=== PATIENT | male | born 1940 | race Caucasian/White ===

== ENCOUNTER 2023-06-08 18:24 | Emergency (ER) | payer OTHER, SELFPAY ==
[2023-06-08 18:35] VITALS: BP 134/74; PULSE 65; RESP 16; TEMP 36.6; O2SAT 95; BMI 26.6
--- NOTE | 2023-06-08 18:39 | ED.EAR ---
HPI - Ear Problem General Time Seen by Provider: 18:39 Date Seen: 06/08/23 Chief complaint: Ear/Nose/Throat Problem Stated complaint: Hearing aids stuck in ear Time Seen by Provider: 06/08/23 18:34 Source: patient and RN notes reviewed Mode of arrival: ambulatory Limitations: no limitations History of Present Illness HPI Narrative: Patient is an 83-year-old male coming in with retained hearing aid tips in his ear canals. He states he keeps losing them, they keep coming off the end of the hearing aid, believes they are retained in his ear canals. He is leaving for a trip to the [facility] tomorrow. [facility] when he gets [facility]. MD Complaint: foreign body Related Data Home Medications Medication Instructions Recorded Confirmed No Known Home Medications 06/08/23 06/08/23 Allergies Allergy/AdvReac Type Severity Reaction Status Date / Time No Known Drug Allergies Allergy Verified 06/08/23 18:38 Review of Systems Narrative: As per HPI. PFSH PFSH Social History Smoking Status: Never smoker Non-prescribed substance use: denies use Exam Const: Vital Signs, click to edit/add: Vital Signs - 24 hr 06/08/23 18:35 Temperature 97.9 F Pulse Rate [Pulse Oximeter] 65 Respiratory Rate 16 Blood Pressure [Ri ght Upper Arm] 134/74 Pulse Oximetry 95 Oxygen Delivery Me thod Room Air 83-year-old male is alert, interactive, no apparent stress. His external ears are normal. Can see visible black foreign bodies in both ear canals. The left ear canal had 1 retained rubber black and of his hearing aid, simply removed with an alligator. The right ear canal ended up having 3 retained rubber ends of his hearing aids, all removed with an alligator, ED residential real estate assistant did help with visualization and holding the light. Patient tolerated this well, no traumatic changes to either side from retrieval. Documenting provider has reviewed patient's vital signs: yes Course Vital Signs Vital signs: Initial Vital Signs Temperature 97.9 F 06/08/23 18:35 Temperature Source Temporal Artery Scan 06/08/23 18:35 Pulse Rate 65 06/08/23 18:35 Pulse Rhythm Regular 06/08/23 18:35 Respiratory Rate 16 06/08/23 18:35 Blood Pressure 134/74 06/08/23 18:35 Blood Pressure Mean 94 06/08/23 18:35 Blood Pressure Position Sitting 06/08/23 18:35 Pulse Oximetry 95 06/08/23 18:35 Oxygen Delivery Method Room Air 06/08/23 18:35 Vital Signs Temperature 97.9 F 06/08/23 18:35 Pulse Rate 65 06/08/23 18:35 Respiratory Rate 16 06/08/23 18:35 Blood Pressure 134/74 06/08/23 18:35 Pulse Oximetry 95 06/08/23 18:35 Oxygen Delivery Method Room Air 06/08/23 18:35 Temperature 97.9 F 06/08/23 18:35 Pulse Rate 65 06/08/23 18:35 Respiratory Rate 16 06/08/23 18:35 Blood Pressure 134/74 06/08/23 18:35 Pulse Oximetry 95 06/08/23 18:35 Oxygen Delivery Method Room Air 06/08/23 18:35 Discharge Plan Discharge Clinical Impression: Acute foreign body of right ear canal Qualifiers: Encounter type: initial encounter Qualified Code(s): T16.1XXA - Foreign body in right ear, initial encounter Acute foreign body of left ear canal Qualifiers: Encounter type: initial encounter Qualified Code(s): T16.2XXA - Foreign body in left ear, initial encounter Patient Disposition: Home, Self-Care Condition: Stable Instructions: Ear Foreign Body (ED) Additional Instructions: [facility]. If the ends do come off in your ear canals again, can seek medical evaluation to have these retrieved. Activity Level: Activity as Tolerated Prescriptions: No Action No Known Home Medications Stand Alone Forms: [facility] Info Instructions
== END 2023-06-08 18:58 | disposition home or self-care (01) ==
LOC: ED 18:57
PROVIDERS: Emergency Provider Family Medicine
DX: T16.2XXA Foreign body in left ear, initial encounter (principal); T16.1XXA Foreign body in right ear, initial encounter; W44.G1XA Audio device entering into or through a natural orifice, initial encounter
CPT/HCPCS: 99282; 99283

== ENCOUNTER 2024-02-28 12:24 | Emergency (ER) | payer OTHER, SELFPAY ==
[2024-02-28 12:31] VITALS: BP 152/84; PULSE 84; RESP 16; TEMP 36.5; O2SAT 97; BMI 24.3
--- OUTSIDE RECORDS SUMMARY | 2024-02-28 12:37 | XMS_ITS | Encounter Summary ---
Author Name [facility] [facility] [place] Address [address] [place] [address] Care Team Providers Care Shipwright Apprentice Name Role Phone MEHREEN ARCHIBALD Primary Care Provider Unavailabl e JUAN MIGUEL MONTERO Primary Care Provider Unavailabl e Insurance Providers: All historical and current Section Date Range: From patient's date of to the date document was created. This section includes the names of all active insurance providers for the patient. Insurance Provider Type of Coverage Plan Name Start of Policy Coverage End of Policy Coverage Group Number Member ID Insurance Provider's Telephone Number Policy Jaeger's Name Patient's Relationship to Policy Jaeger [employer] [facility] (WNR) MEDICARE ADVANTAGE [facility] ([facility]) Oct 31, 2019 [id number] [phone] Nelida DIAZ PATIENT [employer] [facility] (WNR) MEDICARE ADVANTAGE [facility] (WNR) Oct 31, 2019 [id number] Nelida DIAZ PATIENT [employer] (WNR) MEDICARE ADVANTAGE [facility] (WNR) Oct 31, 2019 [id number] [phone] Nelida DIAZ PATIENT [employer] (WNR) MEDICARE ADVANTAGE [facility] (R) Oct 31, 2019 [id number] [phone] Nelida DIAZ PATIENT [employer] (WNR) MEDICARE ADVANTAGE [facility] (WNR) Jun 01, 2017 [id number] Nelida DIAZ PATIENT [employer] (WNR) MEDICARE ADVANTAGE [facility] (WNR) Jun 01, 2017 [id number] Nelida DIAZ PATIENT [employer] M[employer] (WNR) MEDICARE ADVANTAGE MCR (WNR) Jun 01, 2015 [id number] Nelida DIAZ PATIENT [employer] [facility] (WNR) MEDICARE ADVANTAGE [facility] (WNR) Jun 01, 2015 [id number] Nelida DIAZ PATIENT Selected Encounter This section includes the [place] on [place] at [place] for [place]. Date/Time Encounter Type Encounter Description Reason Pro vider Source Dec 21, 2023 03:20 PM Outpatient Encounter TELEPHONE TRIAGE IHE Encounter Template Text not used by [place] Plan of Treatment: Future Appointments (+ 6 months) and Future Tests (+/- 45 days) The Plan of Treatment section includes future care activities for the patient from all [place] treatmentfacilities. This section includes future appointments and future orders which are active, pending or scheduled. Future Appointments This section includes appointments that were scheduled to occur 6 months from the date of the Encounter, up to a maximum of 20 appointments. The data comes from all [place] treatment facilities. Appointment Date/Time Appointment Type Appointme nt Facility Name Dec 30, 2023 02:30 PM AMBULATORY - NONE [facility] Social History: Smoking Status (Most current) and Tobacco Use (All prior to encounter date) This section includes the most current, and the historical, smoking and tobacco- related health factors from the [facility] facility where the Encounter took place. Current Smoking Status This section includes the most current smoking, or tobacco-related health factor, from the [facility] facility where the Encounter took place. Date/Time Current Smoking Status Comment Sondra ity Feb 05, 2023 11:00 AM VA-TOBACCO FORMER USER [facility] Tobacco Use History This section includes a history of the smoking, or tobacco-related health factors, that were collected on or before the date of the Encounter. The data comes from the [place] facility where the Encounter took place. Date/Time Smoking Status/Tobacco Use Comment F nika Feb 05, 2023 11:00 AM VA-TOBACCO QUIT 15 YRS OR MORE [facility] Jan 02, 2022 11:00 AM VA-TOBACCO FORMER USER [facility] Jan 02, 2022 11:00 AM VA-TOBACCO QUIT 15 YRS OR MORE [facility] Nov 08, 2020 02:00 PM VA-TOBACCO FORMER USER [facility] Nov 08, 2020 02:00 PM VA-TOBACCO QUIT 15 YRS OR MORE [facility] Sep 02, 2016 10:29 AM FORMER TOBACCO USER 7Y OR GREATE R [facility] Aug 06, 2015 10:33 AM FORMER TOBACCO USER 7Y OR GREATE R [facility] Jul 07, 2014 08:27 AM LIFETIME NON-TOBACCO USER [facility] Encounter Notes: All associated encounter notes This section contains the clinical notes associated to the Encounter. Date/Time Encounter Note(s) Provider Source Dec 21, 2023 03:46 PM ADDENDUM: LOCAL TITLE: Addendum STANDARD TITLE: ADDENDUM DATE OF NOTE: DEC 21, 2023@15:46:55 ENTRY DATE: DEC 21, 2023@15:46:56 AUTHOR: DEE DEE TALBERT EXP COSIGNER: URGENCY: STATUS: COMPLETED Forwarded for Audiology attention. /mariano/ DEE DEE TALBERT RN RN Pact Superintendent Nonselling Signed: 12/21/2023 15:47 Receipt Acknowledged By: 12/28/2023 15:41 /mariano/ HALINA LIN STAFF FUR TINTER --- Original Document --- 12/21/23 CCC: SCHEDULING ADMINISTRATION: Primary Care Call Center Primary Care Provider Call. Please contact at the following number: [phone] Other: needs audiology records from prior appointments, Please assist/advise. This note was created by a V23 [facility] Call Center BRENDA/JEAN. Please do not alert this health technical writer by adding as a signer for future communications. Alerts are not monitored by this user, please reach out to [facility] instead if indicated. /hans GHOSH [facility] Signed: 12/21/2023 15:22 Receipt Acknowledged By: 12/21/2023 15:46 /mariano/ DEE DEE TALBERT RN RN Pact Superintendent Nonselling DEE DEE TALBERT [facility] Dec 21, 2023 03:20 PM ADMINISTRATIVE NOT E: LOCAL TITLE: CCC: SCHEDULING ADMINISTRATION STANDARD TITLE: ADMINISTRATIVE NOTE DATE OF NOTE: DEC 21, 2023@15:20 ENTRY DATE: DEC 21, 2023@15:20:55 AUTHOR: BHAVANA GHOSH COSIGNER: URGENCY: STATUS: COMPLETED CCC: SCHEDULING ADMINISTRATION Has ADDENDA Primary Care Call Center Primary Care Provider Call. Please contact at the following number: [phone] Other: needs audiology records from prior appointments, Please assist/advise. This note was created by a 3 [facility] AMSA/JEAN. Please do not alert this health technical writer by adding as a signer for future communications. Alerts are not monitored by this user, please reach out to [facility] instead if indicated. /hans GHOSH [facility] Signed: 12/21/2023 15:22 Receipt Acknowledged By: 12/21/2023 15:46 /mariano/ DEE DEE TALBERT RN RN Pact Superintendent Nonselling 12/21/2023 ADDENDUM STATUS: COMPLETED Forwarded for Audiology attention. /hans TALBERT RN RN Pact Superintendent Nonselling Signed: 12/21/2023 15:47 Receipt Acknowledged By: 12/28/2023 15:41 /mariano/ HALINA LIN STAFF FUR TINTER 12/28/2023 ADDENDUM STATUS: COMPLETED Records were sent to outside provider via community care on 12/24/23. /HALINA Borjas STAFF FUR TINTER Signed: 12/28/2023 15:42 BHAVANA GHOSH [facility]
--- OUTSIDE RECORDS SUMMARY | 2024-02-28 12:37 | XMS_ITS | Continuity of Care Document ---
Author Name [facility] Organization [facility] Care Team Providers Care Gravity Prospecting Operator Name Role Phone [facility] Unavailable Unavailable Problems Combined list of problems from Department of Defense and Veterans Affairs facilities. It does not include entries that were removed or entered in error. 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 13 Condition Jul 07, 2014 Entered By: BEN VIVEROS Comment: s/p dualchamber pacer [facility] Chronic peptic ulcer without hemorrhage, without perforation AND without obstruction Active 06/01/18 86 Condition Jul 07, 2014 Entered By: BEN VIVEROS Comment: s/p partial gastrectomy, has dumping syndrome [facility] Atrial Flutter (SCT [id number]) Active Condition [facility] Cardiac pacemaker in situ Active Condition [facility] Cardiomyopathy Active Condition [facility] Elevated PSA Active Condition [facility] Gilbert's syndrome Active Condition [facility] Hearing Loss (SCT [id number]) Active Condition [facility] History of peptic ulcer Active Condition Dec 04, 2017 Entered By: MEHREEN ARCHIBALD Comment: partial gastectomy and dumping syndrome [facility] Syncope and Collapse (SCT [id number]) Active Condition Dec 04, 2017 Entered By: MEHREEN ARCHIBALD Comment: due to complete heart block [facility] Typical atrial flutter Active Condition [facility] Diagnosis: ICD-10-CM H90.A21 Snsrnrl hear loss, uni, r ear, with rstrcd hear cntra side Active Diagnosis [facility] Diagnosis: ICD-10-CM J32.8 Other chronic sinusitis Active Diagnosis [facility] Diagnosis: ICD-10-CM I45.5 Other specified heart block Active Diagnosis [facility] Diagnosis: ICD-10-CM Z13.6 Encounter for screening for cardiovascular disorders Active Diagnosis [facility] Diagnosis: ICD-10-CM Z95.0 Presence of cardiac pacemaker Active Diagnosis [facility] Diagnosis: ICD-10-CM 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 [facility] Diagnosis: ICD-10-CM H90.3 Sensorineural hearing loss, bilateral Active Diagnosis [facility] Diagnosis: ICD-10-CM I48.3 Typical atrial flutter Active Diagnosis [facility] Diagnosis: ICD-10-CM Z00.00 Encntr for general adult medical exam w/o abnormal findings Active Diagnosis [facility] Medications Combined list of outpatient medications from Department of Defense and Veterans Affairs facilities.Medications provided include 1) outpatient medications from the last 15 months, and 2) patient-reported medications. Medication Details Route Status Patient Instructions Prescription Expires Prescription Number Last Dispense Date Ordering Provider Order Date Order Qty Source ASPIRIN 81MG TAB,CHEWABL E ASPIRIN 81MG TAB,CHEW ABLE Active: On Hold CHEW ONE TABLET BY MOUTH EVERY DAY TO PREVENT BLOOD CLOTS TO PREVENT BLOOD CLOTS Jul 24, 2023 30 Jul 24, 2024 [id number] YASIR RECINOS [facility] ORAL HOLD 07/24/2024 [id number] Angeli RECINOS 2023 30 [facility] GINKGO BILOBA CAP/TAB GINKGO BILOBA CAP/TAB Non-VA TAKE ONE TABLET BY MOUTH EVERY DAY Sep 23, 2023 Non-VA Document ed by: MAIA BLANDON Document ed at: [facility] ORAL ACTIVE Angeli BLANDON 2023 [facility] NON VA MED NOT LISTED NON VA MED NOT LISTED Non-VA USE HYDRO-ZY ME MOUTH Nov 21, 2020 Non-VA Document ed by: AMARILYS PALAFOX Document ed at: [facility] ACT[facility] AMARILYS PALAFOX 2020 [facility] SAW PALMETTO CAP/TAB SAW PALMETTO CAP/TAB Non-VA TAKE Jan 02, 2022 Non-VA Document ed by: MAGGIE BUCIO Document ed at: [facility] ACTIVE TRENTON BUCIO 2021 [facility] SODIUM CHLORIDE 0.65% SOLN,NASAL SPRAY SODIUM CHLORIDE 0.65% SOLN,GIGI AL SPRAY SPRAY 2 SPRAYS IN EACH NOSTRIL TWICE A DAY FOR NASAL DRYNESS FOR NASAL DRYNESS October 17, 2023 45 Nov 16, 2023 [id number] October 17, 2023 Trent PONCE [facility] NASAL 11/16/2023 [id number] MONICA PONCE 2023 45 [facility] Immunizations Combined list of available immunizations from the Department of Defense and Veterans Affairs facilities. Immunization Series Date Given Administered By Site Reaction Lot Number CVX Code Drug Digital Strategist Status Comments Source TD (ADULT), 2 LF TETANUS TOXOID, PRESERVATIVE FREE, ADSORBED 1996 09 complet ed [facility] Results Combined list of recent chemistry, hematology and other laboratory results from Department of Defense and Veterans Affairs, ranging from 15 months to all on record, depending upon the facility. Order Name Results Value Reference Range Date Interpretation Specimen Comments Source LIPID PANEL,NO N-FASTIN G CHOLESTERO L [MASS/VOLU ME] IN SERUM OR PLASMA 166 mg/dL <199 - 199 08/06 Specimen Type: PLASMA No comment entered. Ordering Provider: YOAV VILLEDA Report Released Date/Time: Aug 07, 2023 09:32 AM Reporting Lab: [facility] [address] Performing Lab: [facility] [address] [place] [facility] LIPID PANEL,NO N-FASTIN G CHOLESTERO L IN HDL [MASS/VOLU ME] IN SERUM OR PLASMA 66 mg/dL 40 08/06 Specimen Type: PLASMA No comment entered. Ordering Provider: YOAV VILLEDA ERT E Report Released Date/Time: Aug 07, 2023 09:32 AM Reporting Lab: [facility] [address] Performing Lab: [facility] [address] [facility] LIPID PANEL,NO N-FASTIN G CHOLESTERO L IN LDL [MASS/VOLU ME] IN SERUM OR PLASMA BY CALCULANEHEMIAHO N 75 mg/dL <99 - 99 08/06 Specimen Type: PLASMA No comment entered. Ordering Provider: YOAV VILLEDA ERT Rachael Report Released Date/Time: Aug 07, 2023 09:32 AM Reporting Lab: [facility] [address] Performing Lab: [facility] [address] [place] [facility] LIPID PANEL,NO N-FASTIN G CHOLESTERO L IN VLDL [MASS/VOLU ME] IN SERUM OR PLASMA BY CALCULATIO N 25 mg/dL <29 - 29 08/06 Specimen Type: PLASMA No comment entered. Ordering Provider: YOAV VILLEDA Report Released Date/Time: Aug 07, 2023 09:32 AM Reporting Lab: [facility] [address] Performing Lab: [facility] [address] [place] [facility] LIPID PANEL,NO N-FASTIN G CHOLESTERO L NON HDL [MASS/VOLU ME] IN SERUM OR PLASMA 100 mg/dL <129 - 129 08/06 Specimen Type: PLASMA No comment entered. Ordering Provider: YOAV VILLEDA ERT Rachael Report Released Date/Time: Aug 07, 2023 09:32 AM Reporting Lab: [facility] [address] Performing Lab: [facility] [address] [place] [facility] LIPID PANEL,NO N-FASTIN G TRIGLYCERI DE [MASS/VOLU ME] IN SERUM OR PLASMA 124 mg/dL <149 - 149 08/06 Specimen Type: PLASMA No comment entered. Ordering Provider: YOAV VILLEDA Report Released Date/Time: Aug 07, 2023 09:32 AM Reporting Lab: [facility] [address] Performing Lab: [facility] [address] [place] [facility] EXTRA GOLD GEL TUBE EXTRA GOLD GEL TUBE RECEIVED 07/24 Specimen Type: SERUM No comment entered. Ordering Provider: MARGARET RECINOS Report Released Date/Time: Jul 24, 2023 11:22 AM Reporting Lab: [facility] [address] Performing Lab: [facility] [address] [facility] [facility] POC CREATINI NE CREATININE [MASS/VOLU ME] IN BLOOD 1.1 mg/dL 0.6 - 1.3 07/24 Specimen Type: BLOOD No comment entered. Ordering Provider: MARGARET RECINOS Report Released Date/Time: Jul 24, 2023 11:28 AM Reporting Lab: [facility] [address] Performing Lab: [facility] [address] [place] [facility] PROTHROM BIN TIME/INR INR IN PLATELET POOR PLASMA BY COAGULATIO N ASSAY 1.0 0.8 - 1.1 07/24 Specimen Type: PLASMA No comment entered. Ordering Provider: MARGARET RECINOS Report Released Date/Time: Jul 24, 2023 10:52 AM Reporting Lab: [facility] [address] Performing Lab: [facility] [address] [place] [facility] PROTHROM BIN TIME/INR PROTHROMBI N TIME (PT) 12.2 s 9.4 - 12.5 07/24 Specimen Type: PLASMA No comment entered. Ordering Provider: MARGARET RECINOS Report Released Date/Time: Jul 24, 2023 10:52 AM Reporting Lab: [facility] [address] Performing Lab: [facility] [address] [place] [facility] ACT PART THROMBO TIME APTT IN PLATELET POOR PLASMA BY COAGULATIO N ASSAY 34.3 s 25.1 - 36.5 07/24 Specimen Type: PLASMA No comment entered. Ordering Provider: MARGARET RECINOS Report Released Date/Time: Jul 24, 2023 10:52 AM Reporting Lab: [facility] [address] Performing Lab: [facility] [address] [place] [facility] CBC & DIFF LEUKOCYTES [#/VOLUME] IN BLOOD BY AUTOMATED COUNT 8.70 10*3/uL 4.0 - 11.0 07/24 Specimen Type: BLOOD Comment: Automated Differentia l Performed Ordering Provider: MARGARET RECINOS Report Released Date/Time: Jul 24, 2023 10:52 AM Reporting Lab: [facility] [address] Performing Lab: [facility] [address] [place] [facility] CBC & DIFF ERYTHROCYT ES [#/VOLUME] IN BLOOD BY AUTOMATED COUNT 4.85 10*6/uL 4.6 - 6.2 07/24 Specimen Type: BLOOD Comment: Automated Differentia l Performed Ordering Provider: MARGARET RECINOS Report Released Date/Time: Jul 24, 2023 10:52 AM Reporting Lab: [facility] [address] Performing Lab: [facility] [address] [place] [facility] CBC & DIFF HEMOGLOBIN [MASS/VOLU ME] IN BLOOD 15.1 g/dL 13.5 - 17.9 07/24 Specimen Type: BLOOD Comment: Automated Differentia l Performed Ordering Provider: MARGARET RECINOS Report Released Date/Time: Jul 24, 2023 10:52 AM Reporting Lab: [facility] [address] Performing Lab: [facility] [address] [place] [facility] CBC & DIFF HEMATOCRIT [VOLUME FRACTION] OF BLOOD BY AUTOMATED COUNT 45.7 41 - 54 07/24 Specimen Type: BLOOD Comment: Automated Differentia l Performed Ordering Provider: MARGARET RECINOS Report Released Date/Time: Jul 24, 2023 10:52 AM Reporting Lab: [facility] [address] Performing Lab: [facility] [address] [place] [facility] CBC & DIFF MCV [ENTITIC VOLUME] BY AUTOMATED COUNT 94.2 fL 80 - 100 07/24 Specimen Type: BLOOD Comment: Automated Differentia l Performed Ordering Provider: MARGARET RECINOS Report Released Date/Time: Jul 24, 2023 10:52 AM Reporting Lab: [facility] [address] Performing Lab: [facility] [address] [place] [facility] CBC & DIFF MCH [ENTITIC MASS] BY AUTOMATED COUNT 31.1 pg 27 - 33 07/24 Specimen Type: BLOOD Comment: Automated Differentia l Performed Ordering Provider: MARGARET RECINOS Report Released Date/Time: Jul 24, 2023 10:52 AM Reporting Lab: [facility] [address] Performing Lab: [facility] [address] [place] [facility] CBC & DIFF MCHC [MASS/VOLU ME] BY AUTOMATED COUNT 33.0 g/dL 32.0 - 37.5 07/24 Specimen Type: BLOOD Comment: Automated Differentia l Performed Ordering Provider: MARGARET RECINOS Report Released Date/Time: Jul 24, 2023 10:52 AM Reporting Lab: [facility] [address] Performing Lab: [facility] [address] [place] [facility] CBC & DIFF PLATELETS [#/VOLUME] IN BLOOD BY AUTOMATED COUNT 288 10*3/uL 150 - 400 07/24 Specimen Type: BLOOD Comment: Automated Differentia l Performed Ordering Provider: MARGARET RECINOS Report Released Date/Time: Jul 24, 2023 10:52 AM Reporting Lab: [facility] [address] Performing Lab: [facility] [address] [place] [facility] CBC & DIFF PLATELET MEAN VOLUME [ENTITIC VOLUME] IN BLOOD BY AUTOMATED COUNT 9.8 fL 7.4 - 10.4 07/24 Specimen Type: BLOOD Comment: Automated Differentia l Performed Ordering Provider: MARGARET RECINOS Report Released Date/Time: Jul 24, 2023 10:52 AM Reporting Lab: [facility] [address] Performing Lab: [facility] [address] [place] [facility] CBC & DIFF NEUTROPHIL S/100 LEUKOCYTES IN BLOOD BY MANUAL COUNT 66.1 40.0 - 80.0 07/24 Specimen Type: BLOOD Comment: Automated Differentia l Performed Ordering Provider: MARGARET RECINOS Report Released Date/Time: Jul 24, 2023 10:52 AM Reporting Lab: [facility] [address] Performing Lab: [facility] [address] [place] [facility] CBC & DIFF LYMPHOCYTE S/100 LEUKOCYTES IN BLOOD BY MANUAL COUNT 17.5 15.0 - 45.0 07/24 Specimen Type: BLOOD Comment: Automated Differentia l Performed Ordering Provider: MARGARET RECINOS Report Released Date/Time: Jul 24, 2023 10:52 AM Reporting Lab: [facility] [address] Performing Lab: [facility] [address] [place] [facility] CBC & DIFF MONOCYTES/ 100 LEUKOCYTES IN BLOOD BY AUTOMATED COUNT 12.3 2.0 - 12.0 07/24 H Specimen Type: BLOOD Comment: Automated Differentia l Performed Ordering Provider: MARGARET RECINOS Report Released Date/Time: Jul 24, 2023 10:52 AM Reporting Lab: [facility] [address] Performing Lab: [facility] [address] [place] [facility] CBC & DIFF EOSINOPHIL S/100 LEUKOCYTES IN BLOOD BY AUTOMATED COUNT 2.8 0.0 - 6.0 07/24 Specimen Type: BLOOD Comment: Automated Differentia l Performed Ordering Provider: MARGARET RECINOS Report Released Date/Time: Jul 24, 2023 10:52 AM Reporting Lab: [facility] [address] Performing Lab: [facility] [address] [place] [facility] CBC & DIFF BASOPHILS/ 100 LEUKOCYTES IN BLOOD BY MANUAL COUNT 0.8 0.0 - 2.0 07/24 Specimen Type: BLOOD Comment: Automated Differentia l Performed Ordering Provider: MARGARET RECINOS Report Released Date/Time: Jul 24, 2023 10:52 AM Reporting Lab: [facility] [address] Performing Lab: [facility] [address] [place] [facility] CBC & DIFF ERYTHROCYT E DISTRIBUTI ON WIDTH [RATIO] BY AUTOMATED COUNT 13.8 11.5 - 14.5 07/24 Specimen Type: BLOOD Comment: Automated Differentia l Performed Ordering Provider: MARGARET RECINOS Report Released Date/Time: Jul 24, 2023 10:52 AM Reporting Lab: [facility] [address] Performing Lab: [facility] [address] [place] [facility] CBC & DIFF LYMPHOCYTE S [#/VOLUME] IN BLOOD BY AUTOMATED COUNT 1.52 10*3/uL 1.0 - 4.0 07/24 Specimen Type: BLOOD Comment: Automated Differentia l Performed Ordering Provider: MARGARET RECINOS Report Released Date/Time: Jul 24, 2023 10:52 AM Reporting Lab: [facility] [address] Performing Lab: [facility] [address] [place] [facility] CBC & DIFF MONOCYTES [#/VOLUME] IN BLOOD BY AUTOMATED COUNT 1.07 10*3/uL 0.1 - 1.0 07/24 H Specimen Type: BLOOD Comment: Automated Differentia l Performed Ordering Provider: MARGARET RECINOS Report Released Date/Time: Jul 24, 2023 10:52 AM Reporting Lab: [facility] [address] Performing Lab: [facility] [address] [place] [facility] CBC & DIFF NEUTROPHIL S [#/VOLUME] IN BLOOD BY AUTOMATED COUNT 5.76 10*3/uL 2.0 - 7.7 07/24 Specimen Type: BLOOD Comment: Automated Differentia l Performed Ordering Provider: MARGARET RECINOS Report Released Date/Time: Jul 24, 2023 10:52 AM Reporting Lab: [facility] [address] Performing Lab: [facility] [address] [place] [facility] CBC & DIFF EOSINOPHIL S [#/VOLUME] IN BLOOD BY AUTOMATED COUNT 0.24 10*3/uL 0 - 0.5 07/24 Specimen Type: BLOOD Comment: Automated Differentia l Performed Ordering Provider: MARGARET RECINOS Report Released Date/Time: Jul 24, 2023 10:52 AM Reporting Lab: [facility] [address] Performing Lab: [facility] [address] [place] [facility] CBC & DIFF BASOPHILS [#/VOLUME] IN BLOOD BY AUTOMATED COUNT 0.07 10*3/uL 0 - 0.2 07/24 Specimen Type: BLOOD Comment: Automated Differentia l Performed Ordering Provider: MARGARET RECINOS Report Released Date/Time: Jul 24, 2023 10:52 AM Reporting Lab: [facility] [address] Performing Lab: [facility] [address] [place] [facility] CBC & DIFF IG(META,MY TAMIKA,PRO) 0.5 07/24 Specimen Type: BLOOD Comment: Automated Differentia l Performed Ordering Provider: MARGARET RECINOS Report Released Date/Time: Jul 24, 2023 10:52 AM Reporting Lab: [facility] [address] Performing Lab: [facility] [address] [place] [facility] CBC & DIFF IMMATURE GRANULOCYT ES [PRESENCE] IN BLOOD BY AUTOMATED COUNT 0.04 10*3/uL 0 - 0.1 07/24 Specimen Type: BLOOD Comment: Automated Differentia l Performed Ordering Provider: MARGARET RECINOS Report Released Date/Time: Jul 24, 2023 10:52 AM Reporting Lab: [facility] [address] Performing Lab: [facility] [address] [place] [facility] COMPREHE NSIVE METABOLI C PANEL+MG CREATININE [MASS/VOLU ME] IN SERUM OR PLASMA 1.1 mg/dL 0.7 - 1.2 07/24 Specimen Type: PLASMA No comment entered. Ordering Provider: MARGARET RECINOS Report Released Date/Time: Jul 24, 2023 10:52 AM Reporting Lab: [facility] [address] Performing Lab: [facility] [address] [place] [facility] COMPREHE NSIVE METABOLI C PANEL+MG UREA NITROGEN [MASS/VOLU ME] IN SERUM OR PLASMA 14 mg/dL 8 - 26 07/24 Specimen Type: PLASMA No comment entered. Ordering Provider: MARGARET RECINOS Report Released Date/Time: Jul 24, 2023 10:52 AM Reporting Lab: [facility] [address] Performing Lab: [facility] [address] [place] [facility] COMPREHE NSIVE METABOLI C PANEL+MG GLUCOSE [MASS/VOLU ME] IN SERUM OR PLASMA 94 mg/dL 70 - 100 07/24 Specimen Type: PLASMA No comment entered. Ordering Provider: MARGARET RECINOS Report Released Date/Time: Jul 24, 2023 10:52 AM Reporting Lab: [facility] [address] Performing Lab: [facility] [address] [place] [facility] COMPREHE NSIVE METABOLI C PANEL+MG SODIUM [MOLES/VOL UME] IN SERUM OR PLASMA 139 mmol/L 136 - 145 07/24 Specimen Type: PLASMA No comment entered. Ordering Provider: MARGARET RECINOS Report Released Date/Time: Jul 24, 2023 10:52 AM Reporting Lab: [facility] [address] Performing Lab: [facility] [address] [place] [facility] COMPREHE NSIVE METABOLI C PANEL+MG POTASSIUM [MOLES/VOL UME] IN SERUM OR PLASMA 4.5 mmol/L 3.5 - 5.1 07/24 Specimen Type: PLASMA No comment entered. Ordering Provider: MARGARET RECINOS Report Released Date/Time: Jul 24, 2023 10:52 AM Reporting Lab: [facility] [address] Performing Lab: [facility] [address] [place] [facility] COMPREHE NSIVE METABOLI C PANEL+MG CHLORIDE [MOLES/VOL UME] IN SERUM OR PLASMA 106 mmol/L 98 - 107 07/24 Specimen Type: PLASMA No comment entered. Ordering Provider: MARGARET RECINOS Report Released Date/Time: Jul 24, 2023 10:52 AM Reporting Lab: [facility] [address] Performing Lab: [facility] [address] [place] [facility] COMPREHE NSIVE METABOLI C PANEL+MG CARBON DIOXIDE, TOTAL [MOLES/VOL UME] IN SERUM OR PLASMA 27 mmol/L 22 - 29 07/24 Specimen Type: PLASMA No comment entered. Ordering Provider: MARGARET RECINOS Report Released Date/Time: Jul 24, 2023 10:52 AM Reporting Lab: [facility] [address] Performing Lab: [facility] [address] [place] [facility] COMPREHE NSIVE METABOLI C PANEL+MG CALCIUM [MASS/VOLU ME] IN SERUM OR PLASMA 9.5 mg/dL 8.4 - 10.2 07/24 Specimen Type: PLASMA No comment entered. Ordering Provider: MARGARET RECINOS Report Released Date/Time: Jul 24, 2023 10:52 AM Reporting Lab: [facility] [address] Performing Lab: [facility] [address] [place] [facility] COMPREHE NSIVE METABOLI C PANEL+MG PROTEIN [MASS/VOLU ME] IN SERUM OR PLASMA 7.3 g/dL 6.0 - 8.3 07/24 Specimen Type: PLASMA No comment entered. Ordering Provider: MARGARET RECINOS Report Released Date/Time: Jul 24, 2023 10:52 AM Reporting Lab: [facility] [address] Performing Lab: [facility] [address] [place] [facility] COMPREHE NSIVE METABOLI C PANEL+MG ALBUMIN [MASS/VOLU ME] IN SERUM OR PLASMA 3.9 g/dL 3.5 - 5.2 07/24 Specimen Type: PLASMA No comment entered. Ordering Provider: MARGARET RECINOS Report Released Date/Time: Jul 24, 2023 10:52 AM Reporting Lab: [facility] [address] Performing Lab: [facility] [address] [place] [facility] COMPREHE NSIVE METABOLI C PANEL+MG BILIRUBIN. TOTAL [MASS/VOLU ME] IN SERUM OR PLASMA 1.7 mg/dL 0.2 - 1.2 07/24 H Specimen Type: PLASMA No comment entered. Ordering Provider: MARGARET RECINOS Report Released Date/Time: Jul 24, 2023 10:52 AM Reporting Lab: [facility] [address] Performing Lab: [facility] [address] [place] [facility] COMPREHE NSIVE METABOLI C PANEL+MG MAGNESIUM [MASS/VOLU ME] IN SERUM OR PLASMA 2.1 mg/dL 1.6 - 2.6 07/24 Specimen Type: PLASMA No comment entered. Ordering Provider: MARGARET RECINOS Report Released Date/Time: Jul 24, 2023 10:52 AM Reporting Lab: [facility] [address] Performing Lab: [facility] [address] [place] [facility] COMPREHE NSIVE METABOLI C PANEL+MG ANION GAP IN SERUM OR PLASMA 6 mmol/L 5 - 15 07/24 Specimen Type: PLASMA No comment entered. Ordering Provider: MARGARET RECINOS Report Released Date/Time: Jul 24, 2023 10:52 AM Reporting Lab: [facility] [address] Performing Lab: [facility] [address] [place] [facility] COMPREHE NSIVE METABOLI C PANEL+MG ALKALINE PHOSPHATAS E [ENZYMATIC ACTIVITY/V OLUME] IN SERUM OR PLASMA 118 U/L 40 - 150 07/24 Specimen Type: PLASMA No comment entered. Ordering Provider: MARGARET RECINOS Report Released Date/Time: Jul 24, 2023 10:52 AM Reporting Lab: [facility] [address] Performing Lab: [facility] [address] [place] [facility] COMPREHE NSIVE METABOLI C PANEL+MG ALANINE AMINOTRANS FERASE [ENZYMATIC ACTIVITY/V OLUME] IN SERUM OR PLASMA 19 U/L <55 - 55 07/24 Specimen Type: PLASMA No comment entered. Ordering Provider: MARGARET RECINOS Report Released Date/Time: Jul 24, 2023 10:52 AM Reporting Lab: [facility] [id number] Performing Lab: [facility] [id number] [place] [facility] COMPREHE NSIVE METABOLI C PANEL+MG ASPARTATE AMINOTRANS FERASE [ENZYMATIC ACTIVITY/V OLUME] IN SERUM OR PLASMA 23 U/L <34 - 34 07/24 Specimen Type: PLASMA No comment entered. Ordering Provider: MARGARET RECINOS Report Released Date/Time: Jul 24, 2023 10:52 AM Reporting Lab: [facility] [address] Performing Lab: [facility] [address] [place] [facility] COMPREHE NSIVE METABOLI C PANEL+MG GLOMERULAR FILTRATION RATE/1.73 SQ M.PREDICTE D [VOLUME RATE/AREA] IN SERUM, PLASMA OR BLOOD BY CREATININE -BASED FORMULA (CKD-EPI 2020) 67 60 07/24 Specimen Type: PLASMA No comment entered. Ordering Provider: MARGARET RECINOS Report Released Date/Time: Jul 24, 2023 10:52 AM Reporting Lab: [facility] [address] Performing Lab: [facility] [address] [place] [facility] COMPREHE NSIVE METABOLI C PANEL+MG BILIRUBIN. DIRECT [MASS/VOLU ME] IN SERUM OR PLASMA 0.5 mg/dL <0.5 - 0.5 07/24 Specimen Type: PLASMA No comment entered. Ordering Provider: MARGARET RECINOS Report Released Date/Time: Jul 24, 2023 10:52 AM Reporting Lab: [facility] [address] Performing Lab: [facility] [address] [place] [facility] CBC LEUKOCYTES [#/VOLUME] IN BLOOD BY AUTOMATED COUNT 8.96 10*3/uL 4.0 - 11.0 02/05 Specimen Type: BLOOD No comment entered. Ordering Provider: MAGALYS BUCIO Report Released Date/Time: Jan 02, 2022 11:30 AM Reporting Lab: [facility] [address] Performing Lab: [facility] [address] [place] [facility] CBC ERYTHROCYT ES [#/VOLUME] IN BLOOD BY AUTOMATED COUNT 4.71 10*6/uL 4.6 - 6.2 02/05 Specimen Type: BLOOD No comment entered. Ordering Provider: MAGALYS BUCIO Report Released Date/Time: Jan 02, 2022 11:30 AM Reporting Lab: [facility] [address] Performing Lab: [facility] [address] [place] [facility] CBC HEMOGLOBIN [MASS/VOLU ME] IN BLOOD 15.0 g/dL 13.5 - 17.9 02/05 Specimen Type: BLOOD No comment entered. Ordering Provider: MAGALYS BUCIO Report Released Date/Time: Jan 02, 2022 11:30 AM Reporting Lab: [facility] [address] Performing Lab: [facility] [address] [place] [facility] CBC HEMATOCRIT [VOLUME FRACTION] OF BLOOD BY AUTOMATED COUNT 45.0 41 - 54 02/05 Specimen Type: BLOOD No comment entered. Ordering Provider: MAGALYS BUCIO Report Released Date/Time: Jan 02, 2022 11:30 AM Reporting Lab: [facility] [address] Performing Lab: [facility] [address] [place] [facility] CBC MCV [ENTITIC VOLUME] BY AUTOMATED COUNT 95.5 fL 80 - 100 02/05 Specimen Type: BLOOD No comment entered. Ordering Provider: MAGALYS BUCIO Report Released Date/Time: Jan 02, 2022 11:30 AM Reporting Lab: [facility] [address] Performing Lab: [facility] [address] [place] [facility] CBC MCH [ENTITIC MASS] BY AUTOMATED COUNT 31.8 pg 27 - 33 02/05 Specimen Type: BLOOD No comment entered. Ordering Provider: MAGALYS BUCIO Report Released Date/Time: Jan 02, 2022 11:30 AM Reporting Lab: [facility] [address] Performing Lab: [facility] [address] [place] [facility] CBC MCHC [MASS/VOLU ME] BY AUTOMATED COUNT 33.3 g/dL 32.0 - 37.5 02/05 Specimen Type: BLOOD No comment entered. Ordering Provider: MAGALYS BUCIO Report Released Date/Time: Jan 02, 2022 11:30 AM Reporting Lab: [facility] [address] Performing Lab: [facility] [address] [place] [facility] CBC PLATELETS [#/VOLUME] IN BLOOD BY AUTOMATED COUNT 271 10*3/uL 150 - 400 02/05 Specimen Type: BLOOD No comment entered. Ordering Provider: MAGALYS BUCIO Report Released Date/Time: Jan 02, 2022 11:30 AM Reporting Lab: [facility] [address] Performing Lab: [facility] [address] [place] [facility] CBC PLATELET MEAN VOLUME [ENTITIC VOLUME] IN BLOOD BY AUTOMATED COUNT 9.6 fL 7.4 - 10.4 02/05 Specimen Type: BLOOD No comment entered. Ordering Provider: MAGALYS BUCIO Report Released Date/Time: Jan 02, 2022 11:30 AM Reporting Lab: [facility] [address] Performing Lab: [facility] [address] [place] [facility] CBC ERYTHROCYT E DISTRIBUTI ON WIDTH [RATIO] BY AUTOMATED COUNT 13.5 11.5 - 14.5 02/05 Specimen Type: BLOOD No comment entered. Ordering Provider: MAGALYS BUCIO Report Released Date/Time: Jan 02, 2022 11:30 AM Reporting Lab: [facility] [address] Performing Lab: [facility] [address] [place] [facility] BASIC METABOLI C PANEL+MG CREATININE [MASS/VOLU ME] IN SERUM OR PLASMA 1.0 mg/dL 0.7 - 1.2 02/05 Specimen Type: PLASMA No comment entered. Ordering Provider: MAGALYS BUCIO Report Released Date/Time: Jan 02, 2022 11:30 AM Reporting Lab: [facility] [address] Performing Lab: [facility] [address] [place] [facility] BASIC METABOLI C PANEL+MG UREA NITROGEN [MASS/VOLU ME] IN SERUM OR PLASMA 16 mg/dL 8 - 26 02/05 Specimen Type: PLASMA No comment entered. Ordering Provider: MAGALYS BUCIO Report Released Date/Time: Jan 02, 2022 11:30 AM Reporting Lab: [facility] [address] Performing Lab: [facility] [address] [place] [facility] BASIC METABOLI C PANEL+MG GLUCOSE [MASS/VOLU ME] IN SERUM OR PLASMA 78 mg/dL 70 - 100 02/05 Specimen Type: PLASMA No comment entered. Ordering Provider: MAGALYS BUCIO Report Released Date/Time: Jan 02, 2022 11:30 AM Reporting Lab: [facility] [address] Performing Lab: [facility] [address] [place] [facility] BASIC METABOLI C PANEL+MG SODIUM [MOLES/VOL UME] IN SERUM OR PLASMA 140 mmol/L 136 - 145 02/05 Specimen Type: PLASMA No comment entered. Ordering Provider: MAGALYS BUCIO Report Released Date/Time: Jan 02, 2022 11:30 AM Reporting Lab: [facility] [address] Performing Lab: [facility] [address] [place] [facility] BASIC METABOLI C PANEL+MG POTASSIUM [MOLES/VOL UME] IN SERUM OR PLASMA 4.4 mmol/L 3.5 - 5.1 02/05 Specimen Type: PLASMA No comment entered. Ordering Provider: MAGALYS BUCIO Report Released Date/Time: Jan 02, 2022 11:30 AM Reporting Lab: [facility] [address] Performing Lab: [facility] [address] [place] [facility] BASIC METABOLI C PANEL+MG CHLORIDE [MOLES/VOL UME] IN SERUM OR PLASMA 105 mmol/L 98 - 107 02/05 Specimen Type: PLASMA No comment entered. Ordering Provider: MAGALYS BUCIO Report Released Date/Time: Jan 02, 2022 11:30 AM Reporting Lab: [facility] [address] Performing Lab: [facility] [address] [place] [facility] BASIC METABOLI C PANEL+MG CARBON DIOXIDE, TOTAL [MOLES/VOL UME] IN SERUM OR PLASMA 26 mmol/L 22 - 29 02/05 Specimen Type: PLASMA No comment entered. Ordering Provider: MAGALYS BUCIO Report Released Date/Time: Jan 02, 2022 11:30 AM Reporting Lab: [facility] [address] Performing Lab: [facility] [address] [place] [facility] BASIC METABOLI C PANEL+MG CALCIUM [MASS/VOLU ME] IN SERUM OR PLASMA 9.4 mg/dL 8.4 - 10.2 02/05 Specimen Type: PLASMA No comment entered. Ordering Provider: MAGALYS BUCIO Report Released Date/Time: Jan 02, 2022 11:30 AM Reporting Lab: [facility] [address] Performing Lab: [facility] [address] [place] [facility] BASIC METABOLI C PANEL+MG MAGNESIUM [MASS/VOLU ME] IN SERUM OR PLASMA 2.0 mg/dL 1.6 - 2.6 02/05 Specimen Type: PLASMA No comment entered. Ordering Provider: MAGALYS BUCIO Report Released Date/Time: Jan 02, 2022 11:30 AM Reporting Lab: [facility] [address] Performing Lab: [facility] [address] [place] [facility] BASIC METABOLI C PANEL+MG ANION GAP IN SERUM OR PLASMA 9 mmol/L 5 - 15 02/05 Specimen Type: PLASMA No comment entered. Ordering Provider: MAGALYS BUCIO Report Released Date/Time: Jan 02, 2022 11:30 AM Reporting Lab: [facility] [address] Performing Lab: [facility] [address] [place] [facility] BASIC METABOLI C PANEL+MG GLOMERULAR FILTRATION RATE/1.73 SQ M.PREDICTE D [VOLUME RATE/AREA] IN SERUM, PLASMA OR BLOOD BY CREATININE -BASED FORMULA (CKD-EPI 2020) 75 60 02/05 Specimen Type: PLASMA No comment entered. Ordering Provider: MAGALYS BUCIO Report Released Date/Time: Jan 02, 2022 11:30 AM Reporting Lab: [facility] [address] Performing Lab: [facility] [address] [facility] Vital Signs Combined list of inpatient and outpatient Vital Signs from Department of Defense and Veterans Affairs, ranging from 12 months to all on record, depending upon the facility. Vital Sign Value Date Comments Source SYSTOLIC BLOOD PRESSURE 118 10/17/2023 13:01:15 [facility] DIASTOLIC BLOOD PRESSURE 55 10/17/2023 13:01:15 [facility] PULSE OXIMETRY 95 10/17/2023 13:01:15 [place] [facility] TEMPERATURE 98.5 10/17/2023 13:01:15 [place] [facility] PULSE 66 10/17/2023 13:01:15 [facility] [place] [facility] RESPIRATION 16 10/17/2023 13:01:15 [place] [facility] SYSTOLIC BLOOD PRESSURE 160 09/23/2023 09:17:00 [facility] DIASTOLIC BLOOD PRESSURE 89 09/23/2023 09:17:00 [facility] PULSE OXIMETRY 69 09/23/2023 09:17:00 [facility] WEIGHT 183 09/23/2023 09:17:00 [facility] [place] [facility] BMI 29kg/m2 09/23/2023 09:17:00 [facility] [place] [facility] PAIN 0 09/23/2023 09:17:00 [facility] [place] [facility] HEIGHT 67.25 09/23/2023 09:17:00 [facility] [place] [facility] TEMPERATURE 97.5 09/23/2023 09:17:00 [place] [facility] PULSE 71 09/23/2023 09:17:00 [facility] [place] [facility] SYSTOLIC BLOOD PRESSURE 160 08/07/2023 08:58:05 [facility] DIASTOLIC BLOOD PRESSURE 89 08/07/2023 08:58:05 [facility] PULSE OXIMETRY 96 08/07/2023 08:58:05 [facility] PAIN 0 08/07/2023 08:58:05 [facility] [place] [facility] TEMPERATURE 97.8 08/07/2023 08:58:05 [place] [facility] PULSE 62 08/07/2023 08:58:05 [facility] [place] [facility] RESPIRATION 16 08/07/2023 08:58:05 [place] [facility] SYSTOLIC BLOOD PRESSURE 127 07/24/2023 10:32:00 [facility] DIASTOLIC BLOOD PRESSURE 76 07/24/2023 10:32:00 [facility] PULSE OXIMETRY 96 07/24/2023 10:32:00 [place] [facility] PAIN 0 07/24/2023 10:32:00 [facility] TEMPER[facility] 98.1 07/24/2023 10:32:00 [facility] PUL[facility] 63 07/24/2023 10:32:00 [facility] RES[facility]ATION 16 07/24/2023 10:32:00 [facility] Encounters Combined list of: 1) Encounters from Department of [facility] Affairs facilities going back up to thelast 18 months. 2) Encounters from the Department of [facility] facilities going back up to 280 months. Location Location Details Encounter Type Encounter Number Reason For Visit Attending Provider ADM Date DC Date Status Disposition Source [facility] Outpatient Encounter [id number] 09/10 [facility] Outpatient Encounter [id number] 09/10 [facility] REM INTERROG EVL PM/LDLS PM [id number] Diagnos is: ICD-10- CM Z95.0 Presenc e of cardiac pacemak er
SA KRISTIN NDRA L 09/11 [facility] PM DEVICE PROGR EVAL DUAL [id number] Diagnos is: ICD-10- CM Z95.0 Presenc e of cardiac pacemak er
DORENE UNGER A 11/27 [facility] Outpatient Encounter [id number] 12/12 [facility] OFFICE O/P EST LOW 20-29 MIN [id number] Diagnos is: ICD-10- CM Z00.00 Encntr for general adult medical exam w/o abnorma l finding s
KEVYN WETZEL A 02/05 [facility] Outpatient Encounter [id number] 03/13 [facility] [place] [facility] Outpatient Encounter [id number] 06/19 [place] [facility] Outpatient Encounter [id number] 06/22 [facility] [place] [facility] REM INTERROG EVL PM/LDLS PM [id number] Diagnos is: ICD-10- CM I48.3 Typical atrial flutter
AIME RAZA T 06/22 [facility] [place] [facility] HEARING AID REPAIR/MOD IFYING [id number] Diagnos is: ICD-10- CM H90.3 Sensori neural hearing loss, bilater al
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<b r/> ALESSANDRA RECINOS T 07/24 [facility] Outpatient Encounter [id number] 07/29 [facility] OFF/OP CNSLTJ NEW/EST MOD 40 [id number] Diagnos is: ICD-10- CM 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
DANNY SMART NZI 09/22 [facility] ELECTROCAR DIOGRAM REPORT [id number] Diagnos is: ICD-10- CM Z13.6 Encount er for screeni ng for cardiov ascular disorde rs
Karin ZABALA O 09/22 [facility] INTERROG EVL PM/[place] [id number] Diagnos is: ICD-10- CM I45.5 Other specifi ed heart block<b r/> AB BARBER BIE L 09/22 [facility] OFF/OP CONSLTJ NEW/EST HI 55 [id number] Diagnos is: ICD-10- CM I45.5 Other specifi ed heart block<b r/> BARBERAB BIE L 09/22 [facility] Outpatient Encounter [id number] 10/01 [facility] IS [facility] EMR DPT VST MAYX REQ PHY/QHP [id number] Diagnos is: ICD-10- CM J32.8 Other chronic sinusit is
LELAND PONCE IN J 10/16 [facility] Outpatient Encounter [id number] CYNTHIA MAGANA 10/16 [facility] Outpatient Encounter [id number] 10/16 [facility] HEARING AID REPAIR/MOD IFYING [id number] Diagnos is: ICD-10- CM H90.A21 Snsrnrl hear loss, uni, r ear, with rstrcd hear cntra side
Angeli KENDALL 11/01 [place] [facility] [place] [facility] Outpatient Encounter [id number] SHAN ORDONEZ 11/16 [place] [facility] [place] [facility] Outpatient Encounter [id number] 12/01 [place] [facility] [place] [facility] SELF-MGMT EDUC & TRAIN 1 [place] [id number] Diagnos is: ICD-10- CM H90.A21 Snsrnrl hear loss, uni, r ear, with rstrcd hear cntra side
SAMY CARSON 12/06 [facility] [place] [facility] Outpatient Encounter [id number] 12/14 [place] [facility] [place] [facility] Outpatient Encounter [id number] 12/20 [place] [facility] [place] [facility] Outpatient Encounter [id number] 01/11 [place] [facility] [place] [facility] Outpatient Encounter [id number] 01/19 [place] [facility] Outpatient Encounter [id number] 01/19 [facility] Social History Combined list of available smoking, tobacco, and other social history from Department of Defense and Veterans Affairs facilities. Social History Type Response Date Comment Sour e Tobacco smoking status NHIS VA-TOBACCO FORMER USER 02/05/2023 [facility] History of tobacco use HI-TOBACCO QUIT 15 YRS OR MORE 02/05/2023 [facility] History of tobacco use HI-TOBACCO QUIT 15 YRS OR MORE 01/02/2022 [facility] History of tobacco use VA-TOBACCO FORMER USER 11/08/2020 [facility] History of tobacco use VA-TOBACCO QUIT 15 YRS OR MORE 11/18/2018 [facility] History of tobacco use QUIT TOBACCO >7 YEARS AGO 10/27/2017 [facility] History of tobacco use NON-TOBACCO USER 07/21/2017 [facility] History of tobacco use FORMER TOBACCO USER 7Y OR GREATER 09/02/2016 [facility] History of tobacco use FORMER TOBACCO USER 7Y OR GREATER 08/06/2015 [facility] History of tobacco use LIFETIME NON-TOBACCO USER 07/07/2014 [facility]
--- OUTSIDE RECORDS SUMMARY | 2024-02-28 12:37 | XMS_ITS | Encounter Summary ---
Author Name [facility] [place] [facility] [place] Organization [facility] [place] [place] Address [address] [place] [address] Care Team Providers Care Silk Hanger Name Role Phone MEHREEN ARCHBIALD Primary Care Provider Unavailabl e JUAN MIGUEL [...] Name Patient's Relationship to Policy Jaeger HUMANA [facility] ([facility]) MEDICARE ADVANTAGE [facility] ([facility]) Oct 31, 2019 [id number] [phone] Nelida DIAZ PATIENT HUMANA MCR (WNR) MEDICARE ADVANTAGE [facility] ([facility]) Oct 31, 2019 [id number] Nelida DIAZ PATIENT HUMANA MCR (WNR) MEDICARE ADVANTAGE [facility] ([facility]) Oct 31, 2019 [id number] Nelida DIAZ PATIENT HUMANA MCR (WNR) MEDICARE ADVANTAGE [facility] ([facility]) Oct 31, 2019 [id number] Nelida DIAZ PATIENT HUMANA MCR (WNR) MEDICARE ADVANTAGE MCR (WNR) Jun 01, 2017 [id number] Nelida DIAZ HUMANA [facility] (WNR) MEDICARE ADVANTAGE MCR (WNR) Jun 01, 2017 [id number] [phone] Nelida DIAZ PATIENT HUMANA MCR (WNR) MEDICARE ADVANTAGE MCR (WNR) Jun 01, 2015 [id number] Nelida DIAZ PATIENT HUMANA MCR (WNR) MEDICARE ADVANTAGE MCR (WNR) Jun 01, 2015 [id number] Nelida DIAZ PATIENT Selected Encounter This section includes the information on record at [place] for the Encounter. Date/Time Encounter Type Encounter Description Reason Provider Source Dec 07, 2023 02:30 PM SELF-MGMT EDUC & TRAIN 1 PT AUDIOLOGY ICD-10-CM H90.A21 Snsrnrl hear loss, uni, r ear, with rstrcd hear cntra side SAMY CARSON [facility] Encounter Template Text not used by [place] Assessments - Encounter Diagnoses This section includes the primary and secondary diagnoses documented for the Encounter. Date/Time Primary/Secondary Diagnosis Diagnosis Name Provider Source Dec 07, 2023 03:42 PM PRIMARY Snsrnrl hear loss, uni, r ear, with rstrcd hear cntra side SAMY CARSON [facility] Dec 07, 2023 03:42 PM SECONDARY Encounter for fitting and adjustment of hearing aid SAMY CARSON [facility] Dec 07, 2023 03:42 PM SECONDARY Mix cndct/snrl hear loss,uni,l ear w rstrcd hear cntra side SAMY CARSON [facility] Dec 07, 2023 03:42 PM SECONDARY Tinnitus, bilateral [facility] Plan of Treatment: Future Appointments (+ 6 months) and Future Tests (+/- 45 days) The Plan of Treatment section includes future care activities for the patient from all [place] treatmentfacilities. This section includes future appointments and future orders which are active, pending or scheduled. Future Appointments This section includes appointments that were scheduled to occur 6 months from the date of the Encounter, up to a maximum of 20 appointments. The data comes from all [place] treatment facilities. Appointment Date/Time Appointment Type Appointme nt Facility Name Dec 30, 2023 02:30 PM AMBULATORY - NONE [facility] Social History: Smoking Status (Most current) and Tobacco Use (All prior to encounter date) This section includes the most current, and the historical, smoking and tobacco- related health factors from the [facility] where the Encounter took place. Current Smoking Status This section includes the most current smoking, or tobacco-related health factor, from the [facility] where the Encounter took place. Date/Time Current Smoking Status Comment Facil ity Feb 05, 2023 11:00 AM VA-TOBACCO FORMER USER [facility] Tobacco Use History This section includes a history of the smoking, or tobacco-related health factors, that were collected on or before the date of the Encounter. The data comes from the [facility] where the Encounter took place. Date/Time Smoking Status/Tobacco Use Comment F acility Feb 05, 2023 11:00 AM VA-TOBACCO QUIT 15 YRS OR MORE [facility] Jan 02, 2022 11:00 AM VA-TOBACCO FORMER USER [facility] Jan 02, 2022 11:00 AM VA-TOBACCO QUIT 15 YRS OR MORE [facility] Nov 08, 2020 02:00 PM VA-TOBACCO FORMER USER [facility] Nov 08, 2020 02:00 PM [place]-TOBACCO QUIT 15 YRS OR MORE [facility] Sep 02, 2016 10:29 AM FORMER TOBACCO USER 7Y OR GREATE R [facility] Aug 06, 2015 10:33 AM FORMER TOBACCO USER 7Y OR GREATE R [facility] Jul 07, 2014 08:27 AM LIFETIME NON-TOBACCO USER [facility] Encounter Notes: All associated encounter notes This section contains the clinical notes associated to the Encounter. 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 OTOSCOPY: Both Ears: Free of excessive cerumen. Normal anatomy bilaterally HISTORY: Sean is an experienced hearing aid wearer. Recommended keep his old hearing aids as a backup/spare as needed. HEARING AIDS (Right/Left) fitting date: December 07, 2023 Right aid: GN RESOUND NEXIA 60 MICRO PRIYA-R R [id number] Left aid: GN RESOUND NEXIA 60 MICRO PRIYA-R L [id number] Dome: Small Open (RIGHT), Small Closed (LEFT) Wax Filters: GN Wax filter *Connected to iPhone and Smart 3D cesar ACTION: Domes are a good physical fit. He did not like medium. He feels small (5mm) is more comfortable. Feedback test was completed bilaterally. Hearing aids were programmed to prescriptive targets, which were derived from the Doniphan's hearing loss. CONFORMITY EVAUATION (VERIFICATION OF HEARING AID FUNCTION): Real Ear Aided Response (REAR) was NOT measured using the Audioscan system. The clinic is currently out of red probe tubes. 's subjective impressions were considered while adjusting the hearing aids. Doniphan reported good sound quality and equal balance between ears after adjustments were made. Doniphan reported a comfortable fit. demonstrated understanding of the new aids and was able to insert the hearing aids appropriately, as well as manipulate the volume control and senior software qa analyst. Indicator tones were demonstrated for . Volume toggle enabled- Synchronized; Right = Louder Left = Softer PROGRAMS (available via cesar) All-Around Hear in Noise Outdoors All-Around + TS[employer] 's iphone was paired to the hearing aids. A practice phone call was completed to verify functionality. Education and counseling was completed regarding streaming capabilities. The SixthEye 3D application was reviewed in detail (volume control, program changes, settings, etc.) and demonstrated in the office. was counseled using a standard curriculum regarding: -Full-time hearing aid use and acclimating to amplification -Realistic expectations for hearing aid use -Appropriate communication strategies -Proper use of the senior software qa analyst -Location and operation of all controls -Proper care and maintenance -Protecting hearing in high noise levels -KELY and Call Center contact information and services, including the trial period. Prognosis for success is good, given the 's response to the hearing aids. Hearing aids were issued and supplies were mailed. was provided with a copy of [place] issuance form [id number]. PLAN: will contact the call center as needed for follow up. He is an experienced hearing aid user. He said he might want a TV device. I encouraged him to first try the new aids and if he needs a TV device he can contact the call center later and they will alert me. /mariano/ Bobby Lynch Clinical Fashion Adviser Signed: 12/07/2023 15:43 SAMY CARSON [facility]
--- OUTSIDE RECORDS SUMMARY | 2024-02-28 12:37 | XMS_ITS | Clinical Summary ---
Author Organization [facility] Address [place], [place] [address] Care Team Providers Care Neck Band Maker Name Role Phone Chandana Fleming MD Primary Care Provider Allergies No known active allergies Medications Medication Sig Dispensed Refills Start Date End Date Status Hydrocortisone Simon, Rectal, (PROCTOCORT) 30 mg SuppIndications:Ex ternal hemorrhoids with other complication Insert 1 Suppository rectally 2 times daily. 20 Suppository 3 07/01/2010 Active Active Problems Problem Noted Date Diagnosed Date Elevated prostate specific antigen (PSA) 06/11 6. 2 07/18/2010 Unspecified vitamin D deficiency 07/18/2010 Routine health maintenance 07/01/2010 PUD , surgery to remove 1/2 of stomach 1 External hemorrhoids with other complication Encounters Date Type Department Care Team Description 12/30/2023 2:30 PM CDT Office Visit [address] [address] Alison Munoz PA Consult (Mixed conductive and sensorineural hearing loss, bilateral ) 12/30/2023 Travel 12/21/2023 [address]phone [facility] [address] [place] [address] Alison Munoz PA Questions (Call back about audiology report. ) 12/18/2023 Transcribe Orders [facility] [address] [place] [address] Shankar Zaragoza MD from Last 3 Months Immunizations Name Administration Dates Next Due Td (Age >=7 Years) 06/14/1996 Family History Medical History Relation Name Comments Heart Disease Father CHF Other Father alcohoic Diabetes Mother Heart Disease Mother CHF Hypertension Mother Relation Name Status Comments Father Mother Social History Tobacco Use Types Packs/Day Years Used Date Smoking Tobacco: Never Smokeless Tobacco: Never Alcohol Use Standard Drinks/Week Comments Not Asked 0 (1 standard drink = 0.6 oz pur e alcohol) Social Connections Answer Date Recorded Frequency of Communication with Friends and Fami ly Not on file 12/30/2023 Sex and Gender Information Value Date Recorded Sex Assigned at Not on file Gender Identity Not on file Sexual Orientation Not on file Obstetrics History Last Filed Vital Signs Vital Sign Reading Time Taken Comments Blood Pressure 106/64 07/18/2010 9:30 AM HEEL FORMER Pulse - - Temperature 36.8 ??C (98.2 ??F) 07/18/2010 9:30 AM CS T Respiratory Rate - - Oxygen Saturation - - Inhaled Oxygen Concentration - - Weight 82.6 kg (182 lb) 07/18/2010 9:30 AM HEEL FORMER Height 172.7 cm (5' 8) 07/01/2010 9:18 AM HEEL FORMER Body Mass Index 27.67 07/01/2010 9:18 AM HEEL FORMER Plan of Treatment Health Maintenance Due Date Last Done Comments Tdap 01/31/1951 Depression screening for age 12+ 1952 BMI (ht and wt on same day) for age 18+ 01/31/1958 Zoster (shingles) series for age 50+ (1 of 2) 01/31/19 90 Pneumococcal series for age 65+ (1 of 1 - PCV) 005 Tetanus booster 06/14/2006 06/14/1996 RSV vaccine for adults or pr egnancy (1 - 1-dose 75+ series) 01/31/2015 COVID-19 vaccine series (2023- season) Influenza for age 65+ 01/31/2024 Care Teams Neck Band Maker Relationship Specialty [place] [address] [place] [address] PCP - General Family Practice 07/01/10
--- OUTSIDE RECORDS SUMMARY | 2024-02-28 12:37 | XMS_ITS | Encounter Summary ---
Author Name [facility] [place] Organization [place] Address [address] [place] [address] Care Team Providers Care Harness Racing Handicapper Name Role Phone MEHREEN ARCHIBALD Primary Care [...] Name Patient's Relationship to Policy Jaeger HUMANA [facility] (R) MEDICARE ADVANTAGE [facility] ([facility]) Oct 31, 2019 [id number] Nelida DIAZ PATIENT HUMANA MCR (WNR) MEDICARE ADVANTAGE [facility] (WNR) Oct 31, 2019 [id number] [phone] Nelida DIAZ PATIENT HUMANA MCR (WNR) MEDICARE ADVANTAGE [facility] (R) Oct 31, 2019 [id number] Nelida DIAZ PATIENT HUMANA MCR (WNR) MEDICARE ADVANTAGE [facility] (R) Oct 31, 2019 [id number] [phone] Nelida DIAZ PATIENT HUMANA MCR (WNR) MEDICARE ADVANTAGE [facility] (WNR) Jun 01, 2017 [id number] Nelida DIAZ PATIENT HUMANA MCR (WNR) MEDICARE ADVANTAGE [facility] (WNR) Jun 01, 2017 [id number] Nelida DIAZ PATIENT HUMANA MCR (WNR) MEDICARE ADVANTAGE [facility] (WNR) Jun 01, 2015 [id number] Nelida DIAZ PATIENT HUMANA MCR (WNR) MEDICARE ADVANTAGE [facility] (WNR) Jun 01, 2015 [id number] 64 Nelida DIAZ PATIENT Selected Encounter This section includes the information on record at [place] for the Encounter. Date/Time Encounter Type Encounter Description Reason Pro vider Source Dec 15, 2023 02:34 PM Outpatient Encounter COMMUNITY CARE CONSULT IHE Encounter Template Text not used by [place] Plan of Treatment: Future Appointments (+ 6 months) and Future Tests (+/- 45 days) The Plan of Treatment section includes future care activities for the patient from all [place] treatmentfacilities. This section includes future appointments and future orders which are active, pending or scheduled. Future Appointments This section includes appointments that were scheduled to occur 6 months from the date of the Encounter, up to a maximum of 20 appointments. The data comes from all [place] treatment facilities. Appointment Date/Time Appointment Type Appointme nt Facility Name Dec 30, 2023 02:30 PM AMBULATORY - NONE [facility] Social History: Smoking Status (Most current) and Tobacco Use (All prior to encounter date) This section includes the most current, and the historical, smoking and tobacco- related health factors from the [place] facility where the Encounter took place. Current Smoking Status This section includes the most current smoking, or tobacco-related health factor, from the [place] facility where the Encounter took place. Date/Time Current Smoking Status Comment Facil ity Feb 05, 2023 11:00 AM [place]-TOBACCO QUIT [address] [facility] Tobacco Use History This section includes a history of the smoking, or tobacco-related health factors, that were collected on or before the date of the Encounter. The data comes from the [place] facility where the Encounter took place. Date/Time Smoking Status/Tobacco Use Comment F acility Feb 05, 2023 11:00 AM VA-TOBACCO QUIT [address] [facility] Jan 02, 2022 11:00 AM VA-TOBACCO FORMER USER [facility] Jan 02, 2022 11:00 AM VA-TOBACCO QUIT [address] [facility] Nov 08, 2020 02:00 PM VA-TOBACCO FORMER USER [facility] Nov 08, 2020 02:00 PM VA-TOBACCO QUIT [address] [facility] Sep 02, 2016 10:29 AM FORMER TOBACCO USER 7Y OR GREATE R [facility] Aug 06, 2015 10:33 AM FORMER TOBACCO USER 7Y OR GREATE R [facility] Jul 07, 2014 08:27 AM LIFETIME NON-TOBACCO USER [facility] Encounter Notes: All associated encounter notes This section contains the clinical notes associated to the Encounter. Date/Time Encounter Note(s) Provider Source Dec 15, 2023 02:34 PM NONVA NOTE: LOCAL TITLE: COMMUNITY CARE PRE-AUTH LETTER (AUTOPRINT) STANDARD TITLE: NONVA NOTE DATE OF NOTE: DEC 15, 2023@14:34 ENTRY DATE: DEC 15, 2023@14:34:42 AUTHOR: PAULY YAÑEZ EXP COSIGNER: URGENCY: STATUS: COMPLETED Nov DIANDRA DIAZ [address] [place], [place] [address] Dear DIANDRA DIAZ, Your VA provider has referred you to a provider within the community for care. Your medical care for ENT has been authorized with the community care provider listed below. DO NOT REPORT TO THE [facility] Provider info: Care has been approved for the following vendor: Office name, address, and phone number: [facility] [address] [place], [place], [address] [phone] Please contact the identified provider to schedule your community appointment. If you need assistance with this appointment, please call your facility community care office [facility] Office of Community Care at [phone] during the hours of 8:30AM - 3:00PM. Please follow up with your local [facility] community care office once this is scheduled. This step is needed to ensure your referral duration is maximized and the [place] has accurate referral information for billing purposes. Authorization Number: [id number] Referral Issue Date: Jose Manuel 18,2024 Expiration Date: May (subject to change based on first appointment) If you are unable to schedule this appointment or the appointment is no longer needed, please contact the community provider above for notification/rescheduling and then call the [facility] Office of Community Care at [phone] during the hours of 8:30AM - 3:00PM. If you need additional care/services not mentioned above or your authorization has and additional care is needed, please contact your primary care provider for a new referral. To review all care/service(s) approved under your referral, please go to the following link: [email or web address]) Co-Payments: If you are required to pay a VA co-payment, you will be billed by the VA for each authorized visit that you attend. However, you are NOT REQUIRED to make co-payments to a community provider. Thank you for the opportunity to serve you. Sincerely, [place] Community [facility] ([facility]) /mariano/ PAULY YAÑEZ ADVANCED PHOTO JOURNALIST Signed: 12/15/2023 14:[address] [facility]
--- OUTSIDE RECORDS SUMMARY | 2024-02-28 12:37 | XMS_ITS | Encounter Summary ---
Author Name [facility] [place] Organization [place] Address [address] [place] [address] Care Team Providers Care Cutter Gas Name Role Phone MEHREEN ARCHIBLAD Primary Care Provider Unavailabl e JUAN MIGUEL [...] Name Patient's Relationship to Policy Jaeger HUMANA [facility] (WNR) MEDICARE ADVANTAGE [facility] ([facility]) Oct 31, 2019 [id number] [phone] Nelida DIAZ PATIENT HUMANA MCR (WNR) MEDICARE ADVANTAGE [facility] (WNR) Oct 31, 2019 [id number] [phone] Nelida DIAZ PATIENT HUMANA MCR (WNR) MEDICARE ADVANTAGE [facility] (R) Oct 31, 2019 [id number] Nelida DIAZ PATIENT HUMANA MCR (WNR) MEDICARE ADVANTAGE [facility] ([facility]) Oct 31, 2019 [id number] Nelida DIAZ PATIENT HUMANA MCR (WNR) MEDICARE ADVANTAGE MCR (WNR) Jun 01, 2017 [id number] [phone] Nelida DIAZ PATIENT HUMANA [facility] (WNR) MEDICARE ADVANTAGE MCR (WNR) Jun 01, 2017 [id number] Nelida DIAZ PATIENT HUMANA [facility] (WNR) MEDICARE ADVANTAGE M[facility] (WNR) Jun 01, 2015 [id number] Nelida DIAZ PATIENT HUMANA [facility] (WNR) MEDICARE ADVANTAGE [facility] (WNR) Jun 01, 2015 [id number] Nelida DIAZ PATIENT Selected Encounter This section includes the information on record at [place] for the Encounter. Date/Time Encounter Type Encounter Description Reason Pro vider Source October 17, 2023 01:32 PM Outpatient Encounter CLINICAL PHARMACY IHE Encounter Template Text not used by [place] Plan of Treatment: Future Appointments (+ 6 months) and Future Tests (+/- 45 days) The Plan of Treatment section includes future care activities for the [facility] [place] [facility] This section includes future appointments and future orders which are active, pending or scheduled. Future Appointments This section includes appointments that were scheduled to occur 6 months from the date of the Encounter, up to a maximum of 20 appointments. The data comes from all [place] treatment facilities. Appointment Date/Time Appointment Type Appointme nt Facility Name Nov 02, 2023 10:45 AM AMBULATORY - SURGERY [facility] Dec 07, 2023 02:30 PM AMBULATORY - SURGERY [facility] Dec 30, 2023 02:30 PM AMBULATORY - NONE [facility] Vital Signs: All taken on the encounter date This section contains inpatient and outpatient Vital Signs collected on the date of the Encounter. Date/Time Temperature Pulse Blood Pressure Respiratory Rate SP02 Pain Height Weight Body Mass Index Source October 17, 2023 01:02 PM 0 [facility] October 17, 2023 01:01 PM 98.5 66 118/55 16 95 [facility] Social History: Smoking Status (Most current) and Tobacco Use (All prior to encounter date) This section includes the most current, and the historical, smoking and tobacco- related health factors from the [place] facility where the Encounter took place. Current Smoking Status This section includes the most current smoking, or tobacco-related health factor, from the [facility] where the Encounter took place. Date/Time Current Smoking Status Comment Facil ity Feb 05, 2023 11:00 AM [place]-TOBACCO QUIT 15 YRS OR MORE [facility] Tobacco Use History This section includes a history of the smoking, or tobacco-related health factors, that were collected on or before the date of the Encounter. The data comes from the [facility] where the Encounter took place. Date/Time Smoking Status/Tobacco Use Comment F acility Feb 05, 2023 11:00 AM VA-TOBACCO QUIT 15 YRS OR MORE [facility] Jan 02, 2022 11:00 AM VA-TOBACCO FORMER USER [facility] Jan 02, 2022 11:00 AM VA-TOBACCO QUIT 15 YRS OR MORE [facility] Nov 08, 2020 02:00 PM VA-TOBACCO FORMER USER [facility] Nov 08, 2020 02:00 PM VA-TOBACCO QUIT 15 YRS OR MORE [facility] Sep 02, 2016 10:29 AM FORMER TOBACCO USER 7Y OR GREATE R [facility] Aug 06, 2015 10:33 AM FORMER TOBACCO USER 7Y OR GREATE R [facility] Jul 07, 2014 08:27 AM LIFETIME NON-TOBACCO USER [facility] Encounter Notes: All associated encounter notes This section contains the clinical notes associated to the Encounter. Date/Time Encounter Note(s) Provider Source October 17, 2023 01:32 PM EDUCATION NOTE: LOCAL TITLE: EDUCATION MEDICATION INSTRUCTION STANDARD TITLE: EDUCATION NOTE DATE OF NOTE: OCTOBER 17, 2023@13:32 ENTRY DATE: OCTOBER 17, 2023@13:33 AUTHOR: CELSO LANTIGUA EXP COSIGNER: URGENCY: STATUS: COMPLETED MEDICATION EDUCATION PARTICIPANTS: Patient TEACHING STRATEGY: Face to Face READINESS TO LEARN: No barriers identified LEARNING NEEDS/OBJECTIVES Participant(s) indicates readiness to learn and has been instructed on indications, side effects, and directions for use. Participant(s) will receive medication information sheets for medications filled. Education included discussion of the following new medication(s): SODIUM CHLORIDE NASAL SPRAY PATIENT/FAMILY RESPONSE (OUTCOME): Verbalizes critical information about the topic FOLLOW-UP RECOMMENDED: None needed /mariano/ CELSO LANTIGUA PharmD, BCPS PHARMACIST Signed: 10/17/2023 13:33 CELSO LANTIGUA [facility]
--- OUTSIDE RECORDS SUMMARY | 2024-02-28 12:37 | XMS_ITS | Encounter Summary ---
Author Organization [facility] [place] [address] [place] [address] Care Team Providers Care Paper Slitter Name Role Phone Unavailable Primary Care Provider Unavailabl e Prior Encounters Date Type Department Care Team Description 06/20/2019 Converted CPS Chart Documents [facility] [address] [place] [address] <No scans attached> 06/20/2019 Converted 13x Documents [facility] [address] [place] [address] <No scans attached> Plan of Treatment Not on file Procedures Procedure Name Priority Date/Time Associated Diagnosis Comments Max ADJUST MAXILLOFACIAL PROSTHETIC APPLIANCE, BY REPORT Routine 09/13/2019 12:00 AM MST INTERIM PARTIAL DENTURE (MAXILLARY) Routine 08/25/2019 12:00 AM MST TREATMENT OF COMPLICATIONS (POST-SURGICAL) - UNUSUAL CIRCUMSTANCES, BY REPORT Routine 08/25/2019 12:00 AM MST LIMITED ORAL EVALUATION - PROBLEM FOCUSED Routine 08/11/2019 12:00 AM MST 5 EXTRACTION, ERUPTED TOOTH REQUIRING REMOVAL OF BONE AND/OR SECTIONING OF TOOTH Routine 08/11/2019 12:00 AM MST 5 LIMITED ORAL EVALUATION - PROBLEM FOCUSED Routine 07/26/2019 1:00 AM MST ADDITIONAL X-RAY Routine 07/26/2019 1:00 AM MST SINGLE X-RAY Routine 07/26/2019 1:00 AM MST 5 TREATMENT OF ROOT CANAL OBSTRUCTION; NON-SURGICAL ACCESS Routine 07/14/2019 1:00 AM MST LIMITED ORAL EVALUATION - PROBLEM FOCUSED Routine 07/14/2019 1:00 AM MST 5 ENDODONTIC THERAPY, PREMOLAR TOOTH (EXCLUDING FINAL ANGLICAN) Routine 07/14/2019 1:00 AM MST 5 PULP VITALITY TESTS Routine 07/14/2019 1:00 AM MST 5 O COMPOSITE FILLING Routine 07/14/2019 1:00 AM MST 5 LIMITED ORAL EVALUATION - PROBLEM FOCUSED Routine 06/30/2019 1:00 AM MST CANCELLED APPOINTMENT Routine 06/29/2019 1:00 AM MST 5 INTRA-ORAL INCISION Routine 06/28/2019 1:00 AM MST 5 PALLIATIVE TREATMENT OF DENTAL PAIN Routine 06/28/2019 1:00 AM MST 5 LIMITED ORAL EVALUATION - PROBLEM FOCUSED Routine 06/28/2019 1:00 AM MST ADDITIONAL X-RAY Routine 06/28/2019 1:00 AM MST ADDITIONAL X-RAY Routine 06/28/2019 1:00 AM MST SINGLE X-RAY Routine 06/28/2019 1:00 AM MST SINGLE X-RAY Routine 05/31/2019 1:00 AM MST OFFICE VISIT FOR OBSERVATION (DURING REGULARLY SCHEDULED HOURS) - NO OTHER SERVICES PERFORMED Routine 05/23/2019 1:00 AM MST 14 CORE BUILDUP, INCLUDING ANY PINS WHEN REQUIRED Routine 05/10/2019 1:00 AM MST 14 RETAINER CROWN - ZIRCONIA IN OFFICE - POST Routine 05/10/2019 1:00 AM MST 12 RETAINER CROWN - ZIRCONIA IN OFFICE - POST Routine 05/10/2019 1:00 AM MST 13 PONTIC - ZIRCONIA IN OFFICE - POST Routine 05/10/2019 1:00 AM MST 23 F COMPOSITE FILLING Routine 9 1:00 AM MST 10 F COMPOSITE FILLING Routine 9 1:00 AM MST 7 F COMPOSITE FILLING Routine 05/09/2019 1:00 AM MST 6 F COMPOSITE FILLING Routine 05/09/2019 1:00 AM MST ORAL HYGIENE INSTRUCTIONS Routine 2018 1:00 AM MST PROPHYLAXIS - ADULT Routine 05/05/2019 1 :00 AM MST 14 PONTIC - PFG - POST Routine 9 1:00 AM MST 13 PONTIC - PFG - POST Routine 9 1:00 AM MST 7 PONTIC - PFG - POST Routine 04/26/2019 1:00 AM MST 6 PONTIC - PFG - POST Routine 04/26/2019 1:00 AM MST 4 PONTIC - PFG - POST Routine 04/26/2019 1:00 AM MST 3 PONTIC - PFG - POST Routine 04/26/2019 1:00 AM MST 13 PONTIC - PFG - POST Routine 9 1:00 AM MST 8 PONTIC - PFG - POST Routine 04/26/2019 1:00 AM MST 9 RETAINER CROWN - PFG - POST Routine 04/26/2019 1:00 AM MST 7 RETAINER CROWN - PFG - POST Routine 04/26/2019 1:00 AM MST 6 RETAINER CROWN - PFG - POST Routine 04/26/2019 1:00 AM MST 14 RETAINER CROWN - PFG - POST Routine 04/26/2019 1:00 AM MST 12 RETAINER CROWN - PFG - POST Routine 04/26/2019 1:00 AM MST 15 RETAINER CROWN - PFG - POST Routine 04/26/2019 1:00 AM MST 5 RETAINER CROWN - PFG - POST Routine 04/26/2019 1:00 AM MST 2 CROWN - FULL CAST HIGH SHULTZ METAL Routine 04/26/2019 1:00 AM MST COMPREHENSIVE ORAL EVALUATION - NEW OR ESTABLISHED PATIENT Routine 04/26/2019 1:00 AM MST INTRAORAL - COMPREHENSIVE SERIES OF RADIOGRAPHIC IMAGES Routine 04/26/2019 1:00 AM MST INTRAORAL PHOTO Routine 04/26/2019 1:00 AM MST INTRAORAL PHOTO Routine 04/26/2019 1:00 AM MST INTRAORAL PHOTO Routine 04/26/2019 1:00 AM MST INTRAORAL PHOTO Routine 04/26/2019 1:00 AM MST 10 MIFL COMPOSITE FILLING Routine 2018 1:00 AM MST 20 DO COMPOSITE FILLING Routine 04/26/20 19 1:00 AM MST 30 O COMPOSITE FILLING Routine 9 1:00 AM MST 19 O COMPOSITE FILLING Routine 9 1:00 AM MST 22 F COMPOSITE FILLING Routine 9 1:00 AM MST 6 RECEMENT CROWN Routine 08/31/2018 12:0 0 AM MST 6 LIMITED ORAL EVALUATION - PROBLEM FOCUSED Routine 08/31/2018 12:00 AM MST PANORAMIC RADIOGRAPHIC IMAGE Routine 08/31/2018 12:00 AM MST ADDITIONAL X-RAY Routine 08/31/2018 12:0 0 AM MST SINGLE X-RAY Routine 08/31/2018 12:00 AM MST DENTAL PLAN ENROLL 1 Routine 08/31/2018 12:00 AM MST INTRAORAL PHOTO Routine 08/31/2018 12:00 AM MST Visit Diagnoses Not on file
--- OUTSIDE RECORDS SUMMARY | 2024-02-28 12:37 | XMS_ITS ---
Author Organization [facility] Address [address] [place] [address] Care Team Providers Care Non Destructive Testing Engineer Name Role Phone Unavailable Unavailable Unavailable Surgery Details Not on file Complications Check Surgery Details section. Procedure Estimated Blood Loss Check Surgery Details section. Procedure Findings Check Surgery Details section. Procedure Specimens Taken Check Surgery Details section.
--- OUTSIDE RECORDS SUMMARY | 2024-02-28 12:37 | XMS_ITS | Encounter Summary ---
Author Name [facility] [place] [facility] [place] [facility] [place] Address [address] [place] [address] Care Team Providers Care Greens Laborer Name Role Phone MEHREEN ARCHIBALD Primary Care [...] Name Patient's Relationship to Policy Jaeger HUMANA [facility] (R) MEDICARE ADVANTAGE [facility] ([facility]) Oct 31, 2019 [id number] [phone] Nelida DIAZ PATIENT HUMANA MCR (WNR) MEDICARE ADVANTAGE MCR ([facility]) Oct 31, 2019 [id number] Nelida DIAZ PATIENT HUMANA MCR (WNR) MEDICARE ADVANTAGE MCR ([facility]) Oct 31, 2019 [id number] Nelida DIAZ PATIENT HUMANA [facility] (WNR) MEDICARE ADVANTAGE [facility] ([facility]) Oct 31, 2019 [id number] Nelida DIAZ PATIENT HUMANA MCR (WNR) MEDICARE ADVANTAGE [facility] (WNR) Jun 01, 2017 [id number] Nelida DIAZ PATIENT HUMANA [facility] (WNR) MEDICARE ADVANTAGE [facility] (WNR) Jun 01, 2017 [id number] Nelida DIAZ PATIENT HUMANA [facility] (WNR) MEDICARE ADVANTAGE [facility] (WNR) Jun 01, 2015 [id number] [phone] Nelida DIAZ PATIENT HUMANA MCR (WNR) MEDICARE ADVANTAGE [facility] (WNR) Jun 01, 2015 [id number] Nelida DIAZ PATIENT Selected Encounter This section includes the information on record at [place] for the Encounter. Date/Time Encounter Type Encounter Description Reason Pro vider Source Jan 20, 2024 08:18 AM Outpatient Encounter EVENT (HISTORICAL) IHE Encounter Template Text not used by [place]
--- OUTSIDE RECORDS SUMMARY | 2024-02-28 12:37 | XMS_ITS | Encounter Summary ---
Author Name [facility] [place] [facility] [place] Address [address] [place] [address] Care Team Providers Care Esol Teacher Assistant Name Role Phone MEHREEN ARCHIBALD Primary Care [...] Name Patient's Relationship to Policy Jaeger HUMANA [facility] (WNR) MEDICARE ADVANTAGE [facility] ([facility]) Oct 31, 2019 [id number] [phone] Nelida DIAZ PATIENT HUMANA MCR (WNR) MEDICARE ADVANTAGE MCR (WNR) Oct 31, 2019 [id number] Nelida DIAZ PATIENT HUMANA MCR (WNR) MEDICARE ADVANTAGE MCR (WNR) Oct 31, 2019 [id number] Nelida DIAZ PATIENT HUMANA M[facility] (WNR) MEDICARE ADVANTAGE [facility] (WNR) Oct 31, 2019 [id number] [phone] Nelida DIAZ PATIENT HUMANA MCR (WNR) MEDICARE ADVANTAGE [facility] (WNR) Jun 01, 2017 [id number] [phone] Nelida DIAZ PATIENT HUMANA MCR (WNR) MEDICARE ADVANTAGE [facility] (WNR) Jun 01, 2017 [id number] Nelida DIAZ PATIENT HUMANA MCR (WNR) MEDICARE ADVANTAGE MCR (WNR) Jun 01, 2015 [id number] Nelida DIAZ PATIENT HUMANA MCR (WNR) MEDICARE ADVANTAGE [facility] (WNR) Jun 01, 2015 [id number] Nelida DIAZ PATIENT Selected Encounter This section includes the information on record at [place] for the Encounter. Date/Time Encounter Type Encounter Description Reason Pro vider Source Dec 02, 2023 09:46 AM Outpatient Encounter COMMUNITY CARE CONSULT IHE Encounter Template Text not used by [place] Plan of Treatment: Future Appointments (+ 6 months) and Future Tests (+/- 45 days) The Plan of Treatment section includes future care activities for the patient from all [place] treatmentfacilities. This section includes future appointments and future orders which are active, pending or scheduled. Future Appointments This section includes appointments that were scheduled to occur 6 months from the date of the Encounter, up to a maximum of 20 appointments. The data comes from all [place] treatment facilities. Appointment Date/Time Appointment Type Appointme nt Facility Name Dec 07, 2023 02:30 PM AMBULATORY - SURGERY [facility] Dec 30, 2023 02:30 PM AMBULATORY - NONE [facility] Social History: Smoking Status (Most current) and Tobacco Use (All prior to encounter date) This section includes the most current, and the historical, smoking and tobacco- related health factors from the [place] facility where the Encounter took place. Current Smoking Status This section includes the most current smoking, or tobacco-related health factor, from the [place] facility where the Encounter took place. Date/Time Current Smoking Status Comment Sondra roman Feb 05, 2023 11:00 AM VA-TOBACCO FORMER USER [facility] Tobacco Use History This section includes a history of the smoking, or tobacco-related health factors, that were collected on or before the date of the Encounter. The data comes from the [place] facility where the Encounter took place. Date/Time Smoking Status/Tobacco Use Comment F acility Feb 05, 2023 11:00 AM VA-TOBACCO QUIT 15 YRS OR MORE [facility] Jan 02, 2022 11:00 AM VA-TOBACCO FORMER USER [facility] Jan 02, 2022 11:00 AM VA-TOBACCO QUIT 15 YRS OR MORE [facility] Nov 08, 2020 02:00 PM VA-TOBACCO FORMER USER [facility] Nov 08, 2020 02:00 PM VA-TOBACCO QUIT 15 YRS OR MORE [facility] Sep 02, 2016 10:29 AM FORMER TOBACCO USER 7Y OR GREATE R [facility] Aug 06, 2015 10:33 AM FORMER TOBACCO USER 7Y OR GREATE R [facility] Jul 07, 2014 08:27 AM LIFETIME NON-TOBACCO USER [facility] Encounter Notes: All associated encounter notes This section contains the clinical notes associated to the Encounter. Date/Time Encounter Note(s) Provider Source Dec 02, 2023 09:46 AM NONVA NOTE: LOCAL TITLE: COMMUNITY CARE PRE-AUTH LETTER (AUTOPRINT) STANDARD TITLE: NONVA NOTE DATE OF NOTE: DEC 02, 2023@09:46 ENTRY DATE: DEC 02, 2023@09:46:25 AUTHOR: ERIKA MONTANA EXP COSIGNER: URGENCY: STATUS: COMPLETED Nov DIANDRA DIAZ [address] [place] [address] DR RAMIREZ [address] [place] [id number] Dear DIANDRA DIAZ, Your [place] provider has referred you to a provider within the community for care. Your medical care for Otolaryngology or ENT has been authorized with the community care provider listed below. DO NOT REPORT TO THE [facility] Provider info: Care has been approved for the following vendor: Office name, address, and phone number: [facility] [address] [place] [address] Please contact the identified provider to schedule your community appointment. If you need assistance with this appointment, please call your facility community care office [facility] Office of Community Care at [phone] during the hours of 8:30AM - 3:00PM. Please follow up with your local [facility] community care office once this is scheduled. This step is needed to ensure your referral duration is maximized and the [place] has accurate referral information for billing purposes. Authorization Number: [id number] Referral Issue Date: Oct Expiration Date: May (subject to change based on first appointment) If you are unable to schedule this appointment or the appointment is no longer needed, please contact the community provider above for notification/rescheduling and then call the [facility] Office of Community Care at [phone] during the hours of 8:30AM - 3:00PM. If you need additional care/services not mentioned above or your authorization has and additional care is needed, please contact your primary care provider for a new referral. To review all care/service(s) approved under your referral, please go to the following link: [employer] Portal(Odeo ) Co-Payments: If you are required to pay a VA co-payment, you will be billed by the VA for each authorized visit that you attend. However, you are NOT REQUIRED to make co-payments to a community provider. Thank you for the opportunity to serve you. Sincerely, [place] Community Care (ALINE) /mariano/ ERIKA MONTANA Signed: 12/02/2023 09:47 ERIKA MONTANA [facility]
--- OUTSIDE RECORDS SUMMARY | 2024-02-28 12:37 | XMS_ITS | Referral Summary ---
Author Organization [facility] Address [address] [place] [address] Care Team Providers Care Applied Statistician Name Role Phone Unavailable Primary Care Provider Unavailabl e Social History Tobacco Use Types Packs/Day Years Used Date Smoking Tobacco: Never Assessed Sex and Gender Information Value Date Recorded Sex Assigned at Not on file Legal Sex Male 10:41 AM PST Gender Identity Not on file Sexual Orientation Not on file Plan of Treatment Not on file
--- OUTSIDE RECORDS SUMMARY | 2024-02-28 12:37 | XMS_ITS | Encounter Summary ---
Author Name [facility] [place] [place] [facility] [place] Address [address] [place] [address] Care Team Providers Care Bacteriologist Soil Name Role Phone MEHREEN ARCHIBALD Primary Care [...] Name Patient's Relationship to Policy Jaeger HUMANA [facility] (R) MEDICARE ADVANTAGE [facility] ([facility]) Oct 31, 2019 [id number] [phone] Nelida DIAZ PATIENT HUMANA MCR (WNR) MEDICARE ADVANTAGE [facility] (WNR) Oct 31, 2019 [id number] [phone] Nelida DIAZ PATIENT HUMANA [facility]CR (WNR) MEDICARE ADVANTAGE [facility] ([facility]) Oct 31, 2019 [id number] Nelida DIAZ PATIENT HUMANA [facility] (WNR) MEDICARE ADVANTAGE [facility] ([facility]) Oct 31, 2019 [id number] Nelida DIAZ PATIENT HUMANA MCR (WNR) MEDICARE ADVANTAGE [facility] (WNR) Jun 01, 2017 [id number] [phone] Nelida DIAZ PATIENT HUMANA MCR (WNR) MEDICARE ADVANTAGE [facility] (WNR) Jun 01, 2017 [id number] Nelida DIAZ PATIENT HUMANA MCR (WNR) MEDICARE ADVANTAGE MCR (WNR) Jun 01, 2015 [id number] Nelida DIAZ PATIENT HUMANA [facility] (WNR) MEDICARE ADVANTAGE [facility] (WNR) Jun 01, 2015 [id number] Nelida DIAZ PATIENT Selected Encounter This section includes the information on record at [place] for the Encounter. Date/Time Encounter Type Encounter Description Reason Pro vider Source Jan 12, 2024 08:48 AM Outpatient Encounter PRIMARY CARE/MEDICINE IHE Encounter Template Text not used by [place] Social History: Smoking Status (Most current) and Tobacco Use (All prior to encounter date) This section includes the most current, and the historical, smoking and tobacco- related health factors from the [place] facility where the Encounter took place. Current Smoking Status This section includes the most current smoking, or tobacco-related health factor, from the [place] facility where the Encounter took place. Date/Time Current Smoking Status Comment Facil ity Feb 05, 2023 11:00 AM VA-TOBACCO FORMER USER [facility] Tobacco Use History This section includes a history of the smoking, or tobacco-related health factors, that were collected on or before the date of the Encounter. The data comes from the [place] facility where the Encounter took place. Date/Time [...] the Encounter. Date/Time Encounter Note(s) Provider Source Jan 12, 2024 08:48 AM REPORT OF CONTACT: LOCAL TITLE: APPOINTMENT SCHEDULING NOTE STANDARD TITLE: REPORT OF CONTACT DATE OF NOTE: JAN 12, 2024@08:48 ENTRY DATE: JAN 12, 2024@08:48:58 AUTHOR: MICHAEL RIVERA EXP COSIGNER: URGENCY: STATUS: COMPLETED Attempted to schedule Recall/Patient Center Scheduling (PtCSch) Contact attempt made to [facility] 1st attempt Letter - Sent letter by regular [place] mail to address on file: DIANDRA DIAZ [address] [place], [place] [address] 2nd attempt Text message Disposition order request after Dec If [facility] calls back, schedule appt for: STEVEN APACT O RES 03 ANNUAL NO LABS FED:02/11/23 /mariano/ MICHAEL RIVERA MSA Signed: 01/12/2024 08:49 MICHAEL RIVERA [facility]
--- OUTSIDE RECORDS SUMMARY | 2024-02-28 12:37 | XMS_ITS | CCD ---
Author Organization [facility] Address [address] [place] [address] Care Team Providers Care Pecan Sheller Name Role Phone Unavailable Primary Care Provider [...]
--- OUTSIDE RECORDS SUMMARY | 2024-02-28 12:37 | XMS_ITS | Clinical Summary ---
Author Organization [facility] Address [address] [place] [address] Care Team Providers Care Residential Team Leader Name Role Phone Unavailable Primary Care Provider [...]
--- OUTSIDE RECORDS SUMMARY | 2024-02-28 12:38 | XMS_ITS | Clinical Summary ---
Author Organization [facility] Address [address] [place] [address]. [place] [address] Care Team Providers Care Dye House Hand Name Role Phone Chandana Fleming MD Primary Care Provider [phone] Allergies Active Allergy Reactions Criticality Noted Date Comments No Known Drug Allergy 02/21/2003 Medications Medication Sig Dispensed Refills Start Date End Date Status Saw Snowflake 80 MG CAPS A ctive GINSENG PO Take by mouth 2 times daily Active HAWTHORN PO Take by mouth 2 times daily Active Ginkgo Biloba (GINKGO PO) Take by mouth 2 times daily Active NONFORMULARY [place]-zyme Active Active Problems Problem Noted Date Diagnosed Date Atrial fibrillation, chronic 11/16/2017 Syncope Overview: 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 Father 83 yo C HF,strokes Diabetes Mother 86 yo C HF C.A.D. Sister 1 66 yo C HF Obesity Sister 2 Celiac Obesity Sister 3 Family History Negative Son 1 Family History Negative Son 2 Family History Negative Son 3 MVA Relation Status Comments Daughter Father Mother Sister 1 Sister 2 Sister 3 Son 1 Son 2 Son 3 Social History Tobacco Use Types Packs/Day Years Used Date Smoking Tobacco: Former Cigarettes Q uit: 02/21/1967 Smokeless Tobacco: Never Tobacco Cessation:Counseling Given: Yes Alcohol Use Standard Drinks/Week Comments Yes 0 (1 standard drink = 0.6 oz pur e alcohol) moderate Adolescent Education Answer Date Record ed Getting School Help Needed Not on file 03/08 Sex and Gender Information Value Date Recorded Sex Assigned at Not on file Gender Identity Not on file Sexual Orientation Not on file Last Filed Vital Signs Vital Sign Reading Time Taken Comments Blood Pressure 116/72 11/04/2018 1:12 PM CDT Pulse 70 11/04/2018 1:12 PM CDT Temperature 37.3 ??C (99.2 ??F) 06/01/2014 3:14 PM CS T Respiratory Rate 16 06/01/2014 8:01 PM TALENT DEVELOPMENT ANALYST Oxygen Saturation 95% 04/08/2017 9:05 AM TALENT DEVELOPMENT ANALYST Inhaled Oxygen Concentration - - Weight 78.9 kg (174 lb) 11/04/2018 1:12 PM CDT Height 172.7 cm (5' 8) 11/04/2018 1:12 PM CDT Body Mass Index 26.46 11/04/2018 1:12 PM CDT Plan of Treatment Not on file Medical Devices Implanted Type Area Child And Adolescent Psychiatrist Device Identifier Shelf Expiration Date Model / Serial / Lot [employer] 2087tc Tendril Sts [id number] Implanted:01/30 (Quantity not on file) Leads [employer] 2087TC TENDRIL [address]S / [id number] / [employer] 2087tc Tendril [employer]s [id number] Implanted:01/30 (Quantity not on file) Leads [employer] 2087TC [address]IL [address]S / [id number] / [employer]* [address] [id number] Implanted:01/30 (Quantity not on file) Pacemaker [employer] [address] / [id number] / Advance Directives For more information, please contact: [phone] * Full Code (Latest Code Status on File) Date Activated Date Inactivated Comments 02/16/2013 11:22 AM * Full Code Date Activated Date Inactivated Comments 02/14/2013 11:17 PM 02/16/2013 11:22 AM * Full Code Date Activated Date Inactivated Comments 07/31/2011 8:42 AM 02/14/2013 11:17 PM * Full Code Date Activated Date Inactivated Comments 07/30/2011 4:29 PM 07/31/2011 8:42 AM Care Teams Dye House Hand Relationship Specialty Start Date End Date Chandana Fleming MD REPLACED BY [facility] [id number] [place] [id number] PCP - General Family Practice 02/03/19
--- OUTSIDE RECORDS SUMMARY | 2024-02-28 12:38 | XMS_ITS | Encounter Summary ---
Author Name [facility] [place] Address [address] [place] [address] Care Team Providers Care Java [id number] Software Engineer Name Role Phone MEHREEN ARCHIBALD Primary Care [...] Name Patient's Relationship to Policy Jaeger HUMANA [facility] (R) MEDICARE ADVANTAGE [facility] ([facility]) Oct 31, 2019 [id number] Nelida DIAZ PATIENT HUMANA MCR (WNR) MEDICARE ADVANTAGE [facility] (R) Oct 31, 2019 [id number] [phone] Nelida DIAZ PATIENT HUMANA MCR (WNR) MEDICARE ADVANTAGE [facility] (R) Oct 31, 2019 [id number] Nelida DIAZ PATIENT HUMANA MCR (WNR) MEDICARE ADVANTAGE [facility] ([facility]) Oct 31, 2019 [id number] [phone] Nelida DIAZ PATIENT HUMANA MCR (WNR) MEDICARE ADVANTAGE MCR (WNR) Jun 01, 2017 [id number] Nelida DIAZ PATIENT HUMANA [facility] (WNR) MEDICARE ADVANTAGE [facility] (WNR) Jun 01, 2017 [id number] [phone] Nelida DIAZ PATIENT HUMANA MCR (WNR) MEDICARE ADVANTAGE [facility] (WNR) Jun 01, 2015 [id number] [phone] Nelida DIAZ PATIENT HUMANA MCR (WNR) MEDICARE ADVANTAGE [facility] (WNR) Jun 01, 2015 [id number] Nelida DIAZ PATIENT Selected Encounter This section includes the information on record at [place] for the Encounter. Date/Time Encounter Type Encounter Description Reason Pro vider Source Jan 20, 2024 05:50 AM Outpatient Encounter EVENT (HISTORICAL) IHE Encounter Template Text not used by [place] Social History: Smoking Status (Most current) and Tobacco Use (All prior to encounter date) This section includes the most current, and the historical, smoking and tobacco- related health factors from the [place] facility where the Encounter took place. Current Smoking Status This section includes the most current smoking, or tobacco-related health factor, from the [place] facility where the Encounter took place. Date/Time Current Smoking Status Comment Facil ity Feb 05, 2023 11:00 AM VA-TOBACCO QUIT 15 YRS OR MORE [facility] Tobacco Use History This section includes a history of the smoking, or tobacco-related health factors, that were collected on or before the date of the Encounter. The data comes from the [place] facility where the Encounter took place. Date/Time [...]
--- OUTSIDE RECORDS SUMMARY | 2024-02-28 12:38 | XMS_ITS | Encounter Summary ---
Author Organization [place] Address [address] [place] [address]. [place] [address] Care Team Providers Care Humanities Coordinator Name Role Phone [facility], [facility] Primary Care Provider + Maura Jackson MD Primary Care Provider +1 -[phone] Jorge Douglas MD Unavailable Unavailable Encounter Details Date Type Department Care Team (Late st Contact Info) Description 04/11/2013 Office Visit-[facility] [address] [place] [address] Jorge Douglas MD Social History Tobacco Use Types Packs/Day Years Used Date Smoking Tobacco: Former Cigarettes Q uit: 02/21/1967 Alcohol Use Standard Drinks/Week Comments Yes 0 (1 standard drink = 0.6 oz pur e alcohol) occ Sex and Gender Information Value Date Recorded Sex Assigned at Not on file Gender Identity Not on file Sexual Orientation Not on file documented as of this encounter Progress Notes * Jorge Douglas MD - 04/13/2013 10:22 AM CST Progress Note Created by: Jorge Douglas M.D. DATE: 04/11/2013 DIANDRA PORTILLO DATE OF : 1940 AGE: [age] years old Referring Physician: MAURA JACKSON Referring Clinic: [facility] CURRENT DIAGNOSES 1. 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 - Syncope, 780.2 ALLERGIES MEDICATIONS (prior to changes made today) \X06\\X06\\X06\ CHIEF COMPLAINTS syncope HISTORY OF PRESENT ILLNESS I had the pleasure of seeing Mr. Portillo for follow-up of A-V block status post pacemaker implantation. He received a dual chamber pacemaker implanted for syncope with complete A-V block in this year. After the pacemaker implant he has been doing very well. He has no shortness of breath, chest pain or fatigue at the present time. The patients stated that the patient used to makenoises during his sleep before the pacemaker implantation. Those noises have disappeared. Overall he is not taking any prescription medications and he is reported feeling very well. On examination, the blood pressure was 132/74, body weight 182 pounds and heart rate 66 beats per minute. The eyes and ENT were unremarkable. The lungs were clear. The cardiac rhythm was regular and the heart sounds were normal without murmur. The abdominal examination showed no hepatomegaly. Therewas no pedal edema. PAST HISTORY Past Cardiac Illnesses: AV block with syncope, sp DDD PM Cardiac and Vascular Surgeries: Pacemaker insertion Jan 2013 Cardiology Procedures-NonInvasive: stress echo Jul 2011, echocardiogram Jan 2013 LVEF not documented REVIEW OF SYSTEMS GENERAL feels well, no change in exercise tolerance. INTEGUMENTARY denies any change in hair or nails, rashes, or skin lesions. EYES wears eye glasses/contact lenses EARS, NOSE, THROAT, MOUTH denies any hearing loss, epistaxis, hoarseness or difficulty speaking. RESPIRATORY denies dyspnea, cough, wheezing or hemoptysis. CARDIOVASCULAR negative for palpitations, chest pain, orthopnea, PND, peripheral edema, syncope or claudication. ABDOMINAL denies ulcer disease, hematochezia or melena. MUSCULOSKELETAL denies any history of arthritic symptoms or back problems. NEUROLOGICAL denies any history of recurrent strokes, headaches, TIA, or seizure disorder. PSYCHIATRIC denies any history of depression, substance abuse or change in cognitive functions. ENDOCRINE denies any history of thyroid disease or diabetes mellitus. HEMATOLOGICAL/IMMUNOLOGIC denies any food allergies, seasonal allergies, bleeding disorders. PHYSICAL EXAMINATION VITAL SIGNS: Blood Pressure: 132/74Sitting, Right arm, large cuff Pulse- 66.00/min. Weight- 182.40 lbs. Height- 68 BMI Measurement: 28 CONSTITUTIONAL cooperative, alert and oriented,well developed, well nourished, in no acute distress. SKIN warm and dry to touch, no apparent skin lesions, or masses noted. HEAD normocephalic, atraumatic EYES Pupils equal and round, conjunctivae and lids unremarkable, sclera white, no xanthalasma ENT no pallor or cyanosis, dentition good NECK carotid pulses are full and equal bilaterally, JVP normal, no carotid bruit, no thyromegaly CHEST normal symmetry, no tenderness to palpation, normal respiratory excursion, no intercostal retraction, no use of accessory muscles, clear to auscultation and percussion. CARDIAC regular rhythm, S1 normal, S2 normal, No S3 or S4, Apical impulse not displaced, no murmurs, gallops or rubs detected. ABDOMEN abdomen soft, bowel sounds normoactive, no masses, no hepatosplenomegaly, non- tender, no bruits PERIPHERAL PULSES pulses full and equal in all extremities, no bruits auscultated. EXTREMITIES & BACK no deformities, clubbing, cyanosis, erythema or edema observed. There are no spinal abnormalities noted. Normal muscle strength and tone. NEUROLOGICAL no gross motor deficits noted, affect appropriate, oriented to time, person and place. MEDICATIONS UPDATED/STARTED TODAY: IMPRESSIONS/PLAN ASSESSMENT AND RECOMMENDATION: Mr. Portillo is doing well after pacemaker implant. He currently has no symptoms. He had some questions about exercise. Overall he has no restriction for his exercise except for repetition of over stretching the left arm. He is scheduled to return for cardiology follow-up in a year. It is my pleasure to participate in the care of this patient. If you have any questions, please do not hesitate to contact me. TODAYS ORDERS 1. F/U with Dorita Coello CNP 1 year 2. Return Visit 2 year Jorge Douglas M.D. documented in this encounter Plan of Treatment Not on file documented as of this encounter Visit Diagnoses Not on filedocumented in this encounter Care Teams Humanities Coordinator Relationship Specialty Start Date End Date [facility] [address] [place] [id number] PCP - General 07/30/11 02/02/19 Maura Jackson MD [facility] [id number] [place] [address] PCP - General Family Practice 02/03/19 Jorge Douglas MD Assigned Heart and Vascular Provider 03/23/20 05/25/21 documented as of this encounter
--- OUTSIDE RECORDS SUMMARY | 2024-02-28 12:38 | XMS_ITS | Referral Summary ---
Author Organization [place] Address [address] [place] [address]. [place] [address] Care Team Providers Care Freight Claim Investigator Name Role Phone Chandana Fleming MD Primary Care Provider [phone] [phone] Allergies Active Allergy Reactions Criticality Noted Date Comments No Known Drug Allergy 02/21/2003 Medications Medication Sig Dispensed Refills Start Date End Date Status Saw [place] 80 MG CAPS A ctive GINSENG PO Take by mouth 2 times daily Active HAWTHORN PO Take by mouth 2 times daily Active Ginkgo Biloba (GINKGO PO) Take by mouth 2 times daily Active NONFORMULARY [place]-zyme Active Active Problems Problem Noted Date Diagnosed Date Atrial fibrillation, chronic 11/16/2017 Syncope Overview: 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 Complete AV block Overview: S/p dual-chamber pacemaker 02/15/2013 Resolved Problems Problem Noted Date Diagnosed Date Resolved Date Syncope and collapse 02/14/2013 014 Transient complete heart block 02/14/2013 05/05/2014 Complete heart block, transient 02/14/2013 05/05/2014 Bradycardia 11/15/2019 Social History Tobacco Use Types Packs/Day Years [...] T Respiratory Rate 16 06/01/2014 8:01 PM PEER TUTOR Oxygen Saturation 95% 04/08/2017 9:05 AM PEER TUTOR Inhaled Oxygen Concentration - - Weight 78.9 kg (174 lb) 11/04/2018 1:12 PM CDT Height 172.7 cm (5' 8) 11/04/2018 1:12 PM CDT Body Mass Index 26.46 11/04/2018 1:12 PM CDT Plan of Treatment Not on file Medical Devices Implanted Type Area Furniture Removalist'S Assistant Device Identifier Shelf Expiration Date Model / Serial / Lot [employer] Med* 2087tc Tendril Sts [id number] Implanted:01/30 (Quantity not on file) Leads [employer] 2087TC TENDRIL STS / [id number] / [employer]* 2087tc Tendril Sts [id number] Implanted:01/30 (Quantity not on file) Leads [employer] 2087TC TENDRIL STS / [id number] / [employer]* [address] [id number] Implanted:01/30 (Quantity not on file) Pacemaker [employer] [address] / [id number] / Advance Directives For more information, please contact: [phone] * Full Code (Latest Code Status on File) Date Activated Date Inactivated Comments 02/16/2013 11:22 AM * Full Code Date Activated Date Inactivated Comments 02/14/2013 11:17 PM 02/16/2013 11:22 AM * Full Code Date Activated Date Inactivated Comments 07/31/2011 8:42 AM 02/14/2013 11:17 PM * Full Code Date Activated Date Inactivated Comments 07/30/2011 4:29 PM 07/31/2011 8:42 AM Care Teams Freight Claim Investigator Relationship Specialty Start Date End Date Chandana Fleming MD [facility] [id number] [place] [address] PCP - General Family Practice 02/03/19
--- OUTSIDE RECORDS SUMMARY | 2024-02-28 13:36 | XMS_ITS | CCD ---
Author Organization [facility] Address [address] [place] [address] Care Team Providers Care Roofing Machine Operator Name Role Phone Unavailable Primary Care Provider [...]
--- OUTSIDE RECORDS SUMMARY | 2024-02-28 13:36 | XMS_ITS ---
Author Organization [facility] Address [address] [place] [address] Care Team Providers Care Saloonkeeper Name Role Phone Unavailable Unavailable Unavailable Surgery Details Not on file Complications Check Surgery Details section. Procedure Estimated Blood Loss Check Surgery Details section. Procedure Findings Check Surgery Details section. Procedure Specimens Taken Check Surgery Details section.
--- OUTSIDE RECORDS SUMMARY | 2024-02-28 13:36 | XMS_ITS | Clinical Summary ---
Author Organization [facility] Address [address] [place] [address] Care Team Providers Care Waterworks Employee Name Role Phone Unavailable Primary Care Provider [...]
--- OUTSIDE RECORDS SUMMARY | 2024-02-28 13:36 | XMS_ITS | Referral Summary ---
Author Organization [facility] Address [address] [place] [address] Care Team Providers Care Leather Shaver Name Role Phone Unavailable Primary Care Provider [...]
--- OUTSIDE RECORDS SUMMARY | 2024-02-28 13:36 | XMS_ITS | Clinical Summary ---
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 ) 12/18/2023 Transcribe Orders [facility] [address] [place] [address] Shankar Zaragoza MD from Last [...] Comments Blood Pressure 106/64 07/18/2010 9:30 AM VALIDATION SCIENTIST Pulse - - Temperature 36.8 ??C (98.2 ??F) 07/18/2010 9:30 AM CS T Respiratory Rate - - Oxygen Saturation - - Inhaled Oxygen Concentration - - Weight 82.6 kg (182 lb) 07/18/2010 9:30 AM VALIDATION SCIENTIST Height 172.7 cm (5' 8) 07/01/2010 9:18 AM VALIDATION SCIENTIST Body Mass Index 27.67 07/01/2010 9:18 AM VALIDATION SCIENTIST Plan of Treatment Health Maintenance Due Date [...] Influenza for age 65+ 01/31/2024 Care Teams Automotive Professional Relationship Specialty [place] [address] [place] [address] PCP - General Family Practice 07/01/10
--- OUTSIDE RECORDS SUMMARY | 2024-02-28 13:36 | XMS_ITS | Encounter Summary ---
Author Organization [facility] Address [address] [place] [address] Care Team Providers Care Copyright Expert Name Role Phone Unavailable Primary Care Provider Unavailabl e Prior Encounters Date Type Department Care Team Description 06/20/2019 Converted CPS Chart Documents [facility] [address] [place] [address] <No scans attached> 06/20/2019 Converted 13x Documents [facility] [address] [place] [address] <No scans attached> Plan of [...] 5 ENDODONTIC THERAPY, PREMOLAR TOOTH (EXCLUDING FINAL MOSQUE) Routine 07/14/2019 1:00 AM MST 5 PULP [...]
--- OUTSIDE RECORDS SUMMARY | 2024-02-28 13:37 | XMS_ITS | Referral Summary ---
Author Organization [place] Address [address] [place] [address]. [place] [address] Care Team Providers Care Architectural Draftsperson Name Role Phone Chandana Fleming MD Primary Care Provider [phone] [phone] Allergies Active Allergy Reactions Criticality Noted Date Comments No Known Drug Allergy 02/21/2003 Medications Medication Sig Dispensed Refills Start Date End Date Status Saw [place] 80 MG CAPS A ctive GINSENG PO Take by mouth 2 times daily Active HAWTHORN PO Take by mouth 2 times daily Active Ginkgo Biloba (GINKGO PO) Take by mouth 2 times daily Active NONFORMULARY [place]-zyme Active Active Problems Problem Noted Date Diagnosed [...] T Respiratory Rate 16 06/01/2014 8:01 PM SENIOR DESIGN ENGINEERING SPECIALIST Oxygen Saturation 95% 04/08/2017 9:05 AM SENIOR DESIGN ENGINEERING SPECIALIST Inhaled Oxygen Concentration - - Weight 78.9 kg (174 lb) 11/04/2018 1:12 PM CDT Height 172.7 cm (5' 8) 11/04/2018 1:12 PM CDT Body Mass Index 26.46 11/04/2018 1:12 PM CDT Plan of Treatment Not on file Medical Devices Implanted Type Area Natural Resources Faculty Member Device Identifier Shelf Expiration Date Model / Serial / Lot [employer] Med* 2087tc Tendril Sts [id number] Implanted:01/30 (Quantity not on file) Leads [employer] 2087TC TENDRIL STS / [id number] / [employer]* 2087tc Tendril Sts [id number] Implanted:01/30 (Quantity not on file) Leads [employer] 2087TC TENDRIL STS / [id number] / [employer]* [address] [id number] Implanted:01/30 (Quantity not on file) Pacemaker [employer] [address] / [id number] / Advance Directives For more information, please contact: [phone] * Full Code (Latest Code Status on File) Date Activated Date Inactivated Comments 02/16/2013 11:22 AM * Full Code Date Activated Date Inactivated Comments 02/14/2013 11:17 PM 02/16/2013 11:22 AM * Full Code Date Activated Date Inactivated Comments 07/31/2011 8:42 AM 02/14/2013 11:17 PM * Full Code Date Activated Date Inactivated Comments 07/30/2011 4:29 PM 07/31/2011 8:42 AM Care Teams Architectural Draftsperson Relationship Specialty Start Date End Date Chandana Fleming MD [facility] [id number] [place] [address] PCP - General Family Practice 02/03/19
--- OUTSIDE RECORDS SUMMARY | 2024-02-28 13:37 | XMS_ITS | Encounter Summary ---
Author Organization [place] Address [address] [place] [address]. [place] [address] Care Team Providers Care Golf Professional Name Role Phone [facility], [facility] Primary Care Provider + Maura Jackson MD Primary Care Provider +1 -[phone] Jorge Douglas MD Unavailable Unavailable Encounter Details Date Type Department Care Team (Late st Contact Info) Description 04/11/2013 Office Visit-[facility] [address] [place] [address] Jorge Douglas MD Social History [...] old Referring Physician: MAURA JACKSON Referring Clinic: [facility] CURRENT DIAGNOSES 1. 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 [...] on filedocumented in this encounter Care Teams Golf Professional Relationship Specialty Start Date End Date [facility] [address] [place] [phone] PCP - General 07/30/11 02/02/19 Maura Jackson MD [facility] [id number] [place] [address] PCP - General Family Practice 02/03/19 Jorge Douglas MD Assigned Heart and Vascular Provider 03/23/20 05/25/21 documented as of this encounter
--- OUTSIDE RECORDS SUMMARY | 2024-02-28 13:37 | XMS_ITS | Clinical Summary ---
Author Organization [place] Address [address] [place] [address]. [place] [address] Care Team Providers Care Bi Data Architect Name Role Phone Chandana Fleming MD Primary Care Provider +1 -[phone] Allergies Active Allergy Reactions Criticality Noted Date Comments No Known Drug Allergy 02/21/2003 Medications Medication Sig Dispensed Refills Start Date End Date Status Saw [place] 80 MG CAPS A ctive GINSENG PO Take by mouth 2 times daily Active HAWTHORN PO Take by mouth 2 times daily Active Ginkgo Biloba (GINKGO PO) Take by mouth 2 times daily Active NONFORMULARY [place]-zyme Active Active Problems Problem Noted Date [...] T Respiratory Rate 16 06/01/2014 8:01 PM 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 LECTURER Oxygen Saturation 95% 04/08/2017 9:05 AM 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 LECTURER Inhaled Oxygen Concentration - - Weight 78.9 kg (174 lb) 11/04/2018 1:12 PM CDT Height 172.7 cm (5' 8) 11/04/2018 1:12 PM CDT Body Mass Index 26.46 11/04/2018 1:12 PM CDT Plan of Treatment Not on file Medical Devices Implanted Type Area Handkerchief Presser Device Identifier Shelf Expiration Date Model / Serial / Lot [employer]* 2087tc Tendril Sts [id number] Implanted:01/30 (Quantity not on file) Leads [employer] 2087TC TENDRIL STS / [id number] / [employer]* 2087tc Tendril Sts [id number] Implanted:01/30 (Quantity not on file) Leads [employer] 2087TC TENDRIL STS / [id number] / [employer]* [address] [id number] Implanted:01/30 (Quantity not on file) Pacemaker [employer] [address] / [id number] / Advance Directives For more information, please contact: [phone] * Full Code (Latest Code Status on File) Date Activated Date Inactivated Comments 02/16/2013 11:22 AM * Full Code Date Activated Date Inactivated Comments 02/14/2013 11:17 PM 02/16/2013 11:22 AM * Full Code Date Activated Date Inactivated Comments 07/31/2011 8:42 AM 02/14/2013 11:17 PM * Full Code Date Activated Date Inactivated Comments 07/30/2011 4:29 PM 07/31/2011 8:42 AM Care Teams Bi Data Architect Relationship Specialty Start Date End Date Chandana Fleming MD [facility] [id number] [place] [address] PCP - General Family Practice 02/03/19
--- OUTSIDE RECORDS SUMMARY | 2024-02-28 13:37 | XMS_ITS | Continuity of Care Document ---
Author Name [facility] Organization [facility] Care Team Providers Care Bit Welder Name Role Phone [facility] Unavailable Unavailable Problems Combined list of problems from Department of Defense and Veterans Affairs facilities. It does not include entries that were removed or entered in error. 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 13 Condition Jul 07, 2014 Entered By: BEN VIVEROS Comment: s/p dualchamber pacer [facility] Chronic peptic ulcer without hemorrhage, without perforation AND without obstruction Active 06/01/18 86 Condition Jul 07, 2014 Entered By: BEN VIVEROS Comment: s/p partial gastrectomy, has dumping syndrome [facility] Atrial Flutter (SCT [id number]) Active Condition [facility] Cardiac pacemaker in situ Active Condition [facility] Cardiomyopathy Active Condition [facility] Elevated PSA Active Condition [facility] Gilbert's syndrome Active Condition [facility] Hearing Loss (SCT [id number]) Active Condition [facility] History of peptic ulcer Active Condition Dec 04, 2017 Entered By: MEHREEN ARCHIBALD Comment: partial gastectomy and dumping syndrome [facility] Syncope and Collapse (SCT [id number]) Active Condition Dec 04, 2017 Entered By: MEHREEN ARCHIBALD Comment: due to complete heart block [facility] Typical atrial flutter Active Condition [facility] Diagnosis: ICD-10-CM H90.A21 Snsrnrl hear loss, uni, r ear, with rstrcd hear cntra side Active Diagnosis [facility] Diagnosis: ICD-10-CM J32.8 Other chronic sinusitis Active Diagnosis [facility] Diagnosis: ICD-10-CM I45.5 Other specified heart block Active Diagnosis [facility] Diagnosis: ICD-10-CM Z13.6 Encounter for screening for cardiovascular disorders Active Diagnosis [facility] Diagnosis: ICD-10-CM Z95.0 Presence of cardiac pacemaker Active Diagnosis [facility] Diagnosis: ICD-10-CM 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 [facility] Diagnosis: ICD-10-CM H90.3 Sensorineural hearing loss, bilateral Active Diagnosis [facility] Diagnosis: ICD-10-CM I48.3 Typical atrial flutter Active Diagnosis [facility] Diagnosis: ICD-10-CM Z00.00 Encntr for general adult medical exam w/o abnormal findings Active Diagnosis [facility] Medications Combined list of outpatient medications from [...] Jul 24, 2023 30 Jul 24, 2024 [id number] YASIR RECINOS [facility] OR[facility] HOLD 07/24/2024 [id number] Angeli RECINOS 2023 30 [facility] GINKGO BILOBA CAP/TAB GINKGO BILOBA CAP/TAB Non-VA TAKE ONE TABLET BY MOUTH EVERY DAY Sep 23, 2023 Non-VA Document ed by: MAIA BLANDON Document ed at: [facility] ACTIVE Angeli BLANDON 2023 [facility] NON VA MED NOT LISTED NON VA MED NOT LISTED Non-VA USE HYDRO-ZY ME MOUTH Nov 21, 2020 Non-VA Document ed by: AMARILYS PALAFOX Document ed at: [facility] ACT[facility] AMARILYS PALAFOX 2020 [facility] SAW PALMETTO CAP/TAB SAW PALMETTO CAP/TAB Non-VA TAKE Jan 02, 2022 Non-VA Document ed by: MAGGIE BUCIO Document ed at: [facility] ACTIVE [place] BUCIO 2021 [facility] SODIUM CHLORIDE 0.65% SOLN,NASAL SPRAY SODIUM CHLORIDE 0.65% SOLN,GIGI AL SPRAY SPRAY 2 SPRAYS IN EACH NOSTRIL TWICE A DAY FOR NASAL DRYNESS FOR NASAL DRYNESS October 17, 2023 45 Nov 16, 2023 [id number] October 17, 2023 Trent PONCE [facility] NASAL 11/16/2023 [id number] MONICA PONCE 2023 45 [facility] Immunizations Combined list of available immunizations from the Department of Defense and Veterans Affairs facilities. Immunization Series Date Given Administered By Site Reaction Lot Number CVX Code Drug Lockstitch Back Maker Status Comments Source TD (ADULT), 2 LF TETANUS TOXOID, PRESERVATIVE FREE, ADSORBED 1996 09 complet ed [facility] Results Combined list of recent chemistry, hematology [...] Aug 07, 2023 09:32 AM Reporting Lab: [facility] [address] Performing Lab: [facility] [address] [place] [facility] LIPID PANEL,NO N-FASTIN G CHOLESTERO L IN HDL [MASS/VOLU ME] IN SERUM OR PLASMA 66 mg/dL 40 08/06 Specimen Type: PLASMA No comment entered. Ordering Provider: YOAV VILLEDA ERT E Report Released Date/Time: Aug 07, 2023 09:32 AM Reporting Lab: [facility] [address] Performing Lab: [facility] [address] [facility] LIPID PANEL,NO N-FASTIN G CHOLESTERO L IN LDL [MASS/VOLU ME] IN SERUM OR PLASMA BY CALCULANEHEMIAHO N 75 mg/dL <99 - 99 08/06 Specimen Type: PLASMA No comment entered. Ordering Provider: YOAV VILLEDA ERT Rachael Report Released Date/Time: Aug 07, 2023 09:32 AM Reporting Lab: [facility] [address] Performing Lab: [facility] [address] [place] [facility] LIPID PANEL,NO N-FASTIN G CHOLESTERO L IN VLDL [MASS/VOLU ME] IN SERUM OR PLASMA BY CALCULATIO N 25 mg/dL <29 - 29 08/06 Specimen Type: PLASMA No comment entered. Ordering Provider: YOAV VILLEDA Report Released Date/Time: Aug 07, 2023 09:32 AM Reporting Lab: [facility] [address] Performing Lab: [facility] [address] [place] [facility] LIPID PANEL,NO N-FASTIN G CHOLESTERO L NON HDL [MASS/VOLU ME] IN SERUM OR PLASMA 100 mg/dL <129 - 129 08/06 Specimen Type: PLASMA No comment entered. Ordering Provider: YOAV VILLEDA ERT Rachael Report Released Date/Time: Aug 07, 2023 09:32 AM Reporting Lab: [facility] [address] Performing Lab: [facility] [address] [place] [facility] LIPID PANEL,NO N-FASTIN G TRIGLYCERI DE [MASS/VOLU ME] IN SERUM OR PLASMA 124 mg/dL <149 - 149 08/06 Specimen Type: PLASMA No comment entered. Ordering Provider: YOAV VILLEDA Report Released Date/Time: Aug 07, 2023 09:32 AM Reporting Lab: [facility] [address] Performing Lab: [facility] [address] [place] [facility] EXTRA GOLD GEL TUBE EXTRA GOLD GEL TUBE RECEIVED 07/24 Specimen Type: SERUM No comment entered. Ordering Provider: MARGARET RECINOS Report Released Date/Time: Jul 24, 2023 11:22 AM Reporting Lab: [facility] [address] Performing Lab: [facility] [address] [place] [facility] POC CREATINI NE CREATININE [MASS/VOLU ME] IN BLOOD 1.1 mg/dL 0.6 - 1.3 07/24 Specimen Type: BLOOD No comment entered. Ordering Provider: MARGARET RECINOS Report Released Date/Time: Jul 24, 2023 11:28 AM Reporting Lab: [facility] [address] Performing Lab: [facility] [address] [facility] ACT PART THROMBO TIME APTT IN PLATELET POOR PLASMA BY COAGULATIO N ASSAY 34.3 s 25.1 - 36.5 07/24 Specimen Type: PLASMA No comment entered. Ordering Provider: MARGARET RECINOS Report Released Date/Time: Jul 24, 2023 10:52 AM Reporting Lab: [facility] [address] Performing Lab: [facility] [address] [facility] [facility] CBC & DIFF LEUKOCYTES [#/VOLUME] IN BLOOD BY AUTOMATED COUNT 8.70 10*3/uL 4.0 - 11.0 07/24 Specimen Type: BLOOD Comment: Automated Differentia l Performed Ordering Provider: MARGARET RECINOS Report Released Date/Time: Jul 24, 2023 10:52 AM Reporting Lab: [facility] [address] Performing Lab: [facility] [address] [facility] CBC & DIFF ERYTHROCYT ES [#/VOLUME] IN BLOOD BY AUTOMATED COUNT 4.85 10*6/uL 4.6 - 6.2 07/24 Specimen Type: BLOOD Comment: Automated Differentia l Performed Ordering Provider: MARGARET RECINOS Report Released Date/Time: Jul 24, 2023 10:52 AM Reporting Lab: [facility] [address] Performing Lab: [facility] [address] [place] [facility] CBC & DIFF HEMOGLOBIN [MASS/VOLU ME] IN BLOOD 15.1 g/dL 13.5 - 17.9 07/24 Specimen Type: BLOOD Comment: Automated Differentia l Performed Ordering Provider: MARGARET RECINOS Report Released Date/Time: Jul 24, 2023 10:52 AM Reporting Lab: [facility] [address] Performing Lab: [facility] [address] [place] [facility] CBC & DIFF HEMATOCRIT [VOLUME FRACTION] OF BLOOD BY AUTOMATED COUNT 45.7 41 - 54 07/24 Specimen Type: BLOOD Comment: Automated Differentia l Performed Ordering Provider: MARGARET RECINOS Report Released Date/Time: Jul 24, 2023 10:52 AM Reporting Lab: [facility] [address] Performing Lab: [facility] [address] [place] [facility] CBC & DIFF MCV [ENTITIC VOLUME] BY AUTOMATED COUNT 94.2 fL 80 - 100 07/24 Specimen Type: BLOOD Comment: Automated Differentia l Performed Ordering Provider: MARGARET RECINOS Report Released Date/Time: Jul 24, 2023 10:52 AM Reporting Lab: [facility] [address] Performing Lab: [facility] [address] [place] [facility] CBC & DIFF MCH [ENTITIC MASS] BY AUTOMATED COUNT 31.1 pg 27 - 33 07/24 Specimen Type: BLOOD Comment: Automated Differentia l Performed Ordering Provider: MARGARET RECINOS Report Released Date/Time: Jul 24, 2023 10:52 AM Reporting Lab: [facility] [address] Performing Lab: [facility] [address] [place] [facility] CBC & DIFF MCHC [MASS/VOLU ME] BY AUTOMATED COUNT 33.0 g/dL 32.0 - 37.5 07/24 Specimen Type: BLOOD Comment: Automated Differentia l Performed Ordering Provider: MARGARET RECINOS Report Released Date/Time: Jul 24, 2023 10:52 AM Reporting Lab: [facility] [address] Performing Lab: [facility] [address] [place] [facility] CBC & DIFF PLATELETS [#/VOLUME] IN BLOOD BY AUTOMATED COUNT 288 10*3/uL 150 - 400 07/24 Specimen Type: BLOOD Comment: Automated Differentia l Performed Ordering Provider: MARGARET RECINOS Report Released Date/Time: Jul 24, 2023 10:52 AM Reporting Lab: [facility] [address] Performing Lab: [facility] [address] [place] [facility] CBC & DIFF PLATELET MEAN VOLUME [ENTITIC VOLUME] IN BLOOD BY AUTOMATED COUNT 9.8 fL 7.4 - 10.4 07/24 Specimen Type: BLOOD Comment: Automated Differentia l Performed Ordering Provider: MARGARET RECINOS Report Released Date/Time: Jul 24, 2023 10:52 AM Reporting Lab: [facility] [address] Performing Lab: [facility] [address] [place] [facility] CBC & DIFF NEUTROPHIL S/100 LEUKOCYTES IN BLOOD BY MANUAL COUNT 66.1 40.0 - 80.0 07/24 Specimen Type: BLOOD Comment: Automated Differentia l Performed Ordering Provider: MARGARET RECINOS Report Released Date/Time: Jul 24, 2023 10:52 AM Reporting Lab: [facility] [address] Performing Lab: [facility] [address] [place] [facility] CBC & DIFF LYMPHOCYTE S/100 LEUKOCYTES IN BLOOD BY MANUAL COUNT 17.5 15.0 - 45.0 07/24 Specimen Type: BLOOD Comment: Automated Differentia l Performed Ordering Provider: MARGARET RECINOS Report Released Date/Time: Jul 24, 2023 10:52 AM Reporting Lab: [facility] [address] Performing Lab: [facility] [address] [place] [facility] CBC & DIFF MONOCYTES/ 100 LEUKOCYTES IN BLOOD BY AUTOMATED COUNT 12.3 2.0 - 12.0 07/24 H Specimen Type: BLOOD Comment: Automated Differentia l Performed Ordering Provider: MARGARET RECINOS Report Released Date/Time: Jul 24, 2023 10:52 AM Reporting Lab: [facility] [address] Performing Lab: [facility] [address] [place] [facility] CBC & DIFF EOSINOPHIL S/100 LEUKOCYTES IN BLOOD BY AUTOMATED COUNT 2.8 0.0 - 6.0 07/24 Specimen Type: BLOOD Comment: Automated Differentia l Performed Ordering Provider: MARGARET RECINOS Report Released Date/Time: Jul 24, 2023 10:52 AM Reporting Lab: [facility] [address] Performing Lab: [facility] [address] [place] [facility] CBC & DIFF BASOPHILS/ 100 LEUKOCYTES IN BLOOD BY MANUAL COUNT 0.8 0.0 - 2.0 07/24 Specimen Type: BLOOD Comment: Automated Differentia l Performed Ordering Provider: MARGARET RECINOS Report Released Date/Time: Jul 24, 2023 10:52 AM Reporting Lab: [facility] [address] Performing Lab: [facility] [address] [place] [facility] CBC & DIFF ERYTHROCYT E DISTRIBUTI ON WIDTH [RATIO] BY AUTOMATED COUNT 13.8 11.5 - 14.5 07/24 Specimen Type: BLOOD Comment: Automated Differentia l Performed Ordering Provider: MARGARET RECINOS Report Released Date/Time: Jul 24, 2023 10:52 AM Reporting Lab: [facility] [address] Performing Lab: [facility] [address] [place] [facility] CBC & DIFF LYMPHOCYTE S [#/VOLUME] IN BLOOD BY AUTOMATED COUNT 1.52 10*3/uL 1.0 - 4.0 07/24 Specimen Type: BLOOD Comment: Automated Differentia l Performed Ordering Provider: MARGARET RECINOS Report Released Date/Time: Jul 24, 2023 10:52 AM Reporting Lab: [facility] [address] Performing Lab: [facility] [address] [place] [facility] CBC & DIFF MONOCYTES [#/VOLUME] IN BLOOD BY AUTOMATED COUNT 1.07 10*3/uL 0.1 - 1.0 07/24 H Specimen Type: BLOOD Comment: Automated Differentia l Performed Ordering Provider: MARGARET RECINOS Report Released Date/Time: Jul 24, 2023 10:52 AM Reporting Lab: [facility] [address] Performing Lab: [facility] [address] [place] [facility] CBC & DIFF NEUTROPHIL S [#/VOLUME] IN BLOOD BY AUTOMATED COUNT 5.76 10*3/uL 2.0 - 7.7 07/24 Specimen Type: BLOOD Comment: Automated Differentia l Performed Ordering Provider: MARGARET RECINOS Report Released Date/Time: Jul 24, 2023 10:52 AM Reporting Lab: [facility] [address] Performing Lab: [facility] [address] [place] [facility] CBC & DIFF EOSINOPHIL S [#/VOLUME] IN BLOOD BY AUTOMATED COUNT 0.24 10*3/uL 0 - 0.5 07/24 Specimen Type: BLOOD Comment: Automated Differentia l Performed Ordering Provider: MARGARET RECINOS Report Released Date/Time: Jul 24, 2023 10:52 AM Reporting Lab: [facility] [address] Performing Lab: [facility] [address] [place] [facility] CBC & DIFF BASOPHILS [#/VOLUME] IN BLOOD BY AUTOMATED COUNT 0.07 10*3/uL 0 - 0.2 07/24 Specimen Type: BLOOD Comment: Automated Differentia l Performed Ordering Provider: MARGARET RECINOS Report Released Date/Time: Jul 24, 2023 10:52 AM Reporting Lab: [facility] [address] Performing Lab: [facility] [address] [place] [facility] CBC & DIFF IG(META,MY TAMIKA,PRO) 0.5 07/24 Specimen Type: BLOOD Comment: Automated Differentia l Performed Ordering Provider: MARGARET RECINOS Report Released Date/Time: Jul 24, 2023 10:52 AM Reporting Lab: [facility] [address] Performing Lab: [facility] [address] [place] [facility] CBC & DIFF IMMATURE GRANULOCYT ES [PRESENCE] IN BLOOD BY AUTOMATED COUNT 0.04 10*3/uL 0 - 0.1 07/24 Specimen Type: BLOOD Comment: Automated Differentia l Performed Ordering Provider: MARGARET RECINOS Report Released Date/Time: Jul 24, 2023 10:52 AM Reporting Lab: [facility] [address] Performing Lab: [facility] [address] [place] [facility] COMPREHE NSIVE METABOLI C PANEL+MG CREATININE [MASS/VOLU ME] IN SERUM OR PLASMA 1.1 mg/dL 0.7 - 1.2 07/24 Specimen Type: PLASMA No comment entered. Ordering Provider: MARGARET RECINOS Report Released Date/Time: Jul 24, 2023 10:52 AM Reporting Lab: [facility] [address] Performing Lab: [facility] [address] [place] [facility] COMPREHE NSIVE METABOLI C PANEL+MG UREA NITROGEN [MASS/VOLU ME] IN SERUM OR PLASMA 14 mg/dL 8 - 26 07/24 Specimen Type: PLASMA No comment entered. Ordering Provider: MARGARET RECINOS Report Released Date/Time: Jul 24, 2023 10:52 AM Reporting Lab: [facility] [address] Performing Lab: [facility] [address] [place] [facility] COMPREHE NSIVE METABOLI C PANEL+MG GLUCOSE [MASS/VOLU ME] IN SERUM OR PLASMA 94 mg/dL 70 - 100 07/24 Specimen Type: PLASMA No comment entered. Ordering Provider: MARGARTE RECINOS Report Released Date/Time: Jul 24, 2023 10:52 AM Reporting Lab: [facility] [address] Performing Lab: [facility] [address] [place] [facility] COMPREHE NSIVE METABOLI C PANEL+MG SODIUM [MOLES/VOL UME] IN SERUM OR PLASMA 139 mmol/L 136 - 145 07/24 Specimen Type: PLASMA No comment entered. Ordering Provider: MARGARET RECINOS Report Released Date/Time: Jul 24, 2023 10:52 AM Reporting Lab: [facility] [address] Performing Lab: [facility] [address] [place] [facility] COMPREHE NSIVE METABOLI C PANEL+MG POTASSIUM [MOLES/VOL UME] IN SERUM OR PLASMA 4.5 mmol/L 3.5 - 5.1 07/24 Specimen Type: PLASMA No comment entered. Ordering Provider: MARGARET RCEINOS Report Released Date/Time: Jul 24, 2023 10:52 AM Reporting Lab: [facility] [address] Performing Lab: [facility] [address] [place] [facility] COMPREHE NSIVE METABOLI C PANEL+MG CHLORIDE [MOLES/VOL UME] IN SERUM OR PLASMA 106 mmol/L 98 - 107 07/24 Specimen Type: PLASMA No comment entered. Ordering Provider: MARGARET RECINOS Report Released Date/Time: Jul 24, 2023 10:52 AM Reporting Lab: [facility] [address] Performing Lab: [facility] [address] [place] [facility] COMPREHE NSIVE METABOLI C PANEL+MG CARBON DIOXIDE, TOTAL [MOLES/VOL UME] IN SERUM OR PLASMA 27 mmol/L 22 - 29 07/24 Specimen Type: PLASMA No comment entered. Ordering Provider: MARGARET RECINOS Report Released Date/Time: Jul 24, 2023 10:52 AM Reporting Lab: [facility] [address] Performing Lab: [facility] [address] [place] [facility] COMPREHE NSIVE METABOLI C PANEL+MG CALCIUM [MASS/VOLU ME] IN SERUM OR PLASMA 9.5 mg/dL 8.4 - 10.2 07/24 Specimen Type: PLASMA No comment entered. Ordering Provider: MARGARET RECINOS Report Released Date/Time: Jul 24, 2023 10:52 AM Reporting Lab: [facility] [address] Performing Lab: [facility] [address] [place] [facility] COMPREHE NSIVE METABOLI C PANEL+MG PROTEIN [MASS/VOLU ME] IN SERUM OR PLASMA 7.3 g/dL 6.0 - 8.3 07/24 Specimen Type: PLASMA No comment entered. Ordering Provider: MARGARET RECINOS Report Released Date/Time: Jul 24, 2023 10:52 AM Reporting Lab: [facility] [address] Performing Lab: [facility] [address] [place] [facility] COMPREHE NSIVE METABOLI C PANEL+MG ALBUMIN [MASS/VOLU ME] IN SERUM OR PLASMA 3.9 g/dL 3.5 - 5.2 07/24 Specimen Type: PLASMA No comment entered. Ordering Provider: MARGARET RECINOS Report Released Date/Time: Jul 24, 2023 10:52 AM Reporting Lab: [facility] [address] Performing Lab: [facility] [address] [place] [facility] COMPREHE NSIVE METABOLI C PANEL+MG BILIRUBIN. TOTAL [MASS/VOLU ME] IN SERUM OR PLASMA 1.7 mg/dL 0.2 - 1.2 07/24 H Specimen Type: PLASMA No comment entered. Ordering Provider: MARGARET RECINOS Report Released Date/Time: Jul 24, 2023 10:52 AM Reporting Lab: [facility] [address] Performing Lab: [facility] [address] [place] [facility] COMPREHE NSIVE METABOLI C PANEL+MG MAGNESIUM [MASS/VOLU ME] IN SERUM OR PLASMA 2.1 mg/dL 1.6 - 2.6 07/24 Specimen Type: PLASMA No comment entered. Ordering Provider: MARGARET RECINOS Report Released Date/Time: Jul 24, 2023 10:52 AM Reporting Lab: [facility] [address] Performing Lab: [facility] [address] [place] [facility] COMPREHE NSIVE METABOLI C PANEL+MG ANION GAP IN SERUM OR PLASMA 6 mmol/L 5 - 15 07/24 Specimen Type: PLASMA No comment entered. Ordering Provider: MARGARET RECINOS Report Released Date/Time: Jul 24, 2023 10:52 AM Reporting Lab: [facility] [address] Performing Lab: [facility] [address] [place] [facility] COMPREHE NSIVE METABOLI C PANEL+MG ALKALINE PHOSPHATAS E [ENZYMATIC ACTIVITY/V OLUME] IN SERUM OR PLASMA 118 U/L 40 - 150 07/24 Specimen Type: PLASMA No comment entered. Ordering Provider: MARGARET RECINOS Report Released Date/Time: Jul 24, 2023 10:52 AM Reporting Lab: [facility] [address] Performing Lab: [facility] [address] [place] [facility] COMPREHE NSIVE METABOLI C PANEL+MG ALANINE AMINOTRANS FERASE [ENZYMATIC ACTIVITY/V OLUME] IN SERUM OR PLASMA 19 U/L <55 - 55 07/24 Specimen Type: PLASMA No comment entered. Ordering Provider: MARGARET RECINOS Report Released Date/Time: Jul 24, 2023 10:52 AM Reporting Lab: [facility] [address] Performing Lab: [facility] [address] [place] [facility] COMPREHE NSIVE METABOLI C PANEL+MG ASPARTATE AMINOTRANS FERASE [ENZYMATIC ACTIVITY/V OLUME] IN SERUM OR PLASMA 23 U/L <34 - 34 07/24 Specimen Type: PLASMA No comment entered. Ordering Provider: MARGARET RECINOS Report Released Date/Time: Jul 24, 2023 10:52 AM Reporting Lab: [facility] [address] Performing Lab: [facility] [address] [facility] COMPREHE NSIVE METABOLI C PANEL+MG GLOMERULAR FILTRATION RATE/1.73 SQ M.PREDICTE D [VOLUME RATE/AREA] IN SERUM, PLASMA OR BLOOD BY CREATININE -BASED FORMULA (CKD-EPI 2020) 67 60 07/24 Specimen Type: PLASMA No comment entered. Ordering Provider: MARGARET RECINOS Report Released Date/Time: Jul 24, 2023 10:52 AM Reporting Lab: [facility] [address] Performing Lab: [facility] [address] [place] [facility] COMPREHE NSIVE METABOLI C PANEL+MG BILIRUBIN. DIRECT [MASS/VOLU ME] IN SERUM OR PLASMA 0.5 mg/dL <0.5 - 0.5 07/24 Specimen Type: PLASMA No comment entered. Ordering Provider: MARGARET RECINOS Report Released Date/Time: Jul 24, 2023 10:52 AM Reporting Lab: [facility] [address] Performing Lab: [facility] [address] [place] [facility] PROTHROM BIN TIME/INR INR IN PLATELET POOR PLASMA BY COAGULATIO N ASSAY 1.0 0.8 - 1.1 07/24 Specimen Type: PLASMA No comment entered. Ordering Provider: MARGARET RECINOS Report Released Date/Time: Jul 24, 2023 10:52 AM Reporting Lab: [facility] [address] Performing Lab: [facility] [address] [place] [facility] PROTHROM BIN TIME/INR PROTHROMBI N TIME (PT) 12.2 s 9.4 - 12.5 07/24 Specimen Type: PLASMA No comment entered. Ordering Provider: MARGARET RECINOS Report Released Date/Time: Jul 24, 2023 10:52 AM Reporting Lab: [facility] [address] Performing Lab: [facility] [address] [place] [facility] BASIC METABOLI C PANEL+MG CREATININE [MASS/VOLU ME] IN SERUM OR PLASMA 1.0 mg/dL 0.7 - 1.2 02/05 Specimen Type: PLASMA No comment entered. Ordering Provider: MAGALYS BUCIO Report Released Date/Time: Jan 02, 2022 11:30 AM Reporting Lab: [facility] [id number] Performing Lab: [facility] [address] [place] [facility] PANEL+MG UREA NITROGEN [MASS/VOLU ME] IN SERUM OR PLASMA 16 mg/dL 8 - 02/05 Specimen Type: PLASMA No comment entered. Ordering Provider: MAGALYS BUCIO Report Released Date/Time: Jan 02, 2022 11:30 AM Reporting Lab: [facility] [id number] Performing Lab: [facility] [id number] [place] [facility] PANEL+MG GLUCOSE [MASS/VOLU ME] IN SERUM OR PLASMA 78 mg/dL 70 - 100 02/05 Specimen Type: PLASMA No comment entered. Ordering Provider: MAGALYS BUCIO Report Released Date/Time: Jan 02, 2022 11:30 AM Reporting Lab: [facility] [address] Performing Lab: [facility] [address] [place] [facility] BASIC METABOLI C PANEL+MG SODIUM [MOLES/VOL UME] IN SERUM OR PLASMA 140 mmol/L 136 - 145 02/05 Specimen Type: PLASMA No comment entered. Ordering Provider: MAGALYS BUCIO Report Released Date/Time: Jan 02, 2022 11:30 AM Reporting Lab: [facility] [address] Performing Lab: [facility] [address] [place] [facility] BASIC METABOLI C PANEL+MG POTASSIUM [MOLES/VOL UME] IN SERUM OR PLASMA 4.4 mmol/L 3.5 - 5.1 02/05 Specimen Type: PLASMA No comment entered. Ordering Provider: MAGALYS BUCIO Report Released Date/Time: Jan 02, 2022 11:30 AM Reporting Lab: [facility] [address] Performing Lab: [facility] [address] [place] [facility] BASIC METABOLI C PANEL+MG CHLORIDE [MOLES/VOL UME] IN SERUM OR PLASMA 105 mmol/L 98 - 107 02/05 Specimen Type: PLASMA No comment entered. Ordering Provider: MAGALYS BUCIO Report Released Date/Time: Jan 02, 2022 11:30 AM Reporting Lab: [facility] [address] Performing Lab: [facility] [address] [place] [facility] BASIC METABOLI C PANEL+MG CARBON DIOXIDE, TOTAL [MOLES/VOL UME] IN SERUM OR PLASMA 26 mmol/L 22 - 29 02/05 Specimen Type: PLASMA No comment entered. Ordering Provider: MAGALYS BUCIO Report Released Date/Time: Jan 02, 2022 11:30 AM Reporting Lab: [facility] [address] Performing Lab: [facility] [address] [place] [facility] BASIC METABOLI C PANEL+MG CALCIUM [MASS/VOLU ME] IN SERUM OR PLASMA 9.4 mg/dL 8.4 - 10.2 02/05 Specimen Type: PLASMA No comment entered. Ordering Provider: MAGALYS BUCIO Report Released Date/Time: Jan 02, 2022 11:30 AM Reporting Lab: [facility] [address] Performing Lab: [facility] [address] [place] [facility] BASIC METABOLI C PANEL+MG MAGNESIUM [MASS/VOLU ME] IN SERUM OR PLASMA 2.0 mg/dL 1.6 - 2.6 02/05 Specimen Type: PLASMA No comment entered. Ordering Provider: MAGALYS BUCIO Report Released Date/Time: Jan 02, 2022 11:30 AM Reporting Lab: [facility] [address] Performing Lab: [facility] [address] [place] [facility] BASIC METABOLI C PANEL+MG ANION GAP IN SERUM OR PLASMA 9 mmol/L 5 - 15 02/05 Specimen Type: PLASMA No comment entered. Ordering Provider: MAGALYS BUCIO Report Released Date/Time: Jan 02, 2022 11:30 AM Reporting Lab: [facility] [address] Performing Lab: [facility] [address] [place] [facility] BAS[facility] METABOLI C PANEL+MG GLOMERULAR FILTRATION RATE/1.73 SQ M.PREDICTE D [VOLUME RATE/AREA] IN SERUM, PLASMA OR BLOOD BY CREATININE -BASED FORMULA (CKD-EPI 2020) 75 60 02/05 Specimen Type: PLASMA No comment entered. Ordering Provider: MAGALYS BUCIO Report Released Date/Time: Jan 02, 2022 11:30 AM Reporting Lab: [facility] [address] Performing Lab: [facility] [address] [place] [facility] CBC LEUKOCYTES [#/VOLUME] IN BLOOD BY AUTOMATED COUNT 8.96 10*3/uL 4.0 - 11.0 02/05 Specimen Type: BLOOD No comment entered. Ordering Provider: MAGALYS BUCIO Report Released Date/Time: Jan 02, 2022 11:30 AM Reporting Lab: [facility] [address] Performing Lab: [facility] [address] [place] [facility] CBC ERYTHROCYT ES [#/VOLUME] IN BLOOD BY AUTOMATED COUNT 4.71 10*6/uL 4.6 - 6.2 02/05 Specimen Type: BLOOD No comment entered. Ordering Provider: MAGALYS BUCIO Report Released Date/Time: Jan 02, 2022 11:30 AM Reporting Lab: [facility] [address] Performing Lab: [facility] [address] [place] [facility] CBC HEMOGLOBIN [MASS/VOLU ME] IN BLOOD 15.0 g/dL 13.5 - 17.9 02/05 Specimen Type: BLOOD No comment entered. Ordering Provider: MAGALYS BUCIO Report Released Date/Time: Jan 02, 2022 11:30 AM Reporting Lab: [facility] [address] Performing Lab: [facility] [address] [place] [facility] CBC HEMATOCRIT [VOLUME FRACTION] OF BLOOD BY AUTOMATED COUNT 45.0 41 - 54 02/05 Specimen Type: BLOOD No comment entered. Ordering Provider: MAGALYS BUCIO Report Released Date/Time: Jan 02, 2022 11:30 AM Reporting Lab: [facility] [address] Performing Lab: [facility] [address] [place] [facility] CBC MCV [ENTITIC VOLUME] BY AUTOMATED COUNT 95.5 fL 80 - 100 02/05 Specimen Type: BLOOD No comment entered. Ordering Provider: MAGALYS BUCIO Report Released Date/Time: Jan 02, 2022 11:30 AM Reporting Lab: [facility] [address] Performing Lab: [facility] [address] [place] [facility] CBC MCH [ENTITIC MASS] BY AUTOMATED COUNT 31.8 pg 27 - 33 02/05 Specimen Type: BLOOD No comment entered. Ordering Provider: MAGALYS BUCIO Report Released Date/Time: Jan 02, 2022 11:30 AM Reporting Lab: [facility] [address] Performing Lab: [facility] [address] [place] [facility] CBC MCHC [MASS/VOLU ME] BY AUTOMATED COUNT 33.3 g/dL 32.0 - 37.5 02/05 Specimen Type: BLOOD No comment entered. Ordering Provider: MAGALYS BUCIO Report Released Date/Time: Jan 02, 2022 11:30 AM Reporting Lab: [facility] [address] Performing Lab: [facility] [address] [place] [facility] CBC PLATELETS [#/VOLUME] IN BLOOD BY AUTOMATED COUNT 271 10*3/uL 150 - 400 02/05 Specimen Type: BLOOD No comment entered. Ordering Provider: MAGALSY BUCIO Report Released Date/Time: Jan 02, 2022 11:30 AM Reporting Lab: [facility] [address] Performing Lab: [facility] [address] [place] [facility] CBC PLATELET MEAN VOLUME [ENTITIC VOLUME] IN BLOOD BY AUTOMATED COUNT 9.6 fL 7.4 - 10.4 02/05 Specimen Type: BLOOD No comment entered. Ordering Provider: MAGALYS BUCIO Report Released Date/Time: Jan 02, 2022 11:30 AM Reporting Lab: [facility] [address] Performing Lab: [facility] [address] [place] [facility] CBC ERYTHROCYT E DISTRIBUTI ON WIDTH [RATIO] BY AUTOMATED COUNT 13.5 11.5 - 14.5 02/05 Specimen Type: BLOOD No comment entered. Ordering Provider: MAGALYS BUCIO Report Released Date/Time: Jan 02, 2022 11:30 AM Reporting Lab: [facility] [address] Performing Lab: [facility] [address] [employer] Vital Signs Combined list of inpatient and outpatient Vital Signs from Department of Defense and Veterans Affairs, ranging from 12 months to all on record, depending upon the facility. Vital Sign Value Date Comments Source SYSTOLIC BLOOD PRESSURE 118 10/17/2023 13:01:15 [facility] DIASTOLIC BLOOD PRESSURE 55 10/17/2023 13:01:15 [facility] PULSE OXIMETRY 95 10/17/2023 13:01:15 [place] [facility] TEMPERATURE 98.5 10/17/2023 13:01:15 [place] [facility] PULSE 66 10/17/2023 13:01:15 [facility] [place] [facility] RESPIRATION 16 10/17/2023 13:01:15 [place] [facility] SYSTOLIC BLOOD PRESSURE 160 09/23/2023 09:17:00 [facility] DIASTOLIC BLOOD PRESSURE 89 09/23/2023 09:17:00 [facility] PULSE OXIMETRY 69 09/23/2023 09:17:00 [facility] WEIGHT 183 09/23/2023 09:17:00 [facility] [place] [facility] BMI 29kg/m2 09/23/2023 09:17:00 [facility] [place] [facility] PAIN 0 09/23/2023 09:17:00 [facility] [place] [facility] HEIGHT 67.25 09/23/2023 09:17:00 [facility] [place] [facility] TEMPERATURE 97.5 09/23/2023 09:17:00 [place] [facility] PULSE 71 09/23/2023 09:17:00 [facility] [place] [facility] SYSTOLIC BLOOD PRESSURE 160 08/07/2023 08:58:05 [facility] DIASTOLIC BLOOD PRESSURE 89 08/07/2023 08:58:05 [facility] PULSE OXIMETRY 96 08/07/2023 08:58:05 [facility] PAIN 0 08/07/2023 08:58:05 [facility] [place] [facility] TEMPERATURE 97.8 08/07/2023 08:58:05 [place] [facility] PULSE 62 08/07/2023 08:58:05 [facility] [place] [facility] RESPIRATION 16 08/07/2023 08:58:05 [place] [facility] SYSTOLIC BLOOD PRESSURE 127 07/24/2023 10:32:00 [facility] DIASTOLIC BLOOD PRESSURE 76 07/24/2023 10:32:00 [facility] PULSE OXIMETRY 96 07/24/2023 10:32:00 M [facility] PAIN 0 07/24/2023 10:32:00 [facility] TEMPERATURE 98.1 07/24/2023 10:32:00 [facility] PULSE 63 07/24/2023 10:32:00 [facility] RES[facility]ATION 16 07/24/2023 10:32:00 [facility] Encounters Combined list of: 1) Encounters from [facility] facilities going back up to thelast 18 months. 2) Encounters from the Department of [facility] facilities going back up to 280 months. Location Location Details Encounter Type Encounter Number Reason For Visit Attending Provider ADM Date DC Date Status Disposition Source [facility] Outpatient Encounter [id number] 09/10 [facility] Outpatient Encounter [id number] 09/10 [facility] REM INTERROG EVL PM/LDLS PM [id number] Diagnos is: ICD-10- CM Z95.0 Presenc e of cardiac pacemak er
SA KRISTIN NDRA L 09/11 [facility] PM DEVICE PROGR EVAL DUAL [id number] Diagnos is: ICD-10- CM Z95.0 Presenc e of cardiac pacemak er
DORENE UNGER A 11/27 [facility] Outpatient Encounter [id number] 12/12 [facility] OFFICE O/P EST LOW 20-29 MIN [id number] Diagnos is: ICD-10- CM Z00.00 Encntr for general adult medical exam w/o abnorma l finding s
KEVYN WETZEL A 02/05 [facility] Outpatient Encounter [id number] 03/13 [facility] [place] [facility] Outpatient Encounter [id number] 06/19 [place] [facility] Outpatient Encounter [id number] 06/22 [facility] [place] [facility] REM INTERROG EVL PM/LDLS PM [id number] Diagnos is: ICD-10- CM I48.3 Typical atrial flutter
AIME RAZA T 06/22 [facility] [place] [facility] HEARING AID REPAIR/MOD IFYING [id number] Diagnos is: ICD-10- CM H90.3 Sensori neural hearing loss, bilater al
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<b r/> ALESSANDRA RECINOS T 07/24 [facility] Outpatient Encounter [id number] 07/29 [facility] OFF/OP CNSLTJ NEW/EST MOD 40 [id number] Diagnos is: ICD-10- CM 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 Out[facility] Encounter [id number] 09/08 [facility] INJ PERFLUTREN LIP MICROS,ML [id number] Diagnos is: ICD-10- CM Z95.0 Presenc e of cardiac pacemak er
DANNY SMART NZI 09/22 [facility] ELECTROCAR DIOGRAM REPORT [id number] Diagnos is: ICD-10- CM Z13.6 Encount er for screeni ng for cardiov ascular disorde rs
Karin ZABALA O 09/22 [facility] INTERR[place] [id number] Diagnos is: ICD-10- CM I45.5 Other specifi ed heart block<b r/> AB BARBER BIE L 09/22 [facility] OFF/OP CONSLTJ NEW/EST HI 55 [id number] Diagnos is: ICD-10- CM I45.5 Other specifi ed heart block<b r/> BARBERAB BIE L 09/22 [facility] Outpatient Encounter [id number] 10/01 [facility] EMR DPT VST MAYX REQ PHY/QHP [id number] Diagnos is: ICD-10- CM J32.8 Other chronic sinusit is
LELAND PONCE IN J 10/16 [facility] Outpatient Encounter [id number] CYNTHIA MAGANA 10/16 [facility] Outpatient Encounter [id number] 10/16 [facility] HEARING AID REPAIR/MOD IFYING [id number] Diagnos is: ICD-10- CM H90.A21 Snsrnrl hear loss, uni, r ear, with rstrcd hear cntra side
Angeli KENDALL 11/01 [place] [facility] [place] [facility] Outpatient Encounter [id number] SHAN ORDONEZ 11/16 [place] [facility] [place] [facility] Outpatient Encounter [id number] 12/01 [place] [facility] [place] [facility] SELF-MGMT EDUC & TRAIN 1 [place] [id number] Diagnos is: ICD-10- CM H90.A21 Snsrnrl hear loss, uni, r ear, with rstrcd hear cntra side
SAMY CARSON 12/06 [facility] [place] [facility] Outpatient Encounter [id number] 12/14 [place] [facility] [place] [facility] Outpatient Encounter [id number] 12/20 [place] [facility] [place] [facility] Outpatient Encounter [id number] 01/11 [place] [facility] [place] [facility] Outpatient Encounter [id number] 01/19 [place] [facility] Outpatient Encounter [id number] 01/19 [facility] Social History Combined list of available smoking, tobacco, and other social history from Department of Defense and Veterans Affairs facilities. Social History Type Response Date Comment Sour e Tobacco smoking status NHIS VA-TOBACCO FORMER USER 02/05/2023 [facility] History of tobacco use OH-TOBACCO QUIT 15 YRS OR MORE 02/05/2023 [facility] History of tobacco use OH-TOBACCO QUIT 15 YRS OR MORE 01/02/2022 [facility] History of tobacco use VA-TOBACCO FORMER USER 11/08/2020 [facility] History of tobacco use VA-TOBACCO QUIT 15 YRS OR MORE 11/18/2018 [facility] History of tobacco use QUIT TOBACCO >7 YEARS AGO 10/27/[facility] of tobacco use NON-TOBACCO USER 07/21/2017 [facility] History of tobacco use FORMER TOBACCO USER 7Y OR GREATER 09/02/2016 [facility] History of tobacco use FORMER TOBACCO USER 7Y OR GREATER 08/06/2015 [facility] History of tobacco use LIFETIME NON-TOBACCO USER 07/07/2014 [facility]
[2024-02-28 13:49] LABS: Appearance Urine Cloudy (Clear); Bilirubin Urine Negative (Negative); Blood Urine 3+ (Negative); Color Urine Orange (Yellow); Glucose Urine Negative (Negative); Ketones Urine Negative (Negative); Leukocyte Esterase Urine Negative (Negative); Nitrite Urine Negative (Negative); Protein Urine Negative (Negative); Specific Gravity Urine 1.015 (1.000-1.030); Urobilinogen Urine 0.2 (0.2-1.0); pH Urine 5.5 (5.0-8.5)
[2024-02-28 13:57] LABS: RBC Urine 50-100 (0-2); Squamous Epithelial Cell Urine Few (None-Few)
--- NOTE | 2024-02-28 14:10 | ED_ITS ---
HPI - Male Genitourinary General Chief complaint: Urogenital Problems, Male Stated complaint: Urinary Complaints Time Seen by Provider: 02/28/24 12:49 History of Present Illness HPI Narrative: This 84-year-old male comes in reporting abdominal distension and pain because of urinary retention. He states that he has not been able to void urine for about the last 9 or 10 hours. He states that he had urinary retention once in the past which was postanesthesia. At that time a straight catheter was placed and removed and he did well. He has not had urinary retention since then. Related Data Previous Rx's ?Medication ?Instructions ?Recorded cephalexin 500 mg capsule 500 mg PO TID 7 days #21 caps 02/28/24 Allergies Allergy/AdvReac Type Severity Reaction Status Date / Time No Known Drug Allergies Allergy Verified 02/28/24 12:31 Review of Systems Status of ROS: Reports: 10 or more systems reviewed and unremarkable except as noted in History and below Narrative: Constitutional: No fevers, no weight gain or loss. Eyes: No discharge. No vision changes. HENT: No congestion, no sore throat, no ear pain. Cardiovascular: No chest pain, no palpitations. Respiratory: No shortness of breath, no wheezes, no cough. Gastrointestinal: No vomiting, no diarrhea. Genitourinary: Urinary retention with abdominal distension and pain. Musculoskeletal: Normal range of motion. Skin: No rashes, no pruritis. Neurological: No dizziness, weakness, sensory change, speech change. Endo/Heme/Allergies: No bruising or bleeding. No polydipsia. Pysch: no suicidality, no anxiety, no insomnia. All other systems reviewed and are negative. [facility] Social History Smoking Status: Never smoker Non-prescribed substance use: denies use Exam Narrative: Exam Narrative: Constitutional: Well-developed, well-nourished, no acute distress. HEENT: Normocephalic, atraumatic. Neck: Normal range of motion. Nontender. Supple. Heart: Regular. No murmurs. Normal rate. Intact distal pulses. Lungs: Clear to auscultation. No chest discomfort. No wheezes, rhonchi, or rales. Abdomen: Normal bowel sounds. No rebound tenderness. Tenderness and distention in the lower abdomen from urinary retention. Genitalia: Deferred. Back: No midline tenderness. Normal range of motion. Extremities: Normal range of motion. No injury. Skin: Intact. No rash. Warm. No erythema or pallor. Neurologic: No altered sensation. No weakness. Alert and oriented. Psychiatric: No suicidality. No anxiety or depression. No insomnia. Nursing notes and vitals signs are reviewed. Const: Vital Signs, click to edit/add: Vital Signs - 24 hr 02/28/24 12:31 Temperature 97.7 F Pulse Rate [Pulse Oximeter] 84 Respiratory Rate 16 Blood Pressure [Ri ght Upper Arm] 152/84 H Pulse Oximetry 97 Oxygen Delivery Me thod Room Air Course Vital Signs Vital signs: Initial Vital Signs Temperature 97.7 F 02/28/24 12:31 Temperature Source Temporal Artery Scan 02/28/24 12:31 Pulse Rate 84 02/28/24 12:31 Respiratory Rate 16 02/28/24 12:31 Blood Pressure 152/84 H 02/28/24 12:31 Blood Pressure Mean 106 H 02/28/24 12:31 Blood Pressure Position Standing 02/28/24 12:31 Pulse Oximetry 97 02/28/24 12:31 Oxygen Delivery Method Room Air 02/28/24 12:31 Vital Signs Temperature 97.7 F 02/28/24 12:31 Pulse Rate 84 02/28/24 12:31 Respiratory Rate 16 02/28/24 12:31 Blood Pressure 152/84 H 02/28/24 12:31 Pulse Oximetry 97 02/28/24 12:31 Oxygen Delivery Method Room Air 02/28/24 12:31 Temperature 97.7 F 02/28/24 12:31 Pulse Rate 84 02/28/24 12:31 Respiratory Rate 16 02/28/24 12:31 Blood Pressure 152/84 H 02/28/24 12:31 Pulse Oximetry 97 02/28/24 12:31 Oxygen Delivery Method Room Air 02/28/24 12:31 MDM - Male Genitourinary MDM Narrative Medical decision making narrative: This patient is retaining urine. A bladder scan showed evidence of 650 mL of urine. A Ponce catheter was placed which brought great relief to his symptoms. Urinalysis shows hematuria with 5-10 white blood cells per high-powered field. The patient is sent home with a Ponce catheter in place and encouraged to return to clinic or urgent care in 2 or 3 days for its removal. I did provide a prescription Lab Data Labs: Lab Results 02/28/24 Range/Units 13:35 Urine Color [place] A (Yellow) Urine Appearance Cloudy A (Clear) Urine pH 5.5 (5.0-8.5) Ur Specific [place] 1.015 (1.000-1.030) Urine Protein Negative (Negative) Urine Glucose (UA) Negative (Negative) Urine Ketones Negative (Negative) Urine Blood 3+ A (Negative) Urine Nitrite Negative (Negative) Urine Bilirubin Negative (Negative) Urine Urobilinogen 0.2 (0.2-1.0) Ur Leukocyte Esterase Negative (Negative) Urine RBC 50-100 A (0-2) Urine WBC 5-10 A (0-5) Ur Squamous Epith Cells Few (None-Few) Urine Bacteria None (None) Discharge Plan Discharge Clinical Impression: Acute urinary retention Patient Disposition: Home, Self-Care Condition: Improved Additional Instructions: Take medication as prescribed. Follow up in clinic urgent care for removal of the catheter in 2-3 days. Return if worsening. Prescriptions: New cephalexin 500 mg capsule 500 mg PO TID 7 Days Qty: 21 0RF Follow Up/Referrals: Provider,Not a Local [Primary Care Provider] - Stand Alone Forms: [employer] Info Instructions
== END 2024-02-28 14:25 | disposition home or self-care (01) ==
PROVIDERS: Emergency Provider Emergency Medicine Emergency Medical Services
DX: R33.9 Retention of urine, unspecified (principal); R31.9 Hematuria, unspecified; T83.091A Other mechanical complication of indwelling urethral catheter, initial encounter
CPT/HCPCS: 51702; 51798; 81001; 87086; 99283; 99284

== ENCOUNTER 2024-02-28 20:41 | Emergency (ER) | payer OTHER, SELFPAY ==
--- OUTSIDE RECORDS SUMMARY | 2024-02-28 20:46 | XMS_ITS | CCD ---
Author Organization [facility] Address [address] [place] [address] Care Team Providers Care Automotive Sales Associate Name Role Phone Unavailable Primary Care Provider [...]
--- OUTSIDE RECORDS SUMMARY | 2024-02-28 20:46 | XMS_ITS | Encounter Summary ---
Author Organization [facility] Address [address] [place] [address] Care Team Providers Care Equipment Mechanic Specialist Name Role Phone Unavailable Primary Care Provider Unavailabl e Prior Encounters Date Type Department Care Team Description 06/20/2019 Converted CPS Chart Documents [facility] [address] [place] [address] <No scans attached> 06/20/2019 Converted 13x Documents [facility] [address] [place] [address] <No scans attached> Plan of [...] 5 ENDODONTIC THERAPY, PREMOLAR TOOTH (EXCLUDING FINAL CATHOLIC) Routine 07/14/2019 1:00 AM MST 5 PULP [...]
--- OUTSIDE RECORDS SUMMARY | 2024-02-28 20:46 | XMS_ITS | Clinical Summary ---
Author Organization [facility] Address [address] [place] [address] Care Team Providers Care Quality Control Systems Manager Name Role Phone Unavailable Primary Care Provider [...]
--- OUTSIDE RECORDS SUMMARY | 2024-02-28 20:46 | XMS_ITS | Referral Summary ---
Author Organization [facility] Address [address] [place] [address] Care Team Providers Care Band Maker Name Role Phone Unavailable Primary Care Provider [...]
--- OUTSIDE RECORDS SUMMARY | 2024-02-28 20:46 | XMS_ITS | Continuity of Care Document ---
Author Name [facility] Organization [facility] Care Team Providers Care Activity Coordinator Name Role Phone [facility] Unavailable Unavailable Problems Combined list of problems from Department of Defense and Veterans Affairs facilities. It does not include entries that were removed or entered in error. 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 13 Condition Jul 07, 2014 Entered By: BEN VIVEROS Comment: s/p dualchamber pacer [facility] Chronic peptic ulcer without hemorrhage, without perforation AND without obstruction Active 06/01/18 86 Condition Jul 07, 2014 Entered By: BEN VIVEORS Comment: s/p partial gastrectomy, has dumping syndrome [facility] Atrial Flutter (SCT [id number]) Active Condition [facility] Cardiac pacemaker in situ Active Condition [facility] Cardiomyopathy Active Condition [facility] Elevated PSA Active Condition [facility] Gilbert's syndrome Active Condition [facility] Hearing Loss (SCT [id number]) Active Condition [facility] History of peptic ulcer Active Condition Dec 04, 2017 Entered By: MEHREEN ARCHIBALD Comment: partial gastectomy and dumping syndrome [facility] Syncope and Collapse (SCT [id number]) Active Condition Dec 04, 2017 Entered By: MEHREEN ARCHIBALD Comment: due to complete heart block [facility] Typical atrial flutter Active Condition [facility] Diagnosis: ICD-10-CM H90.A21 Snsrnrl hear loss, uni, r ear, with rstrcd hear cntra side Active Diagnosis [facility] Diagnosis: ICD-10-CM J32.8 Other chronic sinusitis Active Diagnosis [facility] Diagnosis: ICD-10-CM I45.5 Other specified heart block Active Diagnosis [facility] Diagnosis: ICD-10-CM Z13.6 Encounter for screening for cardiovascular disorders Active Diagnosis [facility] Diagnosis: ICD-10-CM Z95.0 Presence of cardiac pacemaker Active Diagnosis [facility] Diagnosis: ICD-10-CM 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 [facility] Diagnosis: ICD-10-CM H90.3 Sensorineural hearing loss, bilateral Active Diagnosis [facility] Diagnosis: ICD-10-CM I48.3 Typical atrial flutter Active Diagnosis [facility] Diagnosis: ICD-10-CM Z00.00 Encntr for general adult medical exam w/o abnormal findings Active Diagnosis [facility] Medications Combined list of outpatient medications from [...] Jul 24, 2023 30 Jul 24, [id number] [facility] 07/24/2024 [id number] Angeli RECINOS 2023 30 [facility] GINKGO BILOBA CAP/TAB GINKGO BILOBA CAP/TAB Non-VA TAKE ONE TABLET BY MOUTH EVERY DAY Sep 23, 2023 Non-VA Document ed by: MAIA BLANDON Document ed at: [facility] Angeli BLANDON 2023 [facility] NON VA MED NOT LISTED NON VA MED NOT LISTED Non-VA USE HYDRO-ZY ME MOUTH Nov 21, 2020 Non-VA Document ed by: AMARILYS PALAFOX Document ed at: [facility] AMARILYS PALAFOX 2020 [facility] SAW PALMETTO CAP/TAB SAW PALMETTO CAP/TAB Non-VA TAKE Jan 02, 2022 Non-VA Document ed by: MAGGIE BUCIO Document ed at: [facility] ACTIVE [place]ON BUCIO 2021 [facility] SODIUM CHLORIDE 0.65% SOLN,NASAL SPRAY SODIUM CHLORIDE 0.65% SOLN,GIGI AL SPRAY SPRAY 2 SPRAYS IN EACH NOSTRIL TWICE A DAY FOR NASAL DRYNESS FOR NASAL DRYNESS October 17, 2023 45 Nov 16, 2023 [id number] October 17, [address] [facility] NASAL 11/16/2023 [id number] MONICA PONCE 2023 45 [facility] Immunizations Combined list of available immunizations from the Department of Defense and Veterans Affairs facilities. Immunization Series Date Given Administered By Site Reaction Lot Number CVX Code Drug Civil Lawyer Status Comments Source TD (ADULT), 2 LF TETANUS TOXOID, PRESERVATIVE FREE, ADSORBED 1996 09 complet ed [facility] Results Combined list of recent chemistry, [...] Aug 07, 2023 09:32 AM Reporting Lab: [facility] [address] Performing Lab: [facility] [address] [place] [facility] LIPID PANEL,NO N-FASTIN G CHOLESTERO L IN HDL [MASS/VOLU ME] IN SERUM OR PLASMA 66 mg/dL 40 08/06 Specimen Type: PLASMA No comment entered. Ordering Provider: YOAV VILLEDA ERT E Report Released Date/Time: Aug 07, 2023 09:32 AM Reporting Lab: [facility] [address] Performing Lab: [facility] [address] [facility] LIPID PANEL,NO N-FASTIN G CHOLESTERO L IN LDL [MASS/VOLU ME] IN SERUM OR PLASMA BY CALCULANEHEMIAHO N 75 mg/dL <99 - 99 08/06 Specimen Type: PLASMA No comment entered. Ordering Provider: YOAV VILLEDA ERT Rachael Report Released Date/Time: Aug 07, 2023 09:32 AM Reporting Lab: [facility] [address] Performing Lab: [facility] [address] [place] [facility] LIPID PANEL,NO N-FASTIN G CHOLESTERO L IN VLDL [MASS/VOLU ME] IN SERUM OR PLASMA BY CALCULATIO N 25 mg/dL <29 - 29 08/06 Specimen Type: PLASMA No comment entered. Ordering Provider: YOAV VILLEDA Report Released Date/Time: Aug 07, 2023 09:32 AM Reporting Lab: [facility] [address] Performing Lab: [facility] [address] [place] [facility] LIPID PANEL,NO N-FASTIN G CHOLESTERO L NON HDL [MASS/VOLU ME] IN SERUM OR PLASMA 100 mg/dL <129 - 129 08/06 Specimen Type: PLASMA No comment entered. Ordering Provider: YOAV VILLEDA ERT Rachael Report Released Date/Time: Aug 07, 2023 09:32 AM Reporting Lab: [facility] [address] Performing Lab: [facility] [address] [place] [facility] LIPID PANEL,NO N-FASTIN G TRIGLYCERI DE [MASS/VOLU ME] IN SERUM OR PLASMA 124 mg/dL <149 - 149 08/06 Specimen Type: PLASMA No comment entered. Ordering Provider: YOAV VILLEDA Report Released Date/Time: Aug 07, 2023 09:32 AM Reporting Lab: [facility] [address] Performing Lab: [facility] [address] [place] [facility] EXTRA GOLD GEL TUBE EXTRA GOLD GEL TUBE RECEIVED 07/24 Specimen Type: SERUM No comment entered. Ordering Provider: MARGARET RECINOS Report Released Date/Time: Jul 24, 2023 11:22 AM Reporting Lab: [facility] [address] Performing Lab: [facility] [address] [place] [facility] POC CREATINI NE CREATININE [MASS/VOLU ME] IN BLOOD 1.1 mg/dL 0.6 - 1.3 07/24 Specimen Type: BLOOD No comment entered. Ordering Provider: MARGARET RECINOS Report Released Date/Time: Jul 24, 2023 11:28 AM Reporting Lab: [facility] [address] Performing Lab: [facility] [address] [place] [facility] ACT PART THROMBO TIME APTT IN PLATELET POOR PLASMA BY COAGULATIO N ASSAY 34.3 s 25.1 - 36.5 07/24 Specimen Type: PLASMA No comment entered. Ordering Provider: MARGARET RECINOS Report Released Date/Time: Jul 24, 2023 10:52 AM Reporting Lab: [facility] [address] Performing Lab: [facility] [address] [place] [facility] CBC & DIFF LEUKOCYTES [#/VOLUME] IN BLOOD BY AUTOMATED COUNT 8.70 10*3/uL 4.0 - 11.0 07/24 Specimen Type: BLOOD Comment: Automated Differentia l Performed Ordering Provider: MARGARET RECINOS Report Released Date/Time: Jul 24, 2023 10:52 AM Reporting Lab: [facility] [address] Performing Lab: [facility] [address] [place] [facility] CBC & DIFF ERYTHROCYT ES [#/VOLUME] IN BLOOD BY AUTOMATED COUNT 4.85 10*6/uL 4.6 - 6.2 07/24 Specimen Type: BLOOD Comment: Automated Differentia l Performed Ordering Provider: MARGARET RECINOS Report Released Date/Time: Jul 24, 2023 10:52 AM Reporting Lab: [facility] [address] Performing Lab: [facility] [address] [place] [facility] CBC & DIFF HEMOGLOBIN [MASS/VOLU ME] IN BLOOD 15.1 g/dL 13.5 - 17.9 07/24 Specimen Type: BLOOD Comment: Automated Differentia l Performed Ordering Provider: MARGARET RECINOS Report Released Date/Time: Jul 24, 2023 10:52 AM Reporting Lab: [facility] [address] Performing Lab: [facility] [address] [place] [facility] CBC & DIFF HEMATOCRIT [VOLUME FRACTION] OF BLOOD BY AUTOMATED COUNT 45.7 41 - 54 07/24 Specimen Type: BLOOD Comment: Automated Differentia l Performed Ordering Provider: MARGARET RECINOS Report Released Date/Time: Jul 24, 2023 10:52 AM Reporting Lab: [facility] [address] Performing Lab: [facility] [address] [place] [facility] CBC & DIFF MCV [ENTITIC VOLUME] BY AUTOMATED COUNT 94.2 fL 80 - 100 07/24 Specimen Type: BLOOD Comment: Automated Differentia l Performed Ordering Provider: MARGARET RECINOS Report Released Date/Time: Jul 24, 2023 10:52 AM Reporting Lab: [facility] [address] Performing Lab: [facility] [address] [place] [facility] CBC & DIFF MCH [ENTITIC MASS] BY AUTOMATED COUNT 31.1 pg 27 - 33 07/24 Specimen Type: BLOOD Comment: Automated Differentia l Performed Ordering Provider: MARGARET RECINOS Report Released Date/Time: Jul 24, 2023 10:52 AM Reporting Lab: [facility] [address] Performing Lab: [facility] [address] [place] [facility] CBC & DIFF MCHC [MASS/VOLU ME] BY AUTOMATED COUNT 33.0 g/dL 32.0 - 37.5 07/24 Specimen Type: BLOOD Comment: Automated Differentia l Performed Ordering Provider: MARGARET RECINOS Report Released Date/Time: Jul 24, 2023 10:52 AM Reporting Lab: [facility] [address] Performing Lab: [facility] [address] [place] [facility] CBC & DIFF PLATELETS [#/VOLUME] IN BLOOD BY AUTOMATED COUNT 288 10*3/uL 150 - 400 07/24 Specimen Type: BLOOD Comment: Automated Differentia l Performed Ordering Provider: MARGARET RECINOS Report Released Date/Time: Jul 24, 2023 10:52 AM Reporting Lab: [facility] [address] Performing Lab: [facility] [address] [place] [facility] CBC & DIFF PLATELET MEAN VOLUME [ENTITIC VOLUME] IN BLOOD BY AUTOMATED COUNT 9.8 fL 7.4 - 10.4 07/24 Specimen Type: BLOOD Comment: Automated Differentia l Performed Ordering Provider: MARGARET RECINOS Report Released Date/Time: Jul 24, 2023 10:52 AM Reporting Lab: [facility] [address] Performing Lab: [facility] [address] [place] [facility] CBC & DIFF NEUTROPHIL S/100 LEUKOCYTES IN BLOOD BY MANUAL COUNT 66.1 40.0 - 80.0 07/24 Specimen Type: BLOOD Comment: Automated Differentia l Performed Ordering Provider: MARGARET RECINOS Report Released Date/Time: Jul 24, 2023 10:52 AM Reporting Lab: [facility] [address] Performing Lab: [facility] [address] [place] [facility] CBC & DIFF LYMPHOCYTE S/100 LEUKOCYTES IN BLOOD BY MANUAL COUNT 17.5 15.0 - 45.0 07/24 Specimen Type: BLOOD Comment: Automated Differentia l Performed Ordering Provider: MARGARET RECINOS Report Released Date/Time: Jul 24, 2023 10:52 AM Reporting Lab: [facility] [address] Performing Lab: [facility] [address] [place] [facility] CBC & DIFF MONOCYTES/ 100 LEUKOCYTES IN BLOOD BY AUTOMATED COUNT 12.3 2.0 - 12.0 07/24 H Specimen Type: BLOOD Comment: Automated Differentia l Performed Ordering Provider: MARGARET RECINOS Report Released Date/Time: Jul 24, 2023 10:52 AM Reporting Lab: [facility] [address] Performing Lab: [facility] [address] [place] [facility] CBC & DIFF EOSINOPHIL S/100 LEUKOCYTES IN BLOOD BY AUTOMATED COUNT 2.8 0.0 - 6.0 07/24 Specimen Type: BLOOD Comment: Automated Differentia l Performed Ordering Provider: MARGARET RECINOS Report Released Date/Time: Jul 24, 2023 10:52 AM Reporting Lab: [facility] [address] Performing Lab: [facility] [address] [place] [facility] CBC & DIFF BASOPHILS/ 100 LEUKOCYTES IN BLOOD BY MANUAL COUNT 0.8 0.0 - 2.0 07/24 Specimen Type: BLOOD Comment: Automated Differentia l Performed Ordering Provider: MARGARET RECINOS Report Released Date/Time: Jul 24, 2023 10:52 AM Reporting Lab: [facility] [address] Performing Lab: [facility] [address] [place] [facility] CBC & DIFF ERYTHROCYT E DISTRIBUTI ON WIDTH [RATIO] BY AUTOMATED COUNT 13.8 11.5 - 14.5 07/24 Specimen Type: BLOOD Comment: Automated Differentia l Performed Ordering Provider: MARGARET RECINOS Report Released Date/Time: Jul 24, 2023 10:52 AM Reporting Lab: [facility] [address] Performing Lab: [facility] [address] [place] [facility] CBC & DIFF LYMPHOCYTE S [#/VOLUME] IN BLOOD BY AUTOMATED COUNT 1.52 10*3/uL 1.0 - 4.0 07/24 Specimen Type: BLOOD Comment: Automated Differentia l Performed Ordering Provider: MARGARET RECINOS Report Released Date/Time: Jul 24, 2023 10:52 AM Reporting Lab: [facility] [address] Performing Lab: [facility] [address] [place] [facility] CBC & DIFF MONOCYTES [#/VOLUME] IN BLOOD BY AUTOMATED COUNT 1.07 10*3/uL 0.1 - 1.0 07/24 H Specimen Type: BLOOD Comment: Automated Differentia l Performed Ordering Provider: MARGARET RECINOS Report Released Date/Time: Jul 24, 2023 10:52 AM Reporting Lab: [facility] [address] Performing Lab: [facility] [address] [place] [facility] CBC & DIFF NEUTROPHIL S [#/VOLUME] IN BLOOD BY AUTOMATED COUNT 5.76 10*3/uL 2.0 - 7.7 07/24 Specimen Type: BLOOD Comment: Automated Differentia l Performed Ordering Provider: MARGARET RECINOS Report Released Date/Time: Jul 24, 2023 10:52 AM Reporting Lab: [facility] [address] Performing Lab: [facility] [address] [place] [facility] CBC & DIFF EOSINOPHIL S [#/VOLUME] IN BLOOD BY AUTOMATED COUNT 0.24 10*3/uL 0 - 0.5 07/24 Specimen Type: BLOOD Comment: Automated Differentia l Performed Ordering Provider: MARGARET RECINOS Report Released Date/Time: Jul 24, 2023 10:52 AM Reporting Lab: [facility] [address] Performing Lab: [facility] [address] [place] [facility] CBC & DIFF BASOPHILS [#/VOLUME] IN BLOOD BY AUTOMATED COUNT 0.07 10*3/uL 0 - 0.2 07/24 Specimen Type: BLOOD Comment: Automated Differentia l Performed Ordering Provider: MARGARET RECINOS Report Released Date/Time: Jul 24, 2023 10:52 AM Reporting Lab: [facility] [address] Performing Lab: [facility] [address] [place] [facility] CBC & DIFF IG(META,MY TAMIKA,PRO) 0.5 07/24 Specimen Type: BLOOD Comment: Automated Differentia l Performed Ordering Provider: MARGARET RECINOS Report Released Date/Time: Jul 24, 2023 10:52 AM Reporting Lab: [facility] [address] Performing Lab: [facility] [address] [place] [facility] CBC & DIFF IMMATURE GRANULOCYT ES [PRESENCE] IN BLOOD BY AUTOMATED COUNT 0.04 10*3/uL 0 - 0.1 07/24 Specimen Type: BLOOD Comment: Automated Differentia l Performed Ordering Provider: MARGARET RECINOS Report Released Date/Time: Jul 24, 2023 10:52 AM Reporting Lab: [facility] [address] Performing Lab: [facility] [address] [place] [facility] COMPREHE NSIVE METABOLI C PANEL+MG CREATININE [MASS/VOLU ME] IN SERUM OR PLASMA 1.1 mg/dL 0.7 - 1.2 07/24 Specimen Type: PLASMA No comment entered. Ordering Provider: MARGARET RECINOS Report Released Date/Time: Jul 24, 2023 10:52 AM Reporting Lab: [facility] [address] Performing Lab: [facility] [address] [place] [facility] COMPREHE NSIVE METABOLI C PANEL+MG UREA NITROGEN [MASS/VOLU ME] IN SERUM OR PLASMA 14 mg/dL 8 - 26 07/24 Specimen Type: PLASMA No comment entered. Ordering Provider: MARGARET RECINOS Report Released Date/Time: Jul 24, 2023 10:52 AM Reporting Lab: [facility] [address] Performing Lab: [facility] [address] [place] [facility] COMPREHE NSIVE METABOLI C PANEL+MG GLUCOSE [MASS/VOLU ME] IN SERUM OR PLASMA 94 mg/dL 70 - 100 07/24 Specimen Type: PLASMA No comment entered. Ordering Provider: MARGARET RECINOS Report Released Date/Time: Jul 24, 2023 10:52 AM Reporting Lab: [facility] [address] Performing Lab: [facility] [address] [place] [facility] COMPREHE NSIVE METABOLI C PANEL+MG SODIUM [MOLES/VOL UME] IN SERUM OR PLASMA 139 mmol/L 136 - 145 07/24 Specimen Type: PLASMA No comment entered. Ordering Provider: MARGARET RECINOS Report Released Date/Time: Jul 24, 2023 10:52 AM Reporting Lab: [facility] [address] Performing Lab: [facility] [address] [place] [facility] COMPREHE NSIVE METABOLI C PANEL+MG POTASSIUM [MOLES/VOL UME] IN SERUM OR PLASMA 4.5 mmol/L 3.5 - 5.1 07/24 Specimen Type: PLASMA No comment entered. Ordering Provider: MARGARET RECINOS Report Released Date/Time: Jul 24, 2023 10:52 AM Reporting Lab: [facility] [address] Performing Lab: [facility] [address] [place] [facility] COMPREHE NSIVE METABOLI C PANEL+MG CHLORIDE [MOLES/VOL UME] IN SERUM OR PLASMA 106 mmol/L 98 - 107 07/24 Specimen Type: PLASMA No comment entered. Ordering Provider: MARGARET RECINOS Report Released Date/Time: Jul 24, 2023 10:52 AM Reporting Lab: [facility] [phone] Performing Lab: [facility] [address] [place] [facility] COMPREHE NSIVE METABOLI C PANEL+MG CARBON DIOXIDE, TOTAL [MOLES/VOL UME] IN SERUM OR PLASMA 27 mmol/L 22 - 29 07/24 Specimen Type: PLASMA No comment entered. Ordering Provider: MARGARET RECINOS Report Released Date/Time: Jul 24, 2023 10:52 AM Reporting Lab: [facility] [address] Performing Lab: [facility] [address] [place] [facility] COMPREHE NSIVE METABOLI C PANEL+MG CALCIUM [MASS/VOLU ME] IN SERUM OR PLASMA 9.5 mg/dL 8.4 - 10.2 07/24 Specimen Type: PLASMA No comment entered. Ordering Provider: MARGARET RECINOS Report Released Date/Time: Jul 24, 2023 10:52 AM Reporting Lab: [facility] [address] Performing Lab: [facility] [address] [place] [facility] COMPREHE NSIVE METABOLI C PANEL+MG PROTEIN [MASS/VOLU ME] IN SERUM OR PLASMA 7.3 g/dL 6.0 - 8.3 07/24 Specimen Type: PLASMA No comment entered. Ordering Provider: MARGARET RECINOS Report Released Date/Time: Jul 24, 2023 10:52 AM Reporting Lab: [facility] [address] Performing Lab: [facility] [address] [place] [facility] COMPREHE NSIVE METABOLI C PANEL+MG ALBUMIN [MASS/VOLU ME] IN SERUM OR PLASMA 3.9 g/dL 3.5 - 5.2 07/24 Specimen Type: PLASMA No comment entered. Ordering Provider: MARGARET RECINOS Report Released Date/Time: Jul 24, 2023 10:52 AM Reporting Lab: [facility] [address] Performing Lab: [facility] [address] [place] [facility] COMPREHE NSIVE METABOLI C PANEL+MG BILIRUBIN. TOTAL [MASS/VOLU ME] IN SERUM OR PLASMA 1.7 mg/dL 0.2 - 1.2 07/24 H Specimen Type: PLASMA No comment entered. Ordering Provider: MARGARET RECINOS Report Released Date/Time: Jul 24, 2023 10:52 AM Reporting Lab: [facility] [address] Performing Lab: [facility] [address] [place] [facility] COMPREHE NSIVE METABOLI C PANEL+MG MAGNESIUM [MASS/VOLU ME] IN SERUM OR PLASMA 2.1 mg/dL 1.6 - 2.6 07/24 Specimen Type: PLASMA No comment entered. Ordering Provider: MARGARET RECINOS Report Released Date/Time: Jul 24, 2023 10:52 AM Reporting Lab: [facility] [address] Performing Lab: [facility] [address] [place] [facility] COMPREHE NSIVE METABOLI C PANEL+MG ANION GAP IN SERUM OR PLASMA 6 mmol/L 5 - 15 07/24 Specimen Type: PLASMA No comment entered. Ordering Provider: MARGARET RECINOS Report Released Date/Time: Jul 24, 2023 10:52 AM Reporting Lab: [facility] [address] Performing Lab: [facility] [address] [place] [facility] COMPREHE NSIVE METABOLI C PANEL+MG ALKALINE PHOSPHATAS E [ENZYMATIC ACTIVITY/V OLUME] IN SERUM OR PLASMA 118 U/L 40 - 150 07/24 Specimen Type: PLASMA No comment entered. Ordering Provider: MARGARET RECINOS Report Released Date/Time: Jul 24, 2023 10:52 AM Reporting Lab: [facility] [address] Performing Lab: [facility] [address] [place] [facility] COMPREHE NSIVE METABOLI C PANEL+MG ALANINE AMINOTRANS FERASE [ENZYMATIC ACTIVITY/V OLUME] IN SERUM OR PLASMA 19 U/L <55 - 55 07/24 Specimen Type: PLASMA No comment entered. Ordering Provider: MARGARET RECINOS Report Released Date/Time: Jul 24, 2023 10:52 AM Reporting Lab: [facility] [address] Performing Lab: [facility] [address] [place] [facility] COMPREHE NSIVE METABOLI C PANEL+MG ASPARTATE AMINOTRANS FERASE [ENZYMATIC ACTIVITY/V OLUME] IN SERUM OR PLASMA 23 U/L <34 - 34 07/24 Specimen Type: PLASMA No comment entered. Ordering Provider: MARGARET RECINOS Report Released Date/Time: Jul 24, 2023 10:52 AM Reporting Lab: [facility] [address] Performing Lab: [facility] [address] [facility] COMPREHE NSIVE METABOLI C PANEL+MG GLOMERULAR FILTRATION RATE/1.73 SQ M.PREDICTE D [VOLUME RATE/AREA] IN SERUM, PLASMA OR BLOOD BY CREATININE -BASED FORMULA (CKD-EPI 2020) 67 60 07/24 Specimen Type: PLASMA No comment entered. Ordering Provider: MARGARET RECINOS Report Released Date/Time: Jul 24, 2023 10:52 AM Reporting Lab: [facility] [address] Performing Lab: [facility] [address] [place] [facility] COMPREHE NSIVE METABOLI C PANEL+MG BILIRUBIN. DIRECT [MASS/VOLU ME] IN SERUM OR PLASMA 0.5 mg/dL <0.5 - 0.5 07/24 Specimen Type: PLASMA No comment entered. Ordering Provider: MARGARET RECINOS Report Released Date/Time: Jul 24, 2023 10:52 AM Reporting Lab: [facility] [address] Performing Lab: [facility] [address] [place] [facility] PROTHROM BIN TIME/INR INR IN PLATELET POOR PLASMA BY COAGULATIO N ASSAY 1.0 0.8 - 1.1 07/24 Specimen Type: PLASMA No comment entered. Ordering Provider: MARGARET RECINOS Report Released Date/Time: Jul 24, 2023 10:52 AM Reporting Lab: [facility] [address] Performing Lab: [facility] [address] [place] [facility] PROTHROM BIN TIME/INR PROTHROMBI N TIME (PT) 12.2 s 9.4 - 12.5 07/24 Specimen Type: PLASMA No comment entered. Ordering Provider: MARGARET RECINOS Report Released Date/Time: Jul 24, 2023 10:52 AM Reporting Lab: [facility] [id number] Performing Lab: [facility] [id number] [place] [facility] BASIC METABOLI C PANEL+MG CREATININE [MASS/VOLU ME] IN SERUM OR PLASMA 1.0 mg/dL 0.7 - 1.2 02/05 Specimen Type: PLASMA No comment entered. Ordering Provider: MAGALYS BUCIO Report Released Date/Time: Jan 02, 2022 11:30 AM Reporting Lab: [facility] [id number] Performing Lab: [facility] [id number] [place] [facility] BASIC METABOLI C PANEL+MG UREA NITROGEN [MASS/VOLU ME] IN SERUM OR PLASMA 16 mg/dL 8 - 02/05 Specimen Type: PLASMA No comment entered. Ordering Provider: MAGALYS BUCIO Report Released Date/Time: Jan 02, 2022 11:30 AM Reporting Lab: [facility] [id number] Performing Lab: [facility] [phone] [place] [facility] BASIC METABOLI C PANEL+MG GLUCOSE [MASS/VOLU ME] IN SERUM OR PLASMA 78 mg/dL 70 - 100 02/05 Specimen Type: PLASMA No comment entered. Ordering Provider: MAGALYS BUCIO Report Released Date/Time: Jan 02, 2022 11:30 AM Reporting Lab: [facility] [address] Performing Lab: [facility] [address] [place] [facility] BASIC METABOLI C PANEL+MG SODIUM [MOLES/VOL UME] IN SERUM OR PLASMA 140 mmol/L 136 - 145 02/05 Specimen Type: PLASMA No comment entered. Ordering Provider: MAGALYS BUCIO Report Released Date/Time: Jan 02, 2022 11:30 AM Reporting Lab: [facility] [address] Performing Lab: [facility] [address] [place] [facility] BASIC METABOLI C PANEL+MG POTASSIUM [MOLES/VOL UME] IN SERUM OR PLASMA 4.4 mmol/L 3.5 - 5.1 02/05 Specimen Type: PLASMA No comment entered. Ordering Provider: MAGALYS BUCIO Report Released Date/Time: Jan 02, 2022 11:30 AM Reporting Lab: [facility] [address] Performing Lab: [facility] [address] [place] [facility] BASIC METABOLI C PANEL+MG CHLORIDE [MOLES/VOL UME] IN SERUM OR PLASMA 105 mmol/L 98 - 107 02/05 Specimen Type: PLASMA No comment entered. Ordering Provider: MAGALYS BUCIO Report Released Date/Time: Jan 02, 2022 11:30 AM Reporting Lab: [facility] [address] Performing Lab: [facility] [address] [place] [facility] BASIC METABOLI C PANEL+MG CARBON DIOXIDE, TOTAL [MOLES/VOL UME] IN SERUM OR PLASMA 26 mmol/L 22 - 29 02/05 Specimen Type: PLASMA No comment entered. Ordering Provider: MAGALYS BUCIO Report Released Date/Time: Jan 02, 2022 11:30 AM Reporting Lab: [facility] [address] Performing Lab: [facility] [address] [place] [facility] BASIC METABOLI C PANEL+MG CALCIUM [MASS/VOLU ME] IN SERUM OR PLASMA 9.4 mg/dL 8.4 - 10.2 02/05 Specimen Type: PLASMA No comment entered. Ordering Provider: MAGALYS BUCIO Report Released Date/Time: Jan 02, 2022 11:30 AM Reporting Lab: [facility] [address] Performing Lab: [facility] [address] [place] [facility] BASIC METABOLI C PANEL+MG MAGNESIUM [MASS/VOLU ME] IN SERUM OR PLASMA 2.0 mg/dL 1.6 - 2.6 02/05 Specimen Type: PLASMA No comment entered. Ordering Provider: MAGALYS BUCIO Report Released Date/Time: Jan 02, 2022 11:30 AM Reporting Lab: [facility] [address] Performing Lab: [facility] [address] [place] [facility] BASIC METABOLI C PANEL+MG ANION GAP IN SERUM OR PLASMA 9 mmol/L 5 - 15 02/05 Specimen Type: PLASMA No comment entered. Ordering Provider: MAGALYS BUCIO Report Released Date/Time: Jan 02, 2022 11:30 AM Reporting Lab: [facility] [address] Performing Lab: [facility] [address] [place] [facility] BASIC METABOLI C PANEL+MG GLOMERULAR FILTRATION RATE/1.73 SQ M.PREDICTE D [VOLUME RATE/AREA] IN SERUM, PLASMA OR BLOOD BY CREATININE -BASED FORMULA (CKD-EPI 2020) 75 60 02/05 Specimen Type: PLASMA No comment entered. Ordering Provider: MAGALYS BUCIO Report Released Date/Time: Jan 02, 2022 11:30 AM Reporting Lab: [facility] [address] Performing Lab: [facility] [address] [place] [facility] CBC LEUKOCYTES [#/VOLUME] IN BLOOD BY AUTOMATED COUNT 8.96 10*3/uL 4.0 - 11.0 02/05 Specimen Type: BLOOD No comment entered. Ordering Provider: MAGALYS BUCIO Report Released Date/Time: Jan 02, 2022 11:30 AM Reporting Lab: [facility] [address] Performing Lab: [facility] [address] [place] [facility] CBC ERYTHROCYT ES [#/VOLUME] IN BLOOD BY AUTOMATED COUNT 4.71 10*6/uL 4.6 - 6.2 02/05 Specimen Type: BLOOD No comment entered. Ordering Provider: MAGALYS BUCIO Report Released Date/Time: Jan 02, 2022 11:30 AM Reporting Lab: [facility] [address] Performing Lab: [facility] [address] [place] [facility] CBC HEMOGLOBIN [MASS/VOLU ME] IN BLOOD 15.0 g/dL 13.5 - 17.9 02/05 Specimen Type: BLOOD No comment entered. Ordering Provider: MAGALYS BUCIO Report Released Date/Time: Jan 02, 2022 11:30 AM Reporting Lab: [facility] [address] Performing Lab: [facility] [address] [place] [facility] CBC HEMATOCRIT [VOLUME FRACTION] OF BLOOD BY AUTOMATED COUNT 45.0 41 - 54 02/05 Specimen Type: BLOOD No comment entered. Ordering Provider: MAGALYS BUCIO Report Released Date/Time: Jan 02, 2022 11:30 AM Reporting Lab: [facility] [address] Performing Lab: [facility] [address] [place] [facility] CBC MCV [ENTITIC VOLUME] BY AUTOMATED COUNT 95.5 fL 80 - 100 02/05 Specimen Type: BLOOD No comment entered. Ordering Provider: MAGALYS BUCIO Report Released Date/Time: Jan 02, 2022 11:30 AM Reporting Lab: [facility] [address] Performing Lab: [facility] [address] [place] [facility] CBC MCH [ENTITIC MASS] BY AUTOMATED COUNT 31.8 pg 27 - 33 02/05 Specimen Type: BLOOD No comment entered. Ordering Provider: MAGALYS BUCIO Report Released Date/Time: Jan 02, 2022 11:30 AM Reporting Lab: [facility] [address] Performing Lab: [facility] [address] [place] [facility] CBC MCHC [MASS/VOLU ME] BY AUTOMATED COUNT 33.3 g/dL 32.0 - 37.5 02/05 Specimen Type: BLOOD No comment entered. Ordering Provider: MAGALYS BUCIO Report Released Date/Time: Jan 02, 2022 11:30 AM Reporting Lab: [facility] [address] Performing Lab: [facility] [address] [place] [facility] CBC PLATELETS [#/VOLUME] IN BLOOD BY AUTOMATED COUNT 271 10*3/uL 150 - 400 02/05 Specimen Type: BLOOD No comment entered. Ordering Provider: MAGALYS BUCIO Report Released Date/Time: Jan 02, 2022 11:30 AM Reporting Lab: [facility] [address] Performing Lab: [facility] [address] [place] [facility] CBC PLATELET MEAN VOLUME [ENTITIC VOLUME] IN BLOOD BY AUTOMATED COUNT 9.6 fL 7.4 - 10.4 02/05 Specimen Type: BLOOD No comment entered. Ordering Provider: MAGALYS BUCIO Report Released Date/Time: Jan 02, 2022 11:30 AM Reporting Lab: [facility] [address] Performing Lab: [facility] [address] [place] [facility] CBC ERYTHROCYT E DISTRIBUTI ON WIDTH [RATIO] BY AUTOMATED COUNT 13.5 11.5 - 14.5 02/05 Specimen Type: BLOOD No comment entered. Ordering Provider: MAGALYS BUCIO Report Released Date/Time: Jan 02, 2022 11:30 AM Reporting Lab: [facility] [address] Performing Lab: [facility] [address] [facility] Vital Signs Combined list of inpatient and outpatient Vital Signs from Department of Defense and Veterans Affairs, ranging from 12 months to all on record, depending upon the facility. Vital Sign Value Date Comments Source SYSTOLIC BLOOD PRESSURE 118 10/17/2023 13:01:15 [facility] DIASTOLIC BLOOD PRESSURE 55 10/17/2023 13:01:15 [facility] PULSE OXIMETRY 95 10/17/2023 13:01:15 [place] [facility] TEMPERATURE 98.5 10/17/2023 13:01:15 [place] [facility] PULSE 66 10/17/2023 13:01:15 [facility] [place] [facility] RESPIRATION 16 10/17/2023 13:01:15 [place] [facility] SYSTOLIC BLOOD PRESSURE 160 09/23/2023 09:17:00 [facility] DIASTOLIC BLOOD PRESSURE 89 09/23/2023 09:17:00 [facility] PULSE OXIMETRY 69 09/23/2023 09:17:00 [facility] WEIGHT 183 09/23/2023 09:17:00 [facility] [place] [facility] BMI 29kg/m2 09/23/2023 09:17:00 [facility] [place] [facility] PAIN 0 09/23/2023 09:17:00 [facility] [place] [facility] HEIGHT 67.25 09/23/2023 09:17:00 [facility] [place] [facility] TEMPERATURE 97.5 09/23/2023 09:17:00 [place] [facility] PULSE 71 09/23/2023 09:17:00 [facility] [place] [facility] SYSTOLIC BLOOD PRESSURE 160 08/07/2023 08:58:05 [facility] DIASTOLIC BLOOD PRESSURE 89 08/07/2023 08:58:05 [facility] PULSE OXIMETRY 96 08/07/2023 08:58:05 [place] [facility] PAIN 0 08/07/2023 08:58:05 [facility] [place] [facility] TEMPERATURE 97.8 08/07/2023 08:58:05 [place] [facility] PULSE 62 08/07/2023 08:58:05 [facility] [place] [facility] RESPIRATION 16 08/07/2023 08:58:05 [place] [facility] SYSTOLIC BLOOD PRESSURE 127 07/24/2023 10:32:00 [facility] DIASTOLIC BLOOD PRESSURE 76 07/24/2023 10:32:00 [facility] PULSE OXIMETRY 96 07/24/2023 10:32:00 [place] [facility] [facility] PAIN 0 07/24/2023 10:32:00 [facility] TEMPER[facility] 98.1 07/24/2023 10:32:00 [facility] P[facility]SE 63 07/24/2023 10:32:00 [facility] 16 07/24/2023 10:32:00 [facility] Encounters Combined list of: 1) Encounters from Department of [facility] Affairs facilities going back up to thelast 18 months. 2) Encounters from the Department of [facility] facilities going back up to 280 months. Location Location Details Encounter Type Encounter Number Reason For Visit Attending Provider ADM Date DC Date Status Disposition Source [facility] Outpatient Encounter [id number] 09/10 [facility] Outpatient Encounter [id number] 09/10 [facility] REM INTERROG EVL PM/LDLS PM [id number] Diagnos is: ICD-10- CM Z95.0 Presenc e of cardiac pacemak er
SA KRISTIN NDRA L 09/11 [facility] PM DEVICE PROGR EVAL DUAL [id number] Diagnos is: ICD-10- CM Z95.0 Presenc e of cardiac pacemak er
DORENE UNGER A 11/27 [facility] Outpatient Encounter [id number] 12/12 [facility] OFFICE O/P EST LOW 20-29 MIN [id number] Diagnos is: ICD-10- CM Z00.00 Encntr for general adult medical exam w/o abnorma l finding s
KEVYN WETZEL A 02/05 [facility] Outpatient Encounter [id number] 03/13 [facility] [place] [facility] Outpatient Encounter [id number] 06/19 [place] [facility] Outpatient Encounter [id number] 06/22 [facility] [place] [facility] REM INTERROG EVL PM/LDLS PM [id number] Diagnos is: ICD-10- CM I48.3 Typical atrial flutter
AIME RAZA T 06/22 [facility] [place] [facility] HEARING AID REPAIR/MOD IFYING [id number] Diagnos is: ICD-10- CM H90.3 Sensori neural hearing loss, bilater al
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<b r/> ALESSANDRA RECINOS T 07/24 [facility] Outpatient Encounter [id number] 07/29 [facility] OFF/OP CNSLTJ NEW/EST MOD 40 [id number] Diagnos is: ICD-10- CM 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
DANNY SMART NZI 09/22 [facility] ELECTROCAR DIOGRAM REPORT [id number] Diagnos is: ICD-10- CM Z13.6 Encount er for screeni ng for cardiov ascular disorde rs
Karin ZABALA O 09/22 [facility] INTERROG EVL PM/[place] [id number] Diagnos is: ICD-10- CM I45.5 Other specifi ed heart block<b r/> AB BARBER BIE L 09/22 [facility] OFF/OP CONSLTJ NEW/[place] HI 55 [id number] Diagnos is: ICD-10- CM I45.5 Other specifi ed heart block<b r/> BARBERAB BIE L 09/22 [facility] Outpatient Encounter [id number] 10/01 [facility] EMR DPT VST MAYX REQ PHY/QHP [id number] Diagnos is: ICD-10- CM J32.8 Other chronic sinusit is
LELAND PONCE IN J 10/16 [facility] Outpatient Encounter [id number] CYNTHIA MAGANA 10/16 [facility] Outpatient Encounter [id number] 10/16 [facility] HEARING AID REPAIR/MOD IFYING [id number] Diagnos is: ICD-10- CM H90.A21 Snsrnrl hear loss, uni, r ear, with rstrcd hear cntra side
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
SAMY CARSON 12/06 [facility] [place] [facility] Outpatient Encounter [id number] 12/14 [place] [facility] [place] [facility] Outpatient Encounter [id number] 12/20 [place] [facility] [place] [facility] Outpatient Encounter [id number] 01/11 [place] [facility] [place] [facility] Outpatient Encounter [id number] 01/19 [place] [facility] Outpatient Encounter [id number] 01/19 [facility] Social History Combined list of available smoking, tobacco, and other social history from Department of Defense and Veterans Affairs facilities. Social History Type Response Date Comment Sour e Tobacco smoking status NHIS VA-TOBACCO FORMER USER 02/05/2023 [facility] History of tobacco use [place]-TOBACCO QUIT 15 YRS OR MORE 02/05/2023 [facility] History of tobacco use [place]-TO[place]AC[place] QUIT 15 YRS OR MORE 01/02/2022 [facility] History of tobacco use VA-TOBACCO FORMER USER 11/08/2020 [facility] History of tobacco use VA-TOBACCO QUIT 15 YRS OR MORE 11/18/2018 [facility] History of tobacco use QUIT TOBACCO >7 YEARS AGO 10/27/2017 [facility] History of tobacco use NON-TOBACCO USER 07/21/2017 [facility] History of tobacco use FORMER TOBACCO USER 7Y OR GREATER 09/02/2016 [facility] History of tobacco use FORMER TOBACCO USER 7Y OR GREATER 08/06/2015 [facility] History of tobacco use LIFETIME NON-TOBACCO USER 07/07/2014 [facility]
--- OUTSIDE RECORDS SUMMARY | 2024-02-28 20:46 | XMS_ITS ---
Author Organization [facility] Address [address] [place] [address] Care Team Providers Care Crepe Sole Wire Brusher Name Role Phone Unavailable Unavailable Unavailable Surgery Details Not on file Complications Check Surgery Details section. Procedure Estimated Blood Loss Check Surgery Details section. Procedure Findings Check Surgery Details section. Procedure Specimens Taken Check Surgery Details section.
--- OUTSIDE RECORDS SUMMARY | 2024-02-28 20:46 | XMS_ITS | Clinical Summary ---
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 ) 12/18/2023 Transcribe Orders [facility] [address] [place] [address] Shankar Zaragoza MD from Last [...] Comments Blood Pressure 106/64 07/18/2010 9:30 AM REGISTERED VETERINARY TECHNICIAN Pulse - - Temperature 36.8 ??C (98.2 ??F) 07/18/2010 9:30 AM CS T Respiratory Rate - - Oxygen Saturation - - Inhaled Oxygen Concentration - - Weight 82.6 kg (182 lb) 07/18/2010 9:30 AM REGISTERED VETERINARY TECHNICIAN Height 172.7 cm (5' 8) 07/01/2010 9:18 AM REGISTERED VETERINARY TECHNICIAN Body Mass Index 27.67 07/01/2010 9:18 AM REGISTERED VETERINARY TECHNICIAN Plan of Treatment Health Maintenance Due Date [...] Influenza for age 65+ 01/31/2024 Care Teams Manager Financial Planning Relationship Specialty [place] [address] [place] [address] PCP - General Family Practice 07/01/10
--- OUTSIDE RECORDS SUMMARY | 2024-02-28 20:47 | XMS_ITS | Encounter Summary ---
Author Organization [facility] Address [address] [place] [address]. [place] [address] Care Team Providers Care Stationary Engineer Supervisor Name Role Phone [facility], [facility] Primary Care Provider + Maura Jackson MD Primary Care Provider [phone] Jorge Douglas MD Unavailable Unavailable Encounter Details Date Type Department Care Team (Late st Contact Info) Description 04/11/2013 Office Visit-[facility] [address] [place] [address] Jorge Douglas MD Social History [...] old Referring Physician: MAURA JACKSON Referring Clinic: [facility] CURRENT DIAGNOSES 1. 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 [...] on filedocumented in this encounter Care Teams Stationary Engineer Supervisor Relationship Specialty Start Date End Date [facility] [address] [place] [phone] PCP - General 07/30/11 02/02/19 Maura Jackson MD [facility] [id number] [place] [address] PCP - General Family Practice 02/03/19 Jorge Douglas MD Assigned Heart and Vascular Provider 03/23/20 05/25/21 documented as of this encounter
--- OUTSIDE RECORDS SUMMARY | 2024-02-28 20:47 | XMS_ITS | Referral Summary ---
Author Organization [facility] Address [address] [place] [address]. [place] [address] Care Team Providers Care Pond Scaler Name Role Phone Chandana Fleming MD Primary Care Provider [phone] Allergies Active Allergy Reactions Criticality Noted Date Comments No Known Drug Allergy 02/21/2003 Medications Medication Sig Dispensed Refills Start Date End Date Status Saw [place] 80 MG CAPS A ctive GINSENG PO Take by mouth 2 times daily Active HAW[place]ORN PO Take by mouth 2 times daily Active Ginkgo Biloba (GINKGO PO) Take by mouth 2 times daily Active NONFORMULARY [place]-zyme Active Active Problems Problem Noted Date Diagnosed [...] T Respiratory Rate 16 06/01/2014 8:01 PM EMERGENCY ROOM CLERK Oxygen Saturation 95% 04/08/2017 9:05 AM EMERGENCY ROOM CLERK Inhaled Oxygen Concentration - - Weight 78.9 kg (174 lb) 11/04/2018 1:12 PM CDT Height 172.7 cm (5' 8) 11/04/2018 1:12 PM CDT Body Mass Index 26.46 11/04/2018 1:12 PM CDT Plan of Treatment Not on file Medical Devices Implanted Type Area Traveling Plant Operator Device Identifier Shelf Expiration Date Model / Serial / Lot [employer]* 2087tc Tendril Sts [id number] Implanted:01/30 (Quantity not on file) Leads [employer] 2087TC TENDRIL STS / [id number] / [employer]* 2087tc Tendril Sts [id number] Implanted:01/30 (Quantity not on file) Leads [employer] 2087TC TENDRIL STS / [id number] / [employer]* [address] [id number] Implanted:01/30 (Quantity not on file) Pacemaker [employer] [address] / [id number] / Advance Directives For more information, please contact: [phone] * Full Code (Latest Code Status on File) Date Activated Date Inactivated Comments 02/16/2013 11:22 AM * Full Code Date Activated Date Inactivated Comments 02/14/2013 11:17 PM 02/16/2013 11:22 AM * Full Code Date Activated Date Inactivated Comments 07/31/2011 8:42 AM 02/14/2013 11:17 PM * Full Code Date Activated Date Inactivated Comments 07/30/2011 4:29 PM 07/31/2011 8:42 AM Care Teams Pond Scaler Relationship Specialty Start Date End Date Chandana Fleming MD [facility] [id number] [place] [address] PCP - General Family Practice 02/03/19
--- OUTSIDE RECORDS SUMMARY | 2024-02-28 20:47 | XMS_ITS | Clinical Summary ---
Author Organization [facility] Address [address] [place] [address]. [place] [address] Care Team Providers Care Lawyers Name Role Phone Chandana Fleming MD Primary Care Provider [phone] [phone] Allergies Active Allergy Reactions Criticality Noted Date Comments No Known Drug Allergy 02/21/2003 Medications Medication Sig Dispensed Refills Start Date End Date Status Saw [place] 80 MG CAPS A ctive GINSENG PO Take by mouth 2 times daily Active HAWTHORN PO Take by mouth 2 times daily Active Ginkgo Biloba (GINKGO PO) Take by mouth 2 times daily Active NONFORMULARY [place]-zyme Active Active Problems Problem Noted Date Diagnosed [...] T Respiratory Rate 16 06/01/2014 8:01 PM NUTRITIONISTS Oxygen Saturation 95% 04/08/2017 9:05 AM NUTRITIONISTS Inhaled Oxygen Concentration - - Weight 78.9 kg (174 lb) 11/04/2018 1:12 PM CDT Height 172.7 cm (5' 8) 11/04/2018 1:12 PM CDT Body Mass Index 26.46 11/04/2018 1:12 PM CDT Plan of Treatment Not on file Medical Devices Implanted Type Area Windows Server Specialist Device Identifier Shelf Expiration Date Model / Serial / Lot [employer]* 2087tc Tendril Sts [id number] Implanted:01/30 (Quantity not on file) Leads [employer] 2087TC TENDRIL STS / [id number] / [employer]* 2087tc Tendril Sts [id number] Implanted:01/30 (Quantity not on file) Leads [employer] 2087TC TENDRIL STS / [id number] / [employer]* [address] [id number] Implanted:01/30 (Quantity not on file) Pacemaker [employer] [address] / [id number] / Advance Directives For more information, please contact: [phone] * Full Code (Latest Code Status on File) Date Activated Date Inactivated Comments 02/16/2013 11:22 AM * Full Code Date Activated Date Inactivated Comments 02/14/2013 11:17 PM 02/16/2013 11:22 AM * Full Code Date Activated Date Inactivated Comments 07/31/2011 8:42 AM 02/14/2013 11:17 PM * Full Code Date Activated Date Inactivated Comments 07/30/2011 4:29 PM 07/31/2011 8:42 AM Care Teams Lawyers Relationship Specialty Start Date End Date Chandana Fleming MD [facility] [id number] [place] [address] PCP - General Family Practice 02/03/19
[2024-02-28 20:51] VITALS: BP 100/61; PULSE 62; RESP 16; TEMP 36.6; O2SAT 96; BMI 24.3
--- NOTE | 2024-02-28 21:02 | ED.MALEGU ---
HPI - Male Genitourinary General Time Seen by Provider: 21:02 Date Seen: 02/28/24 Chief complaint: Urogenital Problems, Male Stated complaint: new urine bag, believe not working Time Seen by Provider: 02/28/24 21:01 Source: patient Mode of arrival: ambulatory Limitations: no limitations History of Present Illness HPI Narrative: 84-year-old male who comes in today with concern for urinary retention. Patient was seen earlier today, had a Ponce catheter placed. Says it was not draining, but now between leaving his house uncommon in the department, is draining. Has no abdominal pain. Also requests that the tube cross be switched to the other leg Related Data Previous Rx's ?Medication ?Instructions ?Recorded cephalexin 500 mg capsule 500 mg PO TID 7 days #21 caps 02/28/24 Allergies Allergy/AdvReac Type Severity Reaction Status Date / Time No Known Drug Allergies Allergy Verified 02/28/24 12:31 PFSH PFS Social History Smoking Status: Never smoker Non-prescribed substance use: denies use Exam Narrative: Exam Narrative: General: well nourished , NAD Head: Atraumatic and normocephalic ENT: External ears and external nose are normal Eyes: Conjunctiva clear, pupils are equal reactive, external ocular motions are intact Neck: Full spontaneous range of motion of the neck Lungs: No respiratory distress Musculoskeletal: No tenderness or deformity Neurologic: No gross focal neurologic deficits Skin: No rashes Psych: Mood and affect are appropriate ; catheter in place with dark blood in the tubing and leg bag, small clots present. No abdominal pain and no tenderness, no distended bladder on exam. Const: Vital Signs, click to edit/add: Vital Signs - 24 hr 02/28/24 20:51 Temperature 97.8 F Pulse Rate [Left P ulse Oximeter] 62 Respiratory Rate 16 Blood Pressure [Ri ght Upper Arm] 100/61 Pulse Oximetry 96 Oxygen Delivery Me thod Room Air Course Course ED Course: Patient seen examined, reviewed chart from earlier today when patient is seen and urinary retention, catheter was placed. Patient presented today because the catheter was not draining well at home, however it is draining now. There are some clots in the bag and we discussed that there may have been a clot that was obstructing in the bladder. Will irrigate, also patient was having difficulty switching from the leg bag to an overnight bag and so nursing will go over this with him. Reevaluation(s) Time of Reevaluation #1: 21:44 Reevaluation #1: Catheter irrigated, draining well. Stable for discharge Vital Signs Vital signs: Initial Vital Signs Temperature 97.8 F 02/28/24 20:51 Temperature Source Temporal Artery Scan 02/28/24 20:51 Pulse Rate 62 02/28/24 20:51 Pulse Rhythm Regular 02/28/24 20:51 Respiratory Rate 16 02/28/24 20:51 Blood Pressure 100/61 02/28/24 20:51 Blood Pressure Mean 74 02/28/24 20:51 Blood Pressure Position Sitting 02/28/24 20:51 Pulse Oximetry 96 02/28/24 20:51 Oxygen Delivery Method Room Air 02/28/24 20:51 Vital Signs Temperature 97.8 F 02/28/24 20:51 Pulse Rate 62 02/28/24 20:51 Respiratory Rate 16 02/28/24 20:51 Blood Pressure 100/61 02/28/24 20:51 Pulse Oximetry 96 02/28/24 20:51 Oxygen Delivery Method Room Air 02/28/24 20:51 Temperature 97.8 F 02/28/24 20:51 Pulse Rate 62 02/28/24 20:51 Respiratory Rate 16 02/28/24 20:51 Blood Pressure 100/61 02/28/24 20:51 Pulse Oximetry 96 02/28/24 20:51 Oxygen Delivery Method Room Air 02/28/24 20:51 Discharge Plan Discharge Clinical Impression: Acute urinary retention, Hematuria, Complication, blocked Ponce catheter Patient Disposition: Home, Self-Care Condition: Stable Instructions: Ponce Catheter Placement and Care (ED), How to Change a Catheter Drainage Bag (DC) Additional Instructions: Follow-up with urology this week Activity Level: Activity as Tolerated Discharge Diet: Regular Prescriptions: No Action cephalexin 500 mg capsule 500 mg PO TID 7 Days Qty: 21 0RF Follow Up/Referrals: Provider,Not a Local [Primary Care Provider] - Stand Alone Forms: MyHealth Info Instructions
--- OUTSIDE RECORDS SUMMARY | 2024-02-28 21:21 | XMS_ITS | Clinical Summary ---
Author Organization [facility] Address [address] [place] [address] Care Team Providers Care Robotics Engineer Name Role Phone Unavailable Primary Care Provider [...]
--- OUTSIDE RECORDS SUMMARY | 2024-02-28 21:21 | XMS_ITS | Clinical Summary ---
Author Organization [facility] Address [address] [place] [address]. [place] [address] Care Team Providers Care Solar Project Engineer Name Role Phone Chandana Fleming MD Primary Care Provider [phone] Allergies Active Allergy Reactions Criticality Noted Date Comments No Known Drug Allergy 02/21/2003 Medications Medication Sig Dispensed Refills Start Date End Date Status Saw [place] 80 MG CAPS A ctive GINSENG PO Take by mouth 2 times daily Active [place] PO Take by mouth 2 times daily Active Ginkgo Biloba (GINKGO PO) Take by mouth 2 times daily Active NONFORMULARY [place]-zyme Active Active Problems Problem Noted Date Diagnosed [...] T Respiratory Rate 16 06/01/2014 8:01 PM DOCUMENTATION IMPROVEMENT SPECIALIST Oxygen Saturation 95% 04/08/2017 9:05 AM DOCUMENTATION IMPROVEMENT SPECIALIST Inhaled Oxygen Concentration - - Weight 78.9 kg (174 lb) 11/04/2018 1:12 PM CDT Height 172.7 cm (5' 8) 11/04/2018 1:12 PM CDT Body Mass Index 26.46 11/04/2018 1:12 PM CDT Plan of Treatment Not on file Medical Devices Implanted Type Area Library Clerical Assistant Device Identifier Shelf Expiration Date Model / Serial / Lot [employer] 2087tc Tendril Sts [id number] Implanted:01/30 (Quantity not on file) Leads [employer] 2087TC TENDRIL STS / [id number] / [employer] 2087tc Tendril Sts [id number] Implanted:01/30 (Quantity not on file) [employer]s [employer] 2087TC TENDRIL STS / [id number] / [employer]* [address] [id number] Implanted:01/30 (Quantity not on file) Pacemaker [employer] [address] / [id number] / Advance Directives For more information, please contact: [phone] * Full Code (Latest Code Status on File) Date Activated Date Inactivated Comments 02/16/2013 11:22 AM * Full Code Date Activated Date Inactivated Comments 02/14/2013 11:17 PM 02/16/2013 11:22 AM * Full Code Date Activated Date Inactivated Comments 07/31/2011 8:42 AM 02/14/2013 11:17 PM * Full Code Date Activated Date Inactivated Comments 07/30/2011 4:29 PM 07/31/2011 8:42 AM Care Teams Solar Project Engineer Relationship Specialty Start Date End Date Chandana Fleming MD [facility] [id number] [place] [id number] PCP - General Family Practice 02/03/19
--- OUTSIDE RECORDS SUMMARY | 2024-02-28 21:21 | XMS_ITS | Continuity of Care Document ---
Author Name [facility] Organization [facility] Care Team Providers Care Vocational Nurse Lvn Name Role Phone [facility] Unavailable Unavailable Problems Combined list of problems from Department of Defense and Veterans Affairs facilities. It does not include entries that were removed or entered in error. Problem Status Onset Date Problem Type Date of Resolution Comments Source Bilateral hearing loss Active 06/01/19 15 Condition Jul 07, 2014 Entered By: BEN VIVEROS Comment: has hearing aids from [facility] History of appendectomy Active 06/01/[address] [facility] s/p choley Active 06/01/[address] 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 Chronic peptic ulcer without hemorrhage, without perforation AND without obstruction Active 06/01/18 86 Condition Jul 07, 2014 Entered By: BEN VIVEROS Comment: s/p partial gastrectomy, has dumping syndrome [facility] Atrial Flutter (SCT [id number]) Active Condition [facility] Cardiac pacemaker in situ Active Condition [facility] Cardiomyopathy Active Condition [facility] Elevated PSA Active Condition [facility] Gilbert's syndrome Active Condition [facility] Hearing Loss (SCT [id number]) Active Condition [facility] History of peptic ulcer Active Condition Dec 04, 2017 Entered By: MEHREEN ARCHIBALD Comment: partial gastectomy and dumping syndrome [facility] Syncope and Collapse (SCT [id number]) Active Condition Dec 04, 2017 Entered By: MEHREEN ARCHIBALD Comment: due to complete heart block [facility] Typical atrial flutter Active Condition [facility] Diagnosis: ICD-10-CM H90.A21 Snsrnrl hear loss, uni, r ear, with rstrcd hear cntra side Active Diagnosis [facility] Diagnosis: ICD-10-CM J32.8 Other chronic sinusitis Active Diagnosis [facility] Diagnosis: ICD-10-CM I45.5 Other specified heart block Active Diagnosis [facility] Diagnosis: ICD-10-CM Z13.6 Encounter for screening for cardiovascular disorders Active Diagnosis [facility] Diagnosis: ICD-10-CM Z95.0 Presence of cardiac pacemaker Active Diagnosis [facility] Diagnosis: ICD-10-CM 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 [facility] Diagnosis: ICD-10-CM H90.3 Sensorineural hearing loss, bilateral Active Diagnosis [facility] Diagnosis: ICD-10-CM I48.3 Typical atrial flutter Active Diagnosis [facility] Diagnosis: ICD-10-CM Z00.00 Encntr for general adult medical exam w/o abnormal findings Active Diagnosis [facility] Medications Combined list of outpatient medications from [...] Jul 24, 2023 30 Jul 24, 2024 [id number] YASIR RECINOS [facility] HOLD 07/24/2024 [id number] Angeli RECINOS 2023 30 [facility] GINKGO BILOBA CAP/TAB GINKGO BILOBA CAP/TAB Non-VA TAKE ONE TABLET BY MOUTH EVERY DAY Sep 23, 2023 Non-VA Document ed by: MAIA BLANDON Document ed at: [facility] ACT[facility] Angeli BLANDON 2023 [facility] NON VA MED NOT LISTED NON VA MED NOT LISTED Non-VA USE HYDRO-ZY ME MOUTH Nov 21, 2020 Non-VA Document ed by: AMARILYS PALAFOX Document ed at: [facility] AMARILYS PALAFOX 2020 [facility] SAW PALMETTO CAP/TAB SAW PALMETTO CAP/TAB Non-VA TAKE Jan 02, 2022 Non-VA Document ed by: MAGGIE BUCIO Document ed at: [facility] ACTIVE TRENTON BUCIO 2021 [facility] SODIUM CHLORIDE 0.65% SOLN,NASAL SPRAY SODIUM CHLORIDE 0.65% SOLN,GIGI AL SPRAY SPRAY 2 SPRAYS IN EACH NOSTRIL TWICE A DAY FOR NASAL DRYNESS FOR NASAL DRYNESS October 17, 2023 45 Nov 16, 2023 [id number] October 17, 2023 Trent PONCE [facility] NASAL 11/16/2023 [id number] MONICA PONCE 2023 45 [facility] Immunizations Combined list of available immunizations from the Department of Defense and Veterans Affairs facilities. Immunization Series Date Given Administered By Site Reaction Lot Number CVX Code Drug Rn Research Status Comments Source TD (ADULT), 2 LF TETANUS TOXOID, PRESERVATIVE FREE, ADSORBED 1996 09 complet ed [facility] Results Combined list of recent chemistry, [...] Aug 07, 2023 09:32 AM Reporting Lab: [facility] [address] Performing Lab: [facility] [address] [place] [facility] LIPID PANEL,NO N-FASTIN G CHOLESTERO L IN HDL [MASS/VOLU ME] IN SERUM OR PLASMA 66 mg/dL 40 08/06 Specimen Type: PLASMA No comment entered. Ordering Provider: YOAV VILLEDA ERT E Report Released Date/Time: Aug 07, 2023 09:32 AM Reporting Lab: [facility] [address] Performing Lab: [facility] [address] [facility] LIPID PANEL,NO N-FASTIN G CHOLESTERO L IN LDL [MASS/VOLU ME] IN SERUM OR PLASMA BY CALCULANEHEMIAHO N 75 mg/dL <99 - 99 08/06 Specimen Type: PLASMA No comment entered. Ordering Provider: YOAV VILLEDA ERT Rachael Report Released Date/Time: Aug 07, 2023 09:32 AM Reporting Lab: [facility] [address] Performing Lab: [facility] [address] [place] [facility] LIPID PANEL,NO N-FASTIN G CHOLESTERO L IN VLDL [MASS/VOLU ME] IN SERUM OR PLASMA BY CALCULATIO N 25 mg/dL <29 - 29 08/06 Specimen Type: PLASMA No comment entered. Ordering Provider: YOAV VILLEDA Report Released Date/Time: Aug 07, 2023 09:32 AM Reporting Lab: [facility] [address] Performing Lab: [facility] [address] [place] [facility] LIPID PANEL,NO N-FASTIN G CHOLESTERO L NON HDL [MASS/VOLU ME] IN SERUM OR PLASMA 100 mg/dL <129 - 129 08/06 Specimen Type: PLASMA No comment entered. Ordering Provider: YOAV VILLEDA ERT Rachael Report Released Date/Time: Aug 07, 2023 09:32 AM Reporting Lab: [facility] [address] Performing Lab: [facility] [address] [place] [facility] LIPID PANEL,NO N-FASTIN G TRIGLYCERI DE [MASS/VOLU ME] IN SERUM OR PLASMA 124 mg/dL <149 - 149 08/06 Specimen Type: PLASMA No comment entered. Ordering Provider: YOAV VILLEDA Report Released Date/Time: Aug 07, 2023 09:32 AM Reporting Lab: [facility] [address] Performing Lab: [facility] [address] [place] [facility] EXTRA GOLD GEL TUBE EXTRA GOLD GEL TUBE RECEIVED 07/24 Specimen Type: SERUM No comment entered. Ordering Provider: MARGARET RECINOS Report Released Date/Time: Jul 24, 2023 11:22 AM Reporting Lab: [facility] [address] Performing Lab: [facility] [address] [place] [facility] POC CREATINI NE CREATININE [MASS/VOLU ME] IN BLOOD 1.1 mg/dL 0.6 - 1.3 07/24 Specimen Type: BLOOD No comment entered. Ordering Provider: MARGARET RECINOS Report Released Date/Time: Jul 24, 2023 11:28 AM Reporting Lab: [facility] [address] Performing Lab: [facility] [address] [place] [facility] ACT PART THROMBO TIME APTT IN PLATELET POOR PLASMA BY COAGULATIO N ASSAY 34.3 s 25.1 - 36.5 07/24 Specimen Type: PLASMA No comment entered. Ordering Provider: MARGARET RECINOS Report Released Date/Time: Jul 24, 2023 10:52 AM Reporting Lab: [facility] [address] Performing Lab: [facility] [address] [place] [facility] CBC & DIFF LEUKOCYTES [#/VOLUME] IN BLOOD BY AUTOMATED COUNT 8.70 10*3/uL 4.0 - 11.0 07/24 Specimen Type: BLOOD Comment: Automated Differentia l Performed Ordering Provider: MARGARET RECINOS Report Released Date/Time: Jul 24, 2023 10:52 AM Reporting Lab: [facility] [address] Performing Lab: [facility] [address] [place] [facility] CBC & DIFF ERYTHROCYT ES [#/VOLUME] IN BLOOD BY AUTOMATED COUNT 4.85 10*6/uL 4.6 - 6.2 07/24 Specimen Type: BLOOD Comment: Automated Differentia l Performed Ordering Provider: MARGARET RECINOS Report Released Date/Time: Jul 24, 2023 10:52 AM Reporting Lab: [facility] [address] Performing Lab: [facility] [address] [place] [facility] CBC & DIFF HEMOGLOBIN [MASS/VOLU ME] IN BLOOD 15.1 g/dL 13.5 - 17.9 07/24 Specimen Type: BLOOD Comment: Automated Differentia l Performed Ordering Provider: MARGARET RECINOS Report Released Date/Time: Jul 24, 2023 10:52 AM Reporting Lab: [facility] [address] Performing Lab: [facility] [address] [place] [facility] CBC & DIFF HEMATOCRIT [VOLUME FRACTION] OF BLOOD BY AUTOMATED COUNT 45.7 41 - 54 07/24 Specimen Type: BLOOD Comment: Automated Differentia l Performed Ordering Provider: MARGARET RECINOS Report Released Date/Time: Jul 24, 2023 10:52 AM Reporting Lab: [facility] [address] Performing Lab: [facility] [address] [place] [facility] CBC & DIFF MCV [ENTITIC VOLUME] BY AUTOMATED COUNT 94.2 fL 80 - 100 07/24 Specimen Type: BLOOD Comment: Automated Differentia l Performed Ordering Provider: MARGARET RECINOS Report Released Date/Time: Jul 24, 2023 10:52 AM Reporting Lab: [facility] [address] Performing Lab: [facility] [address] [place] [facility] CBC & DIFF MCH [ENTITIC MASS] BY AUTOMATED COUNT 31.1 pg 27 - 33 07/24 Specimen Type: BLOOD Comment: Automated Differentia l Performed Ordering Provider: MARGARET RECINOS Report Released Date/Time: Jul 24, 2023 10:52 AM Reporting Lab: [facility] [address] Performing Lab: [facility] [address] [place] [facility] CBC & DIFF MCHC [MASS/VOLU ME] BY AUTOMATED COUNT 33.0 g/dL 32.0 - 37.5 07/24 Specimen Type: BLOOD Comment: Automated Differentia l Performed Ordering Provider: MARGARET RECINOS Report Released Date/Time: Jul 24, 2023 10:52 AM Reporting Lab: [facility] [address] Performing Lab: [facility] [address] [place] [facility] CBC & DIFF PLATELETS [#/VOLUME] IN BLOOD BY AUTOMATED COUNT 288 10*3/uL 150 - 400 07/24 Specimen Type: BLOOD Comment: Automated Differentia l Performed Ordering Provider: MARGARET RECINOS Report Released Date/Time: Jul 24, 2023 10:52 AM Reporting Lab: [facility] [address] Performing Lab: [facility] [address] [place] [facility] CBC & DIFF PLATELET MEAN VOLUME [ENTITIC VOLUME] IN BLOOD BY AUTOMATED COUNT 9.8 fL 7.4 - 10.4 07/24 Specimen Type: BLOOD Comment: Automated Differentia l Performed Ordering Provider: MARGARET RECINOS Report Released Date/Time: Jul 24, 2023 10:52 AM Reporting Lab: [facility] [address] Performing Lab: [facility] [address] [place] [facility] CBC & DIFF NEUTROPHIL S/100 LEUKOCYTES IN BLOOD BY MANUAL COUNT 66.1 40.0 - 80.0 07/24 Specimen Type: BLOOD Comment: Automated Differentia l Performed Ordering Provider: MARGARET RECINOS Report Released Date/Time: Jul 24, 2023 10:52 AM Reporting Lab: [facility] [address] Performing Lab: [facility] [address] [place] [facility] CBC & DIFF LYMPHOCYTE S/100 LEUKOCYTES IN BLOOD BY MANUAL COUNT 17.5 15.0 - 45.0 07/24 Specimen Type: BLOOD Comment: Automated Differentia l Performed Ordering Provider: MARGARET RECINOS Report Released Date/Time: Jul 24, 2023 10:52 AM Reporting Lab: [facility] [address] Performing Lab: [facility] [address] [place] [facility] CBC & DIFF MONOCYTES/ 100 LEUKOCYTES IN BLOOD BY AUTOMATED COUNT 12.3 2.0 - 12.0 07/24 H Specimen Type: BLOOD Comment: Automated Differentia l Performed Ordering Provider: MARGARET RECINOS Report Released Date/Time: Jul 24, 2023 10:52 AM Reporting Lab: [facility] [address] Performing Lab: [facility] [address] [place] [facility] CBC & DIFF EOSINOPHIL S/100 LEUKOCYTES IN BLOOD BY AUTOMATED COUNT 2.8 0.0 - 6.0 07/24 Specimen Type: BLOOD Comment: Automated Differentia l Performed Ordering Provider: MARGARET RECINOS Report Released Date/Time: Jul 24, 2023 10:52 AM Reporting Lab: [facility] [address] Performing Lab: [facility] [address] [place] [facility] CBC & DIFF BASOPHILS/ 100 LEUKOCYTES IN BLOOD BY MANUAL COUNT 0.8 0.0 - 2.0 07/24 Specimen Type: BLOOD Comment: Automated Differentia l Performed Ordering Provider: MARGARET RECINOS Report Released Date/Time: Jul 24, 2023 10:52 AM Reporting Lab: [facility] [address] Performing Lab: [facility] [address] [place] [facility] CBC & DIFF ERYTHROCYT E DISTRIBUTI ON WIDTH [RATIO] BY AUTOMATED COUNT 13.8 11.5 - 14.5 07/24 Specimen Type: BLOOD Comment: Automated Differentia l Performed Ordering Provider: MARGARET RECINOS Report Released Date/Time: Jul 24, 2023 10:52 AM Reporting Lab: [facility] [address] Performing Lab: [facility] [address] [place] [facility] CBC & DIFF LYMPHOCYTE S [#/VOLUME] IN BLOOD BY AUTOMATED COUNT 1.52 10*3/uL 1.0 - 4.0 07/24 Specimen Type: BLOOD Comment: Automated Differentia l Performed Ordering Provider: MARGARET RECINOS Report Released Date/Time: Jul 24, 2023 10:52 AM Reporting Lab: [facility] [address] Performing Lab: [facility] [address] [place] [facility] CBC & DIFF MONOCYTES [#/VOLUME] IN BLOOD BY AUTOMATED COUNT 1.07 10*3/uL 0.1 - 1.0 07/24 H Specimen Type: BLOOD Comment: Automated Differentia l Performed Ordering Provider: MARGARET RECINOS Report Released Date/Time: Jul 24, 2023 10:52 AM Reporting Lab: [facility] [address] Performing Lab: [facility] [address] [place] [facility] CBC & DIFF NEUTROPHIL S [#/VOLUME] IN BLOOD BY AUTOMATED COUNT 5.76 10*3/uL 2.0 - 7.7 07/24 Specimen Type: BLOOD Comment: Automated Differentia l Performed Ordering Provider: MARGARET RECINOS Report Released Date/Time: Jul 24, 2023 10:52 AM Reporting Lab: [facility] [address] Performing Lab: [facility] [address] [place] [facility] CBC & DIFF EOSINOPHIL S [#/VOLUME] IN BLOOD BY AUTOMATED COUNT 0.24 10*3/uL 0 - 0.5 07/24 Specimen Type: BLOOD Comment: Automated Differentia l Performed Ordering Provider: MARGARET RECINOS Report Released Date/Time: Jul 24, 2023 10:52 AM Reporting Lab: [facility] [address] Performing Lab: [facility] [address] [place] [facility] CBC & DIFF BASOPHILS [#/VOLUME] IN BLOOD BY AUTOMATED COUNT 0.07 10*3/uL 0 - 0.2 07/24 Specimen Type: BLOOD Comment: Automated Differentia l Performed Ordering Provider: MARGARET RECINOS Report Released Date/Time: Jul 24, 2023 10:52 AM Reporting Lab: [facility] [address] Performing Lab: [facility] [address] [place] [facility] CBC & DIFF IG(META,MY TAMIKA,PRO) 0.5 07/24 Specimen Type: BLOOD Comment: Automated Differentia l Performed Ordering Provider: MARGARET RECINOS Report Released Date/Time: Jul 24, 2023 10:52 AM Reporting Lab: [facility] [address] Performing Lab: [facility] [address] [place] [facility] CBC & DIFF IMMATURE GRANULOCYT ES [PRESENCE] IN BLOOD BY AUTOMATED COUNT 0.04 10*3/uL 0 - 0.1 07/24 Specimen Type: BLOOD Comment: Automated Differentia l Performed Ordering Provider: MARGARET RECINOS Report Released Date/Time: Jul 24, 2023 10:52 AM Reporting Lab: [facility] [address] Performing Lab: [facility] [address] [place] [facility] COMPREHE NSIVE METABOLI C PANEL+MG CREATININE [MASS/VOLU ME] IN SERUM OR PLASMA 1.1 mg/dL 0.7 - 1.2 07/24 Specimen Type: PLASMA No comment entered. Ordering Provider: MARGARET RECINOS Report Released Date/Time: Jul 24, 2023 10:52 AM Reporting Lab: [facility] [address] Performing Lab: [facility] [address] [place] [facility] COMPREHE NSIVE METABOLI C PANEL+MG UREA NITROGEN [MASS/VOLU ME] IN SERUM OR PLASMA 14 mg/dL 8 - 26 07/24 Specimen Type: PLASMA No comment entered. Ordering Provider: MARGARET RECINOS Report Released Date/Time: Jul 24, 2023 10:52 AM Reporting Lab: [facility] [address] Performing Lab: [facility] [address] [place] [facility] COMPREHE NSIVE METABOLI C PANEL+MG GLUCOSE [MASS/VOLU ME] IN SERUM OR PLASMA 94 mg/dL 70 - 100 07/24 Specimen Type: PLASMA No comment entered. Ordering Provider: MARGARET RECINOS Report Released Date/Time: Jul 24, 2023 10:52 AM Reporting Lab: [facility] [address] Performing Lab: [facility] [address] [place] [facility] COMPREHE NSIVE METABOLI C PANEL+MG SODIUM [MOLES/VOL UME] IN SERUM OR PLASMA 139 mmol/L 136 - 145 07/24 Specimen Type: PLASMA No comment entered. Ordering Provider: MARGARET RECINOS Report Released Date/Time: Jul 24, 2023 10:52 AM Reporting Lab: [facility] [address] Performing Lab: [facility] [address] [place] [facility] COMPREHE NSIVE METABOLI C PANEL+MG POTASSIUM [MOLES/VOL UME] IN SERUM OR PLASMA 4.5 mmol/L 3.5 - 5.1 07/24 Specimen Type: PLASMA No comment entered. Ordering Provider: MARGARET RECINOS Report Released Date/Time: Jul 24, 2023 10:52 AM Reporting Lab: [facility] [address] Performing Lab: [facility] [address] [place] [facility] COMPREHE NSIVE METABOLI C PANEL+MG CHLORIDE [MOLES/VOL UME] IN SERUM OR PLASMA 106 mmol/L 98 - 107 07/24 Specimen Type: PLASMA No comment entered. Ordering Provider: MARGARET RECINOS Report Released Date/Time: Jul 24, 2023 10:52 AM Reporting Lab: [facility] [address] Performing Lab: [facility] [address] [place] [facility] COMPREHE NSIVE METABOLI C PANEL+MG CARBON DIOXIDE, TOTAL [MOLES/VOL UME] IN SERUM OR PLASMA 27 mmol/L 22 - 29 07/24 Specimen Type: PLASMA No comment entered. Ordering Provider: MARGARET RECINOS Report Released Date/Time: Jul 24, 2023 10:52 AM Reporting Lab: [facility] [address] Performing Lab: [facility] [address] [place] [facility] COMPREHE NSIVE METABOLI C PANEL+MG CALCIUM [MASS/VOLU ME] IN SERUM OR PLASMA 9.5 mg/dL 8.4 - 10.2 07/24 Specimen Type: PLASMA No comment entered. Ordering Provider: MARGARET RECINOS Report Released Date/Time: Jul 24, 2023 10:52 AM Reporting Lab: [facility] [address] Performing Lab: [facility] [address] [place] [facility] COMPREHE NSIVE METABOLI C PANEL+MG PROTEIN [MASS/VOLU ME] IN SERUM OR PLASMA 7.3 g/dL 6.0 - 8.3 07/24 Specimen Type: PLASMA No comment entered. Ordering Provider: MARGARET RECINOS Report Released Date/Time: Jul 24, 2023 10:52 AM Reporting Lab: [facility] [address] Performing Lab: [facility] [address] [place] [facility] COMPREHE NSIVE METABOLI C PANEL+MG ALBUMIN [MASS/VOLU ME] IN SERUM OR PLASMA 3.9 g/dL 3.5 - 5.2 07/24 Specimen Type: PLASMA No comment entered. Ordering Provider: MARGARET RECINOS Report Released Date/Time: Jul 24, 2023 10:52 AM Reporting Lab: [facility] [address] Performing Lab: [facility] [address] [place] [facility] COMPREHE NSIVE METABOLI C PANEL+MG BILIRUBIN. TOTAL [MASS/VOLU ME] IN SERUM OR PLASMA 1.7 mg/dL 0.2 - 1.2 07/24 H Specimen Type: PLASMA No comment entered. Ordering Provider: MARGARET RECINOS Report Released Date/Time: Jul 24, 2023 10:52 AM Reporting Lab: [facility] [address] Performing Lab: [facility] [address] [place] [facility] COMPREHE NSIVE METABOLI C PANEL+MG MAGNESIUM [MASS/VOLU ME] IN SERUM OR PLASMA 2.1 mg/dL 1.6 - 2.6 07/24 Specimen Type: PLASMA No comment entered. Ordering Provider: MARGARET RECINOS Report Released Date/Time: Jul 24, 2023 10:52 AM Reporting Lab: [facility] [address] Performing Lab: [facility] [address] [place] [facility] COMPREHE NSIVE METABOLI C PANEL+MG ANION GAP IN SERUM OR PLASMA 6 mmol/L 5 - 15 07/24 Specimen Type: PLASMA No comment entered. Ordering Provider: MARGARET RECINOS Report Released Date/Time: Jul 24, 2023 10:52 AM Reporting Lab: [facility] [address] Performing Lab: [facility] [address] [place] [facility] COMPREHE NSIVE METABOLI C PANEL+MG ALKALINE PHOSPHATAS E [ENZYMATIC ACTIVITY/V OLUME] IN SERUM OR PLASMA 118 U/L 40 - 150 07/24 Specimen Type: PLASMA No comment entered. Ordering Provider: MARGARET RECINOS Report Released Date/Time: Jul 24, 2023 10:52 AM Reporting Lab: [facility] [address] Performing Lab: [facility] [address] [place] [facility] COMPREHE NSIVE METABOLI C PANEL+MG ALANINE AMINOTRANS FERASE [ENZYMATIC ACTIVITY/V OLUME] IN SERUM OR PLASMA 19 U/L <55 - 55 07/24 Specimen Type: PLASMA No comment entered. Ordering Provider: MARGARET RECINOS Report Released Date/Time: Jul 24, 2023 10:52 AM Reporting Lab: [facility] [address] Performing Lab: [facility] [address] [place] [facility] COMPREHE NSIVE METABOLI C PANEL+MG ASPARTATE AMINOTRANS FERASE [ENZYMATIC ACTIVITY/V OLUME] IN SERUM OR PLASMA 23 U/L <34 - 34 07/24 Specimen Type: PLASMA No comment entered. Ordering Provider: MARGARET RECINOS Report Released Date/Time: Jul 24, 2023 10:52 AM Reporting Lab: [facility] [address] Performing Lab: [facility] [address] [facility] COMPREHE NSIVE METABOLI C PANEL+MG GLOMERULAR FILTRATION RATE/1.73 SQ M.PREDICTE D [VOLUME RATE/AREA] IN SERUM, PLASMA OR BLOOD BY CREATININE -BASED FORMULA (CKD-EPI 2020) 67 60 07/24 Specimen Type: PLASMA No comment entered. Ordering Provider: MARGARET RECINOS Report Released Date/Time: Jul 24, 2023 10:52 AM Reporting Lab: [facility] [address] Performing Lab: [facility] [address] [place] [facility] COMPREHE NSIVE METABOLI C PANEL+MG BILIRUBIN. DIRECT [MASS/VOLU ME] IN SERUM OR PLASMA 0.5 mg/dL <0.5 - 0.5 07/24 Specimen Type: PLASMA No comment entered. Ordering Provider: MARGARET RECINOS Report Released Date/Time: Jul 24, 2023 10:52 AM Reporting Lab: [facility] [address] Performing Lab: [facility] [address] [place] [facility] PROTHROM BIN TIME/INR INR IN PLATELET POOR PLASMA BY COAGULATIO N ASSAY 1.0 0.8 - 1.1 07/24 Specimen Type: PLASMA No comment entered. Ordering Provider: MARGARET RECINOS Report Released Date/Time: Jul 24, 2023 10:52 AM Reporting Lab: [facility] [address] Performing Lab: [facility] [address] [place] [facility] PROTHROM BIN TIME/INR PROTHROMBI N TIME (PT) 12.2 s 9.4 - 12.5 07/24 Specimen Type: PLASMA No comment entered. Ordering Provider: MARGARET RECINOS Report Released Date/Time: Jul 24, 2023 10:52 AM Reporting Lab: [facility] [address] Performing Lab: [facility] [address] [place] [facility] BASIC METABOLI C PANEL+MG CREATININE [MASS/VOLU ME] IN SERUM OR PLASMA 1.0 mg/dL 0.7 - 1.2 02/05 Specimen Type: PLASMA No comment entered. Ordering Provider: MAGALYS BUCIO Report Released Date/Time: Jan 02, 2022 11:30 AM Reporting Lab: [facility] [address] Performing Lab: [facility] [address] [place] [facility] BASIC METABOLI C PANEL+MG UREA NITROGEN [MASS/VOLU ME] IN SERUM OR PLASMA 16 mg/dL 8 - 02/05 Specimen Type: PLASMA No comment entered. Ordering Provider: MAGALYS BUCIO Report Released Date/Time: Jan 02, 2022 11:30 AM Reporting Lab: [facility] [address] Performing Lab: [facility] [address] [place] [facility] BASIC METABOLI C PANEL+MG GLUCOSE [MASS/VOLU ME] IN SERUM OR PLASMA 78 mg/dL 70 - 100 02/05 Specimen Type: PLASMA No comment entered. Ordering Provider: MAGALYS BUCIO Report Released Date/Time: Jan 02, 2022 11:30 AM Reporting Lab: [facility] [address] Performing Lab: [facility] [address] [place] [facility] BASIC METABOLI C PANEL+MG SODIUM [MOLES/VOL UME] IN SERUM OR PLASMA 140 mmol/L 136 - 145 02/05 Specimen Type: PLASMA No comment entered. Ordering Provider: MAGALYS BUCIO Report Released Date/Time: Jan 02, 2022 11:30 AM Reporting Lab: [facility] [address] Performing Lab: [facility] [address] [place] [facility] BASIC METABOLI C PANEL+MG POTASSIUM [MOLES/VOL UME] IN SERUM OR PLASMA 4.4 mmol/L 3.5 - 5.1 02/05 Specimen Type: PLASMA No comment entered. Ordering Provider: MAGALYS BUCIO Report Released Date/Time: Jan 02, 2022 11:30 AM Reporting Lab: [facility] [address] Performing Lab: [facility] [address] [place] [facility] BASIC METABOLI C PANEL+MG CHLORIDE [MOLES/VOL UME] IN SERUM OR PLASMA 105 mmol/L 98 - 107 02/05 Specimen Type: PLASMA No comment entered. Ordering Provider: MAGALYS BUCIO Report Released Date/Time: Jan 02, 2022 11:30 AM Reporting Lab: [facility] [address] Performing Lab: [facility] [address] [place] [facility] BASIC METABOLI C PANEL+MG CARBON DIOXIDE, TOTAL [MOLES/VOL UME] IN SERUM OR PLASMA 26 mmol/L 22 - 29 02/05 Specimen Type: PLASMA No comment entered. Ordering Provider: MAGALYS BUCIO Report Released Date/Time: Jan 02, 2022 11:30 AM Reporting Lab: [facility] [address] Performing Lab: [facility] [address] [place] [facility] BASIC METABOLI C PANEL+MG CALCIUM [MASS/VOLU ME] IN SERUM OR PLASMA 9.4 mg/dL 8.4 - 10.2 02/05 Specimen Type: PLASMA No comment entered. Ordering Provider: MAGALYS BUCIO Report Released Date/Time: Jan 02, 2022 11:30 AM Reporting Lab: [facility] [address] Performing Lab: [facility] [address] [place] [facility] BASIC METABOLI C PANEL+MG MAGNESIUM [MASS/VOLU ME] IN SERUM OR PLASMA 2.0 mg/dL 1.6 - 2.6 02/05 Specimen Type: PLASMA No comment entered. Ordering Provider: MAGALYS BUCIO Report Released Date/Time: Jan 02, 2022 11:30 AM Reporting Lab: [facility] [address] Performing Lab: [facility] [address] [place] [facility] BASIC METABOLI C PANEL+MG ANION GAP IN SERUM OR PLASMA 9 mmol/L 5 - 15 02/05 Specimen Type: PLASMA No comment entered. Ordering Provider: MAGALYS BUCIO Report Released Date/Time: Jan 02, 2022 11:30 AM Reporting Lab: [facility] [address] Performing Lab: [facility] [address] [place] [facility] BASIC METABOLI C PANEL+MG GLOMERULAR FILTRATION RATE/1.73 SQ M.PREDICTE D [VOLUME RATE/AREA] IN SERUM, PLASMA OR BLOOD BY CREATININE -BASED FORMULA (CKD-EPI 2020) 75 60 02/05 Specimen Type: PLASMA No comment entered. Ordering Provider: MAGALYS BUCIO Report Released Date/Time: Jan 02, 2022 11:30 AM Reporting Lab: [facility] [address] Performing Lab: [facility] [address] [place] [facility] CBC LEUKOCYTES [#/VOLUME] IN BLOOD BY AUTOMATED COUNT 8.96 10*3/uL 4.0 - 11.0 02/05 Specimen Type: BLOOD No comment entered. Ordering Provider: MAGALYS BUCIO Report Released Date/Time: Jan 02, 2022 11:30 AM Reporting Lab: [facility] [address] Performing Lab: [facility] [address] [place] [facility] CBC ERYTHROCYT ES [#/VOLUME] IN BLOOD BY AUTOMATED COUNT 4.71 10*6/uL 4.6 - 6.2 02/05 Specimen Type: BLOOD No comment entered. Ordering Provider: MAGALYS BUCIO Report Released Date/Time: Jan 02, 2022 11:30 AM Reporting Lab: [facility] [address] Performing Lab: [facility] [address] [place] [facility] CBC HEMOGLOBIN [MASS/VOLU ME] IN BLOOD 15.0 g/dL 13.5 - 17.9 02/05 Specimen Type: BLOOD No comment entered. Ordering Provider: MAGALYS BUCIO Report Released Date/Time: Jan 02, 2022 11:30 AM Reporting Lab: [facility] [address] Performing Lab: [facility] [address] [place] [facility] CBC HEMATOCRIT [VOLUME FRACTION] OF BLOOD BY AUTOMATED COUNT 45.0 41 - 54 02/05 Specimen Type: BLOOD No comment entered. Ordering Provider: MAGALYS BUCIO Report Released Date/Time: Jan 02, 2022 11:30 AM Reporting Lab: [facility] [address] Performing Lab: [facility] [address] [place] [facility] CBC MCV [ENTITIC VOLUME] BY AUTOMATED COUNT 95.5 fL 80 - 100 02/05 Specimen Type: BLOOD No comment entered. Ordering Provider: MAGALYS BUCIO Report Released Date/Time: Jan 02, 2022 11:30 AM Reporting Lab: [facility] [address] Performing Lab: [facility] [address] [place] [facility] CBC MCH [ENTITIC MASS] BY AUTOMATED COUNT 31.8 pg 27 - 33 02/05 Specimen Type: BLOOD No comment entered. Ordering Provider: MAGALYS BUCIO Report Released Date/Time: Jan 02, 2022 11:30 AM Reporting Lab: [facility] [address] Performing Lab: [facility] [address] [place] [facility] CBC MCHC [MASS/VOLU ME] BY AUTOMATED COUNT 33.3 g/dL 32.0 - 37.5 02/05 Specimen Type: BLOOD No comment entered. Ordering Provider: MAGALYS BUCIO Report Released Date/Time: Jan 02, 2022 11:30 AM Reporting Lab: [facility] [address] Performing Lab: [facility] [address] [place] [facility] CBC PLATELETS [#/VOLUME] IN BLOOD BY AUTOMATED COUNT 271 10*3/uL 150 - 400 02/05 Specimen Type: BLOOD No comment entered. Ordering Provider: MAGALYS BUCIO Report Released Date/Time: Jan 02, 2022 11:30 AM Reporting Lab: [facility] [address] Performing Lab: [facility] [address] [place] [facility] CBC PLATELET MEAN VOLUME [ENTITIC VOLUME] IN BLOOD BY AUTOMATED COUNT 9.6 fL 7.4 - 10.4 02/05 Specimen Type: BLOOD No comment entered. Ordering Provider: MAGALYS BUCIO Report Released Date/Time: Jan 02, 2022 11:30 AM Reporting Lab: [facility] [address] Performing Lab: [facility] [address] [place] [facility] CBC ERYTHROCYT E DISTRIBUTI ON WIDTH [RATIO] BY AUTOMATED COUNT 13.5 11.5 - 14.5 02/05 Specimen Type: BLOOD No comment entered. Ordering Provider: MAGALYS BUCIO Report Released Date/Time: Jan 02, 2022 11:30 AM Reporting Lab: [facility] [address] Performing Lab: [facility] [address] [employer] Vital Signs Combined list of inpatient and outpatient Vital Signs from Department of Defense and Veterans Affairs, ranging from 12 months to all on record, depending upon the facility. Vital Sign Value Date Comments Source SYSTOLIC BLOOD PRESSURE 118 10/17/2023 13:01:15 [facility] DIASTOLIC BLOOD PRESSURE 55 10/17/2023 13:01:15 [facility] PULSE OXIMETRY 95 10/17/2023 13:01:15 [place] [facility] TEMPERATURE 98.5 10/17/2023 13:01:15 [place] [facility] PULSE 66 10/17/2023 13:01:15 [facility] [place] [facility] RESPIRATION 16 10/17/2023 13:01:15 [place] [facility] SYSTOLIC BLOOD PRESSURE 160 09/23/2023 09:17:00 [facility] DIASTOLIC BLOOD PRESSURE 89 09/23/2023 09:17:00 [facility] PULSE OXIMETRY 69 09/23/2023 09:17:00 [facility] 183 09/23/2023 09:17:00 [facility] [place] [facility] BMI 29kg/m2 09/23/2023 09:17:00 [facility] [place] [facility] PAIN 0 09/23/2023 09:17:00 [facility] [place] [facility] HEIGHT 67.25 09/23/2023 09:17:00 [facility] [place] [facility] TEMPERATURE 97.5 09/23/2023 09:17:00 [place] [facility] PULSE 71 09/23/2023 09:17:00 [facility] [place] [facility] SYSTOLIC BLOOD PRESSURE 160 08/07/2023 08:58:05 [facility] DIASTOLIC BLOOD PRESSURE 89 08/07/2023 08:58:05 [facility] PULSE OXIMETRY 96 08/07/2023 08:58:05 [facility] PAIN 0 08/07/2023 08:58:05 [facility] [place] [facility] TEMPERATURE 97.8 08/07/2023 08:58:05 [place] [facility] PULSE 62 08/07/2023 08:58:05 [facility] [place] [facility] RESPIRATION 16 08/07/2023 08:58:05 [place] [facility] SYSTOLIC BLOOD PRESSURE 127 07/24/2023 10:32:00 [facility] DIASTOLIC BLOOD PRESSURE 76 07/24/2023 10:32:00 [facility] PULSE OXIMETRY 96 07/24/2023 10:32:00 [place] [facility] [facility] PAIN 0 07/24/2023 10:32:00 [facility] TEMPERATURE 98.1 07/24/2023 10:32:00 [facility] P[facility] 63 07/24/2023 10:32:00 [facility] RESPIRATION 16 07/24/2023 10:32:00 [facility] Encounters Combined list of: 1) Encounters from Department of [facility] Affairs facilities going back up to thelast 18 months. 2) Encounters from the Department of [facility] ([place], [place]) facilities going back up to 280 months. Location Location Details Encounter Type Encounter Number Reason For Visit Attending Provider ADM Date DC Date Status Disposition Source [facility] Outpatient Encounter [id number] 09/10 [facility] Outpatient Encounter [id number] 09/10 [facility] REM INTERROG EVL PM/LDLS [place] [id number] Diagnos is: ICD-10- CM Z95.0 Presenc e of cardiac pacemak er
SA KRISTIN NDRA L 09/11 [facility] PM DEVICE PROGR EVAL DUAL [id number] Diagnos is: ICD-10- CM Z95.0 Presenc e of cardiac pacemak er
DORENE UNGER A 11/27 [facility] Outpatient Encounter [id number] 12/12 [facility] OFFICE O/P EST LOW 20-29 MIN [id number] Diagnos is: ICD-10- CM Z00.00 Encntr for general adult medical exam w/o abnorma l finding s
KEVYN WETZEL A 02/05 [facility] Outpatient Encounter [id number] 03/13 [facility] [facility] Outpatient Encounter [id number] 06/19 [place] [facility] Outpatient Encounter [id number] 06/22 [facility] [facility] REM INTERROG EVL PM/LDLS PM [id number] Diagnos is: ICD-10- CM I48.3 Typical atrial flutter
AIME RAZA T 06/22 [facility] [place] [facility] HEARING AID REPAIR/MOD IFYING [id number] Diagnos is: ICD-10- CM H90.3 Sensori neural hearing loss, bilater al
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<b r/> ALESSANDRA RECINOS T 07/24 [facility] Outpatient Encounter [id number] 07/29 [facility] OFF/OP CNSLTJ NEW/EST MOD 40 [id number] Diagnos is: ICD-10- CM G45.3 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
DANNY SMART NZI 09/22 [facility] ELECTROCAR DIOGRAM REPORT [id number] Diagnos is: ICD-10- CM Z13.6 Encount er for screeni ng for cardiov ascular disorde rs
Karin ZABALA O 09/22 [facility] INTERR[place] PM/[place] [id number] Diagnos is: ICD-10- CM I45.5 Other specifi ed heart block<b r/> AB BARBER BIE L 09/22 [facility] OFF/OP CONSLTJ NEW/EST HI 55 [id number] Diagnos is: ICD-10- CM I45.5 Other specifi ed heart block<b r/> BARBERAB BIE L 09/22 [facility] Outpatient Encounter [id number] 10/01 [facility] EMR DPT VST MAYX REQ PHY/QHP [id number] Diagnos is: ICD-10- CM J32.8 Other chronic sinusit is
LELAND PONCE IN J 10/16 [facility] Outpatient Encounter [id number] CYNTHIA MAGANA 10/16 [facility] Outpatient Encounter [id number] 10/16 [facility] HEARING AID REPAIR/MOD IFYING [id number] Diagnos is: ICD-10- CM H90.A21 Snsrnrl hear loss, uni, r ear, with rstrcd hear cntra side
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
SAMY CARSON 12/06 [facility] [place] [facility] Outpatient Encounter [id number] 12/14 [place] [facility] [place] [facility] Outpatient Encounter [id number] 12/20 [place] [facility] [place] [facility] Outpatient Encounter [id number] 01/11 [place] [facility] [place] [facility] Outpatient Encounter [id number] 01/19 [place] [facility] Outpatient Encounter [id number] 01/19 [facility] Social History Combined list of available smoking, tobacco, and other social history from Department of Defense and Veterans Affairs facilities. Social History Type Response Date Comment Sour e Tobacco smoking status NHIS VA-TOBACCO FORMER USER 02/05/2023 [facility] History of tobacco use LA-TOBACCO QUIT 15 YRS OR MORE 02/05/2023 [facility] History of tobacco use LA-TOBACCO QUIT 15 YRS OR MORE 01/02/2022 [facility] History of tobacco use VA-TOBACCO FORMER USER 11/08/2020 [facility] History of tobacco use VA-TOBACCO QUIT 15 YRS OR MORE 11/18/2018 [facility] History of tobacco use QUIT TOBACCO >7 YEARS AGO 10/27/[facility] History of tobacco use NON-TOBACCO USER 07/21/2017 [facility] History of tobacco use FORMER TOBACCO USER 7Y OR GREATER 09/02/2016 [facility] History of tobacco use FORMER TOBACCO USER 7Y OR GREATER 08/06/2015 [facility] History of tobacco use LIFETIME NON-TOBACCO USER 07/07/2014 [facility]
--- OUTSIDE RECORDS SUMMARY | 2024-02-28 21:21 | XMS_ITS | Encounter Summary ---
Author Organization [facility] Address [address] [place] [address] Care Team Providers Care Security Systems Sales Representative Name Role Phone Unavailable Primary Care Provider Unavailabl e Prior Encounters Date Type Department Care Team Description 06/20/2019 Converted CPS Chart Documents [facility] [address] [place] [address] <No scans attached> 06/20/2019 Converted 13x Documents [facility] [address] [place] [address] <No scans attached> Plan of [...] 5 ENDODONTIC THERAPY, PREMOLAR TOOTH (EXCLUDING FINAL ZOROASTRIAN) Routine 07/14/2019 1:00 AM MST 5 PULP [...]
--- OUTSIDE RECORDS SUMMARY | 2024-02-28 21:21 | XMS_ITS | Clinical Summary ---
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 [employer] Pulse - - Temperature 36.8 ??C (98.2 ??F) 07/18/2010 9:30 AM CS T Respiratory Rate - - Oxygen Saturation - - Inhaled Oxygen Concentration - - Weight 82.6 kg (182 lb) 07/18/2010 9:30 AM [employer] Height 172.7 cm (5' 8) 07/01/2010 9:18 AM [employer] Body Mass Index 27.67 07/01/2010 9:18 AM [employer] Plan of Treatment Health Maintenance Due Date [...] Influenza for age 65+ 01/31/2024 Care Teams Operations Supervisor Relationship Specialty [place] [address] [place] [address] PCP - General Family Practice 07/01/10
--- OUTSIDE RECORDS SUMMARY | 2024-02-28 21:21 | XMS_ITS | Referral Summary ---
Author Organization [facility] [place] [address] [place] [address] Care Team Providers Care Main Entree Cook And Cashier Name Role Phone Unavailable Primary Care Provider [...]
--- OUTSIDE RECORDS SUMMARY | 2024-02-28 21:21 | XMS_ITS | CCD ---
Author Organization [facility] Address [address] [place] [address] Care Team Providers Care Tent Worker Name Role Phone Unavailable Primary Care Provider [...]
--- OUTSIDE RECORDS SUMMARY | 2024-02-28 21:21 | XMS_ITS ---
Author Organization [facility] Address [address] [place] [address] Care Team Providers Care Manager Of Construction Name Role Phone Unavailable Unavailable Unavailable Surgery Details Not on file Complications Check Surgery Details section. Procedure Estimated Blood Loss Check Surgery Details section. Procedure Findings Check Surgery Details section. Procedure Specimens Taken Check Surgery Details section.
--- OUTSIDE RECORDS SUMMARY | 2024-02-28 21:22 | XMS_ITS | Referral Summary ---
Author Organization [facility] Address [address] [place] [address]. [place] [address] Care Team Providers Care Rivet Heater Name Role Phone Chandana Fleming MD Primary Care Provider [phone] Allergies Active Allergy Reactions Criticality Noted Date Comments No Known Drug Allergy 02/21/2003 Medications Medication Sig Dispensed Refills Start Date End Date Status Saw [place] 80 MG CAPS A ctive GINSENG PO Take by mouth 2 times daily Active HAWTHORN PO Take by mouth 2 times daily Active Ginkgo Biloba (GINKGO PO) Take by mouth 2 times daily Active NONFORMULARY Melvern-zyme Active Active Problems Problem Noted Date Diagnosed [...] T Respiratory Rate 16 06/01/2014 8:01 PM GAS WELDER APPRENTICE Oxygen Saturation 95% 04/08/2017 9:05 AM GAS WELDER APPRENTICE Inhaled Oxygen Concentration - - Weight 78.9 kg (174 lb) 11/04/2018 1:12 PM CDT Height 172.7 cm (5' 8) 11/04/2018 1:12 PM CDT Body Mass Index 26.46 11/04/2018 1:12 PM CDT Plan of Treatment Not on file Medical Devices Implanted Type Area Suction Worker Device Identifier Shelf Expiration Date Model / Serial / Lot [employer]* 2087tc Tendril Sts [id number] Implanted:01/30 (Quantity not on file) Leads [employer] 2087TC TENDRIL STS / [id number] / [employer] 2087tc Tendril Sts [id number] Implanted:01/30 (Quantity not on file) Leads [employer] 2087TC TENDRIL STS / [id number] / [employer]* [address] [id number] Implanted:01/30 (Quantity not on file) Pacemaker [employer] [address] / [id number] / Advance Directives For more information, please contact: [phone] * Full Code (Latest Code Status on File) Date Activated Date Inactivated Comments 02/16/2013 11:22 AM * Full Code Date Activated Date Inactivated Comments 02/14/2013 11:17 PM 02/16/2013 11:22 AM * Full Code Date Activated Date Inactivated Comments 07/31/2011 8:42 AM 02/14/2013 11:17 PM * Full Code Date Activated Date Inactivated Comments 07/30/2011 4:29 PM 07/31/2011 8:42 AM Care Teams Rivet Heater Relationship Specialty Start Date End Date Chandana Fleming MD [facility] [id number] [place] [id number] PCP - General Family Practice 02/03/19
--- OUTSIDE RECORDS SUMMARY | 2024-02-28 21:22 | XMS_ITS | Encounter Summary ---
Author Organization [facility] Address [address] [place] [address]. [place] [address] Care Team Providers Care [employer] Crew Boss Name Role Phone [facility], [facility] Primary Care Provider + Maura Jackson MD Primary Care Provider [phone] Jorge Douglas MD Unavailable Unavailable Encounter Details Date Type Department Care Team (Late st Contact Info) Description 04/11/2013 Office Visit-[facility] [address] [place] [address] Jorge Douglas MD Social History [...] old Referring Physician: MAURA JACKSON Referring Clinic: [facility], [facility]–1983 CURRENT DIAGNOSES 1. 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 [...] on filedocumented in this encounter Care Teams [employer] Crew Boss Relationship Specialty Start Date End Date [facility] [address] [place] [id number] PCP - General 07/30/11 02/02/19 Maura Jackson MD [facility] [id number] [place] [id number] PCP - General Family Practice 02/03/19 Jorge Douglas MD Assigned Heart and Vascular Provider 03/23/20 05/25/21 documented as of this encounter
--- OUTSIDE RECORDS SUMMARY | 2024-02-28 21:22 | XMS_ITS | Continuity of Care Document ---
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 It does not include entries that were removed or entered in error. 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 13 Condition Jul 07, 2014 Entered By: BEN VIVEROS Comment: s/p dualchamber pacer [facility] Chronic peptic ulcer without hemorrhage, without perforation AND without obstruction Active 06/01/18 86 Condition Jul 07, 2014 Entered By: BEN VIVEROS Comment: s/p partial gastrectomy, has dumping syndrome [facility] Atrial Flutter (SCT [id number]) Active Condition [facility] Cardiac pacemaker in situ Active Condition [facility] Cardiomyopathy Active Condition [facility] Elevated PSA Active Condition [facility] Gilbert's syndrome Active Condition [facility] Hearing Loss (SCT [id number]) Active Condition [facility] History of peptic ulcer Active Condition Dec 04, 2017 Entered By: MEHREEN ARCHIBALD Comment: partial gastectomy and dumping syndrome [facility] Syncope and Collapse (SCT [id number]) Active Condition Dec 04, 2017 Entered By: MEHREEN ARCHIBALD Comment: due to complete heart block [facility] Typical atrial flutter Active Condition [facility] Diagnosis: ICD-10-CM H90.A21 Snsrnrl hear loss, uni, r ear, with rstrcd hear cntra side Active Diagnosis [facility] Diagnosis: ICD-10-CM J32.8 Other chronic sinusitis Active Diagnosis [facility] Diagnosis: ICD-10-CM I45.5 Other specified heart block Active Diagnosis [facility] Diagnosis: ICD-10-CM Z13.6 Encounter for screening for cardiovascular disorders Active Diagnosis [facility] Diagnosis: ICD-10-CM Z95.0 Presence of cardiac pacemaker Active Diagnosis [facility] Diagnosis: ICD-10-CM 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 [facility] Diagnosis: ICD-10-CM H90.3 Sensorineural hearing loss, bilateral Active Diagnosis [facility] Diagnosis: ICD-10-CM I48.3 Typical atrial flutter Active Diagnosis [facility] Diagnosis: ICD-10-CM Z00.00 Encntr for general adult medical exam w/o abnormal findings Active Diagnosis [facility] Medications Combined list of outpatient medications from [...] Jul 24, 2023 30 Jul 24, 2024 [id number] YASIR RECINOS [facility] 07/24/2024 [id number] Angeli RECINOS 2023 30 [facility] GINKGO BILOBA CAP/TAB GINKGO BILOBA CAP/TAB Non-VA TAKE ONE TABLET BY MOUTH EVERY DAY Sep 23, 2023 Non-VA Document ed by: MAIA BLANDON Document ed at: [facility] Angeli BLANDON 2023 [facility] NON VA MED NOT LISTED NON VA MED NOT LISTED Non-VA USE HYDRO-ZY ME MOUTH Nov 21, 2020 Non-VA Document ed by: AMARILYS PALAFOX Document ed at: [facility] AMARILYS PALAFOX 2020 [facility] SAW PALMETTO CAP/TAB SAW [place]MET[place] CAP/TAB Non-VA TAKE Jan 02, 2022 Non-VA Document ed by: MAGGIE BUCIO Document ed at: [facility] [place] BUCIO 2021 [facility] SODIUM CHLORIDE 0.65% SOLN,NASAL SPRAY SODIUM CHLORIDE 0.65% SOLN,GIGI AL SPRAY SPRAY 2 SPRAYS IN EACH NOSTRIL TWICE A DAY FOR NASAL DRYNESS FOR NASAL DRYNESS October 17, 2023 45 Nov 16, 2023 [id number] October 17, 2023 Trent PONCE [facility] NASAL 11/16/2023 [id number] MONICA PONCE 2023 45 [facility] Immunizations Combined list of available immunizations from the Department of Defense and Veterans Affairs facilities. Immunization Series Date Given Administered By Site Reaction Lot Number CVX Code Drug Shoe Worker Status Comments Source TD (ADULT), 2 LF TETANUS TOXOID, PRESERVATIVE FREE, ADSORBED 1996 09 complet ed [facility] Results Combined list of recent chemistry, [...] Aug 07, 2023 09:32 AM Reporting Lab: [facility] [address] Performing Lab: [facility] [address] [place] [facility] LIPID PANEL,NO N-FASTIN G CHOLESTERO L IN HDL [MASS/VOLU ME] IN SERUM OR PLASMA 66 mg/dL 40 08/06 Specimen Type: PLASMA No comment entered. Ordering Provider: YOAV VILLEDA ERT E Report Released Date/Time: Aug 07, 2023 09:32 AM Reporting Lab: [facility] [address] Performing Lab: [facility] [address] [facility] [place] [facility] LIPID PANEL,NO N-FASTIN G CHOLESTERO L IN LDL [MASS/VOLU ME] IN SERUM OR PLASMA BY CALCULANEHEMIAHO N 75 mg/dL <99 - 99 08/06 Specimen Type: PLASMA No comment entered. Ordering Provider: YOAV VILLEDA ERT Rachael Report Released Date/Time: Aug 07, 2023 09:32 AM Reporting Lab: [facility] [address] Performing Lab: [facility] [address] [place] [facility] LIPID PANEL,NO N-FASTIN G CHOLESTERO L IN VLDL [MASS/VOLU ME] IN SERUM OR PLASMA BY CALCULATIO N 25 mg/dL <29 - 29 08/06 Specimen Type: PLASMA No comment entered. Ordering Provider: YOAV VILLEDA Report Released Date/Time: Aug 07, 2023 09:32 AM Reporting Lab: [facility] [address] Performing Lab: [facility] [address] [place] [facility] LIPID PANEL,NO N-FASTIN G CHOLESTERO L NON HDL [MASS/VOLU ME] IN SERUM OR PLASMA 100 mg/dL <129 - 129 08/06 Specimen Type: PLASMA No comment entered. Ordering Provider: YOAV VILLEDA ERT Rachael Report Released Date/Time: Aug 07, 2023 09:32 AM Reporting Lab: [facility] [address] Performing Lab: [facility] [address] [place] [facility] LIPID PANEL,NO N-FASTIN G TRIGLYCERI DE [MASS/VOLU ME] IN SERUM OR PLASMA 124 mg/dL <149 - 149 08/06 Specimen Type: PLASMA No comment entered. Ordering Provider: YOAV VILLEDA Report Released Date/Time: Aug 07, 2023 09:32 AM Reporting Lab: [facility] [address] Performing Lab: [facility] [address] [place] [facility] EXTRA GOLD GEL TUBE EXTRA GOLD GEL TUBE RECEIVED 07/24 Specimen Type: SERUM No comment entered. Ordering Provider: MARGARET RECINOS Report Released Date/Time: Jul 24, 2023 11:22 AM Reporting Lab: [facility] [address] Performing Lab: [facility] [address] [facility] POC CREATINI NE CREATININE [MASS/VOLU ME] IN BLOOD 1.1 mg/dL 0.6 - 1.3 07/24 Specimen Type: BLOOD No comment entered. Ordering Provider: MARGARET RECINOS Report Released Date/Time: Jul 24, 2023 11:28 AM Reporting Lab: [facility] [address] Performing Lab: [facility] [address] [facility] ACT PART THROMBO TIME APTT IN PLATELET POOR PLASMA BY COAGULATIO N ASSAY 34.3 s 25.1 - 36.5 07/24 Specimen Type: PLASMA No comment entered. Ordering Provider: MARGARET RECINOS Report Released Date/Time: Jul 24, 2023 10:52 AM Reporting Lab: [facility] [address] Performing Lab: [facility] [address] [facility] CBC & DIFF LEUKOCYTES [#/VOLUME] IN BLOOD BY AUTOMATED COUNT 8.70 10*3/uL 4.0 - 11.0 07/24 Specimen Type: BLOOD Comment: Automated Differentia l Performed Ordering Provider: MARGARET RECINOS Report Released Date/Time: Jul 24, 2023 10:52 AM Reporting Lab: [facility] [address] Performing Lab: [facility] [address] [facility] CBC & DIFF ERYTHROCYT ES [#/VOLUME] IN BLOOD BY AUTOMATED COUNT 4.85 10*6/uL 4.6 - 6.2 07/24 Specimen Type: BLOOD Comment: Automated Differentia l Performed Ordering Provider: MARGARET RECINOS Report Released Date/Time: Jul 24, 2023 10:52 AM Reporting Lab: [facility] [address] Performing Lab: [facility] [address] [facility] CBC & DIFF HEMOGLOBIN [MASS/VOLU ME] IN BLOOD 15.1 g/dL 13.5 - 17.9 07/24 Specimen Type: BLOOD Comment: Automated Differentia l Performed Ordering Provider: MARGARET RECINOS Report Released Date/Time: Jul 24, 2023 10:52 AM Reporting Lab: [facility] [address] Performing Lab: [facility] [address] [place] [facility] CBC & DIFF HEMATOCRIT [VOLUME FRACTION] OF BLOOD BY AUTOMATED COUNT 45.7 41 - 54 07/24 Specimen Type: BLOOD Comment: Automated Differentia l Performed Ordering Provider: MARGARET RECINOS Report Released Date/Time: Jul 24, 2023 10:52 AM Reporting Lab: [facility] [address] Performing Lab: [facility] [address] [place] [facility] CBC & DIFF MCV [ENTITIC VOLUME] BY AUTOMATED COUNT 94.2 fL 80 - 100 07/24 Specimen Type: BLOOD Comment: Automated Differentia l Performed Ordering Provider: MARGARET RECINOS Report Released Date/Time: Jul 24, 2023 10:52 AM Reporting Lab: [facility] [address] Performing Lab: [facility] [address] [place] [facility] CBC & DIFF MCH [ENTITIC MASS] BY AUTOMATED COUNT 31.1 pg 27 - 33 07/24 Specimen Type: BLOOD Comment: Automated Differentia l Performed Ordering Provider: MARGARET RECINOS Report Released Date/Time: Jul 24, 2023 10:52 AM Reporting Lab: [facility] [address] Performing Lab: [facility] [address] [place] [facility] CBC & DIFF MCHC [MASS/VOLU ME] BY AUTOMATED COUNT 33.0 g/dL 32.0 - 37.5 07/24 Specimen Type: BLOOD Comment: Automated Differentia l Performed Ordering Provider: MARGARET RECINOS Report Released Date/Time: Jul 24, 2023 10:52 AM Reporting Lab: [facility] [address] Performing Lab: [facility] [address] [place] [facility] CBC & DIFF PLATELETS [#/VOLUME] IN BLOOD BY AUTOMATED COUNT 288 10*3/uL 150 - 400 07/24 Specimen Type: BLOOD Comment: Automated Differentia l Performed Ordering Provider: MARGARET RECINOS Report Released Date/Time: Jul 24, 2023 10:52 AM Reporting Lab: [facility] [address] Performing Lab: [facility] [address] [place] [facility] CBC & DIFF PLATELET MEAN VOLUME [ENTITIC VOLUME] IN BLOOD BY AUTOMATED COUNT 9.8 fL 7.4 - 10.4 07/24 Specimen Type: BLOOD Comment: Automated Differentia l Performed Ordering Provider: MARGARET RECINOS Report Released Date/Time: Jul 24, 2023 10:52 AM Reporting Lab: [facility] [address] Performing Lab: [facility] [address] [place] [facility] CBC & DIFF NEUTROPHIL S/100 LEUKOCYTES IN BLOOD BY MANUAL COUNT 66.1 40.0 - 80.0 07/24 Specimen Type: BLOOD Comment: Automated Differentia l Performed Ordering Provider: MARGARET RECINOS Report Released Date/Time: Jul 24, 2023 10:52 AM Reporting Lab: [facility] [address] Performing Lab: [facility] [address] [place] [facility] CBC & DIFF LYMPHOCYTE S/100 LEUKOCYTES IN BLOOD BY MANUAL COUNT 17.5 15.0 - 45.0 07/24 Specimen Type: BLOOD Comment: Automated Differentia l Performed Ordering Provider: MARGARET RECINOS Report Released Date/Time: Jul 24, 2023 10:52 AM Reporting Lab: [facility] [address] Performing Lab: [facility] [address] [place] [facility] CBC & DIFF MONOCYTES/ 100 LEUKOCYTES IN BLOOD BY AUTOMATED COUNT 12.3 2.0 - 12.0 07/24 H Specimen Type: BLOOD Comment: Automated Differentia l Performed Ordering Provider: MARGARET RECINOS Report Released Date/Time: Jul 24, 2023 10:52 AM Reporting Lab: [facility] [address] Performing Lab: [facility] [address] [place] [facility] CBC & DIFF EOSINOPHIL S/100 LEUKOCYTES IN BLOOD BY AUTOMATED COUNT 2.8 0.0 - 6.0 07/24 Specimen Type: BLOOD Comment: Automated Differentia l Performed Ordering Provider: MARGARET RECINOS Report Released Date/Time: Jul 24, 2023 10:52 AM Reporting Lab: [facility] [address] Performing Lab: [facility] [address] [place] [facility] CBC & DIFF BASOPHILS/ 100 LEUKOCYTES IN BLOOD BY MANUAL COUNT 0.8 0.0 - 2.0 07/24 Specimen Type: BLOOD Comment: Automated Differentia l Performed Ordering Provider: MARGARET RECINOS Report Released Date/Time: Jul 24, 2023 10:52 AM Reporting Lab: [facility] [address] Performing Lab: [facility] [address] [place] [facility] CBC & DIFF ERYTHROCYT E DISTRIBUTI ON WIDTH [RATIO] BY AUTOMATED COUNT 13.8 11.5 - 14.5 07/24 Specimen Type: BLOOD Comment: Automated Differentia l Performed Ordering Provider: MARGARET RECINOS Report Released Date/Time: Jul 24, 2023 10:52 AM Reporting Lab: [facility] [address] Performing Lab: [facility] [address] [place] [facility] CBC & DIFF LYMPHOCYTE S [#/VOLUME] IN BLOOD BY AUTOMATED COUNT 1.52 10*3/uL 1.0 - 4.0 07/24 Specimen Type: BLOOD Comment: Automated Differentia l Performed Ordering Provider: MARGARET RECINOS Report Released Date/Time: Jul 24, 2023 10:52 AM Reporting Lab: [facility] [address] Performing Lab: [facility] [address] [place] [facility] CBC & DIFF MONOCYTES [#/VOLUME] IN BLOOD BY AUTOMATED COUNT 1.07 10*3/uL 0.1 - 1.0 07/24 H Specimen Type: BLOOD Comment: Automated Differentia l Performed Ordering Provider: MARGARET RECINOS Report Released Date/Time: Jul 24, 2023 10:52 AM Reporting Lab: [facility] [address] Performing Lab: [facility] [address] [place] [facility] CBC & DIFF NEUTROPHIL S [#/VOLUME] IN BLOOD BY AUTOMATED COUNT 5.76 10*3/uL 2.0 - 7.7 07/24 Specimen Type: BLOOD Comment: Automated Differentia l Performed Ordering Provider: MARGARET RECINOS Report Released Date/Time: Jul 24, 2023 10:52 AM Reporting Lab: [facility] [address] Performing Lab: [facility] [address] [place] [facility] CBC & DIFF EOSINOPHIL S [#/VOLUME] IN BLOOD BY AUTOMATED COUNT 0.24 10*3/uL 0 - 0.5 07/24 Specimen Type: BLOOD Comment: Automated Differentia l Performed Ordering Provider: MARGARET RECINOS Report Released Date/Time: Jul 24, 2023 10:52 AM Reporting Lab: [facility] [address] Performing Lab: [facility] [address] [facility] CBC & DIFF BASOPHILS [#/VOLUME] IN BLOOD BY AUTOMATED COUNT 0.07 10*3/uL 0 - 0.2 07/24 Specimen Type: BLOOD Comment: Automated Differentia l Performed Ordering Provider: MARGARET RECINOS Report Released Date/Time: Jul 24, 2023 10:52 AM Reporting Lab: [facility] [address] Performing Lab: [facility] [address] [facility] CBC & DIFF IG(META,MY TAMIKA,PRO) 0.5 07/24 Specimen Type: BLOOD Comment: Automated Differentia l Performed Ordering Provider: MARGARTE RECINOS Report Released Date/Time: Jul 24, 2023 10:52 AM Reporting Lab: [facility] [address] Performing Lab: [facility] [address] [place] [facility] CBC & DIFF IMMATURE GRANULOCYT ES [PRESENCE] IN BLOOD BY AUTOMATED COUNT 0.04 10*3/uL 0 - 0.1 07/24 Specimen Type: BLOOD Comment: Automated Differentia l Performed Ordering Provider: MARGARET RECINOS Report Released Date/Time: Jul 24, 2023 10:52 AM Reporting Lab: [facility] [address] Performing Lab: [facility] [address] [place] [facility] COMPREHE NSIVE METABOLI C PANEL+MG CREATININE [MASS/VOLU ME] IN SERUM OR PLASMA 1.1 mg/dL 0.7 - 1.2 07/24 Specimen Type: PLASMA No comment entered. Ordering Provider: MARGARET RECINOS Report Released Date/Time: Jul 24, 2023 10:52 AM Reporting Lab: [facility] [address] Performing Lab: [facility] [address] [place] [facility] COMPREHE NSIVE METABOLI C PANEL+MG UREA NITROGEN [MASS/VOLU ME] IN SERUM OR PLASMA 14 mg/dL 8 - 26 07/24 Specimen Type: PLASMA No comment entered. Ordering Provider: MARGARET RECINOS Report Released Date/Time: Jul 24, 2023 10:52 AM Reporting Lab: [facility] [address] Performing Lab: [facility] [address] [place] [facility] COMPREHE NSIVE METABOLI C PANEL+MG GLUCOSE [MASS/VOLU ME] IN SERUM OR PLASMA 94 mg/dL 70 - 100 07/24 Specimen Type: PLASMA No comment entered. Ordering Provider: MARGARET RECINOS Report Released Date/Time: Jul 24, 2023 10:52 AM Reporting Lab: [facility] [address] Performing Lab: [facility] [address] [place] [facility] COMPREHE NSIVE METABOLI C PANEL+MG SODIUM [MOLES/VOL UME] IN SERUM OR PLASMA 139 mmol/L 136 - 145 07/24 Specimen Type: PLASMA No comment entered. Ordering Provider: MARGARET RECINOS Report Released Date/Time: Jul 24, 2023 10:52 AM Reporting Lab: [facility] [address] Performing Lab: [facility] [address] [place] [facility] COMPREHE NSIVE METABOLI C PANEL+MG POTASSIUM [MOLES/VOL UME] IN SERUM OR PLASMA 4.5 mmol/L 3.5 - 5.1 07/24 Specimen Type: PLASMA No comment entered. Ordering Provider: MARGARET RECINOS Report Released Date/Time: Jul 24, 2023 10:52 AM Reporting Lab: [facility] [address] Performing Lab: [facility] [address] [place] [facility] COMPREHE NSIVE METABOLI C PANEL+MG CHLORIDE [MOLES/VOL UME] IN SERUM OR PLASMA 106 mmol/L 98 - 107 07/24 Specimen Type: PLASMA No comment entered. Ordering Provider: MARGARET RECINOS Report Released Date/Time: Jul 24, 2023 10:52 AM Reporting Lab: [facility] [address] Performing Lab: [facility] [address] [place] [facility] COMPREHE NSIVE METABOLI C PANEL+MG CARBON DIOXIDE, TOTAL [MOLES/VOL UME] IN SERUM OR PLASMA 27 mmol/L 22 - 29 07/24 Specimen Type: PLASMA No comment entered. Ordering Provider: MARGARET RECINOS Report Released Date/Time: Jul 24, 2023 10:52 AM Reporting Lab: [facility] [address] Performing Lab: [facility] [address] [place] [facility] COMPREHE NSIVE METABOLI C PANEL+MG CALCIUM [MASS/VOLU ME] IN SERUM OR PLASMA 9.5 mg/dL 8.4 - 10.2 07/24 Specimen Type: PLASMA No comment entered. Ordering Provider: MARGARET RECINOS Report Released Date/Time: Jul 24, 2023 10:52 AM Reporting Lab: [facility] [address] Performing Lab: [facility] [address] [place] [facility] COMPREHE NSIVE METABOLI C PANEL+MG PROTEIN [MASS/VOLU ME] IN SERUM OR PLASMA 7.3 g/dL 6.0 - 8.3 07/24 Specimen Type: PLASMA No comment entered. Ordering Provider: MARGARET RECINOS Report Released Date/Time: Jul 24, 2023 10:52 AM Reporting Lab: [facility] [address] Performing Lab: [facility] [address] [place] [facility] COMPREHE NSIVE METABOLI C PANEL+MG ALBUMIN [MASS/VOLU ME] IN SERUM OR PLASMA 3.9 g/dL 3.5 - 5.2 07/24 Specimen Type: PLASMA No comment entered. Ordering Provider: MARGARET RECINOS Report Released Date/Time: Jul 24, 2023 10:52 AM Reporting Lab: [facility] [address] Performing Lab: [facility] [address] [place] [facility] COMPREHE NSIVE METABOLI C PANEL+MG BILIRUBIN. TOTAL [MASS/VOLU ME] IN SERUM OR PLASMA 1.7 mg/dL 0.2 - 1.2 07/24 H Specimen Type: PLASMA No comment entered. Ordering Provider: MARGARET RECINOS Report Released Date/Time: Jul 24, 2023 10:52 AM Reporting Lab: [facility] [address] Performing Lab: [facility] [address] [place] [facility] COMPREHE NSIVE METABOLI C PANEL+MG MAGNESIUM [MASS/VOLU ME] IN SERUM OR PLASMA 2.1 mg/dL 1.6 - 2.6 07/24 Specimen Type: PLASMA No comment entered. Ordering Provider: MARGARET RECINOS Report Released Date/Time: Jul 24, 2023 10:52 AM Reporting Lab: [facility] [address] Performing Lab: [facility] [address] [place] [facility] COMPREHE NSIVE METABOLI C PANEL+MG ANION GAP IN SERUM OR PLASMA 6 mmol/L 5 - 15 07/24 Specimen Type: PLASMA No comment entered. Ordering Provider: MARGARET RECINOS Report Released Date/Time: Jul 24, 2023 10:52 AM Reporting Lab: [facility] [address] Performing Lab: [facility] [address] [place] [facility] COMPREHE NSIVE METABOLI C PANEL+MG ALKALINE PHOSPHATAS E [ENZYMATIC ACTIVITY/V OLUME] IN SERUM OR PLASMA 118 U/L 40 - 150 07/24 Specimen Type: PLASMA No comment entered. Ordering Provider: MARGARET RECINOS Report Released Date/Time: Jul 24, 2023 10:52 AM Reporting Lab: [facility] [address] Performing Lab: [facility] [address] [place] [facility] COMPREHE NSIVE METABOLI C PANEL+MG ALANINE AMINOTRANS FERASE [ENZYMATIC ACTIVITY/V OLUME] IN SERUM OR PLASMA 19 U/L <55 - 55 07/24 Specimen Type: PLASMA No comment entered. Ordering Provider: MARGARET RECINOS Report Released Date/Time: Jul 24, 2023 10:52 AM Reporting Lab: [facility] [address] Performing Lab: [facility] [address] [place] [facility] COMPREHE NSIVE METABOLI C PANEL+MG ASPARTATE AMINOTRANS FERASE [ENZYMATIC ACTIVITY/V OLUME] IN SERUM OR PLASMA 23 U/L <34 - 34 07/24 Specimen Type: PLASMA No comment entered. Ordering Provider: MARGARET RECINOS Report Released Date/Time: Jul 24, 2023 10:52 AM Reporting Lab: [facility] [address] Performing Lab: [facility] [address] [facility] COMPREHE NSIVE METABOLI C PANEL+MG GLOMERULAR FILTRATION RATE/1.73 SQ M.PREDICTE D [VOLUME RATE/AREA] IN SERUM, PLASMA OR BLOOD BY CREATININE -BASED FORMULA (CKD-EPI 2020) 67 60 07/24 Specimen Type: PLASMA No comment entered. Ordering Provider: MARGARET RECINOS Report Released Date/Time: Jul 24, 2023 10:52 AM Reporting Lab: [facility] [address] Performing Lab: [facility] [address] [place] [facility] COMPREHE NSIVE METABOLI C PANEL+MG BILIRUBIN. DIRECT [MASS/VOLU ME] IN SERUM OR PLASMA 0.5 mg/dL <0.5 - 0.5 07/24 Specimen Type: PLASMA No comment entered. Ordering Provider: MARGARET RECINOS Report Released Date/Time: Jul 24, 2023 10:52 AM Reporting Lab: [facility] [address] Performing Lab: [facility] [address] [place] [facility] PROTHROM BIN TIME/INR INR IN PLATELET POOR PLASMA BY COAGULATIO N ASSAY 1.0 0.8 - 1.1 07/24 Specimen Type: PLASMA No comment entered. Ordering Provider: MARGARET RECINOS Report Released Date/Time: Jul 24, 2023 10:52 AM Reporting Lab: [facility] [address] Performing Lab: [facility] [address] [place] [facility] PROTHROM BIN TIME/INR PROTHROMBI N TIME (PT) 12.2 s 9.4 - 12.5 07/24 Specimen Type: PLASMA No comment entered. Ordering Provider: MARGARET RECINOS Report Released Date/Time: Jul 24, 2023 10:52 AM Reporting Lab: [facility] [id number] Performing Lab: [facility] [id number] [place] [facility] BASIC METABOLI C PANEL+MG CREATININE [MASS/VOLU ME] IN SERUM OR PLASMA 1.0 mg/dL 0.7 - 1.2 02/05 Specimen Type: PLASMA No comment entered. Ordering Provider: MAGALYS BUCIO Report Released Date/Time: Jan 02, 2022 11:30 AM Reporting Lab: [facility] [id number] Performing Lab: [facility] [address] [place] [facility] BASIC METABOLI C PANEL+MG UREA NITROGEN [MASS/VOLU ME] IN SERUM OR PLASMA 16 mg/dL 8 - 02/05 Specimen Type: PLASMA No comment entered. Ordering Provider: MAGALYS BUCIO Report Released Date/Time: Jan 02, 2022 11:30 AM Reporting Lab: [facility] [id number] Performing Lab: [facility] [phone] [place] [facility] BASIC METABOLI C PANEL+MG GLUCOSE [MASS/VOLU ME] IN SERUM OR PLASMA 78 mg/dL 70 - 100 02/05 Specimen Type: PLASMA No comment entered. Ordering Provider: MAGALYS BUCIO Report Released Date/Time: Jan 02, 2022 11:30 AM Reporting Lab: [facility] [address] Performing Lab: [facility] [address] [place] [facility] BASIC METABOLI C PANEL+MG SODIUM [MOLES/VOL UME] IN SERUM OR PLASMA 140 mmol/L 136 - 145 02/05 Specimen Type: PLASMA No comment entered. Ordering Provider: MAGALYS BUCIO Report Released Date/Time: Jan 02, 2022 11:30 AM Reporting Lab: [facility] [address] Performing Lab: [facility] [address] [place] [facility] BASIC METABOLI C PANEL+MG POTASSIUM [MOLES/VOL UME] IN SERUM OR PLASMA 4.4 mmol/L 3.5 - 5.1 02/05 Specimen Type: PLASMA No comment entered. Ordering Provider: MAGALYS BUCIO Report Released Date/Time: Jan 02, 2022 11:30 AM Reporting Lab: [facility] [address] Performing Lab: [facility] [address] [place] [facility] BASIC METABOLI C PANEL+MG CHLORIDE [MOLES/VOL UME] IN SERUM OR PLASMA 105 mmol/L 98 - 107 02/05 Specimen Type: PLASMA No comment entered. Ordering Provider: MAGALYS BUCIO Report Released Date/Time: Jan 02, 2022 11:30 AM Reporting Lab: [facility] [address] Performing Lab: [facility] [address] [place] [facility] BASIC METABOLI C PANEL+MG CARBON DIOXIDE, TOTAL [MOLES/VOL UME] IN SERUM OR PLASMA 26 mmol/L 22 - 29 02/05 Specimen Type: PLASMA No comment entered. Ordering Provider: MAGALYS BUCIO Report Released Date/Time: Jan 02, 2022 11:30 AM Reporting Lab: [facility] [address] Performing Lab: [facility] [address] [place] [facility] BASIC METABOLI C PANEL+MG CALCIUM [MASS/VOLU ME] IN SERUM OR PLASMA 9.4 mg/dL 8.4 - 10.2 02/05 Specimen Type: PLASMA No comment entered. Ordering Provider: MAGALYS BUCIO Report Released Date/Time: Jan 02, 2022 11:30 AM Reporting Lab: [facility] [address] Performing Lab: [facility] [address] [place] [facility] BASIC METABOLI C PANEL+MG MAGNESIUM [MASS/VOLU ME] IN SERUM OR PLASMA 2.0 mg/dL 1.6 - 2.6 02/05 Specimen Type: PLASMA No comment entered. Ordering Provider: MAGALYS BUCIO Report Released Date/Time: Jan 02, 2022 11:30 AM Reporting Lab: [facility] [address] Performing Lab: [facility] [address] [place] [facility] BASIC METABOLI C PANEL+MG ANION GAP IN SERUM OR PLASMA 9 mmol/L 5 - 15 02/05 Specimen Type: PLASMA No comment entered. Ordering Provider: MAGALYS BUCIO Report Released Date/Time: Jan 02, 2022 11:30 AM Reporting Lab: [facility] [address] Performing Lab: [facility] [address] [place] [facility] BAS[facility] METABOLI C PANEL+MG GLOMERULAR FILTRATION RATE/1.73 SQ M.PREDICTE D [VOLUME RATE/AREA] IN SERUM, PLASMA OR BLOOD BY CREATININE -BASED FORMULA (CKD-EPI 2020) 75 60 02/05 Specimen Type: PLASMA No comment entered. Ordering Provider: MAGALYS BUCIO Report Released Date/Time: Jan 02, 2022 11:30 AM Reporting Lab: [facility] [address] Performing Lab: [facility] [address] [place] [facility] CBC LEUKOCYTES [#/VOLUME] IN BLOOD BY AUTOMATED COUNT 8.96 10*3/uL 4.0 - 11.0 02/05 Specimen Type: BLOOD No comment entered. Ordering Provider: MAGALYS BUCIO Report Released Date/Time: Jan 02, 2022 11:30 AM Reporting Lab: [facility] [address] Performing Lab: [facility] [address] [place] [facility] CBC ERYTHROCYT ES [#/VOLUME] IN BLOOD BY AUTOMATED COUNT 4.71 10*6/uL 4.6 - 6.2 02/05 Specimen Type: BLOOD No comment entered. Ordering Provider: MAGALYS BUCIO Report Released Date/Time: Jan 02, 2022 11:30 AM Reporting Lab: [facility] [address] Performing Lab: [facility] [address] [place] [facility] CBC HEMOGLOBIN [MASS/VOLU ME] IN BLOOD 15.0 g/dL 13.5 - 17.9 02/05 Specimen Type: BLOOD No comment entered. Ordering Provider: MAGALYS BUCIO Report Released Date/Time: Jan 02, 2022 11:30 AM Reporting Lab: [facility] [address] Performing Lab: [facility] [address] [place] [facility] CBC HEMATOCRIT [VOLUME FRACTION] OF BLOOD BY AUTOMATED COUNT 45.0 41 - 54 02/05 Specimen Type: BLOOD No comment entered. Ordering Provider: MAGALYS BUCIO Report Released Date/Time: Jan 02, 2022 11:30 AM Reporting Lab: [facility] [address] Performing Lab: [facility] [address] [place] [facility] CBC MCV [ENTITIC VOLUME] BY AUTOMATED COUNT 95.5 fL 80 - 100 02/05 Specimen Type: BLOOD No comment entered. Ordering Provider: MAGALYS BUCIO Report Released Date/Time: Jan 02, 2022 11:30 AM Reporting Lab: [facility] [address] Performing Lab: [facility] [address] [place] [facility] CBC MCH [ENTITIC MASS] BY AUTOMATED COUNT 31.8 pg 27 - 33 02/05 Specimen Type: BLOOD No comment entered. Ordering Provider: MAGALYS BUCIO Report Released Date/Time: Jan 02, 2022 11:30 AM Reporting Lab: [facility] [address] Performing Lab: [facility] [address] [place] [facility] CBC MCHC [MASS/VOLU ME] BY AUTOMATED COUNT 33.3 g/dL 32.0 - 37.5 02/05 Specimen Type: BLOOD No comment entered. Ordering Provider: MAGALYS BUCIO Report Released Date/Time: Jan 02, 2022 11:30 AM Reporting Lab: [facility] [address] Performing Lab: [facility] [address] [place] [facility] CBC PLATELETS [#/VOLUME] IN BLOOD BY AUTOMATED COUNT 271 10*3/uL 150 - 400 02/05 Specimen Type: BLOOD No comment entered. Ordering Provider: MAGALYS BUCIO Report Released Date/Time: Jan 02, 2022 11:30 AM Reporting Lab: [facility] [address] Performing Lab: [facility] [address] [place] [facility] CBC PLATELET MEAN VOLUME [ENTITIC VOLUME] IN BLOOD BY AUTOMATED COUNT 9.6 fL 7.4 - 10.4 02/05 Specimen Type: BLOOD No comment entered. Ordering Provider: MAGALYS BUCIO Report Released Date/Time: Jan 02, 2022 11:30 AM Reporting Lab: [facility] [address] Performing Lab: [facility] [address] [place] [facility] CBC ERYTHROCYT E DISTRIBUTI ON WIDTH [RATIO] BY AUTOMATED COUNT 13.5 11.5 - 14.5 02/05 Specimen Type: BLOOD No comment entered. Ordering Provider: MAGALYS BUCIO Report Released Date/Time: Jan 02, 2022 11:30 AM Reporting Lab: [facility] [address] Performing Lab: [facility] [address] [facility] Vital Signs Combined list of inpatient and outpatient Vital Signs from Department of Defense and Veterans Affairs, ranging from 12 months to all on record, depending upon the facility. Vital Sign Value Date Comments Source SYSTOLIC BLOOD PRESSURE 118 10/17/2023 13:01:15 [facility] DIASTOLIC BLOOD PRESSURE 55 10/17/2023 13:01:15 [facility] PULSE OXIMETRY 95 10/17/2023 13:01:15 [place] [facility] TEMPERATURE 98.5 10/17/2023 13:01:15 [place] [facility] PULSE 66 10/17/2023 13:01:15 [facility] RESPIRATION 16 10/17/2023 13:01:15 [place] [facility] SYSTOLIC BLOOD PRESSURE 160 09/23/2023 09:17:00 [facility] DIASTOLIC BLOOD PRESSURE 89 09/23/2023 09:17:00 [facility] PULSE OXIMETRY 69 09/23/2023 09:17:00 [facility] WEIGHT 183 09/23/2023 09:17:00 [facility] BMI 29kg/m2 09/23/2023 09:17:00 [facility] PAIN 0 09/23/2023 09:17:00 [facility] HEIGHT 67.25 09/23/2023 09:17:00 [facility] TEMPERATURE 97.5 09/23/2023 09:17:00 [place] [facility] PULSE 71 09/23/2023 09:17:00 [facility] SYSTOLIC BLOOD PRESSURE 160 08/07/2023 08:58:05 [facility] DIASTOLIC BLOOD PRESSURE 89 08/07/2023 08:58:05 [facility] PULSE OXIMETRY 96 08/07/2023 08:58:05 [place] [facility] PAIN 0 08/07/2023 08:58:05 [facility] TEMPERATURE 97.8 08/07/2023 08:58:05 [place] [facility] PULSE 62 08/07/2023 08:58:05 [facility] RESPIRATION 16 08/07/2023 08:58:05 [place] [facility] SYSTOLIC BLOOD PRESSURE 127 07/24/2023 10:32:00 [facility] DIASTOLIC BLOOD PRESSURE 76 07/24/2023 10:32:00 [facility] PULSE OXIMETRY 96 07/24/2023 10:32:00 [facility] PAIN 0 07/24/2023 10:32:00 [facility] TEMPERATURE 98.1 07/24/2023 10:32:00 [facility] PULSE 63 07/24/2023 10:32:00 [facility] RESPIRATION 16 07/24/2023 10:32:00 [facility] Encounters Combined list of: 1) Encounters from Department of [facility] Affairs facilities going back up to thelast 18 months. 2) Encounters from the Department of [facility] facilities going back up to 280 months. Location Location Details Encounter Type Encounter Number Reason For Visit Attending Provider ADM Date DC Date Status Disposition Source [facility] Outpatient Encounter [id number] 09/10 [facility] [place] Encounter [id number] 09/10 [facility] REM INTERROG EVL PM/[place] [id number] Diagnos is: ICD-10- CM Z95.0 Presenc e of cardiac pacemak er
SA KRISTIN NDRA L 09/11 [facility] PM DEVICE PROGR EVAL DUAL [id number] Diagnos is: ICD-10- CM Z95.0 Presenc e of cardiac pacemak er
DORENE UNGER A 11/27 [facility] Outpatient Encounter [id number] 12/12 [facility] OFFICE O/P EST LOW 20-29 MIN [id number] Diagnos is: ICD-10- CM Z00.00 Encntr for general adult medical exam w/o abnorma l finding s
KEVYN WETZEL A 02/05 [facility] Outpatient Encounter [id number] 03/13 [facility] [facility] Outpatient Encounter [id number] 06/19 [place] [facility] Outpatient Encounter [id number] 06/22 [facility] [place] [facility] REM INTERROG EVL PM/LDLS [place] [id number] Diagnos is: ICD-10- CM I48.3 Typical atrial flutter
AIME RAZA T 06/22 [facility] [place] [facility] HEARING AID REPAIR/MOD IFYING [id number] Diagnos is: ICD-10- CM H90.3 Sensori neural hearing loss, bilater al
YAMILETHSAMY M 07/22 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 INJ PERFLUTREN LIP MICROS,ML [id number] Diagnos is: ICD-10- CM Z95.0 Presenc e of cardiac pacemak er
DANNY SMART NZI 09/22 [facility] ELECTROCAR DIOGRAM REPORT [id number] Diagnos is: ICD-10- CM Z13.6 Encount er for screeni ng for cardiov ascular disorde rs
Karin ZABALA O 09/22 [facility] INTERROG EVL PM/[place] [id number] Diagnos is: ICD-10- CM I45.5 Other specifi ed heart block<b r/> AB BARBER BIE L 09/22 [facility] OFF/OP CONSLTJ NEW/[place] HI 55 [id number] Diagnos is: ICD-10- CM I45.5 Other specifi ed heart block<b r/> BARBERAB BIE L 09/22 [facility] Outpatient Encounter [id number] 10/01 [facility] EMR DPT VST MAYX REQ PHY/QHP [id number] Diagnos is: ICD-10- CM J32.8 Other chronic sinusit is
LELAND PONCE IN J 10/16 [facility] Outpatient Encounter [id number] CYNTHIA MAGANA 10/16 [facility] Outpatient Encounter [id number] 10/16 [facility] HEARING AID REPAIR/MOD IFYING [id number] Diagnos is: ICD-10- CM H90.A21 Snsrnrl hear loss, uni, r ear, with rstrcd hear cntra side
Angeli KENDALL 11/01 [place] [facility] [place] [facility] Outpatient Encounter [id number] SHAN ORDONEZ 11/16 [place] [facility] [place] [facility] Outpatient Encounter [id number] 12/01 [place] [facility] [place] [facility] SELF-MGMT EDUC & TRAIN 1 [place] [id number] Diagnos is: ICD-10- CM H90.A21 Snsrnrl hear loss, uni, r ear, with rstrcd hear cntra side
SAMY CARSON 12/06 [facility] [place] [facility] Outpatient Encounter [id number] 12/14 [place] [facility] [place] [facility] Outpatient Encounter [id number] 12/20 [place] [facility] [place] [facility] Outpatient Encounter [id number] 01/11 [place] [facility] [place] [facility] Outpatient Encounter [id number] 01/19 [place] [facility] Outpatient Encounter [id number] 01/19 [facility] Social History Combined list of available smoking, tobacco, and other social history from Department of Defense and Veterans Affairs facilities. Social History Type Response Date Comment Sour e Tobacco smoking status NHIS VA-TOBACCO FORMER USER 02/05/2023 [facility] History of tobacco use IN-TOBACCO QUIT 15 YRS OR MORE 02/05/2023 [facility] History of tobacco use IN-TOBACCO QUIT 15 YRS OR MORE 01/02/2022 [facility] History of tobacco use VA-TOBACCO FORMER USER 11/08/2020 [facility] History of tobacco use VA-TOBACCO QUIT 15 YRS OR MORE 11/18/2018 [facility] History of tobacco use QUIT TOBACCO >7 YEARS AGO 10/27/2017 [facility] History of tobacco use NON-TOBACCO USER 07/21/2017 [facility] History of tobacco use FORMER TOBACCO USER 7Y OR GREATER 09/02/2016 [facility] History of tobacco use FORMER TOBACCO USER 7Y OR GREATER 08/06/2015 [facility] History of tobacco use LIFETIME NON-TOBACCO USER 07/07/2014 [facility]
== END 2024-02-28 22:22 | disposition home or self-care (01) ==
LOC: ED 21:19
PROVIDERS: Emergency Provider Family Medicine
DX: R33.9 Retention of urine, unspecified (principal)
CPT/HCPCS: 99284

== ENCOUNTER 2024-02-29 09:50 | Emergency (ER) | payer OTHER, SELFPAY ==
--- OUTSIDE RECORDS SUMMARY | 2024-02-29 09:52 | XMS_ITS | Clinical Summary ---
Author Organization [facility] Address [address] [place] [address] Care Team Providers Care Yeast Pusher Name Role Phone Unavailable Primary Care Provider [...]
--- OUTSIDE RECORDS SUMMARY | 2024-02-29 09:52 | XMS_ITS | Encounter Summary ---
Author Organization [facility] Address [address] [place] [address] Care Team Providers Care Learning Disabilities Resource Teacher Name Role Phone Unavailable Primary Care Provider Unavailabl e Prior Encounters Date Type Department Care Team Description 06/20/2019 Converted CPS Chart Documents [facility] [address] [place] [address] <No scans attached> 06/20/2019 Converted 13x Documents [facility] [address] [place] [address] <No scans attached> Plan of [...] 5 ENDODONTIC THERAPY, PREMOLAR TOOTH (EXCLUDING FINAL CHRISTIAN) Routine 07/14/2019 1:00 AM MST 5 PULP [...]
--- OUTSIDE RECORDS SUMMARY | 2024-02-29 09:52 | XMS_ITS | Encounter Summary ---
Author Organization [place] Address [address] [place] [address]. [place] [address] Care Team Providers Care Bad Cloth Checker Name Role Phone [facility] Primary Care Provider + Maura Jackson MD Primary Care Provider [phone] Jorge Douglas MD Unavailable Unavailable Encounter Details Date Type Department Care Team (Late st Contact Info) Description 04/11/2013 Office Visit-[facility] [address] [place] [address] Jorge Douglas MD Social History [...] Referring Physician: MAURA JACKSON Referring Clinic: [facility] CURRENT DIAGNOSES 1. 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 [...] on filedocumented in this encounter Care Teams Bad Cloth Checker Relationship Specialty Start Date End Date [facility] [address] [place] [phone] PCP - General 07/30/11 02/02/19 Maura Jackson MD [facility] [id number] [place] [address] PCP - General Family Practice 02/03/19 Jorge Douglas MD Assigned Heart and Vascular Provider 03/23/20 05/25/21 documented as of this encounter
--- OUTSIDE RECORDS SUMMARY | 2024-02-29 09:52 | XMS_ITS | Referral Summary ---
Author Organization [facility] Address [address] [place] [address] Care Team Providers Care Director Enterprise Sales Name Role Phone Unavailable Primary Care Provider [...]
--- OUTSIDE RECORDS SUMMARY | 2024-02-29 09:52 | XMS_ITS ---
Author Organization [facility] Address [address] [place] [address] Care Team Providers Care Caustic Purification Operator Name Role Phone Unavailable Unavailable Unavailable Surgery Details Not on file Complications Check Surgery Details section. Procedure Estimated Blood Loss Check Surgery Details section. Procedure Findings Check Surgery Details section. Procedure Specimens Taken Check Surgery Details section.
--- OUTSIDE RECORDS SUMMARY | 2024-02-29 09:52 | XMS_ITS | Clinical Summary ---
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 ) 12/18/2023 Transcribe Orders [facility] [address] [place] [address] Shankar Zaragoza MD from Last [...] Comments Blood Pressure 106/64 07/18/2010 9:30 AM HEALTH CARE LEGAL ASSISTANT Pulse - - Temperature 36.8 ??C (98.2 ??F) 07/18/2010 9:30 AM CS T Respiratory Rate - - Oxygen Saturation - - Inhaled Oxygen Concentration - - Weight 82.6 kg (182 lb) 07/18/2010 9:30 AM HEALTH CARE LEGAL ASSISTANT Height 172.7 cm (5' 8) 07/01/2010 9:18 AM HEALTH CARE LEGAL ASSISTANT Body Mass Index 27.67 07/01/2010 9:18 AM HEALTH CARE LEGAL ASSISTANT Plan of Treatment Health Maintenance Due Date [...] Influenza for age 65+ 01/31/2024 Care Teams Sash Sticker Relationship Specialty [place] [address] [place] [address] PCP - General Family Practice 07/01/10
--- OUTSIDE RECORDS SUMMARY | 2024-02-29 09:52 | XMS_ITS | Clinical Summary ---
Author Organization [place] Address [address] [place] [address]. [place] [address] Care Team Providers Care Duty Engineer Name Role Phone Chandana Fleming MD Primary Care Provider [phone] Allergies Active Allergy Reactions Criticality Noted Date Comments No Known Drug Allergy 02/21/2003 Medications Medication Sig Dispensed Refills Start Date End Date Status Saw [place] 80 MG CAPS A ctive GINSENG PO Take by mouth 2 times daily Active HAW[place] PO Take by mouth 2 times daily Active Ginkgo Biloba (GINKGO PO) Take by mouth 2 times daily Active NONFORMULARY [place]-zyme Active Active Problems Problem Noted Date Diagnosed [...] T Respiratory Rate 16 06/01/2014 8:01 PM CAR FERRY CAPTAIN Oxygen Saturation 95% 04/08/2017 9:05 AM CAR FERRY CAPTAIN Inhaled Oxygen Concentration - - Weight 78.9 kg (174 lb) 11/04/2018 1:12 PM CDT Height 172.7 cm (5' 8) 11/04/2018 1:12 PM CDT Body Mass Index 26.46 11/04/2018 1:12 PM CDT Plan of Treatment Not on file Medical Devices Implanted Type Area Vegetable Washing Machine Operator Device Identifier Shelf Expiration Date Model / Serial / Lot [employer]* 2087tc Tendril Sts [id number] Implanted:01/30 (Quantity not on file) Leads [employer] 2087TC TENDRIL STS / [id number] / [employer]* 2087tc Tendril Sts [id number] Implanted:01/30 (Quantity not on file) Leads [employer] 2087TC TENDRIL STS / [id number] / [employer]* [address] [id number] Implanted:01/30 (Quantity not on file) Pacemaker [employer] [address] / [id number] / Advance Directives For more information, please contact: [phone] * Full Code (Latest Code Status on File) Date Activated Date Inactivated Comments 02/16/2013 11:22 AM * Full Code Date Activated Date Inactivated Comments 02/14/2013 11:17 PM 02/16/2013 11:22 AM * Full Code Date Activated Date Inactivated Comments 07/31/2011 8:42 AM 02/14/2013 11:17 PM * Full Code Date Activated Date Inactivated Comments 07/30/2011 4:29 PM 07/31/2011 8:42 AM Care Teams Duty Engineer Relationship Specialty Start Date End Date Chandana Fleming MD [facility] [id number] [place] [address] PCP - General Family Practice 02/03/19
--- OUTSIDE RECORDS SUMMARY | 2024-02-29 09:52 | XMS_ITS | CCD ---
Author Organization [facility] Address [address] [place] [address] Care Team Providers Care Clerk Manager Name Role Phone Unavailable Primary Care [...]
--- OUTSIDE RECORDS SUMMARY | 2024-02-29 09:52 | XMS_ITS | Referral Summary ---
Author Organization [facility] Address [address] [place] [address]. [place] [address] Care Team Providers Care Grill Chef Name Role Phone Chandana Fleming MD Primary Care Provider [phone] Allergies Active Allergy Reactions Criticality Noted Date Comments No Known Drug Allergy 02/21/2003 Medications Medication Sig Dispensed Refills Start Date End Date Status Saw [place] 80 MG CAPS A ctive GINSENG PO Take by mouth 2 times daily Active HAWTHORN PO Take by mouth 2 times daily Active Ginkgo Biloba (GINKGO PO) Take by mouth 2 times daily Active NONFORMULARY Powers-zyme Active Active Problems Problem Noted Date Diagnosed [...] T Respiratory Rate 16 06/01/2014 8:01 PM UTILIZATION REVIEW COORDINATOR Oxygen Saturation 95% 04/08/2017 9:05 AM UTILIZATION REVIEW COORDINATOR Inhaled Oxygen Concentration - - Weight 78.9 kg (174 lb) 11/04/2018 1:12 PM CDT Height 172.7 cm (5' 8) 11/04/2018 1:12 PM CDT Body Mass Index 26.46 11/04/2018 1:12 PM CDT Plan of Treatment Not on file Medical Devices Implanted Type Area Tool And Die Manager Device Identifier Shelf Expiration Date Model / Serial / Lot [employer]* 2087tc Tendril Sts [id number] Implanted:01/30 (Quantity not on file) [employer]s [employer] 2087TC TENDRIL STS / [id number] / [employer] 2087tc Tendril Sts [id number] Implanted:01/30 (Quantity not on file) [employer]s [employer] 2087TC TENDRIL STS / [id number] / [employer]* [address] [id number] Implanted:01/30 (Quantity not on file) Pacemaker [employer] [address] / [id number] / Advance Directives For more information, please contact: [phone] * Full Code (Latest Code Status on File) Date Activated Date Inactivated Comments 02/16/2013 11:22 AM * Full Code Date Activated Date Inactivated Comments 02/14/2013 11:17 PM 02/16/2013 11:22 AM * Full Code Date Activated Date Inactivated Comments 07/31/2011 8:42 AM 02/14/2013 11:17 PM * Full Code Date Activated Date Inactivated Comments 07/30/2011 4:29 PM 07/31/2011 8:42 AM Care Teams Grill Chef Relationship Specialty Start Date End Date Chandana Fleming MD [facility] [id number] [place] [id number] PCP - General Family Practice 02/03/19
--- OUTSIDE RECORDS SUMMARY | 2024-02-29 09:52 | XMS_ITS | Continuity of Care Document ---
Author Name [facility] Organization [facility] Care Team Providers Care Turbinated Bone Grinder Name Role Phone [facility] Unavailable Unavailable Problems Combined list of problems from Department of Defense and Veterans Affairs facilities. It does not include entries that were removed or entered in error. Problem Status Onset Date Problem Type Date of Resolution Comments Source Bilateral hearing loss Active 06/01/19 15 Condition Jul 07, 2014 Entered By: BEN VIVEROS Comment: has hearing aids from [facility] History of appendectomy Active 06/01/19 15 [...] dumping syndrome [facility] Atrial Flutter (SCT [id number]) Active Condition [facility] Cardiac pacemaker in situ Active Condition [facility] Cardiomyopathy Active Condition [facility] Elevated PSA Active Condition [facility] Gilbert's syndrome Active Condition [facility] Hearing Loss (SCT [id number]) Active Condition [facility] History of peptic ulcer Active Condition Dec 04, 2017 Entered By: MEHREEN ARCHIBALD Comment: partial gastectomy and dumping syndrome [facility] Syncope and Collapse (SCT [id number]) Active Condition Dec 04, 2017 Entered By: MEHREEN ARCHIBALD Comment: due to complete heart block [facility] Typical atrial flutter Active Condition [facility] [...] 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 [facility] Diagnosis: ICD-10-CM H90.3 Sensorineural hearing loss, [...] Jul 24, 2023 30 Jul 24, 2024 [id number] YASIR RECINOS [facility] 07/24/2024 [id number] Angeli RECINOS 2023 30 [facility] GINKGO BILOBA CAP/TAB GINKGO BILOBA CAP/TAB Non-VA TAKE ONE TABLET BY MOUTH EVERY DAY Sep 23, 2023 Non-VA Document ed by: MAIA BLANDON Document ed at: [facility] Angeli BLANDON 2023 [facility] NON VA MED NOT LISTED NON VA MED NOT LISTED Non-VA USE HYDRO-ZY ME MOUTH Nov 21, 2020 Non-VA Document ed by: AMARILYS PALAFOX Document ed at: [facility] AMARILYS PALAFOX 2020 [facility] SAW PALMETTO CAP/TAB SAW PALMETTO CAP/TAB Non-VA TAKE Jan 02, 2022 Non-VA Document ed by: MAGGIE BUCIO Document ed at: [facility] ACT[facility] [place] BUCIO 2021 [facility] SODIUM CHLORIDE 0.65% SOLN,NASAL SPRAY SODIUM CHLORIDE 0.65% SOLN,GIGI AL SPRAY SPRAY 2 SPRAYS IN EACH NOSTRIL TWICE A DAY FOR NASAL DRYNESS FOR NASAL DRYNESS October 17, 2023 45 Nov 16, 2023 [id number] October 17, 2023 Trent PONCE [facility] NASAL 11/16/2023 [id number] MONICA PONCE 2023 45 [facility] Immunizations Combined list of available immunizations from the Department of Defense and Veterans Affairs facilities. Immunization Series Date Given Administered By Site Reaction Lot Number CVX Code Drug Deposit Refund Clerk Status Comments Source TD (ADULT), 2 LF TETANUS TOXOID, PRESERVATIVE FREE, ADSORBED 1996 09 complet ed [facility] Results Combined list of recent chemistry, hematology [...] Aug 07, 2023 09:32 AM Reporting Lab: [facility] [address] Performing Lab: [facility] [address] [place] [facility] LIPID PANEL,NO N-FASTIN G CHOLESTERO L IN HDL [MASS/VOLU ME] IN SERUM OR PLASMA 66 mg/dL 40 08/06 Specimen Type: PLASMA No comment entered. Ordering Provider: YOAV VILLEDA ERT E Report Released Date/Time: Aug 07, 2023 09:32 AM Reporting Lab: [facility] [address] Performing Lab: [facility] [address] [facility] LIPID PANEL,NO N-FASTIN G CHOLESTERO L IN LDL [MASS/VOLU ME] IN SERUM OR PLASMA BY CALCULANEHEMIAHO N 75 mg/dL <99 - 99 08/06 Specimen Type: PLASMA No comment entered. Ordering Provider: YOAV VILLEDA ERT Rachael Report Released Date/Time: Aug 07, 2023 09:32 AM Reporting Lab: [facility] [address] Performing Lab: [facility] [address] [place] [facility] LIPID PANEL,NO N-FASTIN G CHOLESTERO L IN VLDL [MASS/VOLU ME] IN SERUM OR PLASMA BY CALCULATIO N 25 mg/dL <29 - 29 08/06 Specimen Type: PLASMA No comment entered. Ordering Provider: YOAV VILLEDA Report Released Date/Time: Aug 07, 2023 09:32 AM Reporting Lab: [facility] [address] Performing Lab: [facility] [address] [place] [facility] LIPID PANEL,NO N-FASTIN G CHOLESTERO L NON HDL [MASS/VOLU ME] IN SERUM OR PLASMA 100 mg/dL <129 - 129 08/06 Specimen Type: PLASMA No comment entered. Ordering Provider: YOAV VILLEDA ERT Rachael Report Released Date/Time: Aug 07, 2023 09:32 AM Reporting Lab: [facility] [address] Performing Lab: [facility] [address] [place] [facility] LIPID PANEL,NO N-FASTIN G TRIGLYCERI DE [MASS/VOLU ME] IN SERUM OR PLASMA 124 mg/dL <149 - 149 08/06 Specimen Type: PLASMA No comment entered. Ordering Provider: YOAV VILLEDA Report Released Date/Time: Aug 07, 2023 09:32 AM Reporting Lab: [facility] [address] Performing Lab: [facility] [address] [place] [facility] EXTRA GOLD GEL TUBE EXTRA GOLD GEL TUBE RECEIVED 07/24 Specimen Type: SERUM No comment entered. Ordering Provider: MARGARET RECINOS Report Released Date/Time: Jul 24, 2023 11:22 AM Reporting Lab: [facility] [address] Performing Lab: [facility] [address] [facility] POC CREATINI NE CREATININE [MASS/VOLU ME] IN BLOOD 1.1 mg/dL 0.6 - 1.3 07/24 Specimen Type: BLOOD No comment entered. Ordering Provider: MARGARET RECINOS Report Released Date/Time: Jul 24, 2023 11:28 AM Reporting Lab: [facility] [address] Performing Lab: [facility] [address] [facility] ACT PART THROMBO TIME APTT IN PLATELET POOR PLASMA BY COAGULATIO N ASSAY 34.3 s 25.1 - 36.5 07/24 Specimen Type: PLASMA No comment entered. Ordering Provider: MARGARET RECINOS Report Released Date/Time: Jul 24, 2023 10:52 AM Reporting Lab: [facility] [address] Performing Lab: [facility] [address] [facility] CBC & DIFF LEUKOCYTES [#/VOLUME] IN BLOOD BY AUTOMATED COUNT 8.70 10*3/uL 4.0 - 11.0 07/24 Specimen Type: BLOOD Comment: Automated Differentia l Performed Ordering Provider: MARGARET RECINOS Report Released Date/Time: Jul 24, 2023 10:52 AM Reporting Lab: [facility] [address] Performing Lab: [facility] [address] [facility] CBC & DIFF ERYTHROCYT ES [#/VOLUME] IN BLOOD BY AUTOMATED COUNT 4.85 10*6/uL 4.6 - 6.2 07/24 Specimen Type: BLOOD Comment: Automated Differentia l Performed Ordering Provider: MARGARET RECINOS Report Released Date/Time: Jul 24, 2023 10:52 AM Reporting Lab: [facility] [address] Performing Lab: [facility] [address] [facility] CBC & DIFF HEMOGLOBIN [MASS/VOLU ME] IN BLOOD 15.1 g/dL 13.5 - 17.9 07/24 Specimen Type: BLOOD Comment: Automated Differentia l Performed Ordering Provider: MARGARET RECINOS Report Released Date/Time: Jul 24, 2023 10:52 AM Reporting Lab: [facility] [address] Performing Lab: [facility] [address] [place] [facility] CBC & DIFF HEMATOCRIT [VOLUME FRACTION] OF BLOOD BY AUTOMATED COUNT 45.7 41 - 54 07/24 Specimen Type: BLOOD Comment: Automated Differentia l Performed Ordering Provider: MARGARET RECINOS Report Released Date/Time: Jul 24, 2023 10:52 AM Reporting Lab: [facility] [address] Performing Lab: [facility] [address] [place] [facility] CBC & DIFF MCV [ENTITIC VOLUME] BY AUTOMATED COUNT 94.2 fL 80 - 100 07/24 Specimen Type: BLOOD Comment: Automated Differentia l Performed Ordering Provider: MARGARET RECINOS Report Released Date/Time: Jul 24, 2023 10:52 AM Reporting Lab: [facility] [address] Performing Lab: [facility] [address] [place] [facility] CBC & DIFF MCH [ENTITIC MASS] BY AUTOMATED COUNT 31.1 pg 27 - 33 07/24 Specimen Type: BLOOD Comment: Automated Differentia l Performed Ordering Provider: MARGARET RECINOS Report Released Date/Time: Jul 24, 2023 10:52 AM Reporting Lab: [facility] [address] Performing Lab: [facility] [address] [place] [facility] CBC & DIFF MCHC [MASS/VOLU ME] BY AUTOMATED COUNT 33.0 g/dL 32.0 - 37.5 07/24 Specimen Type: BLOOD Comment: Automated Differentia l Performed Ordering Provider: MARGARET RECINOS Report Released Date/Time: Jul 24, 2023 10:52 AM Reporting Lab: [facility] [address] Performing Lab: [facility] [address] [place] [facility] CBC & DIFF PLATELETS [#/VOLUME] IN BLOOD BY AUTOMATED COUNT 288 10*3/uL 150 - 400 07/24 Specimen Type: BLOOD Comment: Automated Differentia l Performed Ordering Provider: MARGARET RECINOS Report Released Date/Time: Jul 24, 2023 10:52 AM Reporting Lab: [facility] [address] Performing Lab: [facility] [address] [place] [facility] CBC & DIFF PLATELET MEAN VOLUME [ENTITIC VOLUME] IN BLOOD BY AUTOMATED COUNT 9.8 fL 7.4 - 10.4 07/24 Specimen Type: BLOOD Comment: Automated Differentia l Performed Ordering Provider: MARGARET RECINOS Report Released Date/Time: Jul 24, 2023 10:52 AM Reporting Lab: [facility] [address] Performing Lab: [facility] [address] [place] [facility] CBC & DIFF NEUTROPHIL S/100 LEUKOCYTES IN BLOOD BY MANUAL COUNT 66.1 40.0 - 80.0 07/24 Specimen Type: BLOOD Comment: Automated Differentia l Performed Ordering Provider: MARGARET RECINOS Report Released Date/Time: Jul 24, 2023 10:52 AM Reporting Lab: [facility] [address] Performing Lab: [facility] [address] [place] [facility] CBC & DIFF LYMPHOCYTE S/100 LEUKOCYTES IN BLOOD BY MANUAL COUNT 17.5 15.0 - 45.0 07/24 Specimen Type: BLOOD Comment: Automated Differentia l Performed Ordering Provider: MARGARET RECINOS Report Released Date/Time: Jul 24, 2023 10:52 AM Reporting Lab: [facility] [address] Performing Lab: [facility] [address] [place] [facility] CBC & DIFF MONOCYTES/ 100 LEUKOCYTES IN BLOOD BY AUTOMATED COUNT 12.3 2.0 - 12.0 07/24 H Specimen Type: BLOOD Comment: Automated Differentia l Performed Ordering Provider: MARGARET RECINOS Report Released Date/Time: Jul 24, 2023 10:52 AM Reporting Lab: [facility] [address] Performing Lab: [facility] [address] [place] [facility] CBC & DIFF EOSINOPHIL S/100 LEUKOCYTES IN BLOOD BY AUTOMATED COUNT 2.8 0.0 - 6.0 07/24 Specimen Type: BLOOD Comment: Automated Differentia l Performed Ordering Provider: MARGARET RECINOS Report Released Date/Time: Jul 24, 2023 10:52 AM Reporting Lab: [facility] [address] Performing Lab: [facility] [address] [place] [facility] CBC & DIFF BASOPHILS/ 100 LEUKOCYTES IN BLOOD BY MANUAL COUNT 0.8 0.0 - 2.0 07/24 Specimen Type: BLOOD Comment: Automated Differentia l Performed Ordering Provider: MARGARET RECINOS Report Released Date/Time: Jul 24, 2023 10:52 AM Reporting Lab: [facility] [address] Performing Lab: [facility] [address] [place] [facility] CBC & DIFF ERYTHROCYT E DISTRIBUTI ON WIDTH [RATIO] BY AUTOMATED COUNT 13.8 11.5 - 14.5 07/24 Specimen Type: BLOOD Comment: Automated Differentia l Performed Ordering Provider: MARGARET RECINOS Report Released Date/Time: Jul 24, 2023 10:52 AM Reporting Lab: [facility] [address] Performing Lab: [facility] [address] [place] [facility] CBC & DIFF LYMPHOCYTE S [#/VOLUME] IN BLOOD BY AUTOMATED COUNT 1.52 10*3/uL 1.0 - 4.0 07/24 Specimen Type: BLOOD Comment: Automated Differentia l Performed Ordering Provider: MARGARET RECINOS Report Released Date/Time: Jul 24, 2023 10:52 AM Reporting Lab: [facility] [address] Performing Lab: [facility] [address] [place] [facility] CBC & DIFF MONOCYTES [#/VOLUME] IN BLOOD BY AUTOMATED COUNT 1.07 10*3/uL 0.1 - 1.0 07/24 H Specimen Type: BLOOD Comment: Automated Differentia l Performed Ordering Provider: MARGARET RECINOS Report Released Date/Time: Jul 24, 2023 10:52 AM Reporting Lab: [facility] [address] Performing Lab: [facility] [address] [place] [facility] CBC & DIFF NEUTROPHIL S [#/VOLUME] IN BLOOD BY AUTOMATED COUNT 5.76 10*3/uL 2.0 - 7.7 07/24 Specimen Type: BLOOD Comment: Automated Differentia l Performed Ordering Provider: MARGARET RECINOS Report Released Date/Time: Jul 24, 2023 10:52 AM Reporting Lab: [facility] [address] Performing Lab: [facility] [address] [facility] [facility] CBC & DIFF EOSINOPHIL S [#/VOLUME] IN BLOOD BY AUTOMATED COUNT 0.24 10*3/uL 0 - 0.5 07/24 Specimen Type: BLOOD Comment: Automated Differentia l Performed Ordering Provider: MARGARET RECINOS Report Released Date/Time: Jul 24, 2023 10:52 AM Reporting Lab: [facility] [address] Performing Lab: [facility] [address] [facility] CBC & DIFF BASOPHILS [#/VOLUME] IN BLOOD BY AUTOMATED COUNT 0.07 10*3/uL 0 - 0.2 07/24 Specimen Type: BLOOD Comment: Automated Differentia l Performed Ordering Provider: MARGARET RECINOS Report Released Date/Time: Jul 24, 2023 10:52 AM Reporting Lab: [facility] [address] Performing Lab: [facility] [address] [facility] CBC & DIFF IG(META,MY TAMIKA,PRO) 0.5 07/24 Specimen Type: BLOOD Comment: Automated Differentia l Performed Ordering Provider: MARGARET RECINOS Report Released Date/Time: Jul 24, 2023 10:52 AM Reporting Lab: [facility] [address] Performing Lab: [facility] [address] [facility] [facility] CBC & DIFF IMMATURE GRANULOCYT ES [PRESENCE] IN BLOOD BY AUTOMATED COUNT 0.04 10*3/uL 0 - 0.1 07/24 Specimen Type: BLOOD Comment: Automated Differentia l Performed Ordering Provider: MARGARET RECINOS Report Released Date/Time: Jul 24, 2023 10:52 AM Reporting Lab: [facility] [address] Performing Lab: [facility] [address] [place] [facility] COMPREHE NSIVE METABOLI C PANEL+MG CREATININE [MASS/VOLU ME] IN SERUM OR PLASMA 1.1 mg/dL 0.7 - 1.2 07/24 Specimen Type: PLASMA No comment entered. Ordering Provider: MARGARET RECINOS Report Released Date/Time: Jul 24, 2023 10:52 AM Reporting Lab: [facility] [address] Performing Lab: [facility] [address] [place] [facility] COMPREHE NSIVE METABOLI C PANEL+MG UREA NITROGEN [MASS/VOLU ME] IN SERUM OR PLASMA 14 mg/dL 8 - 26 07/24 Specimen Type: PLASMA No comment entered. Ordering Provider: MRAGARET RECINOS Report Released Date/Time: Jul 24, 2023 10:52 AM Reporting Lab: [facility] [address] Performing Lab: [facility] [address] [place] [facility] COMPREHE NSIVE METABOLI C PANEL+MG GLUCOSE [MASS/VOLU ME] IN SERUM OR PLASMA 94 mg/dL 70 - 100 07/24 Specimen Type: PLASMA No comment entered. Ordering Provider: MARGARET RECINOS Report Released Date/Time: Jul 24, 2023 10:52 AM Reporting Lab: [facility] [address] Performing Lab: [facility] [address] [place] [facility] COMPREHE NSIVE METABOLI C PANEL+MG SODIUM [MOLES/VOL UME] IN SERUM OR PLASMA 139 mmol/L 136 - 145 07/24 Specimen Type: PLASMA No comment entered. Ordering Provider: MARGARET RECINOS Report Released Date/Time: Jul 24, 2023 10:52 AM Reporting Lab: [facility] [address] Performing Lab: [facility] [address] [place] [facility] COMPREHE NSIVE METABOLI C PANEL+MG POTASSIUM [MOLES/VOL UME] IN SERUM OR PLASMA 4.5 mmol/L 3.5 - 5.1 07/24 Specimen Type: PLASMA No comment entered. Ordering Provider: MARGARET RECINOS Report Released Date/Time: Jul 24, 2023 10:52 AM Reporting Lab: [facility] [address] Performing Lab: [facility] [address] [place] [facility] COMPREHE NSIVE METABOLI C PANEL+MG CHLORIDE [MOLES/VOL UME] IN SERUM OR PLASMA 106 mmol/L 98 - 107 07/24 Specimen Type: PLASMA No comment entered. Ordering Provider: MARGARET RECINOS Report Released Date/Time: Jul 24, 2023 10:52 AM Reporting Lab: [facility] [address] Performing Lab: [facility] [address] [place] [facility] COMPREHE NSIVE METABOLI C PANEL+MG CARBON DIOXIDE, TOTAL [MOLES/VOL UME] IN SERUM OR PLASMA 27 mmol/L 22 - 29 07/24 Specimen Type: PLASMA No comment entered. Ordering Provider: MARGARET RECINOS Report Released Date/Time: Jul 24, 2023 10:52 AM Reporting Lab: [facility] [address] Performing Lab: [facility] [address] [place] [facility] COMPREHE NSIVE METABOLI C PANEL+MG CALCIUM [MASS/VOLU ME] IN SERUM OR PLASMA 9.5 mg/dL 8.4 - 10.2 07/24 Specimen Type: PLASMA No comment entered. Ordering Provider: MARGARET RECINOS Report Released Date/Time: Jul 24, 2023 10:52 AM Reporting Lab: [facility] [address] Performing Lab: [facility] [address] [place] [facility] COMPREHE NSIVE METABOLI C PANEL+MG PROTEIN [MASS/VOLU ME] IN SERUM OR PLASMA 7.3 g/dL 6.0 - 8.3 07/24 Specimen Type: PLASMA No comment entered. Ordering Provider: MARGARET RECINOS Report Released Date/Time: Jul 24, 2023 10:52 AM Reporting Lab: [facility] [address] Performing Lab: [facility] [address] [place] [facility] COMPREHE NSIVE METABOLI C PANEL+MG ALBUMIN [MASS/VOLU ME] IN SERUM OR PLASMA 3.9 g/dL 3.5 - 5.2 07/24 Specimen Type: PLASMA No comment entered. Ordering Provider: MARGARET RECINOS Report Released Date/Time: Jul 24, 2023 10:52 AM Reporting Lab: [facility] [address] Performing Lab: [facility] [address] [place] [facility] COMPREHE NSIVE METABOLI C PANEL+MG BILIRUBIN. TOTAL [MASS/VOLU ME] IN SERUM OR PLASMA 1.7 mg/dL 0.2 - 1.2 07/24 H Specimen Type: PLASMA No comment entered. Ordering Provider: MARGARET RECINOS Report Released Date/Time: Jul 24, 2023 10:52 AM Reporting Lab: [facility] [address] Performing Lab: [facility] [address] [place] [facility] COMPREHE NSIVE METABOLI C PANEL+MG MAGNESIUM [MASS/VOLU ME] IN SERUM OR PLASMA 2.1 mg/dL 1.6 - 2.6 07/24 Specimen Type: PLASMA No comment entered. Ordering Provider: MARGARET RECINOS Report Released Date/Time: Jul 24, 2023 10:52 AM Reporting Lab: [facility] [address] Performing Lab: [facility] [address] [place] [facility] COMPREHE NSIVE METABOLI C PANEL+MG ANION GAP IN SERUM OR PLASMA 6 mmol/L 5 - 15 07/24 Specimen Type: PLASMA No comment entered. Ordering Provider: MARGARET RECINOS Report Released Date/Time: Jul 24, 2023 10:52 AM Reporting Lab: [facility] [address] Performing Lab: [facility] [address] [place] [facility] COMPREHE NSIVE METABOLI C PANEL+MG ALKALINE PHOSPHATAS E [ENZYMATIC ACTIVITY/V OLUME] IN SERUM OR PLASMA 118 U/L 40 - 150 07/24 Specimen Type: PLASMA No comment entered. Ordering Provider: MARGARET RECINOS Report Released Date/Time: Jul 24, 2023 10:52 AM Reporting Lab: [facility] [address] Performing Lab: [facility] [address] [place] [facility] COMPREHE NSIVE METABOLI C PANEL+MG ALANINE AMINOTRANS FERASE [ENZYMATIC ACTIVITY/V OLUME] IN SERUM OR PLASMA 19 U/L <55 - 55 07/24 Specimen Type: PLASMA No comment entered. Ordering Provider: MARGARET RECINOS Report Released Date/Time: Jul 24, 2023 10:52 AM Reporting Lab: [facility] [address] Performing Lab: [facility] [address] [place] [facility] COMPREHE NSIVE METABOLI C PANEL+MG ASPARTATE AMINOTRANS FERASE [ENZYMATIC ACTIVITY/V OLUME] IN SERUM OR PLASMA 23 U/L <34 - 34 07/24 Specimen Type: PLASMA No comment entered. Ordering Provider: MARGARET RECINOS Report Released Date/Time: Jul 24, 2023 10:52 AM Reporting Lab: [facility] [address] Performing Lab: [facility] [address] [facility] COMPREHE NSIVE METABOLI C PANEL+MG GLOMERULAR FILTRATION RATE/1.73 SQ M.PREDICTE D [VOLUME RATE/AREA] IN SERUM, PLASMA OR BLOOD BY CREATININE -BASED FORMULA (CKD-EPI 2020) 67 60 07/24 Specimen Type: PLASMA No comment entered. Ordering Provider: MARGARET RECINOS Report Released Date/Time: Jul 24, 2023 10:52 AM Reporting Lab: [facility] [address] Performing Lab: [facility] [address] [place] [facility] COMPREHE NSIVE METABOLI C PANEL+MG BILIRUBIN. DIRECT [MASS/VOLU ME] IN SERUM OR PLASMA 0.5 mg/dL <0.5 - 0.5 07/24 Specimen Type: PLASMA No comment entered. Ordering Provider: MARGARET RECINOS Report Released Date/Time: Jul 24, 2023 10:52 AM Reporting Lab: [facility] [address] Performing Lab: [facility] [address] [place] [facility] PROTHROM BIN TIME/INR INR IN PLATELET POOR PLASMA BY COAGULATIO N ASSAY 1.0 0.8 - 1.1 07/24 Specimen Type: PLASMA No comment entered. Ordering Provider: MARGARET RECINOS Report Released Date/Time: Jul 24, 2023 10:52 AM Reporting Lab: [facility] [address] Performing Lab: [facility] [address] [place] [facility] PROTHROM BIN TIME/INR PROTHROMBI N TIME (PT) 12.2 s 9.4 - 12.5 07/24 Specimen Type: PLASMA No comment entered. Ordering Provider: MARGARET RECINOS Report Released Date/Time: Jul 24, 2023 10:52 AM Reporting Lab: [facility] [address] Performing Lab: [facility] [address] [place] [facility] BASIC METABOLI C PANEL+MG CREATININE [MASS/VOLU ME] IN SERUM OR PLASMA 1.0 mg/dL 0.7 - 1.2 02/05 Specimen Type: PLASMA No comment entered. Ordering Provider: MAGALYS BUCIO Report Released Date/Time: Jan 02, 2022 11:30 AM Reporting Lab: [facility] [address] Performing Lab: [facility] [address] [place] [facility] BASIC METABOLI C PANEL+MG UREA NITROGEN [MASS/VOLU ME] IN SERUM OR PLASMA 16 mg/dL 8 - 02/05 Specimen Type: PLASMA No comment entered. Ordering Provider: MAGALYS BUCIO Report Released Date/Time: Jan 02, 2022 11:30 AM Reporting Lab: [facility] [id number] Performing Lab: [facility] [address] [place] [facility] PANEL+MG GLUCOSE [MASS/VOLU ME] IN SERUM OR PLASMA 78 mg/dL 70 - 100 02/05 Specimen Type: PLASMA No comment entered. Ordering Provider: MAGALYS BUCIO Report Released Date/Time: Jan 02, 2022 11:30 AM Reporting Lab: [facility] [id number] Performing Lab: [facility] [id number] [place] [facility] PANEL+MG SODIUM [MOLES/VOL UME] IN SERUM OR PLASMA 140 mmol/L 136 - 145 02/05 Specimen Type: PLASMA No comment entered. Ordering Provider: MAGALYS BUCIO Report Released Date/Time: Jan 02, 2022 11:30 AM Reporting Lab: [facility] [id number] Performing Lab: [facility] [id number] [place] [facility] PANEL+MG POTASSIUM [MOLES/VOL UME] IN SERUM OR PLASMA 4.4 mmol/L 3.5 - 5.1 02/05 Specimen Type: PLASMA No comment entered. Ordering Provider: MAGALYS BUCIO Report Released Date/Time: Jan 02, 2022 11:30 AM Reporting Lab: [facility] [id number] Performing Lab: [facility] [id number] [place] HOSPITAL BASIC METABOLI C PANEL+MG CHLORIDE [MOLES/VOL UME] IN SERUM OR PLASMA 105 mmol/L 98 - 107 02/05 Specimen Type: PLASMA No comment entered. Ordering Provider: MAGALYS BUCIO Report Released Date/Time: Jan 02, 2022 11:30 AM Reporting Lab: [facility] [id number] Performing Lab: [facility] [address] [place] [facility] BASIC METABOLI C PANEL+MG CARBON DIOXIDE, TOTAL [MOLES/VOL UME] IN SERUM OR PLASMA 26 mmol/L 22 - 29 02/05 Specimen Type: PLASMA No comment entered. Ordering Provider: MAGALYS BUCIO Report Released Date/Time: Jan 02, 2022 11:30 AM Reporting Lab: [facility] [address] Performing Lab: [facility] [address] [place] [facility] BASIC METABOLI C PANEL+MG CALCIUM [MASS/VOLU ME] IN SERUM OR PLASMA 9.4 mg/dL 8.4 - 10.2 02/05 Specimen Type: PLASMA No comment entered. Ordering Provider: MAGALYS BUCIO Report Released Date/Time: Jan 02, 2022 11:30 AM Reporting Lab: [facility] [address] Performing Lab: [facility] [address] [place] [facility] BASIC METABOLI C PANEL+MG MAGNESIUM [MASS/VOLU ME] IN SERUM OR PLASMA 2.0 mg/dL 1.6 - 2.6 02/05 Specimen Type: PLASMA No comment entered. Ordering Provider: MAGALYS BUCIO Report Released Date/Time: Jan 02, 2022 11:30 AM Reporting Lab: [facility] [address] Performing Lab: [facility] [address] [place] [facility] BASIC METABOLI C PANEL+MG ANION GAP IN SERUM OR PLASMA 9 mmol/L 5 - 15 02/05 Specimen Type: PLASMA No comment entered. Ordering Provider: MAGALYS BUCIO Report Released Date/Time: Jan 02, 2022 11:30 AM Reporting Lab: [facility] [address] Performing Lab: [facility] [address] [place] [facility] BASIC METABOLI C PANEL+MG GLOMERULAR FILTRATION RATE/1.73 SQ M.PREDICTE D [VOLUME RATE/AREA] IN SERUM, PLASMA OR BLOOD BY CREATININE -BASED FORMULA (CKD-EPI 2020) 75 60 02/05 Specimen Type: PLASMA No comment entered. Ordering Provider: MAGALYS BUCIO Report Released Date/Time: Jan 02, 2022 11:30 AM Reporting Lab: [facility] [address] Performing Lab: [facility] [address] [place] [facility] CBC LEUKOCYTES [#/VOLUME] IN BLOOD BY AUTOMATED COUNT 8.96 10*3/uL 4.0 - 11.0 02/05 Specimen Type: BLOOD No comment entered. Ordering Provider: MAGALYS BUCIO Report Released Date/Time: Jan 02, 2022 11:30 AM Reporting Lab: [facility] [address] Performing Lab: [facility] [address] [place] [facility] CBC ERYTHROCYT ES [#/VOLUME] IN BLOOD BY AUTOMATED COUNT 4.71 10*6/uL 4.6 - 6.2 02/05 Specimen Type: BLOOD No comment entered. Ordering Provider: MAGALYS BUCIO Report Released Date/Time: Jan 02, 2022 11:30 AM Reporting Lab: [facility] [address] Performing Lab: [facility] [address] [place] [facility] CBC HEMOGLOBIN [MASS/VOLU ME] IN BLOOD 15.0 g/dL 13.5 - 17.9 02/05 Specimen Type: BLOOD No comment entered. Ordering Provider: MAGALYS BUCIO Report Released Date/Time: Jan 02, 2022 11:30 AM Reporting Lab: [facility] [address] Performing Lab: [facility] [address] [place] [facility] CBC HEMATOCRIT [VOLUME FRACTION] OF BLOOD BY AUTOMATED COUNT 45.0 41 - 54 02/05 Specimen Type: BLOOD No comment entered. Ordering Provider: MAGALYS BUCIO Report Released Date/Time: Jan 02, 2022 11:30 AM Reporting Lab: [facility] [address] Performing Lab: [facility] [address] [place] [facility] CBC MCV [ENTITIC VOLUME] BY AUTOMATED COUNT 95.5 fL 80 - 100 02/05 Specimen Type: BLOOD No comment entered. Ordering Provider: MAGALYS BUCIO Report Released Date/Time: Jan 02, 2022 11:30 AM Reporting Lab: [facility] [address] Performing Lab: [facility] [address] [place] [facility] CBC MCH [ENTITIC MASS] BY AUTOMATED COUNT 31.8 pg 27 - 33 02/05 Specimen Type: BLOOD No comment entered. Ordering Provider: MAGALYS BUCIO Report Released Date/Time: Jan 02, 2022 11:30 AM Reporting Lab: [facility] [address] Performing Lab: [facility] [address] [place] [facility] CBC MCHC [MASS/VOLU ME] BY AUTOMATED COUNT 33.3 g/dL 32.0 - 37.5 02/05 Specimen Type: BLOOD No comment entered. Ordering Provider: MAGALYS BUCIO Report Released Date/Time: Jan 02, 2022 11:30 AM Reporting Lab: [facility] [address] Performing Lab: [facility] [address] [place] [facility] CBC PLATELETS [#/VOLUME] IN BLOOD BY AUTOMATED COUNT 271 10*3/uL 150 - 400 02/05 Specimen Type: BLOOD No comment entered. Ordering Provider: MAGALYS BUCIO Report Released Date/Time: Jan 02, 2022 11:30 AM Reporting Lab: [facility] [address] Performing Lab: [facility] [address] [place] [facility] CBC PLATELET MEAN VOLUME [ENTITIC VOLUME] IN BLOOD BY AUTOMATED COUNT 9.6 fL 7.4 - 10.4 02/05 Specimen Type: BLOOD No comment entered. Ordering Provider: MAGALYS BUCIO Report Released Date/Time: Jan 02, 2022 11:30 AM Reporting Lab: [facility] [address] Performing Lab: [facility] [address] [place] [facility] CBC ERYTHROCYT E DISTRIBUTI ON WIDTH [RATIO] BY AUTOMATED COUNT 13.5 11.5 - 14.5 02/05 Specimen Type: BLOOD No comment entered. Ordering Provider: MAGALYS BUCIO Report Released Date/Time: Jan 02, 2022 11:30 AM Reporting Lab: [facility] [address] Performing Lab: [facility] [address] [facility] Vital Signs Combined list of inpatient and outpatient Vital Signs from Department of Defense and Veterans Affairs, ranging from 12 months to all on record, depending upon the facility. Vital Sign Value Date Comments Source SYSTOLIC BLOOD PRESSURE 118 10/17/2023 13:01:15 [facility] DIASTOLIC BLOOD PRESSURE 55 10/17/2023 13:01:15 [facility] PULSE OXIMETRY 95 10/17/2023 13:01:15 [place] [facility] TEMPERATURE 98.5 10/17/2023 13:01:15 [place] [facility] PULSE 66 10/17/2023 13:01:[address] [facility] [place] [facility] RESPIRATION 16 10/17/2023 13:01:15 [place] [facility] SYSTOLIC BLOOD PRESSURE 160 09/23/2023 09:17:00 [facility] DIASTOLIC BLOOD PRESSURE 89 09/23/2023 09:17:00 [facility] PULSE OXIMETRY 69 09/23/2023 09:17:00 [facility] WEIGHT 183 09/23/2023 09:17:[address] [facility] BMI 29kg/m2 09/23/2023 09:17:[address] [facility] PAIN 0 09/23/2023 09:17:[address] [facility] HEIGHT 67.25 09/23/2023 09:17:[address] [facility] TEMPERATURE 97.5 09/23/2023 09:17:00 [place] [facility] PULSE 71 09/23/2023 09:17:[address] [facility] SYSTOLIC BLOOD PRESSURE 160 08/07/2023 08:58:05 [facility] DIASTOLIC BLOOD PRESSURE 89 08/07/2023 08:58:05 [facility] PULSE OXIMETRY 96 08/07/2023 08:58:05 [facility] PAIN 0 08/07/2023 08:58:[address] [facility] TEMPERATURE 97.8 08/07/2023 08:58:05 [place] [facility] PULSE 62 08/07/2023 08:58:[address] [facility] RESPIRATION 16 08/07/2023 08:58:05 [place] [facility] SYSTOLIC BLOOD PRESSURE 127 07/24/2023 10:32:00 [facility] DIASTOLIC BLOOD PRESSURE 76 07/24/2023 10:32:00 [facility] PULSE OXIMETRY 96 07/24/2023 10:32:00 [facility] PAIN 0 07/24/2023 10:32:00 [facility] TEM[facility] 98.1 07/24/2023 10:32:00 [facility] P[facility] 63 07/24/2023 10:32:[address] [facility] 16 07/24/2023 10:32:00 [facility] Encounters Combined list of: 1) Encounters from Department of [facility] Affairs facilities going back up to thelast 18 months. 2) Encounters from the Department of [place] facilities going back up to 280 months. Location Location Details Encounter Type Encounter Number Reason For Visit Attending Provider ADM Date DC Date Status Disposition Source [facility] Outpatient Encounter [id number] 09/10 [facility] Outpatient Encounter [id number] 09/10 [facility] REM INTERROG [place] [id number] Diagnos is: ICD-10- CM Z95.0 Presenc e of cardiac pacemak er
SA KRISTIN NDRA L 09/11 [facility] PM DEVICE PROGR EVAL DUAL [id number] Diagnos is: ICD-10- CM Z95.0 Presenc e of cardiac pacemak er
DORENE UNGER A 11/27 [facility] Outpatient Encounter [id number] 12/12 [facility] OFFICE O/P EST LOW 20-29 MIN [id number] Diagnos is: ICD-10- CM Z00.00 Encntr for general adult medical exam w/o abnorma l finding s
KEVYN WETZEL A 02/05 [facility] Outpatient Encounter [id number] 03/13 [facility] Outpatient Encounter [id number] 06/19 [place] [facility] Outpatient Encounter [id number] 06/22 [facility] REM INTERROG EVL [place] [id number] Diagnos is: ICD-10- CM I48.3 Typical atrial flutter
AIME RAZA T 06/[address] [facility] [place] [facility] HEARING AID REPAIR/MOD IFYING [id number] Diagnos is: ICD-10- CM H90.3 Sensori neural hearing loss, bilater al
YAMILETHSAMY M 07/[address] [facility] Outpatient Encounter [id number] Scotty JOYA R 07/[address] [facility] EMERGENCY DEPT VISIT MOD MDM [id number] Diagnos is: ICD-10- CM G45.3 Amauros is fugax<b r/> ALESSANDRA RECINOS T 07/[address] [facility] Outpatient Encounter [id number] 07/29 [facility] OFF/OP CNSLTJ NEW/EST MOD 40 [id number] Diagnos is: ICD-10- CM G45.3 Amauros is fugax<b r/> EXCONDE,RU PERT E 08/[address] [facility] Outpatient Encounter [id number] LEXIS SIMS R 08/[address] [facility] Out[facility] Encounter [id number] 09/08 [facility] INJ PERFLUTREN LIP MICROS,ML [id number] Diagnos is: ICD-10- CM Z95.0 Presenc e of cardiac pacemak er
DANNY SMART NZI 09/22 [facility] ELECTROCAR DIOGRAM REPORT [id number] Diagnos is: ICD-10- CM Z13.6 Encount er for screeni ng for cardiov ascular disorde rs
Karin ZABALA O 09/22 [facility] INTERR[place] PM/[place] [id number] Diagnos is: ICD-10- CM I45.5 Other specifi ed heart block<b r/> AB BARBER BIE L 09/22 [facility] OFF/OP CONSLTJ NEW/EST HI 55 [id number] Diagnos is: ICD-10- CM I45.5 Other specifi ed heart block<b r/> BARBERAB BIE L 09/22 [facility] Outpatient Encounter [id number] 10/01 [facility] EMR DPT VST MAYX REQ PHY/QHP [id number] Diagnos is: ICD-10- CM J32.8 Other chronic sinusit is
ELLAND PONCE IN J 10/16 [facility] Outpatient Encounter [id number] CYNTHIA MAGANA 10/16 [facility] Outpatient Encounter [id number] 10/16 [facility] HEARING AID REPAIR/MOD IFYING [id number] Diagnos is: ICD-10- CM H90.A21 Snsrnrl hear loss, uni, r ear, with rstrcd hear cntra side
Angeli KENDALL 11/01 [place] [facility] [place] [facility] Outpatient Encounter [id number] SHAN ORDONEZ 11/16 [place] [facility] [place] [facility] Outpatient Encounter [id number] 12/01 [place] [facility] [place] [facility] SELF-MGMT EDUC & TRAIN 1 [place] [id number] Diagnos is: ICD-10- CM H90.A21 Snsrnrl hear loss, uni, r ear, with rstrcd hear cntra side
SAMY CARSON 12/[address] [facility] [place] [facility] Outpatient Encounter [id number] 12/14 [place] [facility] [place] [facility] Outpatient Encounter [id number] 12/20 [place] [facility] [place] [facility] Outpatient Encounter [id number] 01/11 [place] [facility] [place] [facility] Outpatient Encounter [id number] 01/19 [place] [facility] Outpatient Encounter [id number] 01/19 [facility] Social History Combined list of available smoking, tobacco, and other social history from Department of Defense and Veterans Affairs facilities. Social History Type Response Date Comment Sour e Tobacco smoking status NHIS VA-TOBACCO FORMER USER 02/05/2023 [facility] History of tobacco use DE-TOBACCO QUIT 15 YRS OR MORE 02/05/2023 [facility] History of tobacco use DE-TOBACCO QUIT 15 YRS OR MORE 01/02/2022 [facility] History of tobacco use VA-TOBACCO FORMER USER 11/08/2020 [facility] History of tobacco use VA-TOBACCO QUIT 15 YRS OR MORE 11/18/2018 [facility] History of tobacco use QUIT TOBACCO >7 YEARS AGO 10/27/2017 [facility] History of tobacco use NON-TOBACCO USER 07/21/2017 [facility] History of tobacco use FORMER TOBACCO USER 7Y OR GREATER 09/02/2016 [facility] History of tobacco use FORMER TOBACCO USER 7Y OR GREATER 08/06/2015 [facility] History of tobacco use LIFETIME NON-TOBACCO USER 07/07/2014 [facility]
[2024-02-29 10:21] VITALS: BP 92/49; PULSE 60; RESP 16; TEMP 36.8; O2SAT 96; BMI 24.3
--- NOTE | 2024-02-29 10:29 | ED.GENADULT ---
HPI - General Adult General Date Seen: 02/29/24 Chief complaint: Urogenital Problems, Male Stated complaint: Requesting catheter removal Time Seen by Provider: 02/29/24 10:28 History of Present Illness HPI narrative: 84 yo M presenting to the ER today requesting to have his Ponce catheter removed. He was seen in the ER yesterday. He had 2 visits. During his 1st is that he reported 9-10 hours of urinary retention leading to abdominal distension and pain. Bladder scan showed 650 mils of urine in the bladder. He had a Ponce catheter performed in the ER to empty his bladder. UA showed 50-100 RBC and 5-10 WBC. Negative nitrite. Rx for cipro 500 TID x 7 days. He came back to the ER for 2nd visit. Apparently his catheter was not draining at home but then it it began draining again after his catheter tubing was irrigated by nursingin the ER. There apparently was some blood in the catheter tubing last night but he is not see any clots. He had not noted any hematuria in the days leading up to his urinary retention or before the catheter was placed. He takes gingko but no other anticoagulants. He is not having fever chills. No abdominal pain. No flank pain. Overnight he was drinking water. He was able to pass a bowel movement this morning. He felt like his bladder was becoming increasingly distended and he was actually able to void some urine through his urethra around the outside of the catheter. He drained is back at about 6:00 a.m. and it seemed to be moderately full because of urine output in the overnight hours. It is only drained a couple oz a bladder between 6 and 10:00 a.m.. He feels like his catheter is not working and if possible he would like to have it removed. Related Data Previous Rx's ?Medication ?Instructions ?Recorded cephalexin 500 mg capsule 500 mg PO TID 7 days #21 caps 02/28/24 Allergies Allergy/AdvReac Type Severity Reaction Status Date / Time No Known Drug Allergies Allergy Verified 02/28/24 12:31 [facility] Social History Smoking Status: Never smoker Do you use any of these nicotine containing products: None How often do you have a drink containing alcohol: never How often do you have six or more drinks on one occasion: Never AUDIT-C Alcohol total score: 0 Non-prescribed substance use: denies use Exam Narrative: Exam Narrative: Constitutional: Appears well-developed and well-nourished. Alert. Conversant. Non toxic. HENT: Head: Atraumatic. Nose: Nose normal. Mouth/Throat: Oral mucosa is clear and moist. no trismus. Eyes: Conjunctivae normal. EOM normal. Pupils equal, round, and reactive to light. No scleral icterus. Neck: Normal range of motion. Neck supple. No tracheal deviation present. Cardiovascular: Normal rate, regular rhythm. No gallop. No friction rub. No murmur heard. Pulmonary/Chest: Effort normal. No stridor. No respiratory distress. No wheezes. No rales. No rhonchi . Abdominal: Soft. Bowel sounds normal. No distension. No mass. No tenderness. No rebound. No guarding. No CVA tenderness normal external penis. Ponce catheter in place. There is a small amount of bloody urine with clots sediment in the dependent portions of the tube. Catheter is not draining. There is perhaps 40 or 50 mL of urine in the Ponce catheter leg bag. Musculoskeletal: RUE: Normal range of motion. No tenderness. No deformity LUE: Normal range of motion. No tenderness. No deformity RLE: Normal range of motion. No edema. No tenderness. No deformity LLE: Normal range of motion. No edema. No tenderness. No deformity Neurological: Alert and oriented to person, place, and time. Normal strength. CN II-VII intact. No sensory deficit. GCS eye subscore is 4. GCS verbal subscore is 5. GCS motor subscore is 6. Normal coordination Skin: Skin is warm and dry. No rash noted. No pallor. Normal capillary refill. Psychiatric: Normal mood. Normal affect. Const: Vital Signs, click to edit/add: Vital Signs - 24 hr 02/29/24 10:21 Temperature 98.3 F Pulse Rate [Pulse Oximeter] 60 Respiratory Rate 16 Blood Pressure [Ri ght Upper Arm] 92/49 L Pulse Oximetry 96 Oxygen Delivery Me thod Room Air Course Vital Signs Vital signs: Initial Vital Signs Temperature 98.3 F 02/29/24 10:21 Temperature Source Temporal Artery Scan 02/29/24 10:21 Pulse Rate 60 02/29/24 10:21 Respiratory Rate 16 09/30/24 10:21 Blood Pressure 92/49 L 02/29/24 10:21 Blood Pressure Mean 63 L 02/29/24 10:21 Pulse Oximetry 96 02/29/24 10:21 Oxygen Delivery Method Room Air 02/29/24 10:21 Vital Signs Temperature 98.3 F 02/29/24 10:21 Pulse Rate 60 02/29/24 10:21 Respiratory Rate 16 02/29/24 10:21 Blood Pressure 92/49 L 02/29/24 10:21 Pulse Oximetry 96 02/29/24 10:21 Oxygen Delivery Method Room Air 02/29/24 10:21 Temperature 98.3 F 02/29/24 10:21 Pulse Rate 60 02/29/24 10:21 Respiratory Rate 16 02/29/24 10:21 Blood Pressure 92/49 L 02/29/24 10:21 Pulse Oximetry 96 02/29/24 10:21 Oxygen Delivery Method Room Air 02/29/24 10:21 Medical Decision Making MDM Narrative Medical decision making narrative: A pleasant 84-year-old gentleman returning to the ER today with a recurrent obstruction of his Ponce catheter. He had his Ponce catheter placed yesterday for acute urinary retention and had 1 visit to the ER last night when his catheter became obstructed by clots. He is fortunately not anticoagulated. He has had recurrent obstruction this morning the catheter has not been draining for the past couple of hours. He initially was requesting to have it removed. When we discussed options he agreed think it would may be better to keep the catheter in. We were able to irrigate the clots out easily and subsequently had output of some blood-tinged urine but no ongoing clots. We observed the patient for couple of hours here in the ER with aggressive oral hydration at make sure he is putting out adequate urine was not going to redevelop a catheter obstruction. He did well and was discharged home. He will follow up outpatient with Urology and continue on his antibiotics for possible UTI. Discharge Plan Discharge Clinical Impression: Acute urinary retention, Hematuria Patient Disposition: Home, Self-Care Condition: Stable Instructions: Urinary Retention in Men (ED), Ponce Catheter Placement and Care (ED) Additional Instructions: As we discussed, please come back to the ER right away if you have problems such as if your catheter becomes blocked or he have worsening pain in your bladder or in your kidneys or if you develop a fever. Please follow-up with your regular doctor within the next 2-3 days to recheck and have your catheter removed. It would be beneficial free to see Urology as well to check on the size of your prostate. It may be most convenient for you to arrange a urology visit through your doctors at the [place]. If you would like you can call [facility] [phone] to arrange an outpatient follow-up appointment with them. Remember, you can come back to the ER any time if you have problems. Prescriptions: No Action cephalexin 500 mg capsule 500 mg PO TID 7 Days Qty: 21 0RF Follow Up/Referrals: Provider,Not a Local [Primary Care Provider] - Stand Alone Forms: [employer] Info Instructions
--- NOTE | 2024-02-29 12:02 | ED.NURSE ---
Ponce catheter irrigated with 600cc of sterile water. Clots were irrigated out of catheter, irrigation color bright red. Ponce bag placed after irrigation.
--- OUTSIDE RECORDS SUMMARY | 2024-02-29 12:37 | XMS_ITS | Referral Summary ---
Author Organization [facility] [place] [address] [place] [address] Care Team Providers Care Motel Manager Name Role Phone Unavailable Primary Care [...]
--- OUTSIDE RECORDS SUMMARY | 2024-02-29 12:37 | XMS_ITS ---
Author Organization [facility] Address [address] [place] [address] Care Team Providers Care Warehouse Puller Name Role Phone Unavailable Unavailable Unavailable Surgery Details Not on file Complications Check Surgery Details section. Procedure Estimated Blood Loss Check Surgery Details section. Procedure Findings Check Surgery Details section. Procedure Specimens Taken Check Surgery Details section.
--- OUTSIDE RECORDS SUMMARY | 2024-02-29 12:37 | XMS_ITS | Clinical Summary ---
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 ) 12/18/2023 Transcribe Orders [facility] [address] [place] [address] Shankar Zaragoza MD from Last [...] Comments Blood Pressure 106/64 07/18/2010 9:30 AM [facility] Pulse - - Temperature 36.8 ??C (98.2 ??F) 07/18/2010 9:30 AM CS T Respiratory Rate - - Oxygen Saturation - - Inhaled Oxygen Concentration - - Weight 82.6 kg (182 lb) 07/18/2010 9:30 AM [facility] Height 172.7 cm (5' 8) 07/01/2010 9:18 AM [facility] Body Mass Index 27.67 07/01/2010 9:18 AM [facility] Plan of Treatment Health Maintenance Due Date [...] Influenza for age 65+ 01/31/2024 Care Teams Lens Edge Grinder Machine Relationship Specialty [place] [address] [place] [address] PCP - General Family Practice 07/01/10
--- OUTSIDE RECORDS SUMMARY | 2024-02-29 12:37 | XMS_ITS | Encounter Summary ---
Author Organization [facility] Address [address] [place] [address] Care Team Providers Care Agribusiness Professor Name Role Phone Unavailable Primary Care Provider Unavailabl e Prior Encounters Date Type Department Care Team Description 06/20/2019 Converted CPS Chart Documents [facility] [address] [place] [address] <No scans attached> 06/20/2019 Converted 13x Documents [facility] [address] [place] [address] <No scans attached> Plan of [...] 5 ENDODONTIC THERAPY, PREMOLAR TOOTH (EXCLUDING FINAL LATTER-DAY) Routine 07/14/2019 1:00 AM MST 5 PULP [...]
--- OUTSIDE RECORDS SUMMARY | 2024-02-29 12:37 | XMS_ITS | CCD ---
Author Organization [facility] Address [address] [place] [address] Care Team Providers Care Student Activities Director Name Role Phone Unavailable Primary Care Provider [...]
--- OUTSIDE RECORDS SUMMARY | 2024-02-29 12:37 | XMS_ITS | Clinical Summary ---
Author Organization [facility] Address [address] [place] [address] Care Team Providers Care Printed Circuit Board Assembler Name Role Phone Unavailable Primary Care Provider [...]
--- OUTSIDE RECORDS SUMMARY | 2024-02-29 12:37 | XMS_ITS | Continuity of Care Document ---
Author Name [facility] Organization [facility] Care Team Providers Care Natural Gas Engineer Name Role Phone [facility] Unavailable Unavailable Problems Combined list of problems from Department of Defense and Veterans Affairs facilities. It does not include entries that were removed or entered in error. 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 13 Condition Jul 07, 2014 Entered By: BEN VIVEROS Comment: s/p dualchamber pacer [facility] Chronic peptic ulcer without hemorrhage, without perforation AND without obstruction Active 06/01/18 86 Condition Jul 07, 2014 Entered By: BEN VIVEROS Comment: s/p partial gastrectomy, has dumping syndrome [facility] Atrial Flutter (SCT [id number]) Active Condition [facility] Cardiac pacemaker in situ Active Condition [facility] Cardiomyopathy Active Condition [facility] Elevated PSA Active Condition [facility] Gilbert's syndrome Active Condition [facility] Hearing Loss (SCT [id number]) Active Condition [facility] History of peptic ulcer Active Condition Dec 04, 2017 Entered By: MEHREEN ARCHIBALD Comment: partial gastectomy and dumping syndrome [facility] Syncope and Collapse (SCT [id number]) Active Condition Dec 04, 2017 Entered By: MEHREEN ARCHIBALD Comment: due to complete heart block [facility] Typical atrial flutter Active Condition [facility] Diagnosis: ICD-10-CM H90.A21 Snsrnrl hear loss, uni, r ear, with rstrcd hear cntra side Active Diagnosis [facility] Diagnosis: ICD-10-CM J32.8 Other chronic sinusitis Active Diagnosis [facility] Diagnosis: ICD-10-CM I45.5 Other specified heart block Active Diagnosis [facility] Diagnosis: ICD-10-CM Z13.6 Encounter for screening for cardiovascular disorders Active Diagnosis [facility] Diagnosis: ICD-10-CM Z95.0 Presence of cardiac pacemaker Active Diagnosis [facility] Diagnosis: ICD-10-CM 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 [facility] Diagnosis: ICD-10-CM H90.3 Sensorineural hearing loss, bilateral Active Diagnosis [facility] Diagnosis: ICD-10-CM I48.3 Typical atrial flutter Active Diagnosis [facility] Diagnosis: ICD-10-CM Z00.00 Encntr for general adult medical exam w/o abnormal findings Active Diagnosis [facility] Medications Combined list of outpatient medications [...] Jul 24, 2023 30 Jul 24, [id number] [facility] ORAL HOLD 07/24/2024 [id number] Angeli RECINOS 2023 30 [facility] GINKGO BILOBA CAP/TAB GINKGO BILOBA CAP/TAB Non-VA TAKE ONE TABLET BY MOUTH EVERY DAY Sep 23, 2023 Non-VA Document ed by: MAIA BLANDON Document ed at: [facility] ORAL ACTIVE Angeli BLANDON 2023 [facility] NON VA MED NOT LISTED NON VA MED NOT LISTED Non-VA USE HYDRO-ZY ME MOUTH Nov 21, 2020 Non-VA Document ed by: AMARILYS PALAFOX Document ed at: [facility] ORAL ACTIVE AMARILYS PALAFOX 2020 [facility] SAW PALMETTO CAP/TAB SAW [place]MET[place] CAP/TAB Non-VA TAKE Jan 02, 2022 Non-VA Document ed by: MAGGIE BUCIO Document ed at: [facility] ACTIVE [place] BUCIO 2021 [facility] SODIUM CHLORIDE 0.65% SOLN,NASAL SPRAY SODIUM CHLORIDE 0.65% SOLN,GIGI AL SPRAY SPRAY 2 SPRAYS IN EACH NOSTRIL TWICE A DAY FOR NASAL DRYNESS FOR NASAL DRYNESS October 17, 2023 45 Nov 16, 2023 [id number] October 17, [address] [facility] NASAL 11/16/2023 [id number] MONICA PONCE 2023 45 [facility] Immunizations Combined list of available immunizations from the Department of Defense and Veterans Affairs facilities. Immunization Series Date Given Administered By Site Reaction Lot Number CVX Code Drug High Climber Status Comments Source TD (ADULT), 2 LF TETANUS TOXOID, PRESERVATIVE FREE, ADSORBED 1996 09 complet ed [facility] Results Combined list of recent chemistry, hematology [...] 07, 2023 09:32 AM Reporting Lab: [facility] [address] Performing Lab: [facility] [address] [place] [facility] LIPID PANEL,NO N-FASTIN G CHOLESTERO L IN HDL [MASS/VOLU ME] IN SERUM OR PLASMA 66 mg/dL 40 08/06 Specimen Type: PLASMA No comment entered. Ordering Provider: YOAV VILLEDA ERT E Report Released Date/Time: Aug 07, 2023 09:32 AM Reporting Lab: [facility] [address] Performing Lab: [facility] [address] [facility] LIPID PANEL,NO N-FASTIN G CHOLESTERO L IN LDL [MASS/VOLU ME] IN SERUM OR PLASMA BY CALCULANEHEMIAHO N 75 mg/dL <99 - 99 08/06 Specimen Type: PLASMA No comment entered. Ordering Provider: YOAV VILLEDA ERT Rachael Report Released Date/Time: Aug 07, 2023 09:32 AM Reporting Lab: [facility] [address] Performing Lab: [facility] [address] [place] [facility] LIPID PANEL,NO N-FASTIN G CHOLESTERO L IN VLDL [MASS/VOLU ME] IN SERUM OR PLASMA BY CALCULATIO N 25 mg/dL <29 - 29 08/06 Specimen Type: PLASMA No comment entered. Ordering Provider: YOAV VILLEDA Report Released Date/Time: Aug 07, 2023 09:32 AM Reporting Lab: [facility] [address] Performing Lab: [facility] [address] [place] [facility] LIPID PANEL,NO N-FASTIN G CHOLESTERO L NON HDL [MASS/VOLU ME] IN SERUM OR PLASMA 100 mg/dL <129 - 129 08/06 Specimen Type: PLASMA No comment entered. Ordering Provider: YOAV VILLEDA ERT Rachael Report Released Date/Time: Aug 07, 2023 09:32 AM Reporting Lab: [facility] [address] Performing Lab: [facility] [address] [place] [facility] LIPID PANEL,NO N-FASTIN G TRIGLYCERI DE [MASS/VOLU ME] IN SERUM OR PLASMA 124 mg/dL <149 - 149 08/06 Specimen Type: PLASMA No comment entered. Ordering Provider: YOAV VILLEDA Report Released Date/Time: Aug 07, 2023 09:32 AM Reporting Lab: [facility] [address] Performing Lab: [facility] [address] [place] [facility] EXTRA GOLD GEL TUBE EXTRA GOLD GEL TUBE RECEIVED 07/24 Specimen Type: SERUM No comment entered. Ordering Provider: MARGARET RECINOS Report Released Date/Time: Jul 24, 2023 11:22 AM Reporting Lab: [facility] [address] Performing Lab: [facility] [address] [place] [facility] POC CREATINI NE CREATININE [MASS/VOLU ME] IN BLOOD 1.1 mg/dL 0.6 - 1.3 07/24 Specimen Type: BLOOD No comment entered. Ordering Provider: MARGARET RECINOS Report Released Date/Time: Jul 24, 2023 11:28 AM Reporting Lab: [facility] [address] Performing Lab: [facility] [address] [place] [facility] ACT PART THROMBO TIME APTT IN PLATELET POOR PLASMA BY COAGULATIO N ASSAY 34.3 s 25.1 - 36.5 07/24 Specimen Type: PLASMA No comment entered. Ordering Provider: MARGARET RECINOS Report Released Date/Time: Jul 24, 2023 10:52 AM Reporting Lab: [facility] [address] Performing Lab: [facility] [address] [place] [facility] CBC & DIFF LEUKOCYTES [#/VOLUME] IN BLOOD BY AUTOMATED COUNT 8.70 10*3/uL 4.0 - 11.0 07/24 Specimen Type: BLOOD Comment: Automated Differentia l Performed Ordering Provider: MARGARET RECINOS Report Released Date/Time: Jul 24, 2023 10:52 AM Reporting Lab: [facility] [address] Performing Lab: [facility] [address] [place] [facility] CBC & DIFF ERYTHROCYT ES [#/VOLUME] IN BLOOD BY AUTOMATED COUNT 4.85 10*6/uL 4.6 - 6.2 07/24 Specimen Type: BLOOD Comment: Automated Differentia l Performed Ordering Provider: MARGARET RECINOS Report Released Date/Time: Jul 24, 2023 10:52 AM Reporting Lab: [facility] [address] Performing Lab: [facility] [address] [place] [facility] CBC & DIFF HEMOGLOBIN [MASS/VOLU ME] IN BLOOD 15.1 g/dL 13.5 - 17.9 07/24 Specimen Type: BLOOD Comment: Automated Differentia l Performed Ordering Provider: MARGARET RECINOS Report Released Date/Time: Jul 24, 2023 10:52 AM Reporting Lab: [facility] [address] Performing Lab: [facility] [address] [place] [facility] CBC & DIFF HEMATOCRIT [VOLUME FRACTION] OF BLOOD BY AUTOMATED COUNT 45.7 41 - 54 07/24 Specimen Type: BLOOD Comment: Automated Differentia l Performed Ordering Provider: MARGARET RECINOS Report Released Date/Time: Jul 24, 2023 10:52 AM Reporting Lab: [facility] [address] Performing Lab: [facility] [address] [place] [facility] CBC & DIFF MCV [ENTITIC VOLUME] BY AUTOMATED COUNT 94.2 fL 80 - 100 07/24 Specimen Type: BLOOD Comment: Automated Differentia l Performed Ordering Provider: MARGARET RECINOS Report Released Date/Time: Jul 24, 2023 10:52 AM Reporting Lab: [facility] [address] Performing Lab: [facility] [address] [place] [facility] CBC & DIFF MCH [ENTITIC MASS] BY AUTOMATED COUNT 31.1 pg 27 - 33 07/24 Specimen Type: BLOOD Comment: Automated Differentia l Performed Ordering Provider: MARGARET RECINOS Report Released Date/Time: Jul 24, 2023 10:52 AM Reporting Lab: [facility] [address] Performing Lab: [facility] [address] [place] [facility] CBC & DIFF MCHC [MASS/VOLU ME] BY AUTOMATED COUNT 33.0 g/dL 32.0 - 37.5 07/24 Specimen Type: BLOOD Comment: Automated Differentia l Performed Ordering Provider: MARGARET RECINOS Report Released Date/Time: Jul 24, 2023 10:52 AM Reporting Lab: [facility] [address] Performing Lab: [facility] [address] [place] [facility] CBC & DIFF PLATELETS [#/VOLUME] IN BLOOD BY AUTOMATED COUNT 288 10*3/uL 150 - 400 07/24 Specimen Type: BLOOD Comment: Automated Differentia l Performed Ordering Provider: MARGARET RECINOS Report Released Date/Time: Jul 24, 2023 10:52 AM Reporting Lab: [facility] [address] Performing Lab: [facility] [address] [place] [facility] CBC & DIFF PLATELET MEAN VOLUME [ENTITIC VOLUME] IN BLOOD BY AUTOMATED COUNT 9.8 fL 7.4 - 10.4 07/24 Specimen Type: BLOOD Comment: Automated Differentia l Performed Ordering Provider: MARGARET RECINOS Report Released Date/Time: Jul 24, 2023 10:52 AM Reporting Lab: [facility] [address] Performing Lab: [facility] [address] [place] [facility] CBC & DIFF NEUTROPHIL S/100 LEUKOCYTES IN BLOOD BY MANUAL COUNT 66.1 40.0 - 80.0 07/24 Specimen Type: BLOOD Comment: Automated Differentia l Performed Ordering Provider: MARGARET RECINOS Report Released Date/Time: Jul 24, 2023 10:52 AM Reporting Lab: [facility] [address] Performing Lab: [facility] [address] [place] [facility] CBC & DIFF LYMPHOCYTE S/100 LEUKOCYTES IN BLOOD BY MANUAL COUNT 17.5 15.0 - 45.0 07/24 Specimen Type: BLOOD Comment: Automated Differentia l Performed Ordering Provider: MARGARET RECINOS Report Released Date/Time: Jul 24, 2023 10:52 AM Reporting Lab: [facility] [address] Performing Lab: [facility] [address] [place] [facility] CBC & DIFF MONOCYTES/ 100 LEUKOCYTES IN BLOOD BY AUTOMATED COUNT 12.3 2.0 - 12.0 07/24 H Specimen Type: BLOOD Comment: Automated Differentia l Performed Ordering Provider: MARGARET RECINOS Report Released Date/Time: Jul 24, 2023 10:52 AM Reporting Lab: [facility] [address] Performing Lab: [facility] [address] [place] [facility] CBC & DIFF EOSINOPHIL S/100 LEUKOCYTES IN BLOOD BY AUTOMATED COUNT 2.8 0.0 - 6.0 07/24 Specimen Type: BLOOD Comment: Automated Differentia l Performed Ordering Provider: MARGARET RECINOS Report Released Date/Time: Jul 24, 2023 10:52 AM Reporting Lab: [facility] [address] Performing Lab: [facility] [address] [place] [facility] CBC & DIFF BASOPHILS/ 100 LEUKOCYTES IN BLOOD BY MANUAL COUNT 0.8 0.0 - 2.0 07/24 Specimen Type: BLOOD Comment: Automated Differentia l Performed Ordering Provider: MARGARET RECINOS Report Released Date/Time: Jul 24, 2023 10:52 AM Reporting Lab: [facility] [address] Performing Lab: [facility] [address] [place] [facility] CBC & DIFF ERYTHROCYT E DISTRIBUTI ON WIDTH [RATIO] BY AUTOMATED COUNT 13.8 11.5 - 14.5 07/24 Specimen Type: BLOOD Comment: Automated Differentia l Performed Ordering Provider: MARGARET RECINOS Report Released Date/Time: Jul 24, 2023 10:52 AM Reporting Lab: [facility] [address] Performing Lab: [facility] [address] [place] [facility] CBC & DIFF LYMPHOCYTE S [#/VOLUME] IN BLOOD BY AUTOMATED COUNT 1.52 10*3/uL 1.0 - 4.0 07/24 Specimen Type: BLOOD Comment: Automated Differentia l Performed Ordering Provider: MARGARET RECINOS Report Released Date/Time: Jul 24, 2023 10:52 AM Reporting Lab: [facility] [address] Performing Lab: [facility] [address] [place] [facility] CBC & DIFF MONOCYTES [#/VOLUME] IN BLOOD BY AUTOMATED COUNT 1.07 10*3/uL 0.1 - 1.0 07/24 H Specimen Type: BLOOD Comment: Automated Differentia l Performed Ordering Provider: MARGARET RECINOS Report Released Date/Time: Jul 24, 2023 10:52 AM Reporting Lab: [facility] [address] Performing Lab: [facility] [address] [place] [facility] CBC & DIFF NEUTROPHIL S [#/VOLUME] IN BLOOD BY AUTOMATED COUNT 5.76 10*3/uL 2.0 - 7.7 07/24 Specimen Type: BLOOD Comment: Automated Differentia l Performed Ordering Provider: MARGARET RECINOS Report Released Date/Time: Jul 24, 2023 10:52 AM Reporting Lab: [facility] [address] Performing Lab: [facility] [address] [place] [facility] CBC & DIFF EOSINOPHIL S [#/VOLUME] IN BLOOD BY AUTOMATED COUNT 0.24 10*3/uL 0 - 0.5 07/24 Specimen Type: BLOOD Comment: Automated Differentia l Performed Ordering Provider: MARGARET RECINOS Report Released Date/Time: Jul 24, 2023 10:52 AM Reporting Lab: [facility] [address] Performing Lab: [facility] [address] [place] [facility] CBC & DIFF BASOPHILS [#/VOLUME] IN BLOOD BY AUTOMATED COUNT 0.07 10*3/uL 0 - 0.2 07/24 Specimen Type: BLOOD Comment: Automated Differentia l Performed Ordering Provider: MARGARET RECINOS Report Released Date/Time: Jul 24, 2023 10:52 AM Reporting Lab: [facility] [address] Performing Lab: [facility] [address] [place] [facility] CBC & DIFF IG(META,MY TAMIKA,PRO) 0.5 07/24 Specimen Type: BLOOD Comment: Automated Differentia l Performed Ordering Provider: MARGARET RECINOS Report Released Date/Time: Jul 24, 2023 10:52 AM Reporting Lab: [facility] [address] Performing Lab: [facility] [address] [place] [facility] CBC & DIFF IMMATURE GRANULOCYT ES [PRESENCE] IN BLOOD BY AUTOMATED COUNT 0.04 10*3/uL 0 - 0.1 07/24 Specimen Type: BLOOD Comment: Automated Differentia l Performed Ordering Provider: MARGARET RECINOS Report Released Date/Time: Jul 24, 2023 10:52 AM Reporting Lab: [facility] [address] Performing Lab: [facility] [address] [place] [facility] COMPREHE NSIVE METABOLI C PANEL+MG CREATININE [MASS/VOLU ME] IN SERUM OR PLASMA 1.1 mg/dL 0.7 - 1.2 07/24 Specimen Type: PLASMA No comment entered. Ordering Provider: MARGARET RECINOS Report Released Date/Time: Jul 24, 2023 10:52 AM Reporting Lab: [facility] [address] Performing Lab: [facility] [address] [place] [facility] COMPREHE NSIVE METABOLI C PANEL+MG UREA NITROGEN [MASS/VOLU ME] IN SERUM OR PLASMA 14 mg/dL 8 - 26 07/24 Specimen Type: PLASMA No comment entered. Ordering Provider: MARGARET RECINOS Report Released Date/Time: Jul 24, 2023 10:52 AM Reporting Lab: [facility] [address] Performing Lab: [facility] [address] [place] [facility] COMPREHE NSIVE METABOLI C PANEL+MG GLUCOSE [MASS/VOLU ME] IN SERUM OR PLASMA 94 mg/dL 70 - 100 07/24 Specimen Type: PLASMA No comment entered. Ordering Provider: MARGARET RECINOS Report Released Date/Time: Jul 24, 2023 10:52 AM Reporting Lab: [facility] [address] Performing Lab: [facility] [address] [place] [facility] COMPREHE NSIVE METABOLI C PANEL+MG SODIUM [MOLES/VOL UME] IN SERUM OR PLASMA 139 mmol/L 136 - 145 07/24 Specimen Type: PLASMA No comment entered. Ordering Provider: MARGARET RECINOS Report Released Date/Time: Jul 24, 2023 10:52 AM Reporting Lab: [facility] [address] Performing Lab: [facility] [address] [place] [facility] COMPREHE NSIVE METABOLI C PANEL+MG POTASSIUM [MOLES/VOL UME] IN SERUM OR PLASMA 4.5 mmol/L 3.5 - 5.1 07/24 Specimen Type: PLASMA No comment entered. Ordering Provider: MARGARET RECINOS Report Released Date/Time: Jul 24, 2023 10:52 AM Reporting Lab: [facility] [address] Performing Lab: [facility] [address] [place] [facility] COMPREHE NSIVE METABOLI C PANEL+MG CHLORIDE [MOLES/VOL UME] IN SERUM OR PLASMA 106 mmol/L 98 - 107 07/24 Specimen Type: PLASMA No comment entered. Ordering Provider: MARGARET RECINOS Report Released Date/Time: Jul 24, 2023 10:52 AM Reporting Lab: [facility] [address] Performing Lab: [facility] [address] [place] [facility] COMPREHE NSIVE METABOLI C PANEL+MG CARBON DIOXIDE, TOTAL [MOLES/VOL UME] IN SERUM OR PLASMA 27 mmol/L 22 - 29 07/24 Specimen Type: PLASMA No comment entered. Ordering Provider: MARGARET RECINOS Report Released Date/Time: Jul 24, 2023 10:52 AM Reporting Lab: [facility] [address] Performing Lab: [facility] [address] [place] [facility] COMPREHE NSIVE METABOLI C PANEL+MG CALCIUM [MASS/VOLU ME] IN SERUM OR PLASMA 9.5 mg/dL 8.4 - 10.2 07/24 Specimen Type: PLASMA No comment entered. Ordering Provider: MARGARET RECINOS Report Released Date/Time: Jul 24, 2023 10:52 AM Reporting Lab: [facility] [address] Performing Lab: [facility] [address] [place] [facility] COMPREHE NSIVE METABOLI C PANEL+MG PROTEIN [MASS/VOLU ME] IN SERUM OR PLASMA 7.3 g/dL 6.0 - 8.3 07/24 Specimen Type: PLASMA No comment entered. Ordering Provider: MARGARET RECINOS Report Released Date/Time: Jul 24, 2023 10:52 AM Reporting Lab: [facility] [address] Performing Lab: [facility] [address] [place] [facility] COMPREHE NSIVE METABOLI C PANEL+MG ALBUMIN [MASS/VOLU ME] IN SERUM OR PLASMA 3.9 g/dL 3.5 - 5.2 07/24 Specimen Type: PLASMA No comment entered. Ordering Provider: MARGARET RECINOS Report Released Date/Time: Jul 24, 2023 10:52 AM Reporting Lab: [facility] [address] Performing Lab: [facility] [address] [place] [facility] COMPREHE NSIVE METABOLI C PANEL+MG BILIRUBIN. TOTAL [MASS/VOLU ME] IN SERUM OR PLASMA 1.7 mg/dL 0.2 - 1.2 07/24 H Specimen Type: PLASMA No comment entered. Ordering Provider: MARGARET RECINOS Report Released Date/Time: Jul 24, 2023 10:52 AM Reporting Lab: [facility] [address] Performing Lab: [facility] [address] [place] [facility] COMPREHE NSIVE METABOLI C PANEL+MG MAGNESIUM [MASS/VOLU ME] IN SERUM OR PLASMA 2.1 mg/dL 1.6 - 2.6 07/24 Specimen Type: PLASMA No comment entered. Ordering Provider: MARGARET RECINOS Report Released Date/Time: Jul 24, 2023 10:52 AM Reporting Lab: [facility] [address] Performing Lab: [facility] [address] [place] [facility] COMPREHE NSIVE METABOLI C PANEL+MG ANION GAP IN SERUM OR PLASMA 6 mmol/L 5 - 15 07/24 Specimen Type: PLASMA No comment entered. Ordering Provider: MARGARET RECINOS Report Released Date/Time: Jul 24, 2023 10:52 AM Reporting Lab: [facility] [address] Performing Lab: [facility] [address] [place] [facility] COMPREHE NSIVE METABOLI C PANEL+MG ALKALINE PHOSPHATAS E [ENZYMATIC ACTIVITY/V OLUME] IN SERUM OR PLASMA 118 U/L 40 - 150 07/24 Specimen Type: PLASMA No comment entered. Ordering Provider: MARGARET RECINOS Report Released Date/Time: Jul 24, 2023 10:52 AM Reporting Lab: [facility] [address] Performing Lab: [facility] [address] [place] [facility] COMPREHE NSIVE METABOLI C PANEL+MG ALANINE AMINOTRANS FERASE [ENZYMATIC ACTIVITY/V OLUME] IN SERUM OR PLASMA 19 U/L <55 - 55 07/24 Specimen Type: PLASMA No comment entered. Ordering Provider: MARGARET RECINOS Report Released Date/Time: Jul 24, 2023 10:52 AM Reporting Lab: [facility] [address] Performing Lab: [facility] [address] [place] [facility] COMPREHE NSIVE METABOLI C PANEL+MG ASPARTATE AMINOTRANS FERASE [ENZYMATIC ACTIVITY/V OLUME] IN SERUM OR PLASMA 23 U/L <34 - 34 07/24 Specimen Type: PLASMA No comment entered. Ordering Provider: MARGARET RECINOS Report Released Date/Time: Jul 24, 2023 10:52 AM Reporting Lab: [facility] [address] Performing Lab: [facility] [address] [facility] [facility] COMPREHE NSIVE METABOLI C PANEL+MG GLOMERULAR FILTRATION RATE/1.73 SQ M.PREDICTE D [VOLUME RATE/AREA] IN SERUM, PLASMA OR BLOOD BY CREATININE -BASED FORMULA (CKD-EPI 2020) 67 60 07/24 Specimen Type: PLASMA No comment entered. Ordering Provider: MARGARET RECINOS Report Released Date/Time: Jul 24, 2023 10:52 AM Reporting Lab: [facility] [address] Performing Lab: [facility] [address] [place] [facility] COMPREHE NSIVE METABOLI C PANEL+MG BILIRUBIN. DIRECT [MASS/VOLU ME] IN SERUM OR PLASMA 0.5 mg/dL <0.5 - 0.5 07/24 Specimen Type: PLASMA No comment entered. Ordering Provider: MARGARET RECINOS Report Released Date/Time: Jul 24, 2023 10:52 AM Reporting Lab: [facility] [id number] Performing Lab: [facility] [id number] [place] [employer] PROTHROM BIN TIME/INR INR IN PLATELET POOR PLASMA BY COAGULATIO N ASSAY 1.0 0.8 - 1.1 07/24 Specimen Type: PLASMA No comment entered. Ordering Provider: MARGARET RECINOS Report Released Date/Time: Jul 24, 2023 10:52 AM Reporting Lab: [facility] [id number] Performing Lab: [facility] [id number] [place] [employer] PROTHROM BIN TIME/INR PROTHROMBI N TIME (PT) 12.2 s 9.4 - 12.5 07/24 Specimen Type: PLASMA No comment entered. Ordering Provider: MARGARET RECINOS Report Released Date/Time: Jul 24, 2023 10:52 AM Reporting Lab: [facility] [address] Performing Lab: [facility] [address] [place] [employer] BASIC METABOLI C PANEL+MG CREATININE [MASS/VOLU ME] IN SERUM OR PLASMA 1.0 mg/dL 0.7 - 1.2 02/05 Specimen Type: PLASMA No comment entered. Ordering Provider: MAGALYS BUCIO Report Released Date/Time: Jan 02, 2022 11:30 AM Reporting Lab: [facility] [address] Performing Lab: [facility] [address] [place] [employer] BASIC METABOLI C PANEL+MG UREA NITROGEN [MASS/VOLU ME] IN SERUM OR PLASMA 16 mg/dL 8 - 02/05 Specimen Type: PLASMA No comment entered. Ordering Provider: MAGALYS BUCIO Report Released Date/Time: Jan 02, 2022 11:30 AM Reporting Lab: [facility] [address] Performing Lab: [facility] [address] [place] [employer] BASIC METABOLI C PANEL+MG GLUCOSE [MASS/VOLU ME] IN SERUM OR PLASMA 78 mg/dL 70 - 100 02/05 Specimen Type: PLASMA No comment entered. Ordering Provider: MAGALYS BUCIO Report Released Date/Time: Jan 02, 2022 11:30 AM Reporting Lab: [facility] [address] Performing Lab: [facility] [address] [place] [employer] BASIC METABOLI C PANEL+MG SODIUM [MOLES/VOL UME] IN SERUM OR PLASMA 140 mmol/L 136 - 145 02/05 Specimen Type: PLASMA No comment entered. Ordering Provider: MAGALYS BUCIO Report Released Date/Time: Jan 02, 2022 11:30 AM Reporting Lab: [facility] [address] Performing Lab: [facility] [phone] [place] [employer] BASIC METABOLI C PANEL+MG POTASSIUM [MOLES/VOL UME] IN SERUM OR PLASMA 4.4 mmol/L 3.5 - 5.1 02/05 Specimen Type: PLASMA No comment entered. Ordering Provider: MAGALYS BUCIO Report Released Date/Time: Jan 02, 2022 11:30 AM Reporting Lab: [facility] [address] Performing Lab: [facility] [address] [place] [employer] BASIC METABOLI C PANEL+MG CHLORIDE [MOLES/VOL UME] IN SERUM OR PLASMA 105 mmol/L 98 - 107 02/05 Specimen Type: PLASMA No comment entered. Ordering Provider: MAGALYS BUCIO Report Released Date/Time: Jan 02, 2022 11:30 AM Reporting Lab: [facility] [address] Performing Lab: [facility] [address] [place] [employer] BASIC METABOLI C PANEL+MG CARBON DIOXIDE, TOTAL [MOLES/VOL UME] IN SERUM OR PLASMA 26 mmol/L 22 - 29 02/05 Specimen Type: PLASMA No comment entered. Ordering Provider: MAGALYS BUCIO Report Released Date/Time: Jan 02, 2022 11:30 AM Reporting Lab: [facility] [address] Performing Lab: [facility] [address] [place] [employer] BASIC METABOLI C PANEL+MG CALCIUM [MASS/VOLU ME] IN SERUM OR PLASMA 9.4 mg/dL 8.4 - 10.2 02/05 Specimen Type: PLASMA No comment entered. Ordering Provider: MAGALYS BUCIO Report Released Date/Time: Jan 02, 2022 11:30 AM Reporting Lab: [facility] [address] Performing Lab: [facility] [address] [place] [employer] BASIC METABOLI C PANEL+MG MAGNESIUM [MASS/VOLU ME] IN SERUM OR PLASMA 2.0 mg/dL 1.6 - 2.6 02/05 Specimen Type: PLASMA No comment entered. Ordering Provider: MAGALYS BUCIO Report Released Date/Time: Jan 02, 2022 11:30 AM Reporting Lab: [facility] [address] Performing Lab: [facility] [address] [place] [employer] BASIC METABOLI C PANEL+MG ANION GAP IN SERUM OR PLASMA 9 mmol/L 5 - 15 02/05 Specimen Type: PLASMA No comment entered. Ordering Provider: MAGALYS BUCIO Report Released Date/Time: Jan 02, 2022 11:30 AM Reporting Lab: [facility] [address] Performing Lab: [facility] [address] [place] [employer] BASIC METABOLI C PANEL+MG GLOMERULAR FILTRATION RATE/1.73 SQ M.PREDICTE D [VOLUME RATE/AREA] IN SERUM, PLASMA OR BLOOD BY CREATININE -BASED FORMULA (CKD-EPI 2020) 75 60 02/05 Specimen Type: PLASMA No comment entered. Ordering Provider: MAGALYS BUCIO Report Released Date/Time: Jan 02, 2022 11:30 AM Reporting Lab: [facility] [address] Performing Lab: [facility] [address] [place] [employer] CBC LEUKOCYTES [#/VOLUME] IN BLOOD BY AUTOMATED COUNT 8.96 10*3/uL 4.0 - 11.0 02/05 Specimen Type: BLOOD No comment entered. Ordering Provider: MAGALYS BUCIO Report Released Date/Time: Jan 02, 2022 11:30 AM Reporting Lab: [facility] [address] Performing Lab: [facility] [address] [place] [employer] CBC ERYTHROCYT ES [#/VOLUME] IN BLOOD BY AUTOMATED COUNT 4.71 10*6/uL 4.6 - 6.2 02/05 Specimen Type: BLOOD No comment entered. Ordering Provider: MAGALYS BUCIO Report Released Date/Time: Jan 02, 2022 11:30 AM Reporting Lab: [facility] [address] Performing Lab: [facility] [address] [place] [employer] CBC HEMOGLOBIN [MASS/VOLU ME] IN BLOOD 15.0 g/dL 13.5 - 17.9 02/05 Specimen Type: BLOOD No comment entered. Ordering Provider: MAGALYS BUCIO Report Released Date/Time: Jan 02, 2022 11:30 AM Reporting Lab: [facility] [address] Performing Lab: [facility] [address] [place] [employer] CBC HEMATOCRIT [VOLUME FRACTION] OF BLOOD BY AUTOMATED COUNT 45.0 41 - 54 02/05 Specimen Type: BLOOD No comment entered. Ordering Provider: MAGALYS BUCIO Report Released Date/Time: Jan 02, 2022 11:30 AM Reporting Lab: [facility] [address] Performing Lab: [facility] [address] [place] [employer] CBC MCV [ENTITIC VOLUME] BY AUTOMATED COUNT 95.5 fL 80 - 100 02/05 Specimen Type: BLOOD No comment entered. Ordering Provider: MAGALYS BUCIO Report Released Date/Time: Jan 02, 2022 11:30 AM Reporting Lab: [facility] [address] Performing Lab: [facility] [address] [place] [employer] CBC MCH [ENTITIC MASS] BY AUTOMATED COUNT 31.8 pg 27 - 33 02/05 Specimen Type: BLOOD No comment entered. Ordering Provider: MAGALYS BUCIO Report Released Date/Time: Jan 02, 2022 11:30 AM Reporting Lab: [facility] [address] Performing Lab: [facility] [address] [place] [employer] CBC MCHC [MASS/VOLU ME] BY AUTOMATED COUNT 33.3 g/dL 32.0 - 37.5 02/05 Specimen Type: BLOOD No comment entered. Ordering Provider: MAGALYS BUCIO Report Released Date/Time: Jan 02, 2022 11:30 AM Reporting Lab: [facility] [address] Performing Lab: [facility] [address] [place] [employer] CBC PLATELETS [#/VOLUME] IN BLOOD BY AUTOMATED COUNT 271 10*3/uL 150 - 400 02/05 Specimen Type: BLOOD No comment entered. Ordering Provider: MAGALYS BUCIO Report Released Date/Time: Jan 02, 2022 11:30 AM Reporting Lab: [facility] [address] Performing Lab: [facility] [address] [place] [employer] CBC PLATELET MEAN VOLUME [ENTITIC VOLUME] IN BLOOD BY AUTOMATED COUNT 9.6 fL 7.4 - 10.4 02/05 Specimen Type: BLOOD No comment entered. Ordering Provider: MAGALYS BUCIO Report Released Date/Time: Jan 02, 2022 11:30 AM Reporting Lab: [facility] [address] Performing Lab: [facility] [address] [place] [employer] CBC ERYTHROCYT E DISTRIBUTI ON WIDTH [RATIO] BY AUTOMATED COUNT 13.5 11.5 - 14.5 02/05 Specimen Type: BLOOD No comment entered. Ordering Provider: MAGALYS BUCIO Report Released Date/Time: Jan 02, 2022 11:30 AM Reporting Lab: [facility] [address] Performing Lab: [facility] [address] [facility] Vital Signs Combined list of inpatient and outpatient Vital Signs from Department of Defense and Veterans Affairs, ranging from 12 months to all on record, depending upon the facility. Vital Sign Value Date Comments Source SYSTOLIC BLOOD PRESSURE 118 10/17/2023 13:01:15 [facility] DIASTOLIC BLOOD PRESSURE 55 10/17/2023 13:01:15 [facility] PULSE OXIMETRY 95 10/17/2023 13:01:15 [place] [employer] TEMPERATURE 98.5 10/17/2023 13:01:15 [place] [employer] [facility] [facility] PULSE 66 10/17/2023 13:01:15 [facility] [place] [employer] RESPIRATION 16 10/17/2023 13:01:15 [place] [employer] [facility] SYSTOLIC BLOOD PRESSURE 160 09/23/2023 09:17:00 [facility] DIASTOLIC BLOOD PRESSURE 89 09/23/2023 09:17:00 [facility] PULSE OXIMETRY 69 09/23/2023 09:17:00 [facility] WEIGHT 183 09/23/2023 09:17:00 [facility] [place] [employer] [facility] BMI 29kg/m2 09/23/2023 09:17:00 [facility] [place] [employer] [facility] PAIN 0 09/23/2023 09:17:00 [facility] [place] [employer] [facility] HEIGHT 67.25 09/23/2023 09:17:00 [facility] [place] [employer] [facility] TEMPERATURE 97.5 09/23/2023 09:17:00 [place] [employer] PULSE 71 09/23/2023 09:17:00 [facility] [place] [employer] [facility] [employer] SYSTOLIC BLOOD PRESSURE 160 08/07/2023 08:58:05 [facility] DIASTOLIC BLOOD PRESSURE 89 08/07/2023 08:58:05 [facility] PULSE OXIMETRY 96 08/07/2023 08:58:05 [facility] PAIN 0 08/07/2023 08:58:05 [facility] [place] [employer] [facility] [employer] TEMPERATURE 97.8 08/07/2023 08:58:05 [place] [employer] PULSE 62 08/07/2023 08:58:05 [facility] [place] [employer] [facility] [facility] RESPIRATION 16 08/07/2023 08:58:05 [place] [employer] [facility] SYSTOLIC BLOOD PRESSURE 127 07/24/2023 10:32:00 [facility] DIASTOLIC BLOOD PRESSURE 76 07/24/2023 10:32:00 [facility] PULSE OXIMETRY 96 07/24/2023 10:32:00 [place] [facility] [facility] PAIN 0 07/24/2023 10:32:00 [facility] TEMPERATURE 98.1 07/24/2023 10:32:00 [facility] PULSE 63 07/24/2023 10:32:00 [facility] RESPIRATION 16 07/24/2023 10:32:00 [facility] Encounters Combined list of: 1) Encounters from Department of [facility] Affairs facilities going back up to thelast 18 months. 2) Encounters from the Department of [facility] facilities going back up to 280 months. Location Location Details Encounter Type Encounter Number Reason For Visit Attending Provider ADM Date DC Date Status Disposition Source [facility] Outpatient Encounter [id number] 09/10 [facility] Outpatient Encounter [id number] 09/10 [facility] REM INTERROG EVL PM/[place]S [place] [id number] Diagnos is: ICD-10- CM Z95.0 Presenc e of cardiac pacemak er
SA KRISTIN NDRA L 09/11 [facility] PM DEVICE PROGR EVAL DUAL [id number] Diagnos is: ICD-10- CM Z95.0 Presenc e of cardiac pacemak er
DORENE UNGER A 11/27 [facility] Outpatient Encounter [id number] 12/12 [facility] OFFICE O/P EST LOW 20-29 MIN [id number] Diagnos is: ICD-10- CM Z00.00 Encntr for general adult medical exam w/o abnorma l finding s
KEVYN WETZEL A 02/05 [facility] Outpatient Encounter [id number] 03/13 [facility] [place] [employer] Outpatient Encounter [id number] 06/19 [place] [facility] Outpatient Encounter [id number] 06/22 [facility] [place] [employer] [facility] REM INTERROG EVL PM/LDLS PM [id number] Diagnos is: ICD-10- CM I48.3 Typical atrial flutter
AIME RAZA T 06[facility]22 [facility] [place] [employer] HEARING AID REPAIR/MOD IFYING [id number] Diagnos is: ICD-10- CM H90.3 Sensori neural hearing loss, bilater al
YAMILETHSAMY M 07[facility] Outpatient Encounter [id number] Scotty JOYA R 07/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<b r/> ALESSANDRA RECINOS T 07/24 [facility] En[facility] [id number] 07/29 [facility] OFF/OP CNSLTJ NEW/EST MOD 40 [id number] Diagnos is: ICD-10- CM G45.3 Amauros is fugax<b r/> EXCONDE,RU PERT E 08/06 [facility] [employer] [facility] [facility] Outpatient Encounter [id number] LEXIS SIMS R 08/12 [facility] En[facility] [id number] 09/08 [facility] INJ PERFLUTREN LIP MICROS,ML [id number] Diagnos is: ICD-10- CM Z95.0 Presenc e of cardiac pacemak er
DANNY SMART NZI 09/22 [facility] [employer] [facility] ELECTROCAR DIOGRAM REPORT [id number] Diagnos is: ICD-10- CM Z13.6 Encount er for screeni ng for cardiov ascular disorde rs
Karin ZABALA O 09/22 [facility] [place] [employer] INTER[place] [id number] Diagnos is: ICD-10- CM I45.5 Other specifi ed heart block<b r/> AB BARBER BIE L 09/22 [facility] [employer] [facility] OFF/OP CONSLTJ NEW/EST HI 55 [id number] Diagnos is: ICD-10- CM I45.5 Other specifi ed heart block<b r/> BARBERAB BIE L 09/22 [facility] Outpatient Encounter [id number] 10/01 [facility] [employer] EMR DPT VST MAYX REQ PHY/QHP [id number] Diagnos is: ICD-10- CM J32.8 Other chronic sinusit is
LELAND PONCE IN J 10/16 [facility] Outpatient Encounter [id number] CYNTHIA MAGANA 10/16 [facility] Outpatient Encounter [id number] 10/16 [facility] [employer] [facility] [facility] HEARING AID REPAIR/MOD IFYING [id number] Diagnos is: ICD-10- CM H90.A21 Snsrnrl hear loss, uni, r ear, with rstrcd hear cntra side
Angeli KENDALL 11/01 [place] [facility] [place] [employer] [facility] Outpatient Encounter [id number] SHAN ORDONEZ 11/16 [place] [facility] [place] [employer] [facility] Outpatient Encounter [id number] 12/01 [place] [facility] [place] [employer] [facility] [facility] SELF-MGMT EDUC & TRAIN 1 [place] [id number] Diagnos is: ICD-10- CM H90.A21 Snsrnrl hear loss, uni, r ear, with rstrcd hear cntra side
SAMY CARSON 12/06 [facility] [place] [employer] [facility] Outpatient Encounter [id number] 12/14 [place] [facility] [place] [employer] [facility] Outpatient Encounter [id number] 12/[address] [place] [facility] [place] [facility] [facility] Outpatient Encounter [id number] 01/[address] [place] [address] [place] [facility] Outpatient Encounter [id number] 01/19 [place] [facility] Encounter [id number] 01/19 [facility] Social History Combined list of available smoking, tobacco, and other social history from Department of Defense and Veterans Affairs facilities. Social History Type Response Date Comment Sour e Tobacco smoking status NHIS VA-TOBACCO FORMER USER 02/05/2023 [facility] History of tobacco use ID-TOBACCO QUIT 15 YRS OR MORE 02/05/2023 [facility] History of tobacco use ID-TOBACCO QUIT 15 YRS OR MORE 01/02/2022 [facility] History of tobacco use VA-TOBACCO FORMER USER 11/08/2020 [facility] History of tobacco use VA-TOBACCO QUIT 15 YRS OR MORE 11/18/2018 [facility] History of tobacco use QUIT TOBACCO >7 YEARS AGO 10/27/[facility] History of tobacco use NON-TOBACCO USER 07/21/2017 [facility] History of tobacco use FORMER TOBACCO USER 7Y OR GREATER 09/02/2016 [facility] History of tobacco use FORMER TOBACCO USER 7Y OR GREATER 08/06/2015 [facility] History of tobacco use LIFETIME NON-TOBACCO USER 07/07/2014 [facility]
--- OUTSIDE RECORDS SUMMARY | 2024-02-29 12:38 | XMS_ITS | Encounter Summary ---
Author Organization [place] Address [address] [place] [address]. [place] [address] Care Team Providers Care Agent Broker Name Role Phone [facility], [facility] Primary Care Provider + Maura Jackson MD Primary Care Provider [phone] Jorge Douglas MD Unavailable Unavailable Encounter Details Date Type Department Care Team (Late st Contact Info) Description 04/11/2013 Office Visit-[facility] [address] [place] [address] Jorge Douglas MD Social History [...] as of this encounter Progress Notes * oJrge Douglas MD - 04/13/2013 10:22 AM CST Progress Note Created by: Jorge Douglas M.D. DATE: 04/11/2013 DIANDRA PORTILLO DATE OF : 1940 AGE: [age] years old Referring Physician: MAURA JACKSON Referring Clinic: [facility] CURRENT DIAGNOSES 1. Pacemaker/cardiac insitu, V45.01 [...] on filedocumented in this encounter Care Teams Agent Broker Relationship Specialty Start Date End Date [facility] [address] [place] [phone] PCP - General 07/30/11 02/02/19 Maura Jackson MD [facility] [id number] [place] [address] PCP - General Family Practice 02/03/19 Jorge Douglas MD Assigned Heart and Vascular Provider 03/23/20 05/25/21 documented as of this encounter
--- OUTSIDE RECORDS SUMMARY | 2024-02-29 12:38 | XMS_ITS | Referral Summary ---
Author Organization [place] Address [address] [place] [address]. [place] [address] Care Team Providers Care Pencil Inspector Name Role Phone Chandana Fleming MD Primary Care Provider [phone] Allergies Active Allergy Reactions Criticality Noted Date Comments No Known Drug Allergy 02/21/2003 Medications Medication Sig Dispensed Refills Start Date End Date Status Saw [place] 80 MG CAPS A ctive GINSENG PO Take by mouth 2 times daily Active HAWTHORN PO Take by mouth 2 times daily Active Ginkgo Biloba (GINKGO PO) Take by mouth 2 times daily Active NONFORMULARY [place]-zyme Active Active Problems Problem Noted Date Diagnosed [...] T Respiratory Rate 16 06/01/2014 8:01 PM NURSE AIDE Oxygen Saturation 95% 04/08/2017 9:05 AM NURSE AIDE Inhaled Oxygen Concentration - - Weight 78.9 kg (174 lb) 11/04/2018 1:12 PM CDT Height 172.7 cm (5' 8) 11/04/2018 1:12 PM CDT Body Mass Index 26.46 11/04/2018 1:12 PM CDT Plan of Treatment Not on file Medical Devices Implanted Type Area Personal Caregiver Device Identifier Shelf Expiration Date Model / Serial / Lot [employer]* 2087tc Tendril Sts [id number] Implanted:01/30 (Quantity not on file) Leads [employer] 2087TC TENDRIL STS / [id number] / [employer] 2087tc Tendril Sts [id number] Implanted:01/30 (Quantity not on file) Leads [employer] 2087TC TENDRIL STS / [id number] / [employer]* [address] [id number] Implanted:01/30 (Quantity not on file) Pacemaker [employer] [address] / [id number] / Advance Directives For more information, please contact: [phone] * Full Code (Latest Code Status on File) Date Activated Date Inactivated Comments 02/16/2013 11:22 AM * Full Code Date Activated Date Inactivated Comments 02/14/2013 11:17 PM 02/16/2013 11:22 AM * Full Code Date Activated Date Inactivated Comments 07/31/2011 8:42 AM 02/14/2013 11:17 PM * Full Code Date Activated Date Inactivated Comments 07/30/2011 4:29 PM 07/31/2011 8:42 AM Care Teams Pencil Inspector Relationship Specialty Start Date End Date Chandana Fleming MD [facility] [id number] [place] [id number] PCP - General Family Practice 02/03/19
--- OUTSIDE RECORDS SUMMARY | 2024-02-29 12:38 | XMS_ITS | Clinical Summary ---
Author Organization [facility] Address [address] [place] [address]. [place] [address] Care Team Providers Care Pathology Laboratory Aide Name Role Phone Chandana Fleming MD Primary Care Provider [phone] [phone] Allergies Active Allergy Reactions Criticality Noted Date Comments No Known Drug Allergy 02/21/2003 Medications Medication Sig Dispensed Refills Start Date End Date Status Saw [place] 80 MG CAPS A ctive GINSENG PO Take by mouth 2 times daily Active HAWTHORN PO Take by mouth 2 times daily Active Ginkgo Biloba (GINKGO PO) Take by mouth 2 times daily Active NONFORMULARY [place]-zyme Active Active Problems Problem Noted Date Diagnosed [...] T Respiratory Rate 16 06/01/2014 8:01 PM MATCH UP WORKER Oxygen Saturation 95% 04/08/2017 9:05 AM MATCH UP WORKER Inhaled Oxygen Concentration - - Weight 78.9 kg (174 lb) 11/04/2018 1:12 PM CDT Height 172.7 cm (5' 8) 11/04/2018 1:12 PM CDT Body Mass Index 26.46 11/04/2018 1:12 PM CDT Plan of Treatment Not on file Medical Devices Implanted Type Area Rn New Graduate Device Identifier Shelf Expiration Date Model / Serial / Lot [employer]* 2087tc Tendril Sts [id number] Implanted:01/30 (Quantity not on file) Leads [employer] 2087TC TENDRIL STS / [id number] / [employer]* 2087tc Tendril Sts [id number] Implanted:01/30 (Quantity not on file) Leads [employer] 2087TC TENDRIL STS / [id number] / [employer]* [address] [id number] Implanted:01/30 (Quantity not on file) Pacemaker [employer] [address] / [id number] / Advance Directives For more information, please contact: [phone] * Full Code (Latest Code Status on File) Date Activated Date Inactivated Comments 02/16/2013 11:22 AM * Full Code Date Activated Date Inactivated Comments 02/14/2013 11:17 PM 02/16/2013 11:22 AM * Full Code Date Activated Date Inactivated Comments 07/31/2011 8:42 AM 02/14/2013 11:17 PM * Full Code Date Activated Date Inactivated Comments 07/30/2011 4:29 PM 07/31/2011 8:42 AM Care Teams Pathology Laboratory Aide Relationship Specialty Start Date End Date Chandana Fleming MD [facility] [id number] [place] [id number] PCP - General Family Practice 02/03/19
== END 2024-02-29 13:55 | disposition home or self-care (01) ==
PROVIDERS: Emergency Provider Emergency Medicine
DX: R33.9 Retention of urine, unspecified (principal); R31.9 Hematuria, unspecified
CPT/HCPCS: 99282

== ENCOUNTER 2024-03-01 07:54 | Emergency (ER) | payer OTHER, SELFPAY ==
[2024-03-01 07:58] VITALS: BP 110/56; PULSE 47; RESP 16; TEMP 36.3; O2SAT 96; BMI 24.3
--- OUTSIDE RECORDS SUMMARY | 2024-03-01 07:58 | XMS_ITS | Encounter Summary ---
Author Organization [facility] Address [address] [place] [address] Care Team Providers Care [employer] Name Role Phone Unavailable Primary Care Provider Unavailabl e Prior Encounters Date Type Department Care Team Description 06/20/2019 Converted CPS Chart Documents [facility] [address] [place] [address] <No scans attached> 06/20/2019 Converted 13x Documents [facility] [address] [place] [address] <No scans attached> Plan of [...] 5 ENDODONTIC THERAPY, PREMOLAR TOOTH (EXCLUDING FINAL WORSHIP) Routine 07/14/2019 1:00 AM MST 5 PULP [...]
--- OUTSIDE RECORDS SUMMARY | 2024-03-01 07:58 | XMS_ITS | Continuity of Care Document ---
Author Name [facility] Organization [facility] Care Team Providers Care Blueberry Grower Name Role Phone [facility] Unavailable Unavailable Problems Combined list of problems from Department of Defense and Veterans Affairs facilities. It does not include entries that were removed or entered in error. Problem Status Onset Date Problem Type Date of Resolution Comments Source Bilateral hearing loss Active 06/01/19 15 Condition Jul 07, 2014 Entered By: BEN VIVEROS Comment: has hearing aids from [facility] History of appendectomy Active 06/01/[address] [facility] s/p choley Active 06/01/[address] 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 Chronic peptic ulcer without hemorrhage, without perforation AND without obstruction Active 06/01/18 86 Condition Jul 07, 2014 Entered By: BEN VIVEROS Comment: s/p partial gastrectomy, has dumping syndrome [facility] Atrial Flutter (SCT [id number]) Active Condition [facility] Cardiac pacemaker in situ Active Condition [facility] Cardiomyopathy Active Condition [facility] Elevated PSA Active Condition [facility] Gilbert's syndrome Active Condition [facility] Hearing Loss (SCT [id number]) Active Condition [facility] History of peptic ulcer Active Condition Dec 04, 2017 Entered By: MEHREEN ARCHIBALD Comment: partial gastectomy and dumping syndrome [facility] Syncope and Collapse (SCT [id number]) Active Condition Dec 04, 2017 Entered By: MEHREEN ARCHIBALD Comment: due to complete heart block [facility] Typical atrial flutter Active Condition [facility] Diagnosis: ICD-10-CM H90.A21 Snsrnrl hear loss, uni, r ear, with rstrcd hear cntra side Active Diagnosis [facility] Diagnosis: ICD-10-CM J32.8 Other chronic sinusitis Active Diagnosis [facility] Diagnosis: ICD-10-CM I45.5 Other specified heart block Active Diagnosis [facility] Diagnosis: ICD-10-CM Z13.6 Encounter for screening for cardiovascular disorders Active Diagnosis [facility] Diagnosis: ICD-10-CM Z95.0 Presence of cardiac pacemaker Active Diagnosis [facility] Diagnosis: ICD-10-CM 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 [facility] Diagnosis: ICD-10-CM H90.3 Sensorineural hearing loss, bilateral Active Diagnosis [facility] Diagnosis: ICD-10-CM I48.3 Typical atrial flutter Active Diagnosis [facility] Diagnosis: ICD-10-CM Z00.00 Encntr for general adult medical exam w/o abnormal findings Active Diagnosis [facility] Medications Combined list of outpatient medications from [...] Jul 24, 2023 30 Jul 24, 2024 [id number] YASIR RECINOS [facility] ORAL HOLD 07/24/2024 [id number] Angeli RECINOS 2023 30 [facility] GINKGO BILOBA CAP/TAB GINKGO BILOBA CAP/TAB Non-VA TAKE ONE TABLET BY MOUTH EVERY DAY Sep 23, 2023 Non-VA Document ed by: MAIA BLANDON Document ed at: [facility] ORAL ACTIVE Angeli BLANDON 2023 [facility] NON VA MED NOT LISTED NON VA MED NOT LISTED Non-VA USE HYDRO-ZY ME MOUTH Nov 21, 2020 Non-VA Document ed by: AMARILYS PLAAFOX Document ed at: [facility] ORAL ACTIVE AMARILYS PALAFOX 2020 [facility] SAW PALMETTO CAP/TAB SAW [place] CAP/TAB Non-VA TAKE Jan 02, 2022 Non-VA Document ed by: MAGGIE BUCIO Document ed at: [facility] ACTIVE [place]ENTON BUCIO 2021 [facility] SODIUM CHLORIDE 0.65% SOLN,NASAL SPRAY SODIUM CHLORIDE 0.65% SOLN,GIGI AL SPRAY SPRAY 2 SPRAYS IN EACH NOSTRIL TWICE A DAY FOR NASAL DRYNESS FOR NASAL DRYNESS October 17, 2023 45 Nov 16, 2023 [id number] October 17, 2023 Trent PONCE [facility] NASAL 11/16/2023 [id number] MONICA PONCE 2023 45 [facility] Immunizations Combined list of available immunizations from the Department of Defense and Veterans Affairs facilities. Immunization Series Date Given Administered By Site Reaction Lot Number CVX Code Drug Realtime Court Reporter Status Comments Source TD (ADULT), 2 LF TETANUS TOXOID, PRESERVATIVE FREE, ADSORBED 1996 09 complet ed [facility] Results Combined list of recent chemistry, hematology [...] Aug 07, 2023 09:32 AM Reporting Lab: [facility] [address] Performing Lab: [facility] [address] [place] [facility] LIPID PANEL,NO N-FASTIN G CHOLESTERO L IN HDL [MASS/VOLU ME] IN SERUM OR PLASMA 66 mg/dL 40 08/06 Specimen Type: PLASMA No comment entered. Ordering Provider: YOAV VILLEDA ERT E Report Released Date/Time: Aug 07, 2023 09:32 AM Reporting Lab: [facility] [address] Performing Lab: [facility] [address] [facility] LIPID PANEL,NO N-FASTIN G CHOLESTERO L IN LDL [MASS/VOLU ME] IN SERUM OR PLASMA BY CALCULANEHEMIAHO N 75 mg/dL <99 - 99 08/06 Specimen Type: PLASMA No comment entered. Ordering Provider: YOAV VILLEDA ERT Rachael Report Released Date/Time: Aug 07, 2023 09:32 AM Reporting Lab: [facility] [address] Performing Lab: [facility] [address] [place] [facility] LIPID PANEL,NO N-FASTIN G CHOLESTERO L IN VLDL [MASS/VOLU ME] IN SERUM OR PLASMA BY CALCULATIO N 25 mg/dL <29 - 29 08/06 Specimen Type: PLASMA No comment entered. Ordering Provider: YOAV VILLEDA Report Released Date/Time: Aug 07, 2023 09:32 AM Reporting Lab: [facility] [address] Performing Lab: [facility] [address] [place] [facility] LIPID PANEL,NO N-FASTIN G CHOLESTERO L NON HDL [MASS/VOLU ME] IN SERUM OR PLASMA 100 mg/dL <129 - 129 08/06 Specimen Type: PLASMA No comment entered. Ordering Provider: YOAV VILLEDA ERT Rachael Report Released Date/Time: Aug 07, 2023 09:32 AM Reporting Lab: [facility] [address] Performing Lab: [facility] [address] [place] [facility] LIPID PANEL,NO N-FASTIN G TRIGLYCERI DE [MASS/VOLU ME] IN SERUM OR PLASMA 124 mg/dL <149 - 149 08/06 Specimen Type: PLASMA No comment entered. Ordering Provider: YOAV VILLEDA Report Released Date/Time: Aug 07, 2023 09:32 AM Reporting Lab: [facility] [address] Performing Lab: [facility] [address] [place] [facility] EXTRA GOLD GEL TUBE EXTRA GOLD GEL TUBE RECEIVED 07/24 Specimen Type: SERUM No comment entered. Ordering Provider: MARGARET RECINOS Report Released Date/Time: Jul 24, 2023 11:22 AM Reporting Lab: [facility] [address] Performing Lab: [facility] [address] [place] [facility] POC CREATINI NE CREATININE [MASS/VOLU ME] IN BLOOD 1.1 mg/dL 0.6 - 1.3 07/24 Specimen Type: BLOOD No comment entered. Ordering Provider: MARGARET RECINOS Report Released Date/Time: Jul 24, 2023 11:28 AM Reporting Lab: [facility] [address] Performing Lab: [facility] [address] [place] [facility] ACT PART THROMBO TIME APTT IN PLATELET POOR PLASMA BY COAGULATIO N ASSAY 34.3 s 25.1 - 36.5 07/24 Specimen Type: PLASMA No comment entered. Ordering Provider: MARGARET RECINOS Report Released Date/Time: Jul 24, 2023 10:52 AM Reporting Lab: [facility] [address] Performing Lab: [facility] [address] [place] [facility] CBC & DIFF LEUKOCYTES [#/VOLUME] IN BLOOD BY AUTOMATED COUNT 8.70 10*3/uL 4.0 - 11.0 07/24 Specimen Type: BLOOD Comment: Automated Differentia l Performed Ordering Provider: MARGARET RECINOS Report Released Date/Time: Jul 24, 2023 10:52 AM Reporting Lab: [facility] [address] Performing Lab: [facility] [address] [place] [facility] CBC & DIFF ERYTHROCYT ES [#/VOLUME] IN BLOOD BY AUTOMATED COUNT 4.85 10*6/uL 4.6 - 6.2 07/24 Specimen Type: BLOOD Comment: Automated Differentia l Performed Ordering Provider: MARGARET RECINOS Report Released Date/Time: Jul 24, 2023 10:52 AM Reporting Lab: [facility] [address] Performing Lab: [facility] [address] [place] [facility] CBC & DIFF HEMOGLOBIN [MASS/VOLU ME] IN BLOOD 15.1 g/dL 13.5 - 17.9 07/24 Specimen Type: BLOOD Comment: Automated Differentia l Performed Ordering Provider: MARGARET RECINOS Report Released Date/Time: Jul 24, 2023 10:52 AM Reporting Lab: [facility] [address] Performing Lab: [facility] [address] [place] [facility] CBC & DIFF HEMATOCRIT [VOLUME FRACTION] OF BLOOD BY AUTOMATED COUNT 45.7 41 - 54 07/24 Specimen Type: BLOOD Comment: Automated Differentia l Performed Ordering Provider: MARGARET RECINOS Report Released Date/Time: Jul 24, 2023 10:52 AM Reporting Lab: [facility] [address] Performing Lab: [facility] [address] [place] [facility] CBC & DIFF MCV [ENTITIC VOLUME] BY AUTOMATED COUNT 94.2 fL 80 - 100 07/24 Specimen Type: BLOOD Comment: Automated Differentia l Performed Ordering Provider: MARGARET RECINOS Report Released Date/Time: Jul 24, 2023 10:52 AM Reporting Lab: [facility] [address] Performing Lab: [facility] [address] [place] [facility] CBC & DIFF MCH [ENTITIC MASS] BY AUTOMATED COUNT 31.1 pg 27 - 33 07/24 Specimen Type: BLOOD Comment: Automated Differentia l Performed Ordering Provider: MARGARET RECINOS Report Released Date/Time: Jul 24, 2023 10:52 AM Reporting Lab: [facility] [address] Performing Lab: [facility] [address] [place] [facility] CBC & DIFF MCHC [MASS/VOLU ME] BY AUTOMATED COUNT 33.0 g/dL 32.0 - 37.5 07/24 Specimen Type: BLOOD Comment: Automated Differentia l Performed Ordering Provider: MARGARET RECINOS Report Released Date/Time: Jul 24, 2023 10:52 AM Reporting Lab: [facility] [address] Performing Lab: [facility] [address] [place] [facility] CBC & DIFF PLATELETS [#/VOLUME] IN BLOOD BY AUTOMATED COUNT 288 10*3/uL 150 - 400 07/24 Specimen Type: BLOOD Comment: Automated Differentia l Performed Ordering Provider: MARGARET RECINOS Report Released Date/Time: Jul 24, 2023 10:52 AM Reporting Lab: [facility] [address] Performing Lab: [facility] [address] [place] [facility] CBC & DIFF PLATELET MEAN VOLUME [ENTITIC VOLUME] IN BLOOD BY AUTOMATED COUNT 9.8 fL 7.4 - 10.4 07/24 Specimen Type: BLOOD Comment: Automated Differentia l Performed Ordering Provider: MARGARET RECINOS Report Released Date/Time: Jul 24, 2023 10:52 AM Reporting Lab: [facility] [address] Performing Lab: [facility] [address] [place] [facility] CBC & DIFF NEUTROPHIL S/100 LEUKOCYTES IN BLOOD BY MANUAL COUNT 66.1 40.0 - 80.0 07/24 Specimen Type: BLOOD Comment: Automated Differentia l Performed Ordering Provider: MARGARET RECINOS Report Released Date/Time: Jul 24, 2023 10:52 AM Reporting Lab: [facility] [address] Performing Lab: [facility] [address] [place] [facility] CBC & DIFF LYMPHOCYTE S/100 LEUKOCYTES IN BLOOD BY MANUAL COUNT 17.5 15.0 - 45.0 07/24 Specimen Type: BLOOD Comment: Automated Differentia l Performed Ordering Provider: MARGARET RECINOS Report Released Date/Time: Jul 24, 2023 10:52 AM Reporting Lab: [facility] [address] Performing Lab: [facility] [address] [place] [facility] CBC & DIFF MONOCYTES/ 100 LEUKOCYTES IN BLOOD BY AUTOMATED COUNT 12.3 2.0 - 12.0 07/24 H Specimen Type: BLOOD Comment: Automated Differentia l Performed Ordering Provider: MARGARET RECINOS Report Released Date/Time: Jul 24, 2023 10:52 AM Reporting Lab: [facility] [address] Performing Lab: [facility] [address] [place] [facility] CBC & DIFF EOSINOPHIL S/100 LEUKOCYTES IN BLOOD BY AUTOMATED COUNT 2.8 0.0 - 6.0 07/24 Specimen Type: BLOOD Comment: Automated Differentia l Performed Ordering Provider: MARGARET RECINOS Report Released Date/Time: Jul 24, 2023 10:52 AM Reporting Lab: [facility] [address] Performing Lab: [facility] [address] [place] [facility] CBC & DIFF BASOPHILS/ 100 LEUKOCYTES IN BLOOD BY MANUAL COUNT 0.8 0.0 - 2.0 07/24 Specimen Type: BLOOD Comment: Automated Differentia l Performed Ordering Provider: MARGARET RECINOS Report Released Date/Time: Jul 24, 2023 10:52 AM Reporting Lab: [facility] [address] Performing Lab: [facility] [address] [place] [facility] CBC & DIFF ERYTHROCYT E DISTRIBUTI ON WIDTH [RATIO] BY AUTOMATED COUNT 13.8 11.5 - 14.5 07/24 Specimen Type: BLOOD Comment: Automated Differentia l Performed Ordering Provider: MARGARET RECINOS Report Released Date/Time: Jul 24, 2023 10:52 AM Reporting Lab: [facility] [address] Performing Lab: [facility] [address] [place] [facility] CBC & DIFF LYMPHOCYTE S [#/VOLUME] IN BLOOD BY AUTOMATED COUNT 1.52 10*3/uL 1.0 - 4.0 07/24 Specimen Type: BLOOD Comment: Automated Differentia l Performed Ordering Provider: MARGARET RECINOS Report Released Date/Time: Jul 24, 2023 10:52 AM Reporting Lab: [facility] [address] Performing Lab: [facility] [address] [place] [facility] CBC & DIFF MONOCYTES [#/VOLUME] IN BLOOD BY AUTOMATED COUNT 1.07 10*3/uL 0.1 - 1.0 07/24 H Specimen Type: BLOOD Comment: Automated Differentia l Performed Ordering Provider: MARGARET RECINOS Report Released Date/Time: Jul 24, 2023 10:52 AM Reporting Lab: [facility] [address] Performing Lab: [facility] [address] [place] [facility] CBC & DIFF NEUTROPHIL S [#/VOLUME] IN BLOOD BY AUTOMATED COUNT 5.76 10*3/uL 2.0 - 7.7 07/24 Specimen Type: BLOOD Comment: Automated Differentia l Performed Ordering Provider: MARGARET RECINOS Report Released Date/Time: Jul 24, 2023 10:52 AM Reporting Lab: [facility] [address] Performing Lab: [facility] [address] [place] [facility] CBC & DIFF EOSINOPHIL S [#/VOLUME] IN BLOOD BY AUTOMATED COUNT 0.24 10*3/uL 0 - 0.5 07/24 Specimen Type: BLOOD Comment: Automated Differentia l Performed Ordering Provider: MARGARET RECINOS Report Released Date/Time: Jul 24, 2023 10:52 AM Reporting Lab: [facility] [address] Performing Lab: [facility] [address] [place] [facility] CBC & DIFF BASOPHILS [#/VOLUME] IN BLOOD BY AUTOMATED COUNT 0.07 10*3/uL 0 - 0.2 07/24 Specimen Type: BLOOD Comment: Automated Differentia l Performed Ordering Provider: MARGARET RECINOS Report Released Date/Time: Jul 24, 2023 10:52 AM Reporting Lab: [facility] [address] Performing Lab: [facility] [address] [place] [facility] CBC & DIFF IG(META,MY TAMIKA,PRO) 0.5 07/24 Specimen Type: BLOOD Comment: Automated Differentia l Performed Ordering Provider: MARGARET RECINOS Report Released Date/Time: Jul 24, 2023 10:52 AM Reporting Lab: [facility] [address] Performing Lab: [facility] [address] [place] [facility] CBC & DIFF IMMATURE GRANULOCYT ES [PRESENCE] IN BLOOD BY AUTOMATED COUNT 0.04 10*3/uL 0 - 0.1 07/24 Specimen Type: BLOOD Comment: Automated Differentia l Performed Ordering Provider: MARGARET RECINOS Report Released Date/Time: Jul 24, 2023 10:52 AM Reporting Lab: [facility] [address] Performing Lab: [facility] [address] [place] [facility] COMPREHE NSIVE METABOLI C PANEL+MG CREATININE [MASS/VOLU ME] IN SERUM OR PLASMA 1.1 mg/dL 0.7 - 1.2 07/24 Specimen Type: PLASMA No comment entered. Ordering Provider: MARGARET RECINOS Report Released Date/Time: Jul 24, 2023 10:52 AM Reporting Lab: [facility] [address] Performing Lab: [facility] [address] [place] [facility] COMPREHE NSIVE METABOLI C PANEL+MG UREA NITROGEN [MASS/VOLU ME] IN SERUM OR PLASMA 14 mg/dL 8 - 26 07/24 Specimen Type: PLASMA No comment entered. Ordering Provider: MARGARET RECINOS Report Released Date/Time: Jul 24, 2023 10:52 AM Reporting Lab: [facility] [address] Performing Lab: [facility] [address] [place] [facility] COMPREHE NSIVE METABOLI C PANEL+MG GLUCOSE [MASS/VOLU ME] IN SERUM OR PLASMA 94 mg/dL 70 - 100 07/24 Specimen Type: PLASMA No comment entered. Ordering Provider: MARGARET RECINOS Report Released Date/Time: Jul 24, 2023 10:52 AM Reporting Lab: [facility] [address] Performing Lab: [facility] [address] [place] [facility] COMPREHE NSIVE METABOLI C PANEL+MG SODIUM [MOLES/VOL UME] IN SERUM OR PLASMA 139 mmol/L 136 - 145 07/24 Specimen Type: PLASMA No comment entered. Ordering Provider: MARGARET RECINOS Report Released Date/Time: Jul 24, 2023 10:52 AM Reporting Lab: [facility] [address] Performing Lab: [facility] [address] [place] [facility] COMPREHE NSIVE METABOLI C PANEL+MG POTASSIUM [MOLES/VOL UME] IN SERUM OR PLASMA 4.5 mmol/L 3.5 - 5.1 07/24 Specimen Type: PLASMA No comment entered. Ordering Provider: MARGARET RECINOS Report Released Date/Time: Jul 24, 2023 10:52 AM Reporting Lab: [facility] [address] Performing Lab: [facility] [address] [place] [facility] COMPREHE NSIVE METABOLI C PANEL+MG CHLORIDE [MOLES/VOL UME] IN SERUM OR PLASMA 106 mmol/L 98 - 107 07/24 Specimen Type: PLASMA No comment entered. Ordering Provider: MARGARET RECINOS Report Released Date/Time: Jul 24, 2023 10:52 AM Reporting Lab: [facility] [address] Performing Lab: [facility] [address] [place] [facility] COMPREHE NSIVE METABOLI C PANEL+MG CARBON DIOXIDE, TOTAL [MOLES/VOL UME] IN SERUM OR PLASMA 27 mmol/L 22 - 29 07/24 Specimen Type: PLASMA No comment entered. Ordering Provider: MARGARET RECINOS Report Released Date/Time: Jul 24, 2023 10:52 AM Reporting Lab: [facility] [address] Performing Lab: [facility] [address] [place] [facility] COMPREHE NSIVE METABOLI C PANEL+MG CALCIUM [MASS/VOLU ME] IN SERUM OR PLASMA 9.5 mg/dL 8.4 - 10.2 07/24 Specimen Type: PLASMA No comment entered. Ordering Provider: MARGARET RECINOS Report Released Date/Time: Jul 24, 2023 10:52 AM Reporting Lab: [facility] [address] Performing Lab: [facility] [address] [place] [facility] COMPREHE NSIVE METABOLI C PANEL+MG PROTEIN [MASS/VOLU ME] IN SERUM OR PLASMA 7.3 g/dL 6.0 - 8.3 07/24 Specimen Type: PLASMA No comment entered. Ordering Provider: MARGARET RECINOS Report Released Date/Time: Jul 24, 2023 10:52 AM Reporting Lab: [facility] [address] Performing Lab: [facility] [address] [place] [facility] COMPREHE NSIVE METABOLI C PANEL+MG ALBUMIN [MASS/VOLU ME] IN SERUM OR PLASMA 3.9 g/dL 3.5 - 5.2 07/24 Specimen Type: PLASMA No comment entered. Ordering Provider: MARGARET RECINOS Report Released Date/Time: Jul 24, 2023 10:52 AM Reporting Lab: [facility] [address] Performing Lab: [facility] [address] [place] [facility] COMPREHE NSIVE METABOLI C PANEL+MG BILIRUBIN. TOTAL [MASS/VOLU ME] IN SERUM OR PLASMA 1.7 mg/dL 0.2 - 1.2 07/24 H Specimen Type: PLASMA No comment entered. Ordering Provider: MARGARET RECINOS Report Released Date/Time: Jul 24, 2023 10:52 AM Reporting Lab: [facility] [address] Performing Lab: [facility] [address] [place] [facility] COMPREHE NSIVE METABOLI C PANEL+MG MAGNESIUM [MASS/VOLU ME] IN SERUM OR PLASMA 2.1 mg/dL 1.6 - 2.6 07/24 Specimen Type: PLASMA No comment entered. Ordering Provider: MARGARET RECINOS Report Released Date/Time: Jul 24, 2023 10:52 AM Reporting Lab: [facility] [address] Performing Lab: [facility] [address] [place] [facility] COMPREHE NSIVE METABOLI C PANEL+MG ANION GAP IN SERUM OR PLASMA 6 mmol/L 5 - 15 07/24 Specimen Type: PLASMA No comment entered. Ordering Provider: MARGARET RECINOS Report Released Date/Time: Jul 24, 2023 10:52 AM Reporting Lab: [facility] [address] Performing Lab: [facility] [address] [place] [facility] COMPREHE NSIVE METABOLI C PANEL+MG ALKALINE PHOSPHATAS E [ENZYMATIC ACTIVITY/V OLUME] IN SERUM OR PLASMA 118 U/L 40 - 150 07/24 Specimen Type: PLASMA No comment entered. Ordering Provider: MARGARET RECINOS Report Released Date/Time: Jul 24, 2023 10:52 AM Reporting Lab: [facility] [address] Performing Lab: [facility] [address] [place] [facility] COMPREHE NSIVE METABOLI C PANEL+MG ALANINE AMINOTRANS FERASE [ENZYMATIC ACTIVITY/V OLUME] IN SERUM OR PLASMA 19 U/L <55 - 55 07/24 Specimen Type: PLASMA No comment entered. Ordering Provider: MARGARET RECINOS Report Released Date/Time: Jul 24, 2023 10:52 AM Reporting Lab: [facility] [address] Performing Lab: [facility] [address] [place] [facility] COMPREHE NSIVE METABOLI C PANEL+MG ASPARTATE AMINOTRANS FERASE [ENZYMATIC ACTIVITY/V OLUME] IN SERUM OR PLASMA 23 U/L <34 - 34 07/24 Specimen Type: PLASMA No comment entered. Ordering Provider: MARGARET RECINOS Report Released Date/Time: Jul 24, 2023 10:52 AM Reporting Lab: [facility] [address] Performing Lab: [facility] [address] [facility] COMPREHE NSIVE METABOLI C PANEL+MG GLOMERULAR FILTRATION RATE/1.73 SQ M.PREDICTE D [VOLUME RATE/AREA] IN SERUM, PLASMA OR BLOOD BY CREATININE -BASED FORMULA (CKD-EPI 2020) 67 60 07/24 Specimen Type: PLASMA No comment entered. Ordering Provider: MARGARET RECINOS Report Released Date/Time: Jul 24, 2023 10:52 AM Reporting Lab: [facility] [address] Performing Lab: [facility] [address] [place] [facility] COMPREHE NSIVE METABOLI C PANEL+MG BILIRUBIN. DIRECT [MASS/VOLU ME] IN SERUM OR PLASMA 0.5 mg/dL <0.5 - 0.5 07/24 Specimen Type: PLASMA No comment entered. Ordering Provider: MARGARET RECINOS Report Released Date/Time: Jul 24, 2023 10:52 AM Reporting Lab: [facility] [address] Performing Lab: [facility] [id number] [place] [facility] PROTHROM BIN TIME/INR INR IN PLATELET POOR PLASMA BY COAGULATIO N ASSAY 1.0 0.8 - 1.1 07/24 Specimen Type: PLASMA No comment entered. Ordering Provider: MARGARET RECINOS Report Released Date/Time: Jul 24, 2023 10:52 AM Reporting Lab: [facility] [id number] Performing Lab: [facility] [id number] [place] [facility] PROTHROM BIN TIME/INR PROTHROMBI N TIME (PT) 12.2 s 9.4 - 12.5 07/24 Specimen Type: PLASMA No comment entered. Ordering Provider: MARGARET RECINOS Report Released Date/Time: Jul 24, 2023 10:52 AM Reporting Lab: [facility] [id number] Performing Lab: [facility] [id number] [place] [facility] BASIC METABOLI C PANEL+MG CREATININE [MASS/VOLU ME] IN SERUM OR PLASMA 1.0 mg/dL 0.7 - 1.2 02/05 Specimen Type: PLASMA No comment entered. Ordering Provider: MAGALYS BUCIO Report Released Date/Time: Jan 02, 2022 11:30 AM Reporting Lab: [facility] [facility] [address] Performing Lab: [facility] [address] [place] [facility] BASIC METABOLI C PANEL+MG UREA NITROGEN [MASS/VOLU ME] IN SERUM OR PLASMA 16 mg/dL 8 - 02/05 Specimen Type: PLASMA No comment entered. Ordering Provider: MAGALYS BUCIO Report Released Date/Time: Jan 02, 2022 11:30 AM Reporting Lab: [facility] [address] Performing Lab: [facility] [address] [place] [facility] BASIC METABOLI C PANEL+MG GLUCOSE [MASS/VOLU ME] IN SERUM OR PLASMA 78 mg/dL 70 - 100 02/05 Specimen Type: PLASMA No comment entered. Ordering Provider: MAGALYS BUCIO Report Released Date/Time: Jan 02, 2022 11:30 AM Reporting Lab: [facility] [address] Performing Lab: [facility] [address] [place] [facility] BASIC METABOLI C PANEL+MG SODIUM [MOLES/VOL UME] IN SERUM OR PLASMA 140 mmol/L 136 - 145 02/05 Specimen Type: PLASMA No comment entered. Ordering Provider: MAGALYS BUCIO Report Released Date/Time: Jan 02, 2022 11:30 AM Reporting Lab: [facility] [address] Performing Lab: [facility] [address] [place] [facility] BASIC METABOLI C PANEL+MG POTASSIUM [MOLES/VOL UME] IN SERUM OR PLASMA 4.4 mmol/L 3.5 - 5.1 02/05 Specimen Type: PLASMA No comment entered. Ordering Provider: MAGALYS BUCIO Report Released Date/Time: Jan 02, 2022 11:30 AM Reporting Lab: [facility] [address] Performing Lab: [facility] [address] [place] [facility] BASIC METABOLI C PANEL+MG CHLORIDE [MOLES/VOL UME] IN SERUM OR PLASMA 105 mmol/L 98 - 107 02/05 Specimen Type: PLASMA No comment entered. Ordering Provider: MAGALYS BUCIO Report Released Date/Time: Jan 02, 2022 11:30 AM Reporting Lab: [facility] [address] Performing Lab: [facility] [address] [place] [facility] BASIC METABOLI C PANEL+MG CARBON DIOXIDE, TOTAL [MOLES/VOL UME] IN SERUM OR PLASMA 26 mmol/L 22 - 29 02/05 Specimen Type: PLASMA No comment entered. Ordering Provider: MAGALYS BUCIO Report Released Date/Time: Jan 02, 2022 11:30 AM Reporting Lab: [facility] [address] Performing Lab: [facility] [address] [place] [facility] BASIC METABOLI C PANEL+MG CALCIUM [MASS/VOLU ME] IN SERUM OR PLASMA 9.4 mg/dL 8.4 - 10.2 02/05 Specimen Type: PLASMA No comment entered. Ordering Provider: MAGALYS BUCIO Report Released Date/Time: Jan 02, 2022 11:30 AM Reporting Lab: [facility] [address] Performing Lab: [facility] [address] [place] [facility] BASIC METABOLI C PANEL+MG MAGNESIUM [MASS/VOLU ME] IN SERUM OR PLASMA 2.0 mg/dL 1.6 - 2.6 02/05 Specimen Type: PLASMA No comment entered. Ordering Provider: MAGALYS BUCIO Report Released Date/Time: Jan 02, 2022 11:30 AM Reporting Lab: [facility] [address] Performing Lab: [facility] [address] [place] [facility] BASIC METABOLI C PANEL+MG ANION GAP IN SERUM OR PLASMA 9 mmol/L 5 - 15 02/05 Specimen Type: PLASMA No comment entered. Ordering Provider: MAGALYS BUCIO Report Released Date/Time: Jan 02, 2022 11:30 AM Reporting Lab: [facility] [address] Performing Lab: [facility] [address] [place] [facility] BASIC METABOLI C PANEL+MG GLOMERULAR FILTRATION RATE/1.73 SQ M.PREDICTE D [VOLUME RATE/AREA] IN SERUM, PLASMA OR BLOOD BY CREATININE -BASED FORMULA (CKD-EPI 2020) 75 60 02/05 Specimen Type: PLASMA No comment entered. Ordering Provider: MAGALYS BUCIO Report Released Date/Time: Jan 02, 2022 11:30 AM Reporting Lab: [facility] [address] Performing Lab: [facility] [address] [place] [facility] CBC LEUKOCYTES [#/VOLUME] IN BLOOD BY AUTOMATED COUNT 8.96 10*3/uL 4.0 - 11.0 02/05 Specimen Type: BLOOD No comment entered. Ordering Provider: MAGALYS BUCIO Report Released Date/Time: Jan 02, 2022 11:30 AM Reporting Lab: [facility] [address] Performing Lab: [facility] [address] [place] [facility] CBC ERYTHROCYT ES [#/VOLUME] IN BLOOD BY AUTOMATED COUNT 4.71 10*6/uL 4.6 - 6.2 02/05 Specimen Type: BLOOD No comment entered. Ordering Provider: MAGALYS BUCIO Report Released Date/Time: Jan 02, 2022 11:30 AM Reporting Lab: [facility] [address] Performing Lab: [facility] [address] [place] [facility] CBC HEMOGLOBIN [MASS/VOLU ME] IN BLOOD 15.0 g/dL 13.5 - 17.9 02/05 Specimen Type: BLOOD No comment entered. Ordering Provider: MAGALYS BUCIO Report Released Date/Time: Jan 02, 2022 11:30 AM Reporting Lab: [facility] [address] Performing Lab: [facility] [address] [place] [facility] CBC HEMATOCRIT [VOLUME FRACTION] OF BLOOD BY AUTOMATED COUNT 45.0 41 - 54 02/05 Specimen Type: BLOOD No comment entered. Ordering Provider: MAGALYS BUCIO Report Released Date/Time: Jan 02, 2022 11:30 AM Reporting Lab: [facility] [address] Performing Lab: [facility] [address] [place] [facility] CBC MCV [ENTITIC VOLUME] BY AUTOMATED COUNT 95.5 fL 80 - 100 02/05 Specimen Type: BLOOD No comment entered. Ordering Provider: MAGALYS BUCIO Report Released Date/Time: Jan 02, 2022 11:30 AM Reporting Lab: [facility] [address] Performing Lab: [facility] [address] [place] [facility] CBC MCH [ENTITIC MASS] BY AUTOMATED COUNT 31.8 pg 27 - 33 02/05 Specimen Type: BLOOD No comment entered. Ordering Provider: MAGALYS BUCIO Report Released Date/Time: Jan 02, 2022 11:30 AM Reporting Lab: [facility] [address] Performing Lab: [facility] [address] [place] [facility] CBC MCHC [MASS/VOLU ME] BY AUTOMATED COUNT 33.3 g/dL 32.0 - 37.5 02/05 Specimen Type: BLOOD No comment entered. Ordering Provider: MAGALYS BUCIO Report Released Date/Time: Jan 02, 2022 11:30 AM Reporting Lab: [facility] [address] Performing Lab: [facility] [address] [place] [facility] CBC PLATELETS [#/VOLUME] IN BLOOD BY AUTOMATED COUNT 271 10*3/uL 150 - 400 02/05 Specimen Type: BLOOD No comment entered. Ordering Provider: MAGALYS BUCIO Report Released Date/Time: Jan 02, 2022 11:30 AM Reporting Lab: [facility] [address] Performing Lab: [facility] [address] [place] [facility] CBC PLATELET MEAN VOLUME [ENTITIC VOLUME] IN BLOOD BY AUTOMATED COUNT 9.6 fL 7.4 - 10.4 02/05 Specimen Type: BLOOD No comment entered. Ordering Provider: MAGALYS BUCIO Report Released Date/Time: Jan 02, 2022 11:30 AM Reporting Lab: [facility] [address] Performing Lab: [facility] [address] [place] [facility] CBC ERYTHROCYT E DISTRIBUTI ON WIDTH [RATIO] BY AUTOMATED COUNT 13.5 11.5 - 14.5 02/05 Specimen Type: BLOOD No comment entered. Ordering Provider: MAGALYS BUCIO Report Released Date/Time: Jan 02, 2022 11:30 AM Reporting Lab: [facility] [address] Performing Lab: [facility] [address] [facility] Vital Signs Combined list of inpatient and outpatient Vital Signs from Department of Defense and Veterans Affairs, ranging from 12 months to all on record, depending upon the facility. Vital Sign Value Date Comments Source SYSTOLIC BLOOD PRESSURE 118 10/17/2023 13:01:15 [facility] DIASTOLIC BLOOD PRESSURE 55 10/17/2023 13:01:15 [facility] PULSE OXIMETRY 95 10/17/2023 13:01:15 [place] [facility] TEMPERATURE 98.5 10/17/2023 13:01:15 [place] [facility] PULSE 66 10/17/2023 13:01:15 [facility] [place] [facility] RESPIRATION 16 10/17/2023 13:01:15 [place] [facility] SYSTOLIC BLOOD PRESSURE 160 09/23/2023 09:17:00 [facility] DIASTOLIC BLOOD PRESSURE 89 09/23/2023 09:17:00 [facility] PULSE OXIMETRY 69 09/23/2023 09:17:00 [facility] WE[facility] 183 09/23/2023 09:17:00 [facility] [place] [facility] BMI 29kg/m2 09/23/2023 09:17:00 [facility] [place] [facility] PAIN 0 09/23/2023 09:17:00 [facility] [place] [facility] HEIGHT 67.25 09/23/2023 09:17:00 [facility] [place] [facility] TEMPERATURE 97.5 09/23/2023 09:17:00 [place] [facility] PULSE 71 09/23/2023 09:17:00 [facility] [place] [facility] SYSTOLIC BLOOD PRESSURE 160 08/07/2023 08:58:05 [facility] DIASTOLIC BLOOD PRESSURE 89 08/07/2023 08:58:05 [facility] PULSE OXIMETRY 96 08/07/2023 08:58:05 [facility] PAIN 0 08/07/2023 08:58:05 [facility] [place] [facility] TEMPERATURE 97.8 08/07/2023 08:58:05 [place] [facility] PULSE 62 08/07/2023 08:58:05 [facility] [place] [facility] RESPIRATION 16 08/07/2023 08:58:05 [place] [facility] SYSTOLIC BLOOD PRESSURE 127 07/24/2023 10:32:00 [facility] DIASTOLIC BLOOD PRESSURE 76 07/24/2023 10:32:00 [facility] PULSE OXIMETRY 96 07/24/2023 10:32:00 [place] [facility] PAIN 0 07/24/2023 10:32:00 [facility] TEMPER[facility] 98.1 07/24/2023 10:32:00 [facility] PULSE 63 07/24/2023 10:32:00 [facility] RESP[facility]ATION 16 07/24/2023 10:32:00 [facility] Encounters Combined list of: 1) Encounters from Department of [facility] Affairs facilities going back up to thelast 18 months. 2) Encounters from the Department of [facility] facilities going back up to 280 months. Location Location Details Encounter Type Encounter Number Reason For Visit Attending Provider ADM Date DC Date Status Disposition Source [facility] Outpatient Encounter [id number] 09/10 [facility] Outpatient Encounter [id number] 09/10 [facility] REM INTERROG EVL [place] [id number] Diagnos is: ICD-10- CM Z95.0 Presenc e of cardiac pacemak er
SA KRISTIN NDRA L 09/11 [facility] PM DEVICE PROGR EVAL DUAL [id number] Diagnos is: ICD-10- CM Z95.0 Presenc e of cardiac pacemak er
DORENE UNGER A 11/27 [facility] Outpatient Encounter [id number] 12/12 [facility] OFFICE O/P EST LOW 20-29 MIN [id number] Diagnos is: ICD-10- CM Z00.00 Encntr for general adult medical exam w/o abnorma l finding s
KEVYN WETZEL A 02/05 [facility] Outpatient Encounter [id number] 03/13 [facility] [place] [facility] Outpatient Encounter [id number] 06/19 [place] [facility] Outpatient Encounter [id number] 06/22 [facility] [place] [facility] REM INTERROG EVL PM/LDLS PM [id number] Diagnos is: ICD-10- CM I48.3 Typical atrial flutter
AIME RAZA T 06/22 [facility] [place] [facility] HEARING AID REPAIR/MOD IFYING [id number] Diagnos is: ICD-10- CM H90.3 Sensori neural hearing loss, bilater al
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<b r/> ALESSANDRA RECINOS T 07/24 [facility] Outpatient Encounter [id number] 07/29 [facility] OFF/OP CNSLTJ NEW/EST MOD 40 [id number] Diagnos is: ICD-10- CM G45.3 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
DANNY SMART NZI 09/22 [facility] IS [facility] ELECTROCAR DIOGRAM REPORT [id number] Diagnos is: ICD-10- CM Z13.6 Encount er for screeni ng for cardiov ascular disorde rs
Karin ZABALA O 09/22 [facility] IS [facility] INTERROG EVL PM/[place] [id number] Diagnos is: ICD-10- CM I45.5 Other specifi ed heart block<b r/> AB BARBER BIE L 09/22 [facility] IS [facility] OFF/OP CONSLTJ NEW/[place] HI 55 [id number] Diagnos is: ICD-10- CM I45.5 Other specifi ed heart block<b r/> BARBERAB BIE L 09/22 [facility] Outpatient Encounter [id number] 10/01 [facility] EMR DPT VST MAYX REQ PHY/QHP [id number] Diagnos is: ICD-10- CM J32.8 Other chronic sinusit is
LELAND PONCE IN J 10/16 [facility] IS [facility] Outpatient Encounter [id number] CYNTHIA MAGANA 10/16 [facility] IS [facility] Outpatient Encounter [id number] 10/16 [facility] IS [facility] HEARING AID REPAIR/MOD IFYING [id number] Diagnos is: ICD-10- CM H90.A21 Snsrnrl hear loss, uni, r ear, with rstrcd hear cntra side
Angeli KENDALL 11/01 [place] [facility] [place] [facility] Outpatient Encounter [id number] SHAN ORDONEZ 11/16 [place] [facility] [place] [facility] Outpatient Encounter [id number] 12/01 [place] [facility] [place] [facility] SELF-MGMT EDUC & TRAIN 1 [place] [id number] Diagnos is: ICD-10- CM H90.A21 Snsrnrl hear loss, uni, r ear, with rstrcd hear cntra side
SAMY CARSON 12/06 [facility] [place] [facility] Outpatient Encounter [id number] 12/14 [place] [facility] [place] [facility] Outpatient Encounter [id number] 12/20 [place] [facility] [place] [facility] Outpatient Encounter [id number] 01/11 [place] [facility] [place] [facility] Outpatient Encounter [id number] 01/19 [place] [facility] Outpatient Encounter [id number] 01/19 [facility] Social History Combined list of available smoking, tobacco, and other social history from Department of Defense and Veterans Affairs facilities. Social History Type Response Date Comment Sour e Tobacco smoking status NHIS VA-TOBACCO FORMER USER 02/05/2023 [facility] History of tobacco use [place]-TO[place] QUIT 15 YRS OR MORE 02/05/2023 [facility] History of tobacco use [place]-TOBACCO QUIT 15 YRS OR MORE 01/02/2022 [facility] History of tobacco use VA-TOBACCO FORMER USER 11/08/2020 [facility] History of tobacco use [place]-TOBACCO QUIT 15 YRS OR MORE 11/18/2018 [facility] History of tobacco use QUIT TOBACCO >7 YEARS AGO 10/27/2017 [facility] History of tobacco use NON-TOBACCO USER 07/21/2017 [facility] History of tobacco use FORMER TOBACCO USER 7Y OR GREATER 09/02/2016 [facility] History of tobacco use FORMER TOBACCO USER 7Y OR GREATER 08/06/2015 [facility] History of tobacco use LIFETIME NON-TOBACCO USER 07/07/2014 [facility]
--- OUTSIDE RECORDS SUMMARY | 2024-03-01 07:58 | XMS_ITS | CCD ---
Author Organization [facility] Address [address] [place] [address] Care Team Providers Care Coach Name Role Phone Unavailable Primary Care Provider [...]
--- OUTSIDE RECORDS SUMMARY | 2024-03-01 07:58 | XMS_ITS | Referral Summary ---
Author Organization [facility] Address [address] [place] [address] Care Team Providers Care Computer Artist Name Role Phone Unavailable Primary Care Provider [...]
--- OUTSIDE RECORDS SUMMARY | 2024-03-01 07:58 | XMS_ITS | Referral Summary ---
Author Organization [facility] Address [address] [place] [address]. [place] [address] Care Team Providers Care Manager Sql Name Role Phone Chandana Fleming MD Primary Care Provider [phone] Allergies Active Allergy Reactions Criticality Noted Date Comments No Known Drug Allergy 02/21/2003 Medications Medication Sig Dispensed Refills Start Date End Date Status Saw [place] 80 MG CAPS A ctive GINSENG PO Take by mouth 2 times daily Active HAWTHORN PO Take by mouth 2 times daily Active Ginkgo Biloba (GINKGO PO) Take by mouth 2 times daily Active NONFORMULARY Paicines-zyme Active Active Problems Problem Noted Date Diagnosed [...] T Respiratory Rate 16 06/01/2014 8:01 PM [facility] Oxygen Saturation 95% 04/08/2017 9:05 AM [facility]OCK [facility] Inhaled Oxygen Concentration - - Weight 78.9 kg (174 lb) 11/04/2018 1:12 PM CDT Height 172.7 cm (5' 8) 11/04/2018 1:12 PM CDT Body Mass Index 26.46 11/04/2018 1:12 PM CDT Plan of Treatment Not on file Medical Devices Implanted Type Area Photographic Reproduction Technician Device Identifier Shelf Expiration Date Model / Serial / Lot [employer] 2087tc Tendril Sts [id number] Implanted:01/30 (Quantity not on file) Leads [employer] 2087TC TENDRIL STS / [id number] / [employer] 2087tc Tendril Sts [id number] Implanted:01/30 (Quantity not on file) Leads [employer] 2087TC TENDRIL STS / [id number] / [employer]* [address] [id number] Implanted:01/30 (Quantity not on file) Pacemaker [employer] [address] / [id number] / Advance Directives For more information, please contact: [phone] * Full Code (Latest Code Status on File) Date Activated Date Inactivated Comments 02/16/2013 11:22 AM * Full Code Date Activated Date Inactivated Comments 02/14/2013 11:17 PM 02/16/2013 11:22 AM * Full Code Date Activated Date Inactivated Comments 07/31/2011 8:42 AM 02/14/2013 11:17 PM * Full Code Date Activated Date Inactivated Comments 07/30/2011 4:29 PM 07/31/2011 8:42 AM Care Teams Manager Sql Relationship Specialty Start Date End Date Chandana Fleming MD [facility] [id number] [place] [address] PCP - General Family Practice 02/03/19
--- OUTSIDE RECORDS SUMMARY | 2024-03-01 07:58 | XMS_ITS ---
Author Organization [facility] Address [address] [place] [address] Care Team Providers Care Health Services Coordinator Name Role Phone Unavailable Unavailable Unavailable Surgery Details Not on file Complications Check Surgery Details section. Procedure Estimated Blood Loss Check Surgery Details section. Procedure Findings Check Surgery Details section. Procedure Specimens Taken Check Surgery Details section.
--- OUTSIDE RECORDS SUMMARY | 2024-03-01 07:58 | XMS_ITS | Encounter Summary ---
Author Organization [facility] Address [address] [place] [address]. [place] [address] Care Team Providers Care Wire Repairer Name Role Phone [facility], [facility] Primary Care Provider + Maura Jackson MD Primary Care Provider [phone] Jorge Douglas MD Unavailable Unavailable Encounter Details Date Type Department Care Team (Late st Contact Info) Description 04/11/2013 Office Visit-[facility] [address] [place] [address] Jorge Douglas MD Social History [...] old Referring Physician: MAURA JACKSON Referring Clinic: [facility] CURRENT DIAGNOSES 1. 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 [...] on filedocumented in this encounter Care Teams Wire Repairer Relationship Specialty Start Date End Date [facility] [address] [place] [id number] PCP - General 07/30/11 02/02/19 Maura Jackson MD [facility] [id number] [place] [address] PCP - General Family Practice 02/03/19 Jorge Douglas MD Assigned Heart and Vascular Provider 03/23/20 05/25/21 documented as of this encounter
--- OUTSIDE RECORDS SUMMARY | 2024-03-01 07:58 | XMS_ITS | Clinical Summary ---
Author Organization [facility] [place] Address [address] [place] [address] Care Team Providers Care Base Wad Operator Adjuster Name Role Phone Unavailable Primary Care Provider [...]
--- OUTSIDE RECORDS SUMMARY | 2024-03-01 07:58 | XMS_ITS | Clinical Summary ---
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 ) 12/18/2023 Transcribe Orders [facility] [address] [place] [address] Shankar Zaragoza MD from Last [...] Comments Blood Pressure 106/64 07/18/2010 9:30 AM FRONT OFFICE ADMINISTRATOR Pulse - - Temperature 36.8 ??C (98.2 ??F) 07/18/2010 9:30 AM CS T Respiratory Rate - - Oxygen Saturation - - Inhaled Oxygen Concentration - - Weight 82.6 kg (182 lb) 07/18/2010 9:30 AM FRONT OFFICE ADMINISTRATOR Height 172.7 cm (5' 8) 07/01/2010 9:18 AM FRONT OFFICE ADMINISTRATOR Body Mass Index 27.67 07/01/2010 9:18 AM FRONT OFFICE ADMINISTRATOR Plan of Treatment Health Maintenance Due Date [...] Influenza for age 65+ 01/31/2024 Care Teams Virtual Assistant Relationship Specialty [place] [address] [place] [address] PCP - General Family Practice 07/01/10
--- OUTSIDE RECORDS SUMMARY | 2024-03-01 07:58 | XMS_ITS | Clinical Summary ---
Author Organization [facility] Address [address] [place] [address]. [place] [address] Care Team Providers Care Continuous Pickling Line Pickler Helper Name Role Phone Chandana Fleming MD Primary Care Provider [phone] Allergies Active Allergy Reactions Criticality Noted Date Comments No Known Drug Allergy 02/21/2003 Medications Medication Sig Dispensed Refills Start Date End Date Status Saw [place] 80 MG CAPS A ctive GINSENG PO Take by mouth 2 times daily Active HAWTHORN PO Take by mouth 2 times daily Active Ginkgo Biloba (GINKGO PO) Take by mouth 2 times daily Active NONFORMULARY [place]-zyme Active Active Problems Problem Noted Date Diagnosed [...] T Respiratory Rate 16 06/01/2014 8:01 PM SUPERVISOR SIGN SHOP Oxygen Saturation 95% 04/08/2017 9:05 AM SUPERVISOR SIGN SHOP Inhaled Oxygen Concentration - - Weight 78.9 kg (174 lb) 11/04/2018 1:12 PM CDT Height 172.7 cm (5' 8) 11/04/2018 1:12 PM CDT Body Mass Index 26.46 11/04/2018 1:12 PM CDT Plan of Treatment Not on file Medical Devices Implanted Type Area Senior Licensing Manager Device Identifier Shelf Expiration Date Model / Serial / Lot [employer] 2087tc Tendril Sts [id number] Implanted:01/30 (Quantity not on file) Leads [employer] 2087TC TENDRIL STS / [id number] / [employer] 2087tc Tendril Sts [id number] Implanted:01/30 (Quantity not on file) Leads [employer] 2087TC TENDRIL STS / [id number] / [employer]* [address] [id number] Implanted:01/30 (Quantity not on file) Pacemaker [employer] [address] / [id number] / Advance Directives For more information, please contact: [phone] * Full Code (Latest Code Status on File) Date Activated Date Inactivated Comments 02/16/2013 11:22 AM * Full Code Date Activated Date Inactivated Comments 02/14/2013 11:17 PM 02/16/2013 11:22 AM * Full Code Date Activated Date Inactivated Comments 07/31/2011 8:42 AM 02/14/2013 11:17 PM * Full Code Date Activated Date Inactivated Comments 07/30/2011 4:29 PM 07/31/2011 8:42 AM Care Teams Continuous Pickling Line Pickler Helper Relationship Specialty Start Date End Date Chandana Fleming MD [facility] [id number] [place] [id number] PCP - General Family Practice 02/03/19
--- NOTE | 2024-03-01 08:10 | ED_ITS ---
HPI - General Adult General Chief complaint: Unspecified Complaint, Adult Stated complaint: catheter removal Time Seen by Provider: 03/01/24 08:06 History of Present Illness HPI narrative: This 84-year-old male was seen by me a couple days ago because of urinary retention. He went home with a Ponce catheter in place and has been doing well and returns today wanting to get the catheter out. He was placed on an antibiotic as he did have 5-10 white blood cells per high-powered field on his visit a couple days ago. He is not reporting any adverse symptoms. He does state that he feels some urge to void at times and is hopeful that he can resume normal function of his urinary system. Related Data Previous Rx's ?Medication ?Instructions ?Recorded cephalexin 500 mg capsule 500 mg PO TID 7 days #21 caps 02/28/24 Allergies Allergy/AdvReac Type Severity Reaction Status Date / Time No Known Drug Allergies Allergy Verified 03/01/24 07:58 Review of Systems Status of ROS: Reports: 10 or more systems reviewed and unremarkable except as noted in History and below Narrative: Constitutional: No fevers, no weight gain or loss. Eyes: No discharge. No vision changes. HENT: No congestion, no sore throat, no ear pain. Cardiovascular: No chest pain, no palpitations. Respiratory: No shortness of breath, no wheezes, no cough. Gastrointestinal: No abdominal pain, no vomiting, no diarrhea. Genitourinary: Ponce catheter in place. Musculoskeletal: Normal range of motion. Skin: No rashes, no pruritis. Neurological: No dizziness, weakness, sensory change, speech change. Endo/Heme/Allergies: No bruising or bleeding. No polydipsia. Pysch: no suicidality, no anxiety, no insomnia. All other systems reviewed and are negative. [facility] Social History Smoking Status: Never smoker Do you use any of these nicotine containing products: None How often do you have a drink containing alcohol: never How often do you have six or more drinks on one occasion: Never AUDIT-C Alcohol total score: 0 Non-prescribed substance use: denies use Exam Narrative: Exam Narrative: Constitutional: Well-developed, well-nourished, no acute distress. HEENT: Normocephalic, atraumatic. Neck: Normal range of motion. Nontender. Supple. Heart: Regular. No murmurs. Normal rate. Intact distal pulses. Lungs: Clear to auscultation. No chest discomfort. No wheezes, rhonchi, or rales. Abdomen: Normal bowel sounds. Nontender. No rebound tenderness. Back: No midline tenderness. Normal range of motion. Extremities: Normal range of motion. No injury. Skin: Intact. No rash. Warm. No erythema or pallor. Neurologic: No altered sensation. No weakness. Alert and oriented. Psychiatric: No suicidality. No anxiety or depression. No insomnia. Nursing notes and vitals signs are reviewed. Const: Vital Signs, click to edit/add: Vital Signs - 24 hr 03/01/24 07:58 Temperature 97.3 F L Pulse Rate [Pulse Oximeter] 47 L Respiratory Rate 16 Blood Pressure [Ri ght Upper Arm] 110/56 L Pulse Oximetry 96 Oxygen Delivery Me thod Room Air Course Vital Signs Vital signs: Initial Vital Signs Temperature 97.3 F L 03/01/24 07:58 Temperature Source Temporal Artery Scan 03/01/24 07:58 Pulse Rate 47 L 03/01/24 07:58 Respiratory Rate 16 03/01/24 07:58 Blood Pressure 110/56 L 03/01/24 07:58 Blood Pressure Mean 74 03/01/24 07:58 Blood Pressure Position Sitting 03/01/24 07:58 Pulse Oximetry 96 03/01/24 07:58 Oxygen Delivery Method Room Air 03/01/24 07:58 Vital Signs Temperature 97.3 F L 03/01/24 07:58 Pulse Rate 47 L 03/01/24 07:58 Respiratory Rate 16 03/01/24 07:58 Blood Pressure 110/56 L 03/01/24 07:58 Pulse Oximetry 96 03/01/24 07:58 Oxygen Delivery Method Room Air 03/01/24 07:58 Temperature 97.3 F L 03/01/24 07:58 Pulse Rate 47 L 03/01/24 07:58 Respiratory Rate 16 03/01/24 07:58 Blood Pressure 110/56 L 03/01/24 07:58 Pulse Oximetry 96 03/01/24 07:58 Oxygen Delivery Method Room Air 03/01/24 07:58 Medical Decision Making MDM Narrative Medical decision making narrative: This patient has a Ponce catheter that is in been in place for the past couple days. He is here for its removal. Catheter was removed without incident. Instructions were given regarding ongoing management. In particular if he is yet unable to void urine he will need to return later today. Discharge Plan Discharge Clinical Impression: Acute urinary retention Patient Disposition: Home, Self-Care Condition: Stable Additional Instructions: Continue medications as prescribed. Return if unable to void urine. Follow up with MD otherwise as needed. Prescriptions: No Action cephalexin 500 mg capsule 500 mg PO TID 7 Days Qty: 21 0RF Follow Up/Referrals: Provider,Not a Local [Primary Care Provider] - Stand Alone Forms: [facility] Info Instructions
--- OUTSIDE RECORDS SUMMARY | 2024-03-01 08:22 | XMS_ITS | Encounter Summary ---
Author Organization [facility] [place] [place] Address [address] [place] [address] Care Team Providers Care Hospital Educator Name Role Phone Unavailable Primary Care Provider Unavailabl e Prior Encounters Date Type Department Care Team Description 06/20/2019 Converted CPS Chart Documents [facility] [address] [place] [address] <No scans attached> 06/20/2019 Converted 13x Documents [facility] [address] [place] [address] <No scans attached> Plan of [...] 5 ENDODONTIC THERAPY, PREMOLAR TOOTH (EXCLUDING FINAL PENTECOSTAL) Routine 07/14/2019 1:00 AM MST 5 PULP [...]
--- OUTSIDE RECORDS SUMMARY | 2024-03-01 08:22 | XMS_ITS | Clinical Summary ---
Author Organization [facility] Address [place], [place] [address] Care Team Providers Care Story Writer Name Role Phone Chandana Fleming MD Primary [...] Description 12/30/2023 2:30 PM CDT Office Visit [address] [address] Alison Munoz PA Consult (Mixed conductive and sensorineural hearing loss, bilateral ) 12/30/2023 Travel 12/21/2023 Telephone [facility] [address] [place] [address] Alison Munoz PA Questions (Call back about audiology report. 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
--- OUTSIDE RECORDS SUMMARY | 2024-03-01 08:22 | XMS_ITS | Clinical Summary ---
Author Organization [facility] Address [address] [place] [address] Care Team Providers Care Quality Process Lead Name Role Phone Unavailable Primary Care Provider [...]
--- OUTSIDE RECORDS SUMMARY | 2024-03-01 08:22 | XMS_ITS | Referral Summary ---
Author Organization [facility] Address [address] [place] [address] Care Team Providers Care Insulation Engineman Name Role Phone Unavailable Primary Care Provider [...]
--- OUTSIDE RECORDS SUMMARY | 2024-03-01 08:22 | XMS_ITS | CCD ---
Author Organization [facility] Address [address] [place] [address] Care Team Providers Care Sales Person Name Role Phone Unavailable Primary Care Provider [...]
--- OUTSIDE RECORDS SUMMARY | 2024-03-01 08:22 | XMS_ITS | Continuity of Care Document ---
Author Name [facility] Organization [facility] Care Team Providers Care Ferruler Name Role Phone [facility] Unavailable Unavailable Problems Combined list of problems from Department of Defense and Veterans Affairs facilities. It does not include entries that were removed or entered in error. Problem Status Onset Date Problem Type Date of Resolution Comments Source Bilateral hearing loss Active 06/01/19 15 Condition Jul 07, 2014 Entered By: BEN VIVEROS Comment: has hearing aids from [facility] History of appendectomy Active 06/01/[address] [facility] s/p choley Active 06/01/[address] 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 Chronic peptic ulcer without hemorrhage, without perforation AND without obstruction Active 06/01/18 86 Condition Jul 07, 2014 Entered By: BEN VIVEROS Comment: s/p partial gastrectomy, has dumping syndrome [facility] Atrial Flutter (SCT [id number]) Active Condition [facility] Cardiac pacemaker in situ Active Condition [facility] Cardiomyopathy Active Condition [facility] Elevated PSA Active Condition [facility] Gilbert's syndrome [facility] Hearing Loss (SCT 80058560) Active Condition [facility] History of peptic ulcer Active Condition Dec 04, 2017 Entered By: MEHREEN ARCHIBALD Comment: partial gastectomy and dumping syndrome [facility] Syncope and Collapse (SCT [id number]) Active Condition Dec 04, 2017 Entered By: MEHREEN ARCHIBALD Comment: due to complete heart block [facility] Typical atrial flutter Active Condition [facility] Diagnosis: ICD-10-CM H90.A21 Snsrnrl hear loss, uni, r ear, with rstrcd hear cntra side Active Diagnosis [facility] Diagnosis: ICD-10-CM J32.8 Other chronic sinusitis Active Diagnosis [facility] Diagnosis: ICD-10-CM I45.5 Other specified heart block Active Diagnosis [facility] Diagnosis: ICD-10-CM Z13.6 Encounter for screening for cardiovascular disorders Active Diagnosis [facility] Diagnosis: ICD-10-CM Z95.0 Presence of cardiac pacemaker Active Diagnosis [facility] Diagnosis: ICD-10-CM 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 [facility] Diagnosis: ICD-10-CM H90.3 Sensorineural hearing loss, bilateral Active Diagnosis [facility] Diagnosis: ICD-10-CM I48.3 Typical atrial flutter Active Diagnosis [facility] Diagnosis: ICD-10-CM Z00.00 Encntr for general adult medical exam w/o abnormal findings Active Diagnosis [facility] Medications Combined list of outpatient medications [...] Jul 24, 2023 30 Jul 24, 2024 [id number] YASIR RECINOS [facility] HOLD 07/24/2024 [id number] Angeli RECINOS [address] [facility] GINKGO BILOBA CAP/TAB GINKGO BILOBA CAP/TAB Non-VA TAKE ONE TABLET BY MOUTH EVERY DAY Sep 23, 2023 Non-VA Document ed by: MAIA BLANDON Document ed at: [facility] ACT[facility] Angeli BLANDON 2023 [facility] NON VA MED NOT LISTED NON VA MED NOT LISTED Non-VA USE HYDRO-ZY ME MOUTH Nov 21, 2020 Non-VA Document ed by: AMARILYS PALAFOX Document ed at: [facility] AMARILYS PALAFOX 2020 [facility] SAW [place] CAP/TAB SAW [place] CAP/TAB Non-VA TAKE Jan 02, 2022 Non-VA Document ed by: MAGGIE BUCIO Document ed at: [facility] ACTIVE [place] BUCIO 2021 [facility] SODIUM CHLORIDE 0.65% SOLN,NASAL SPRAY SODIUM CHLORIDE 0.65% SOLN,GIGI AL SPRAY SPRAY 2 SPRAYS IN EACH NOSTRIL TWICE A DAY FOR NASAL DRYNESS FOR NASAL DRYNESS October 17, 2023 45 Nov 16, 2023 [id number] October 17, 2023 Trent PONCE [facility] NASAL 11/16/2023 [id number] MONICA PONCE [address] [facility] Immunizations Combined list of available immunizations from the Department of Defense and Veterans Affairs facilities. Immunization Series Date Given Administered By Site Reaction Lot Number CVX Code Drug Electrolytic Etcher Status Comments Source TD (ADULT), 2 LF TETANUS TOXOID, PRESERVATIVE FREE, ADSORBED [address] [facility] Results Combined list of recent chemistry, [...] Aug 07, 2023 09:32 AM Reporting Lab: [facility] [address] Performing Lab: [facility] [address] [place] [facility] LIPID PANEL,NO N-FASTIN G CHOLESTERO L IN HDL [MASS/VOLU ME] IN SERUM OR PLASMA 66 mg/dL 40 08/06 Specimen Type: PLASMA No comment entered. Ordering Provider: YOAV VILLEDA ERT E Report Released Date/Time: Aug 07, 2023 09:32 AM Reporting Lab: [facility] [address] Performing Lab: [facility] [address] [facility] LIPID PANEL,NO N-FASTIN G CHOLESTERO L IN LDL [MASS/VOLU ME] IN SERUM OR PLASMA BY CALCULANEHEMIAHO N 75 mg/dL <99 - 99 08/06 Specimen Type: PLASMA No comment entered. Ordering Provider: YOAV VILLEDA ERT Rachael Report Released Date/Time: Aug 07, 2023 09:32 AM Reporting Lab: [facility] [address] Performing Lab: [facility] [address] [place] [facility] LIPID PANEL,NO N-FASTIN G CHOLESTERO L IN VLDL [MASS/VOLU ME] IN SERUM OR PLASMA BY CALCULATIO N 25 mg/dL <29 - 29 08/06 Specimen Type: PLASMA No comment entered. Ordering Provider: YOAV VILLEDA Report Released Date/Time: Aug 07, 2023 09:32 AM Reporting Lab: [facility] [address] Performing Lab: [facility] [address] [place] [facility] LIPID PANEL,NO N-FASTIN G CHOLESTERO L NON HDL [MASS/VOLU ME] IN SERUM OR PLASMA 100 mg/dL <129 - 129 08/06 Specimen Type: PLASMA No comment entered. Ordering Provider: YOAV VILLEDA ERT Rachael Report Released Date/Time: Aug 07, 2023 09:32 AM Reporting Lab: [facility] [address] Performing Lab: [facility] [address] [place] [facility] LIPID PANEL,NO N-FASTIN G TRIGLYCERI DE [MASS/VOLU ME] IN SERUM OR PLASMA 124 mg/dL <149 - 149 08/06 Specimen Type: PLASMA No comment entered. Ordering Provider: YOAV VILLEDA Report Released Date/Time: Aug 07, 2023 09:32 AM Reporting Lab: [facility] [address] Performing Lab: [facility] [address] [place] [facility] EXTRA GOLD GEL TUBE EXTRA GOLD GEL TUBE RECEIVED 07/24 Specimen Type: SERUM No comment entered. Ordering Provider: MARGARET RECINOS Report Released Date/Time: Jul 24, 2023 11:22 AM Reporting Lab: [facility] [address] Performing Lab: [facility] [address] [place] [facility] POC CREATINI NE CREATININE [MASS/VOLU ME] IN BLOOD 1.1 mg/dL 0.6 - 1.3 07/24 Specimen Type: BLOOD No comment entered. Ordering Provider: MARGARET RECINOS Report Released Date/Time: Jul 24, 2023 11:28 AM Reporting Lab: [facility] [address] Performing Lab: [facility] [address] [place] [facility] ACT PART THROMBO TIME APTT IN PLATELET POOR PLASMA BY COAGULATIO N ASSAY 34.3 s 25.1 - 36.5 07/24 Specimen Type: PLASMA No comment entered. Ordering Provider: MARGARET RECINOS Report Released Date/Time: Jul 24, 2023 10:52 AM Reporting Lab: [facility] [address] Performing Lab: [facility] [address] [place] [facility] CBC & DIFF LEUKOCYTES [#/VOLUME] IN BLOOD BY AUTOMATED COUNT 8.70 10*3/uL 4.0 - 11.0 07/24 Specimen Type: BLOOD Comment: Automated Differentia l Performed Ordering Provider: MARGARET RECINOS Report Released Date/Time: Jul 24, 2023 10:52 AM Reporting Lab: [facility] [address] Performing Lab: [facility] [address] [place] [facility] CBC & DIFF ERYTHROCYT ES [#/VOLUME] IN BLOOD BY AUTOMATED COUNT 4.85 10*6/uL 4.6 - 6.2 07/24 Specimen Type: BLOOD Comment: Automated Differentia l Performed Ordering Provider: MARGARET RECINOS Report Released Date/Time: Jul 24, 2023 10:52 AM Reporting Lab: [facility] [address] Performing Lab: [facility] [address] [place] [facility] CBC & DIFF HEMOGLOBIN [MASS/VOLU ME] IN BLOOD 15.1 g/dL 13.5 - 17.9 07/24 Specimen Type: BLOOD Comment: Automated Differentia l Performed Ordering Provider: MARGARET RECINOS Report Released Date/Time: Jul 24, 2023 10:52 AM Reporting Lab: [facility] [address] Performing Lab: [facility] [address] [place] [facility] CBC & DIFF HEMATOCRIT [VOLUME FRACTION] OF BLOOD BY AUTOMATED COUNT 45.7 41 - 54 07/24 Specimen Type: BLOOD Comment: Automated Differentia l Performed Ordering Provider: MARGARET RECINOS Report Released Date/Time: Jul 24, 2023 10:52 AM Reporting Lab: [facility] [address] Performing Lab: [facility] [address] [place] [facility] CBC & DIFF MCV [ENTITIC VOLUME] BY AUTOMATED COUNT 94.2 fL 80 - 100 07/24 Specimen Type: BLOOD Comment: Automated Differentia l Performed Ordering Provider: MARGARET RECINOS Report Released Date/Time: Jul 24, 2023 10:52 AM Reporting Lab: [facility] [address] Performing Lab: [facility] [address] [place] [facility] CBC & DIFF MCH [ENTITIC MASS] BY AUTOMATED COUNT 31.1 pg 27 - 33 07/24 Specimen Type: BLOOD Comment: Automated Differentia l Performed Ordering Provider: MARGARET RECINOS Report Released Date/Time: Jul 24, 2023 10:52 AM Reporting Lab: [facility] [address] Performing Lab: [facility] [address] [place] [facility] CBC & DIFF MCHC [MASS/VOLU ME] BY AUTOMATED COUNT 33.0 g/dL 32.0 - 37.5 07/24 Specimen Type: BLOOD Comment: Automated Differentia l Performed Ordering Provider: MARGARET RECINOS Report Released Date/Time: Jul 24, 2023 10:52 AM Reporting Lab: [facility] [address] Performing Lab: [facility] [address] [place] [facility] CBC & DIFF PLATELETS [#/VOLUME] IN BLOOD BY AUTOMATED COUNT 288 10*3/uL 150 - 400 07/24 Specimen Type: BLOOD Comment: Automated Differentia l Performed Ordering Provider: AMRGARET RECINOS Report Released Date/Time: Jul 24, 2023 10:52 AM Reporting Lab: [facility] [address] Performing Lab: [facility] [address] [place] [facility] CBC & DIFF PLATELET MEAN VOLUME [ENTITIC VOLUME] IN BLOOD BY AUTOMATED COUNT 9.8 fL 7.4 - 10.4 07/24 Specimen Type: BLOOD Comment: Automated Differentia l Performed Ordering Provider: MARGARET RECINOS Report Released Date/Time: Jul 24, 2023 10:52 AM Reporting Lab: [facility] [address] Performing Lab: [facility] [address] [place] [facility] CBC & DIFF NEUTROPHIL S/100 LEUKOCYTES IN BLOOD BY MANUAL COUNT 66.1 40.0 - 80.0 07/24 Specimen Type: BLOOD Comment: Automated Differentia l Performed Ordering Provider: MARGARET RECINOS Report Released Date/Time: Jul 24, 2023 10:52 AM Reporting Lab: [facility] [address] Performing Lab: [facility] [address] [place] [facility] CBC & DIFF LYMPHOCYTE S/100 LEUKOCYTES IN BLOOD BY MANUAL COUNT 17.5 15.0 - 45.0 07/24 Specimen Type: BLOOD Comment: Automated Differentia l Performed Ordering Provider: MARGARET RECINOS Report Released Date/Time: Jul 24, 2023 10:52 AM Reporting Lab: [facility] [address] Performing Lab: [facility] [address] [place] [facility] CBC & DIFF MONOCYTES/ 100 LEUKOCYTES IN BLOOD BY AUTOMATED COUNT 12.3 2.0 - 12.0 07/24 H Specimen Type: BLOOD Comment: Automated Differentia l Performed Ordering Provider: MARGARET RECINOS Report Released Date/Time: Jul 24, 2023 10:52 AM Reporting Lab: [facility] [address] Performing Lab: [facility] [address] [place] [facility] CBC & DIFF EOSINOPHIL S/100 LEUKOCYTES IN BLOOD BY AUTOMATED COUNT 2.8 0.0 - 6.0 07/24 Specimen Type: BLOOD Comment: Automated Differentia l Performed Ordering Provider: MARGARET RECINOS Report Released Date/Time: Jul 24, 2023 10:52 AM Reporting Lab: [facility] [address] Performing Lab: [facility] [address] [place] [facility] CBC & DIFF BASOPHILS/ 100 LEUKOCYTES IN BLOOD BY MANUAL COUNT 0.8 0.0 - 2.0 07/24 Specimen Type: BLOOD Comment: Automated Differentia l Performed Ordering Provider: MARGARET RECINOS Report Released Date/Time: Jul 24, 2023 10:52 AM Reporting Lab: [facility] [address] Performing Lab: [facility] [address] [place] [facility] CBC & DIFF ERYTHROCYT E DISTRIBUTI ON WIDTH [RATIO] BY AUTOMATED COUNT 13.8 11.5 - 14.5 07/24 Specimen Type: BLOOD Comment: Automated Differentia l Performed Ordering Provider: MARGARET RECINOS Report Released Date/Time: Jul 24, 2023 10:52 AM Reporting Lab: [facility] [address] Performing Lab: [facility] [address] [place] [facility] CBC & DIFF LYMPHOCYTE S [#/VOLUME] IN BLOOD BY AUTOMATED COUNT 1.52 10*3/uL 1.0 - 4.0 07/24 Specimen Type: BLOOD Comment: Automated Differentia l Performed Ordering Provider: MARGARET RECINOS Report Released Date/Time: Jul 24, 2023 10:52 AM Reporting Lab: [facility] [address] Performing Lab: [facility] [address] [place] [facility] CBC & DIFF MONOCYTES [#/VOLUME] IN BLOOD BY AUTOMATED COUNT 1.07 10*3/uL 0.1 - 1.0 07/24 H Specimen Type: BLOOD Comment: Automated Differentia l Performed Ordering Provider: MARGARET RECINOS Report Released Date/Time: Jul 24, 2023 10:52 AM Reporting Lab: [facility] [address] Performing Lab: [facility] [address] [place] [facility] CBC & DIFF NEUTROPHIL S [#/VOLUME] IN BLOOD BY AUTOMATED COUNT 5.76 10*3/uL 2.0 - 7.7 07/24 Specimen Type: BLOOD Comment: Automated Differentia l Performed Ordering Provider: MARGARET RECINOS Report Released Date/Time: Jul 24, 2023 10:52 AM Reporting Lab: [facility] [address] Performing Lab: [facility] [address] [place] [facility] CBC & DIFF EOSINOPHIL S [#/VOLUME] IN BLOOD BY AUTOMATED COUNT 0.24 10*3/uL 0 - 0.5 07/24 Specimen Type: BLOOD Comment: Automated Differentia l Performed Ordering Provider: MARGARET RECINOS Report Released Date/Time: Jul 24, 2023 10:52 AM Reporting Lab: [facility] [address] Performing Lab: [facility] [address] [place] [facility] CBC & DIFF BASOPHILS [#/VOLUME] IN BLOOD BY AUTOMATED COUNT 0.07 10*3/uL 0 - 0.2 07/24 Specimen Type: BLOOD Comment: Automated Differentia l Performed Ordering Provider: MARGARET RECINOS Report Released Date/Time: Jul 24, 2023 10:52 AM Reporting Lab: [facility] [address] Performing Lab: [facility] [address] [place] [facility] CBC & DIFF IG(META,MY TAMIKA,PRO) 0.5 07/24 Specimen Type: BLOOD Comment: Automated Differentia l Performed Ordering Provider: MARGARET RECINOS Report Released Date/Time: Jul 24, 2023 10:52 AM Reporting Lab: [facility] [address] Performing Lab: [facility] [address] [place] [facility] CBC & DIFF IMMATURE GRANULOCYT ES [PRESENCE] IN BLOOD BY AUTOMATED COUNT 0.04 10*3/uL 0 - 0.1 07/24 Specimen Type: BLOOD Comment: Automated Differentia l Performed Ordering Provider: MARGARET RECINOS Report Released Date/Time: Jul 24, 2023 10:52 AM Reporting Lab: [facility] [address] Performing Lab: [facility] [address] [place] [facility] COMPREHE NSIVE METABOLI C PANEL+MG CREATININE [MASS/VOLU ME] IN SERUM OR PLASMA 1.1 mg/dL 0.7 - 1.2 07/24 Specimen Type: PLASMA No comment entered. Ordering Provider: MARGARET RECINOS Report Released Date/Time: Jul 24, 2023 10:52 AM Reporting Lab: [facility] [address] Performing Lab: [facility] [address] [place] [facility] COMPREHE NSIVE METABOLI C PANEL+MG UREA NITROGEN [MASS/VOLU ME] IN SERUM OR PLASMA 14 mg/dL 8 - 26 07/24 Specimen Type: PLASMA No comment entered. Ordering Provider: MARGARET RECINOS Report Released Date/Time: Jul 24, 2023 10:52 AM Reporting Lab: [facility] [address] Performing Lab: [facility] [address] [place] [facility] COMPREHE NSIVE METABOLI C PANEL+MG GLUCOSE [MASS/VOLU ME] IN SERUM OR PLASMA 94 mg/dL 70 - 100 07/24 Specimen Type: PLASMA No comment entered. Ordering Provider: MARGARET RECINOS Report Released Date/Time: Jul 24, 2023 10:52 AM Reporting Lab: [facility] [address] Performing Lab: [facility] [address] [place] [facility] COMPREHE NSIVE METABOLI C PANEL+MG SODIUM [MOLES/VOL UME] IN SERUM OR PLASMA 139 mmol/L 136 - 145 07/24 Specimen Type: PLASMA No comment entered. Ordering Provider: MARGARET RECINOS Report Released Date/Time: Jul 24, 2023 10:52 AM Reporting Lab: [facility] [address] Performing Lab: [facility] [address] [place] [facility] COMPREHE NSIVE METABOLI C PANEL+MG POTASSIUM [MOLES/VOL UME] IN SERUM OR PLASMA 4.5 mmol/L 3.5 - 5.1 07/24 Specimen Type: PLASMA No comment entered. Ordering Provider: MARGARET RECINOS Report Released Date/Time: Jul 24, 2023 10:52 AM Reporting Lab: [facility] [address] Performing Lab: [facility] [address] [place] [facility] COMPREHE NSIVE METABOLI C PANEL+MG CHLORIDE [MOLES/VOL UME] IN SERUM OR PLASMA 106 mmol/L 98 - 107 07/24 Specimen Type: PLASMA No comment entered. Ordering Provider: MARGARET RECINOS Report Released Date/Time: Jul 24, 2023 10:52 AM Reporting Lab: [facility] [address] Performing Lab: [facility] [address] [place] [facility] COMPREHE NSIVE METABOLI C PANEL+MG CARBON DIOXIDE, TOTAL [MOLES/VOL UME] IN SERUM OR PLASMA 27 mmol/L 22 - 29 07/24 Specimen Type: PLASMA No comment entered. Ordering Provider: MARGARET RECINOS Report Released Date/Time: Jul 24, 2023 10:52 AM Reporting Lab: [facility] [address] Performing Lab: [facility] [address] [place] [facility] COMPREHE NSIVE METABOLI C PANEL+MG CALCIUM [MASS/VOLU ME] IN SERUM OR PLASMA 9.5 mg/dL 8.4 - 10.2 07/24 Specimen Type: PLASMA No comment entered. Ordering Provider: MARGARET RECINOS Report Released Date/Time: Jul 24, 2023 10:52 AM Reporting Lab: [facility] [address] Performing Lab: [facility] [address] [place] [facility] COMPREHE NSIVE METABOLI C PANEL+MG PROTEIN [MASS/VOLU ME] IN SERUM OR PLASMA 7.3 g/dL 6.0 - 8.3 07/24 Specimen Type: PLASMA No comment entered. Ordering Provider: MARGARET RECINOS Report Released Date/Time: Jul 24, 2023 10:52 AM Reporting Lab: [facility] [address] Performing Lab: [facility] [address] [place] [facility] COMPREHE NSIVE METABOLI C PANEL+MG ALBUMIN [MASS/VOLU ME] IN SERUM OR PLASMA 3.9 g/dL 3.5 - 5.2 07/24 Specimen Type: PLASMA No comment entered. Ordering Provider: MARGARET RECINOS Report Released Date/Time: Jul 24, 2023 10:52 AM Reporting Lab: [facility] [address] Performing Lab: [facility] [address] [place] [facility] COMPREHE NSIVE METABOLI C PANEL+MG BILIRUBIN. TOTAL [MASS/VOLU ME] IN SERUM OR PLASMA 1.7 mg/dL 0.2 - 1.2 07/24 H Specimen Type: PLASMA No comment entered. Ordering Provider: MARGARET RECINOS Report Released Date/Time: Jul 24, 2023 10:52 AM Reporting Lab: [facility] [address] Performing Lab: [facility] [address] [place] [facility] COMPREHE NSIVE METABOLI C PANEL+MG MAGNESIUM [MASS/VOLU ME] IN SERUM OR PLASMA 2.1 mg/dL 1.6 - 2.6 07/24 Specimen Type: PLASMA No comment entered. Ordering Provider: MARGARET RECINOS Report Released Date/Time: Jul 24, 2023 10:52 AM Reporting Lab: [facility] [address] Performing Lab: [facility] [address] [place] [facility] COMPREHE NSIVE METABOLI C PANEL+MG ANION GAP IN SERUM OR PLASMA 6 mmol/L 5 - 15 07/24 Specimen Type: PLASMA No comment entered. Ordering Provider: MARGARET RECINOS Report Released Date/Time: Jul 24, 2023 10:52 AM Reporting Lab: [facility] [address] Performing Lab: [facility] [address] [place] [facility] COMPREHE NSIVE METABOLI C PANEL+MG ALKALINE PHOSPHATAS E [ENZYMATIC ACTIVITY/V OLUME] IN SERUM OR PLASMA 118 U/L 40 - 150 07/24 Specimen Type: PLASMA No comment entered. Ordering Provider: MARGARET RECINOS Report Released Date/Time: Jul 24, 2023 10:52 AM Reporting Lab: [facility] [address] Performing Lab: [facility] [address] [place] [facility] COMPREHE NSIVE METABOLI C PANEL+MG ALANINE AMINOTRANS FERASE [ENZYMATIC ACTIVITY/V OLUME] IN SERUM OR PLASMA 19 U/L <55 - 55 07/24 Specimen Type: PLASMA No comment entered. Ordering Provider: MARGARET RECINOS Report Released Date/Time: Jul 24, 2023 10:52 AM Reporting Lab: [facility] [address] Performing Lab: [facility] [address] [place] [facility] COMPREHE NSIVE METABOLI C PANEL+MG ASPARTATE AMINOTRANS FERASE [ENZYMATIC ACTIVITY/V OLUME] IN SERUM OR PLASMA 23 U/L <34 - 34 07/24 Specimen Type: PLASMA No comment entered. Ordering Provider: MARGARET RECINOS Report Released Date/Time: Jul 24, 2023 10:52 AM Reporting Lab: [facility] [address] Performing Lab: [facility] [address] [facility] COMPREHE NSIVE METABOLI C PANEL+MG GLOMERULAR FILTRATION RATE/1.73 SQ M.PREDICTE D [VOLUME RATE/AREA] IN SERUM, PLASMA OR BLOOD BY CREATININE -BASED FORMULA (CKD-EPI 2020) 67 60 07/24 Specimen Type: PLASMA No comment entered. Ordering Provider: MARGARET RECINOS Report Released Date/Time: Jul 24, 2023 10:52 AM Reporting Lab: [facility] [id number] Performing Lab: [facility] [phone] [place] [facility] COMPREHE NSIVE METABOLI C PANEL+MG BILIRUBIN. DIRECT [MASS/VOLU ME] IN SERUM OR PLASMA 0.5 mg/dL <0.5 - 0.5 07/24 Specimen Type: PLASMA No comment entered. Ordering Provider: MARGARET RECINOS Report Released Date/Time: Jul 24, 2023 10:52 AM Reporting Lab: [facility] [id number] Performing Lab: [facility] [address] [place] [facility] PROTHROM BIN TIME/INR INR IN PLATELET POOR PLASMA BY COAGULATIO N ASSAY 1.0 0.8 - 1.1 07/24 Specimen Type: PLASMA No comment entered. Ordering Provider: MARGARET RECINOS Report Released Date/Time: Jul 24, 2023 10:52 AM Reporting Lab: [facility] [id number] Performing Lab: [facility] [id number] [place] [facility] PROTHROM BIN TIME/INR PROTHROMBI N TIME (PT) 12.2 s 9.4 - 12.5 07/24 Specimen Type: PLASMA No comment entered. Ordering Provider: MARGARET RECINOS Report Released Date/Time: Jul 24, 2023 10:52 AM Reporting Lab: [facility] [address] Performing Lab: [facility] [address] [place] [facility] BASIC METABOLI C PANEL+MG CREATININE [MASS/VOLU ME] IN SERUM OR PLASMA 1.0 mg/dL 0.7 - 1.2 02/05 Specimen Type: PLASMA No comment entered. Ordering Provider: MAGALYS BUCIO Report Released Date/Time: Jan 02, 2022 11:30 AM Reporting Lab: [facility] [address] Performing Lab: [facility] [address] [place] [facility] BASIC METABOLI C PANEL+MG UREA NITROGEN [MASS/VOLU ME] IN SERUM OR PLASMA 16 mg/dL 8 - 02/05 Specimen Type: PLASMA No comment entered. Ordering Provider: MAGALYS BUCIO Report Released Date/Time: Jan 02, 2022 11:30 AM Reporting Lab: [facility] [address] Performing Lab: [facility] [address] [place] [facility] BASIC METABOLI C PANEL+MG GLUCOSE [MASS/VOLU ME] IN SERUM OR PLASMA 78 mg/dL 70 - 100 02/05 Specimen Type: PLASMA No comment entered. Ordering Provider: MAGALYS BUCIO Report Released Date/Time: Jan 02, 2022 11:30 AM Reporting Lab: [facility] [address] Performing Lab: [facility] [address] [place] [facility] BASIC METABOLI C PANEL+MG SODIUM [MOLES/VOL UME] IN SERUM OR PLASMA 140 mmol/L 136 - 145 02/05 Specimen Type: PLASMA No comment entered. Ordering Provider: MAGALYS BUCIO Report Released Date/Time: Jan 02, 2022 11:30 AM Reporting Lab: [facility] [address] Performing Lab: [facility] [address] [place] [facility] BASIC METABOLI C PANEL+MG POTASSIUM [MOLES/VOL UME] IN SERUM OR PLASMA 4.4 mmol/L 3.5 - 5.1 02/05 Specimen Type: PLASMA No comment entered. Ordering Provider: MAGALYS BUCIO Report Released Date/Time: Jan 02, 2022 11:30 AM Reporting Lab: [facility] [address] Performing Lab: [facility] [address] [place] [facility] BASIC METABOLI C PANEL+MG CHLORIDE [MOLES/VOL UME] IN SERUM OR PLASMA 105 mmol/L 98 - 107 02/05 Specimen Type: PLASMA No comment entered. Ordering Provider: MAGALYS BUCIO Report Released Date/Time: Jan 02, 2022 11:30 AM Reporting Lab: [facility] [address] Performing Lab: [facility] [address] [place] [facility] METABOLI C PANEL+MG CARBON DIOXIDE, TOTAL [MOLES/VOL UME] IN SERUM OR PLASMA 26 mmol/L 22 - 29 02/05 Specimen Type: PLASMA No comment entered. Ordering Provider: MAGALYS BUCIO Report Released Date/Time: Jan 02, 2022 11:30 AM Reporting Lab: [facility] [address] Performing Lab: [facility] [address] [place] [facility] BASIC METABOLI C PANEL+MG CALCIUM [MASS/VOLU ME] IN SERUM OR PLASMA 9.4 mg/dL 8.4 - 10.2 02/05 Specimen Type: PLASMA No comment entered. Ordering Provider: MAGALYS BUCIO Report Released Date/Time: Jan 02, 2022 11:30 AM Reporting Lab: [facility] [address] Performing Lab: [facility] [address] [place] [facility] BASIC METABOLI C PANEL+MG MAGNESIUM [MASS/VOLU ME] IN SERUM OR PLASMA 2.0 mg/dL 1.6 - 2.6 02/05 Specimen Type: PLASMA No comment entered. Ordering Provider: MAGALYS BUCIO Report Released Date/Time: Jan 02, 2022 11:30 AM Reporting Lab: [facility] [address] Performing Lab: [facility] [address] [place] [facility] BASIC METABOLI C PANEL+MG ANION GAP IN SERUM OR PLASMA 9 mmol/L 5 - 15 02/05 Specimen Type: PLASMA No comment entered. Ordering Provider: MAGALYS BUCIO Report Released Date/Time: Jan 02, 2022 11:30 AM Reporting Lab: [facility] [address] Performing Lab: [facility] [address] [place] [facility] METABOLI C PANEL+MG GLOMERULAR FILTRATION RATE/1.73 SQ M.PREDICTE D [VOLUME RATE/AREA] IN SERUM, PLASMA OR BLOOD BY CREATININE -BASED FORMULA (CKD-EPI 2020) 75 60 02/05 Specimen Type: PLASMA No comment entered. Ordering Provider: MAGALYS BUCIO Report Released Date/Time: Jan 02, 2022 11:30 AM Reporting Lab: [facility] [address] Performing Lab: [facility] [address] [place] [facility] CBC LEUKOCYTES [#/VOLUME] IN BLOOD BY AUTOMATED COUNT 8.96 10*3/uL 4.0 - 11.0 02/05 Specimen Type: BLOOD No comment entered. Ordering Provider: MAGALYS BUCIO Report Released Date/Time: Jan 02, 2022 11:30 AM Reporting Lab: [facility] [address] Performing Lab: [facility] [address] [place] [facility] CBC ERYTHROCYT ES [#/VOLUME] IN BLOOD BY AUTOMATED COUNT 4.71 10*6/uL 4.6 - 6.2 02/05 Specimen Type: BLOOD No comment entered. Ordering Provider: MAGALYS BUCIO Report Released Date/Time: Jan 02, 2022 11:30 AM Reporting Lab: [facility] [address] Performing Lab: [facility] [address] [place] [facility] CBC HEMOGLOBIN [MASS/VOLU ME] IN BLOOD 15.0 g/dL 13.5 - 17.9 02/05 Specimen Type: BLOOD No comment entered. Ordering Provider: MAGALYS BUCIO Report Released Date/Time: Jan 02, 2022 11:30 AM Reporting Lab: [facility] [address] Performing Lab: [facility] [address] [place] [facility] CBC HEMATOCRIT [VOLUME FRACTION] OF BLOOD BY AUTOMATED COUNT 45.0 41 - 54 02/05 Specimen Type: BLOOD No comment entered. Ordering Provider: MAGALYS BUCIO Report Released Date/Time: Jan 02, 2022 11:30 AM Reporting Lab: [facility] [address] Performing Lab: [facility] [address] [place] [facility] CBC MCV [ENTITIC VOLUME] BY AUTOMATED COUNT 95.5 fL 80 - 100 02/05 Specimen Type: BLOOD No comment entered. Ordering Provider: MAGALYS BUCIO Report Released Date/Time: Jan 02, 2022 11:30 AM Reporting Lab: [facility] [address] Performing Lab: [facility] [address] [place] [facility] CBC MCH [ENTITIC MASS] BY AUTOMATED COUNT 31.8 pg 27 - 33 02/05 Specimen Type: BLOOD No comment entered. Ordering Provider: MAGALYS BUCIO Report Released Date/Time: Jan 02, 2022 11:30 AM Reporting Lab: [facility] [address] Performing Lab: [facility] [address] [place] [facility] CBC MCHC [MASS/VOLU ME] BY AUTOMATED COUNT 33.3 g/dL 32.0 - 37.5 02/05 Specimen Type: BLOOD No comment entered. Ordering Provider: MAGALYS BUCIO Report Released Date/Time: Jan 02, 2022 11:30 AM Reporting Lab: [facility] [address] Performing Lab: [facility] [address] [place] [facility] CBC PLATELETS [#/VOLUME] IN BLOOD BY AUTOMATED COUNT 271 10*3/uL 150 - 400 02/05 Specimen Type: BLOOD No comment entered. Ordering Provider: MAGALYS BUCIO Report Released Date/Time: Jan 02, 2022 11:30 AM Reporting Lab: [facility] [address] Performing Lab: [facility] [address] [place] [facility] CBC PLATELET MEAN VOLUME [ENTITIC VOLUME] IN BLOOD BY AUTOMATED COUNT 9.6 fL 7.4 - 10.4 02/05 Specimen Type: BLOOD No comment entered. Ordering Provider: MAGALYS BUCIO Report Released Date/Time: Jan 02, 2022 11:30 AM Reporting Lab: [facility] [address] Performing Lab: [facility] [address] [place] [facility] CBC ERYTHROCYT E DISTRIBUTI ON WIDTH [RATIO] BY AUTOMATED COUNT 13.5 11.5 - 14.5 02/05 Specimen Type: BLOOD No comment entered. Ordering Provider: MAGALYS BUCIO Report Released Date/Time: Jan 02, 2022 11:30 AM Reporting Lab: [facility] [address] Performing Lab: [facility] [address] [facility] Vital Signs Combined list of inpatient and outpatient Vital Signs from Department of Defense and Veterans Affairs, ranging from 12 months to all on record, depending upon the facility. Vital Sign Value Date Comments Source SYSTOLIC BLOOD PRESSURE 118 10/17/2023 13:01:15 [facility] DIASTOLIC BLOOD PRESSURE 55 10/17/2023 13:01:15 [facility] PULSE OXIMETRY 95 10/17/2023 13:01:15 [place] [facility] TEMPERATURE 98.5 10/17/2023 13:01:15 [place] [facility] PULSE 66 10/17/2023 13:01:15 [facility] [place] [facility] RESPIRATION 16 10/17/2023 13:01:15 [place] [facility] SYSTOLIC BLOOD PRESSURE 160 09/23/2023 09:17:00 [facility] DIASTOLIC BLOOD PRESSURE 89 09/23/2023 09:17:00 [facility] PULSE OXIMETRY 69 09/23/2023 09:17:00 [facility] WEIGHT 183 09/23/2023 09:17:00 [facility] [place] [facility] BMI 29kg/m2 09/23/2023 09:17:00 [facility] [place] [facility] PAIN 0 09/23/2023 09:17:00 [facility] [place] [facility] HEIGHT 67.25 09/23/2023 09:17:00 [facility] [place] [facility] TEMPERATURE 97.5 09/23/2023 09:17:00 [place] [facility] PULSE 71 09/23/2023 09:17:00 [facility] [place] [facility] SYSTOLIC BLOOD PRESSURE 160 08/07/2023 08:58:05 [facility] DIASTOLIC BLOOD PRESSURE 89 08/07/2023 08:58:05 [facility] PULSE OXIMETRY 96 08/07/2023 08:58:05 [facility] PAIN 0 08/07/2023 08:58:05 [facility] [place] [facility] TEMPERATURE 97.8 08/07/2023 08:58:05 [place] [facility] PULSE 62 08/07/2023 08:58:05 [facility] [place] [facility] RESPIRATION 16 08/07/2023 08:58:05 [place] [facility] SYSTOLIC BLOOD PRESSURE 127 07/24/2023 10:32:00 [facility] DIASTOLIC BLOOD PRESSURE 76 07/24/2023 10:32:00 [facility] PULSE OXIMETRY 96 07/24/2023 10:32:00 [facility] [facility] PAIN 0 07/24/2023 10:32:00 [facility] TEMPER[facility] 98.1 07/24/2023 10:32:00 [facility] PULSE 63 07/24/2023 10:32:00 [facility] 16 07/24/2023 10:32:00 [facility] Encounters Combined list of: 1) Encounters from Department of [facility] Affairs facilities going back up to thelast 18 months. 2) Encounters from the Department of [facility] facilities going back up to 280 months. Location Location Details Encounter Type Encounter Number Reason For Visit Attending Provider ADM Date DC Date Status Disposition Source [facility] Outpatient Encounter [id number] 09/10 [facility] Outpatient Encounter [id number] 09/10 [facility] REM INTERROG [place] PM/[place] [id number] Diagnos is: ICD-10- CM Z95.0 Presenc e of cardiac pacemak er
SA KRISTIN NDRA L 09/11 [facility] PM DEVICE PROGR EVAL DUAL [id number] Diagnos is: ICD-10- CM Z95.0 Presenc e of cardiac pacemak er
DORENE UNGER A 11/27 [facility] Outpatient Encounter [id number] 12/12 [facility] OFFICE O/P EST LOW 20-29 MIN [id number] Diagnos is: ICD-10- CM Z00.00 Encntr for general adult medical exam w/o abnorma l finding s
KEVYN WETZEL A 02/05 [facility] Outpatient Encounter [id number] 03/13 [facility] [place] [facility] Outpatient Encounter [id number] 06/19 [place] [facility] Outpatient Encounter [id number] 06/22 [facility] [place] [facility] REM INTERROG EVL PM/LDLS PM [id number] Diagnos is: ICD-10- CM I48.3 Typical atrial flutter
AIME RAZA T 06/22 [facility] [place] [facility] HEARING AID REPAIR/MOD IFYING [id number] Diagnos is: ICD-10- CM H90.3 Sensori neural hearing loss, bilater al
YAMILETHSAMY M 07/22 [facility] Outpatient Encounter [id number] Scotty JOYA R 07/24 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<b r/> ALESSANDRA RECINOS T 07/24 [facility] Outpatient Encounter [id number] 07/29 [facility] OFF/OP CNSLTJ NEW/EST MOD 40 [id number] Diagnos is: ICD-10- CM G45.3 Amauros is fugax<b r/> EXCONDE,RU PERT E 08/06 [facility] Outpatient Encounter [id number] LEXIS SIMS R 08/12 [facility] Encounter [id number] 09/08 [facility] INJ PERFLUTREN LIP MICROS,ML [id number] Diagnos is: ICD-10- CM Z95.0 Presenc e of cardiac pacemak er
DANNY SMART NZI 09/22 [facility] ELECTROCAR DIOGRAM REPORT [id number] Diagnos is: ICD-10- CM Z13.6 Encount er for screeni ng for cardiov ascular disorde rs
Karin ZABALA O 09/22 [facility] INTERROG EVL PM/[place] [id number] Diagnos is: ICD-10- CM I45.5 Other specifi ed heart block<b r/> AB BARBER BIE L 09/22 [facility] OFF/OP CONSLTJ NEW/[place] HI 55 [id number] Diagnos is: ICD-10- CM I45.5 Other specifi ed heart block<b r/> BARBERAB BIE L 09/22 [facility] Outpatient Encounter [id number] 10/01 [facility] EMR DPT VST MAYX REQ PHY/QHP [id number] Diagnos is: ICD-10- CM J32.8 Other chronic sinusit is
LELAND PONCE IN J 10/16 [facility] Outpatient Encounter [id number] CYNTHIA MAGANA 10/16 [facility] Outpatient Encounter [id number] 10/16 [facility] HEARING AID REPAIR/MOD IFYING [id number] Diagnos is: ICD-10- CM H90.A21 Snsrnrl hear loss, uni, r ear, with rstrcd hear cntra side
Angeli KENDALL 11/01 [place] [facility] [place] [facility] Outpatient Encounter [id number] SHAN ORDONEZ 11/16 [place] [facility] [place] [facility] Outpatient Encounter [id number] 12/01 [place] [facility] [place] [facility] SELF-MGMT EDUC & TRAIN 1 [place] [id number] Diagnos is: ICD-10- CM H90.A21 Snsrnrl hear loss, uni, r ear, with rstrcd hear cntra side
SAMY CARSON 12/06 [facility] [place] [facility] Outpatient Encounter [id number] 12/14 [place] [facility] [place] [facility] Outpatient Encounter [id number] 12/[address] [place] [address] [facility] [place] [facility] Outpatient Encounter [id number] 01/[address] [place] [address] [facility] [place] [facility] Outpatient Encounter [id number] 01/19 [place] [facility] Outpatient Encounter [id number] 01/19 [facility] Social History Combined list of available smoking, tobacco, and other social history from Department of Defense and Veterans Affairs facilities. Social History Type Response Date Comment Sour e Tobacco smoking status NHIS VA-TOBACCO FORMER USER 02/05/2023 [facility] History of tobacco use DE-TOBACCO QUIT 15 YRS OR MORE 02/05/2023 [facility] History of tobacco use DE-TOBACCO QUIT 15 YRS OR MORE 01/02/2022 [facility] History of tobacco use VA-TOBACCO FORMER USER 11/08/2020 [facility] History of tobacco use VA-TOBACCO QUIT 15 YRS OR MORE 11/18/2018 [facility] History of tobacco use QUIT TOBACCO >7 YEARS AGO 10/27/2017 [facility] History of tobacco use NON-TOBACCO USER 07/21/2017 [facility] History of tobacco use FORMER TOBACCO USER 7Y OR GREATER 09/02/2016 [facility] History of tobacco use FORMER TOBACCO USER 7Y OR GREATER 08/06/2015 [facility] History of tobacco use LIFETIME NON-TOBACCO USER 07/07/2014 [facility]
--- OUTSIDE RECORDS SUMMARY | 2024-03-01 08:22 | XMS_ITS ---
Author Organization [facility] Address [address] [place] [address] Care Team Providers Care Rn Internship Name Role Phone Unavailable Unavailable Unavailable Surgery Details Not on file Complications Check Surgery Details section. Procedure Estimated Blood Loss Check Surgery Details section. Procedure Findings Check Surgery Details section. Procedure Specimens Taken Check Surgery Details section.
--- OUTSIDE RECORDS SUMMARY | 2024-03-01 08:23 | XMS_ITS | Referral Summary ---
Author Organization [place] Address [address] [place] [address]. [place] [address] Care Team Providers Care Loan Examiner Name Role Phone Chandana Fleming MD Primary Care Provider [phone] [phone] Allergies Active Allergy Reactions Criticality Noted Date Comments No Known Drug Allergy 02/21/2003 Medications Medication Sig Dispensed Refills Start Date End Date Status Saw [place] 80 MG CAPS A ctive GINSENG PO Take by mouth 2 times daily Active HAWTHORN PO Take by mouth 2 times daily Active Ginkgo Biloba (GINKGO PO) Take by mouth 2 times daily Active NONFORMULARY [place]-zyme Active Active Problems Problem Noted Date Diagnosed [...] T Respiratory Rate 16 06/01/2014 8:01 PM NURSING OFFICER Oxygen Saturation 95% 04/08/2017 9:05 AM NURSING OFFICER Inhaled Oxygen Concentration - - Weight 78.9 kg (174 lb) 11/04/2018 1:12 PM CDT Height 172.7 cm (5' 8) 11/04/2018 1:12 PM CDT Body Mass Index 26.46 11/04/2018 1:12 PM CDT Plan of Treatment Not on file Medical Devices Implanted Type Area Insurance Collector Device Identifier Shelf Expiration Date Model / Serial / Lot [employer]* 2087tc Tendril Sts [id number] Implanted:01/30 (Quantity not on file) Leads [employer] 2087TC TENDRIL STS / [id number] / [employer]* 2087tc Tendril Sts [id number] Implanted:01/30 (Quantity not on file) Leads [employer] 2087TC T[address]IL [address]S / [id number] / [employer]* [address] [id number] Implanted:01/30 (Quantity not on file) Pacemaker [employer] [address] / [id number] / Advance Directives For more information, please contact: [phone] * Full Code (Latest Code Status on File) Date Activated Date Inactivated Comments 02/16/2013 11:22 AM * Full Code Date Activated Date Inactivated Comments 02/14/2013 11:17 PM 02/16/2013 11:22 AM * Full Code Date Activated Date Inactivated Comments 07/31/2011 8:42 AM 02/14/2013 11:17 PM * Full Code Date Activated Date Inactivated Comments 07/30/2011 4:29 PM 07/31/2011 8:42 AM Care Teams Loan Examiner Relationship Specialty Start Date End Date Chandana Fleming MD [facility] [id number] [place] [id number] PCP - General Family Practice 02/03/19
--- OUTSIDE RECORDS SUMMARY | 2024-03-01 08:23 | XMS_ITS | Clinical Summary ---
Author Organization [place] Address [address] [place] [address]. [place] [address] Care Team Providers Care Termite Helper Name Role Phone Chandana Fleming MD Primary Care Provider [phone] [phone] Allergies Active Allergy Reactions Criticality Noted Date Comments No Known Drug Allergy 02/21/2003 Medications Medication Sig Dispensed Refills Start Date End Date Status Saw [place] 80 MG CAPS A ctive GINSENG PO Take by mouth 2 times daily Active HAWTHORN PO Take by mouth 2 times daily Active Ginkgo Biloba (GINKGO PO) Take by mouth 2 times daily Active NONFORMULARY [place]-zyme Active Active Problems Problem Noted Date Diagnosed [...] T Respiratory Rate 16 06/01/2014 8:01 PM FILM CREW MEMBER Oxygen Saturation 95% 04/08/2017 9:05 AM FILM CREW MEMBER Inhaled Oxygen Concentration - - Weight 78.9 kg (174 lb) 11/04/2018 1:12 PM CDT Height 172.7 cm (5' 8) 11/04/2018 1:12 PM CDT Body Mass Index 26.46 11/04/2018 1:12 PM CDT Plan of Treatment Not on file Medical Devices Implanted Type Area Quarter Supervisor Device Identifier Shelf Expiration Date Model / Serial / Lot [employer]* 2087tc Tendril Sts [id number] Implanted:01/30 (Quantity not on file) Leads [employer] 2087TC TENDRIL STS / [id number] / [employer]* 2087tc Tendril Sts [id number] Implanted:01/30 (Quantity not on file) Leads [employer] 2087TC TENDRIL STS / [id number] / [employer]* [address] [id number] Implanted:01/30 (Quantity not on file) Pacemaker [employer] [address] / [id number] / Advance Directives For more information, please contact: [phone] * Full Code (Latest Code Status on File) Date Activated Date Inactivated Comments 02/16/2013 11:22 AM * Full Code Date Activated Date Inactivated Comments 02/14/2013 11:17 PM 02/16/2013 11:22 AM * Full Code Date Activated Date Inactivated Comments 07/31/2011 8:42 AM 02/14/2013 11:17 PM * Full Code Date Activated Date Inactivated Comments 07/30/2011 4:29 PM 07/31/2011 8:42 AM Care Teams Termite Helper Relationship Specialty Start Date End Date Chandana Fleming MD [facility] [id number] [place] [id number] PCP - General Family Practice 02/03/19
--- OUTSIDE RECORDS SUMMARY | 2024-03-01 08:23 | XMS_ITS | Encounter Summary ---
Author Organization [place] Address [address] [place] [address]. [place] [address] Care Team Providers Care Recreation Facilities Supervisor Name Role Phone [facility] Primary Care Provider + Maura Jackson MD Primary Care Provider [phone] -[phone] Jorge Douglas MD Unavailable Unavailable Encounter Details Date Type Department Care Team (Late st Contact Info) Description 04/11/2013 Office Visit-[facility] [address] [place] [address] Jorge Douglas MD Social History [...] old Referring Physician: MAURA JACKSON Referring Clinic: [facility] CURRENT DIAGNOSES 1. 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 [...] on filedocumented in this encounter Care Teams Recreation Facilities Supervisor Relationship Specialty Start Date End Date [facility] [address] [place] [id number] PCP - General 07/30/11 02/02/19 Maura Jackson MD [facility] [id number] [place] [id number] PCP - General Family Practice 02/03/19 Jorge Douglas MD Assigned Heart and Vascular Provider 03/23/20 05/25/21 documented as of this encounter
== END 2024-03-01 08:32 | disposition home or self-care (01) ==
PROVIDERS: Emergency Provider Emergency Medicine Emergency Medical Services
DX: R33.9 Retention of urine, unspecified (principal)
CPT/HCPCS: 99282; 99284

== ENCOUNTER 2024-03-03 14:12 | Emergency (ER) | payer OTHER, SELFPAY ==
--- OUTSIDE RECORDS SUMMARY | 2024-03-03 14:18 | XMS_ITS | CCD ---
Author Organization [facility] [place] [address] [place] [address] Care Team Providers Care Nursing Scheduler Name Role Phone Unavailable Primary Care Provider [...]
--- OUTSIDE RECORDS SUMMARY | 2024-03-03 14:18 | XMS_ITS | Encounter Summary ---
Author Organization [facility] Address [address] [place] [address] Care Team Providers Care End Matcher Name Role Phone Unavailable Primary Care Provider Unavailabl e Prior Encounters Date Type Department Care Team Description 06/20/2019 Converted CPS Chart Documents [facility] [address] [place] [address] <No scans attached> 06/20/2019 Converted 13x Documents [facility] [address] [place] [address] <No scans attached> Plan of [...] 5 ENDODONTIC THERAPY, PREMOLAR TOOTH (EXCLUDING FINAL GNOSTICISM) Routine 07/14/2019 1:00 AM MST 5 PULP [...]
--- OUTSIDE RECORDS SUMMARY | 2024-03-03 14:18 | XMS_ITS | Clinical Summary ---
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 ) 12/18/2023 Transcribe Orders [facility] [address] [place] [address] Shankar Zaragoza MD from Last [...] Comments Blood Pressure 106/64 07/18/2010 9:30 AM GLUING MACHINE OPERATOR Pulse - - Temperature 36.8 ??C (98.2 ??F) 07/18/2010 9:30 AM CS T Respiratory Rate - - Oxygen Saturation - - Inhaled Oxygen Concentration - - Weight 82.6 kg (182 lb) 07/18/2010 9:30 AM GLUING MACHINE OPERATOR Height 172.7 cm (5' 8) 07/01/2010 9:18 AM GLUING MACHINE OPERATOR Body Mass Index 27.67 07/01/2010 9:18 AM GLUING MACHINE OPERATOR Plan of Treatment Health Maintenance Due Date [...] Influenza for age 65+ 01/31/2024 Care Teams School Bus Driver/Mechanic Relationship Specialty [place] [address] [place] [address] PCP - General Family Practice 07/01/10
--- OUTSIDE RECORDS SUMMARY | 2024-03-03 14:18 | XMS_ITS | Clinical Summary ---
Author Organization [facility] [place] [address] [place] [address] Care Team Providers Care Career Education Teacher Name Role Phone Unavailable Primary Care [...]
--- OUTSIDE RECORDS SUMMARY | 2024-03-03 14:18 | XMS_ITS | Referral Summary ---
Author Organization [facility] [place] [address] [place] [address] Care Team Providers Care Launch Commander [employer] Name Role Phone Unavailable Primary Care Provider [...]
--- OUTSIDE RECORDS SUMMARY | 2024-03-03 14:18 | XMS_ITS ---
Author Organization [facility] Address [address] [place] [address] Care Team Providers Care Manager Home Improvement Name Role Phone Unavailable Unavailable Unavailable Surgery Details Not on file Complications Check Surgery Details section. Procedure Estimated Blood Loss Check Surgery Details section. Procedure Findings Check Surgery Details section. Procedure Specimens Taken Check Surgery Details section.
--- OUTSIDE RECORDS SUMMARY | 2024-03-03 14:19 | XMS_ITS | Clinical Summary ---
Author Organization [facility] Address [address] [place] [address]. [place] [address] Care Team Providers Care Director Of Education And Training Name Role Phone Chandana Fleming MD Primary Care Provider [phone] Allergies Active Allergy Reactions Criticality Noted Date Comments No Known Drug Allergy 02/21/2003 Medications Medication Sig Dispensed Refills Start Date End Date Status Saw [place] 80 MG CAPS A ctive GINSENG PO Take by mouth 2 times daily Active HAWTHORN PO Take by mouth 2 times daily Active Ginkgo Biloba (GINKGO PO) Take by mouth 2 times daily Active NONFORMULARY Kincaid-zyme Active Active Problems Problem Noted Date Diagnosed [...] T Respiratory Rate 16 06/01/2014 8:01 PM SOCIAL PROBLEMS SPECIALIST Oxygen Saturation 95% 04/08/2017 9:05 AM SOCIAL PROBLEMS SPECIALIST Inhaled Oxygen Concentration - - Weight 78.9 kg (174 lb) 11/04/2018 1:12 PM CDT Height 172.7 cm (5' 8) 11/04/2018 1:12 PM CDT Body Mass Index 26.46 11/04/2018 1:12 PM CDT Plan of Treatment Not on file Medical Devices Implanted Type Area Verse Writer Device Identifier Shelf Expiration Date Model / Serial / Lot [employer]* 2087tc Tendril Sts [id number] Implanted:01/30 (Quantity not on file) Leads [employer] 2087TC TENDRIL STS / [id number] / [employer] 2087tc Tendril Sts [id number] Implanted:01/30 (Quantity not on file) Leads [employer] 2087TC TENDRIL STS / [id number] / [employer]* [address] [id number] Implanted:01/30 (Quantity not on file) Pacemaker [employer] [address] / [id number] / Advance Directives For more information, please contact: [phone] * Full Code (Latest Code Status on File) Date Activated Date Inactivated Comments 02/16/2013 11:22 AM * Full Code Date Activated Date Inactivated Comments 02/14/2013 11:17 PM 02/16/2013 11:22 AM * Full Code Date Activated Date Inactivated Comments 07/31/2011 8:42 AM 02/14/2013 11:17 PM * Full Code Date Activated Date Inactivated Comments 07/30/2011 4:29 PM 07/31/2011 8:42 AM Care Teams Director Of Education And Training Relationship Specialty Start Date End Date Chandana Fleming MD [facility] [id number] [place] [id number] PCP - General Family Practice 02/03/19
--- OUTSIDE RECORDS SUMMARY | 2024-03-03 14:19 | XMS_ITS | Encounter Summary ---
Author Organization [facility] Address [address] [place] [address]. [place] [address] Care Team Providers Care Media Planner Name Role Phone [facility] Primary Care Provider + Maura Jackson MD Primary Care Provider [phone] Jorge Douglas MD Unavailable Unavailable Encounter Details Date Type Department Care Team (Late st Contact Info) Description 04/11/2013 Office Visit-[facility] [address] [place] [address] Jorge Douglas MD Social History [...] old Referring Physician: MAURA JACKSON Referring Clinic: [facility] CURRENT DIAGNOSES 1. Pacemaker/cardiac insitu, V45.01 [...] on filedocumented in this encounter Care Teams Media Planner Relationship Specialty Start Date End Date [facility] [address] [place] [phone] PCP - General 07/30/11 02/02/19 Maura Jackson MD [facility] [id number] [place] [address] PCP - General Family Practice 02/03/19 Jorge Douglas MD Assigned Heart and Vascular Provider 03/23/20 05/25/21 documented as of this encounter
--- OUTSIDE RECORDS SUMMARY | 2024-03-03 14:19 | XMS_ITS | Continuity of Care Document ---
Author Name [facility] Organization 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 Unavailable Unavailable Problems Combined list of problems from Department of Defense and Veterans Affairs facilities. It does not include entries that were removed or entered in error. Problem Status Onset Date Problem Type Date of Resolution Comments Source Bilateral hearing loss Active 06/01/19 15 Condition Jul 07, 2014 Entered By: BEN VIVEROS Comment: has hearing aids from [facility] History of appendectomy Active 06/01/[address] [facility] s/p choley Active 06/01/[address] 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 Chronic peptic ulcer without hemorrhage, without perforation AND without obstruction Active 06/01/18 86 Condition Jul 07, 2014 Entered By: BEN VIVEROS Comment: s/p partial gastrectomy, has dumping syndrome [facility] Atrial Flutter (SCT [id number]) Active Condition [facility] Cardiac pacemaker in situ Active Condition [facility] Cardiomyopathy Active Condition [facility] Elevated PSA Active Condition [facility] Gilbert's syndrome Active Condition [facility] Hearing Loss (SCT 39718501) Active Condition [facility] History of peptic ulcer Active Condition Dec 04, 2017 Entered By: MEHREEN ARCHIBALD Comment: partial gastectomy and dumping syndrome [facility] Syncope and Collapse (SCT [id number]) Active Condition Dec 04, 2017 Entered By: MEHREEN ARCHIBALD Comment: due to complete heart block [facility] Typical atrial flutter Active Condition [facility] Diagnosis: ICD-10-CM H90.A21 Snsrnrl hear loss, uni, r ear, with rstrcd hear cntra side Active Diagnosis [facility] Diagnosis: ICD-10-CM J32.8 Other chronic sinusitis Active Diagnosis [facility] Diagnosis: ICD-10-CM I45.5 Other specified heart block Active Diagnosis [facility] Diagnosis: ICD-10-CM Z13.6 Encounter for screening for cardiovascular disorders Active Diagnosis [facility] Diagnosis: ICD-10-CM Z95.0 Presence of cardiac pacemaker Active Diagnosis 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 Diagnosis: ICD-10-CM H90.3 Sensorineural hearing loss, bilateral Active Diagnosis [facility] Diagnosis: ICD-10-CM I48.3 Typical atrial flutter Active Diagnosis [facility] Diagnosis: ICD-10-CM Z00.00 Encntr for general adult medical exam w/o abnormal findings Active Diagnosis [facility] Medications Combined list of outpatient [...] Jul 24, 2023 30 Jul 24, 2024 [id number] YASIR RECINOS [facility] 07/24/2024 [id number] Angeli RECINOS 2023 30 [facility] GINKGO BILOBA CAP/TAB GINKGO BILOBA CAP/TAB Non-VA TAKE ONE TABLET BY MOUTH EVERY DAY Sep 23, 2023 Non-VA Document ed by: MAIA BLANDON Document ed at: [facility] Angeli BLANDON 2023 [facility] NON [facility] MED NOT LISTED NON [facility] MED NOT LISTED Non-VA USE HYDRO-ZY ME MOUTH Nov 21, 2020 Non-VA Document ed by: AMARILYS PALAFOX Document ed at: [facility] AMARILYS PALAFOX 2020 [facility] SAW PALMETTO CAP/TAB SAW PALMETTO CAP/TAB Non-VA TAKE Jan 02, 2022 Non-VA Document ed by: MAGGIE BUCIO Document ed at: [facility] ACT[facility] TRENTON BUCIO 2021 [facility] SODIUM CHLORIDE 0.65% SOLN,NASAL SPRAY SODIUM CHLORIDE 0.65% SOLN,GIGI AL SPRAY SPRAY 2 SPRAYS IN EACH NOSTRIL TWICE A DAY FOR NASAL DRYNESS FOR NASAL DRYNESS October 17, 2023 45 Nov 16, 2023 [id number] October 17, 2023 Trent PONCE [facility] NASAL 11/16/2023 [id number] MONICA PONCE 2023 45 [facility] Immunizations Combined list of available immunizations from the Department of Defense and Veterans Affairs facilities. Immunization Series Date Given Administered By Site Reaction Lot Number CVX Code Drug Balance Bridge Inspector Status Comments Source TD (ADULT), 2 LF TETANUS TOXOID, PRESERVATIVE FREE, ADSORBED 1996 09 complet ed [facility] Results Combined list of recent chemistry, [...] Aug 07, 2023 09:32 AM Reporting Lab: [facility] [phone] Performing Lab: [facility] [address] [facility] LIPID PANEL,NO N-FASTIN G CHOLESTERO L IN HDL [MASS/VOLU ME] IN SERUM OR PLASMA 66 mg/dL 40 08/06 Specimen Type: PLASMA No comment entered. Ordering Provider: YOAV VILLEDA ERT E Report Released Date/Time: Aug 07, 2023 09:32 AM Reporting Lab: [facility] [address] Performing Lab: [facility] [address] [facility] LIPID PANEL,NO N-FASTIN G CHOLESTERO L IN LDL [MASS/VOLU ME] IN SERUM OR PLASMA BY CALCULANEHEMIAHO N 75 mg/dL <99 - 99 08/06 Specimen Type: PLASMA No comment entered. Ordering Provider: YOAV VILLEDA ERT Rachael Report Released Date/Time: Aug 07, 2023 09:32 AM Reporting Lab: [facility] [address] Performing Lab: [facility] [address] [place] [facility] LIPID PANEL,NO N-FASTIN G CHOLESTERO L IN VLDL [MASS/VOLU ME] IN SERUM OR PLASMA BY CALCULATIO N 25 mg/dL <29 - 29 08/06 Specimen Type: PLASMA No comment entered. Ordering Provider: YOAV VILLEDA Report Released Date/Time: Aug 07, 2023 09:32 AM Reporting Lab: [facility] [address] Performing Lab: [facility] [address] [place] [address] [facility] LIPID PANEL,NO N-FASTIN G CHOLESTERO L NON HDL [MASS/VOLU ME] IN SERUM OR PLASMA 100 mg/dL <129 - 129 08/06 Specimen Type: PLASMA No comment entered. Ordering Provider: YOAV VILLEDA ERT Rachael Report Released Date/Time: Aug 07, 2023 09:32 AM Reporting Lab: [facility] [address] Performing Lab: [facility] [address] [place] [facility] LIPID PANEL,NO N-FASTIN G TRIGLYCERI DE [MASS/VOLU ME] IN SERUM OR PLASMA 124 mg/dL <149 - 149 08/06 Specimen Type: PLASMA No comment entered. Ordering Provider: YOAV VILLEDA Report Released Date/Time: Aug 07, 2023 09:32 AM Reporting Lab: [facility] [address] Performing Lab: [facility] [address] [place] [facility] EXTRA GOLD GEL TUBE EXTRA GOLD GEL TUBE RECEIVED 07/24 Specimen Type: SERUM No comment entered. Ordering Provider: MARGARET RECINOS Report Released Date/Time: Jul 24, 2023 11:22 AM Reporting Lab: [facility] [address] Performing Lab: [facility] [address] [place] [facility] POC CREATINI NE CREATININE [MASS/VOLU ME] IN BLOOD 1.1 mg/dL 0.6 - 1.3 07/24 Specimen Type: BLOOD No comment entered. Ordering Provider: MARGARET RECINOS Report Released Date/Time: Jul 24, 2023 11:28 AM Reporting Lab: [facility] [address] Performing Lab: [facility] [address] [place] [facility] PROTHROM BIN TIME/INR INR IN PLATELET POOR PLASMA BY COAGULATIO N ASSAY 1.0 0.8 - 1.1 07/24 Specimen Type: PLASMA No comment entered. Ordering Provider: MARGARET RECINOS Report Released Date/Time: Jul 24, 2023 10:52 AM Reporting Lab: [facility] [address] Performing Lab: [facility] [address] [facility] PROTHROM BIN TIME/INR PROTHROMBI N TIME (PT) 12.2 s 9.4 - 12.5 07/24 Specimen Type: PLASMA No comment entered. Ordering Provider: MARGARET RECINOS Report Released Date/Time: Jul 24, 2023 10:52 AM Reporting Lab: [facility] [address] Performing Lab: [facility] [address] [place] [facility] ACT PART THROMBO TIME APTT IN PLATELET POOR PLASMA BY COAGULATIO N ASSAY 34.3 s 25.1 - 36.5 07/24 Specimen Type: PLASMA No comment entered. Ordering Provider: MARGARET RECINOS Report Released Date/Time: Jul 24, 2023 10:52 AM Reporting Lab: [facility] [address] Performing Lab: [facility] [address] [facility] CBC & DIFF LEUKOCYTES [#/VOLUME] IN BLOOD BY AUTOMATED COUNT 8.70 10*3/uL 4.0 - 11.0 07/24 Specimen Type: BLOOD Comment: Automated Differentia l Performed Ordering Provider: MARGARET RECINOS Report Released Date/Time: Jul 24, 2023 10:52 AM Reporting Lab: [facility] [address] Performing Lab: [facility] [address] [place] [facility] CBC & DIFF ERYTHROCYT ES [#/VOLUME] IN BLOOD BY AUTOMATED COUNT 4.85 10*6/uL 4.6 - 6.2 07/24 Specimen Type: BLOOD Comment: Automated Differentia l Performed Ordering Provider: MARGARET RECINOS Report Released Date/Time: Jul 24, 2023 10:52 AM Reporting Lab: [facility] [address] Performing Lab: [facility] [address] [place] [facility] CBC & DIFF HEMOGLOBIN [MASS/VOLU ME] IN BLOOD 15.1 g/dL 13.5 - 17.9 07/24 Specimen Type: BLOOD Comment: Automated Differentia l Performed Ordering Provider: MARGARET RECINOS Report Released Date/Time: Jul 24, 2023 10:52 AM Reporting Lab: [facility] [address] Performing Lab: [facility] [address] [place] [facility] CBC & DIFF HEMATOCRIT [VOLUME FRACTION] OF BLOOD BY AUTOMATED COUNT 45.7 41 - 54 07/24 Specimen Type: BLOOD Comment: Automated Differentia l Performed Ordering Provider: MARGARET RECINOS Report Released Date/Time: Jul 24, 2023 10:52 AM Reporting Lab: [facility] [address] Performing Lab: [facility] [address] [place] [facility] CBC & DIFF MCV [ENTITIC VOLUME] BY AUTOMATED COUNT 94.2 fL 80 - 100 07/24 Specimen Type: BLOOD Comment: Automated Differentia l Performed Ordering Provider: MARGARET RECINOS Report Released Date/Time: Jul 24, 2023 10:52 AM Reporting Lab: [facility] [address] Performing Lab: [facility] [address] [place] [address] [facility] CBC & DIFF MCH [ENTITIC MASS] BY AUTOMATED COUNT 31.1 pg 27 - 33 07/24 Specimen Type: BLOOD Comment: Automated Differentia l Performed Ordering Provider: MARGARET RECINOS Report Released Date/Time: Jul 24, 2023 10:52 AM Reporting Lab: [facility] [phone] Performing Lab: [facility] [address] [place] [facility] CBC & DIFF MCHC [MASS/VOLU ME] BY AUTOMATED COUNT 33.0 g/dL 32.0 - 37.5 07/24 Specimen Type: BLOOD Comment: Automated Differentia l Performed Ordering Provider: MARGARET RECINOS Report Released Date/Time: Jul 24, 2023 10:52 AM Reporting Lab: [facility] [address] Performing Lab: [facility] [address] [place] [facility] CBC & DIFF PLATELETS [#/VOLUME] IN BLOOD BY AUTOMATED COUNT 288 10*3/uL 150 - 400 07/24 Specimen Type: BLOOD Comment: Automated Differentia l Performed Ordering Provider: MARGARET RECINOS Report Released Date/Time: Jul 24, 2023 10:52 AM Reporting Lab: [facility] [phone] Performing Lab: [facility] [address] [place] [facility] CBC & DIFF PLATELET MEAN VOLUME [ENTITIC VOLUME] IN BLOOD BY AUTOMATED COUNT 9.8 fL 7.4 - 10.4 07/24 Specimen Type: BLOOD Comment: Automated Differentia l Performed Ordering Provider: MARGARET RECINOS Report Released Date/Time: Jul 24, 2023 10:52 AM Reporting Lab: [facility] [address] Performing Lab: [facility] [address] [place] [facility] CBC & DIFF NEUTROPHIL S/100 LEUKOCYTES IN BLOOD BY MANUAL COUNT 66.1 40.0 - 80.0 07/24 Specimen Type: BLOOD Comment: Automated Differentia l Performed Ordering Provider: MARGARET RECINOS Report Released Date/Time: Jul 24, 2023 10:52 AM Reporting Lab: [facility] [address] Performing Lab: [facility] [address] [place] [facility] CBC & DIFF LYMPHOCYTE S/100 LEUKOCYTES IN BLOOD BY MANUAL COUNT 17.5 15.0 - 45.0 07/24 Specimen Type: BLOOD Comment: Automated Differentia l Performed Ordering Provider: MARGARET RECINOS Report Released Date/Time: Jul 24, 2023 10:52 AM Reporting Lab: [facility] [address] Performing Lab: [facility] [address] [place] [facility] CBC & DIFF MONOCYTES/ 100 LEUKOCYTES IN BLOOD BY AUTOMATED COUNT 12.3 2.0 - 12.0 07/24 H Specimen Type: BLOOD Comment: Automated Differentia l Performed Ordering Provider: MARGARET RECINOS Report Released Date/Time: Jul 24, 2023 10:52 AM Reporting Lab: [facility] [address] Performing Lab: [facility] [address] [place] [address] [facility] CBC & DIFF EOSINOPHIL S/100 LEUKOCYTES IN BLOOD BY AUTOMATED COUNT 2.8 0.0 - 6.0 07/24 Specimen Type: BLOOD Comment: Automated Differentia l Performed Ordering Provider: MARGARET RECINOS Report Released Date/Time: Jul 24, 2023 10:52 AM Reporting Lab: [facility] [address] Performing Lab: [facility] [address] [place] [facility] CBC & DIFF BASOPHILS/ 100 LEUKOCYTES IN BLOOD BY MANUAL COUNT 0.8 0.0 - 2.0 07/24 Specimen Type: BLOOD Comment: Automated Differentia l Performed Ordering Provider: MARGARET RECINOS Report Released Date/Time: Jul 24, 2023 10:52 AM Reporting Lab: [facility] [address] Performing Lab: [facility] [address] [place] [facility] CBC & DIFF ERYTHROCYT E DISTRIBUTI ON WIDTH [RATIO] BY AUTOMATED COUNT 13.8 11.5 - 14.5 07/24 Specimen Type: BLOOD Comment: Automated Differentia l Performed Ordering Provider: MARGARET RECINOS Report Released Date/Time: Jul 24, 2023 10:52 AM Reporting Lab: [facility] [address] Performing Lab: [facility] [address] [place] [facility] CBC & DIFF LYMPHOCYTE S [#/VOLUME] IN BLOOD BY AUTOMATED COUNT 1.52 10*3/uL 1.0 - 4.0 07/24 Specimen Type: BLOOD Comment: Automated Differentia l Performed Ordering Provider: MARGARET RECINOS Report Released Date/Time: Jul 24, 2023 10:52 AM Reporting Lab: [facility] [address] Performing Lab: [facility] [address] [place] [facility] CBC & DIFF MONOCYTES [#/VOLUME] IN BLOOD BY AUTOMATED COUNT 1.07 10*3/uL 0.1 - 1.0 07/24 H Specimen Type: BLOOD Comment: Automated Differentia l Performed Ordering Provider: MARGARET RECINOS Report Released Date/Time: Jul 24, 2023 10:52 AM Reporting Lab: [facility] [address] Performing Lab: [facility] [address] [place] [address] [facility] CBC & DIFF NEUTROPHIL S [#/VOLUME] IN BLOOD BY AUTOMATED COUNT 5.76 10*3/uL 2.0 - 7.7 07/24 Specimen Type: BLOOD Comment: Automated Differentia l Performed Ordering Provider: MARGARET RECINOS Report Released Date/Time: Jul 24, 2023 10:52 AM Reporting Lab: [facility] [address] Performing Lab: [facility] [address] [place] [address] [facility] CBC & DIFF EOSINOPHIL S [#/VOLUME] IN BLOOD BY AUTOMATED COUNT 0.24 10*3/uL 0 - 0.5 07/24 Specimen Type: BLOOD Comment: Automated Differentia l Performed Ordering Provider: MARGARET RECINOS Report Released Date/Time: Jul 24, 2023 10:52 AM Reporting Lab: [facility] [address] Performing Lab: [facility] [address] [place] [facility] CBC & DIFF BASOPHILS [#/VOLUME] IN BLOOD BY AUTOMATED COUNT 0.07 10*3/uL 0 - 0.2 07/24 Specimen Type: BLOOD Comment: Automated Differentia l Performed Ordering Provider: MARGARET RECINOS Report Released Date/Time: Jul 24, 2023 10:52 AM Reporting Lab: [facility] [address] Performing Lab: [facility] [address] [place] [facility] CBC & DIFF IG(META,MY TAMIKA,PRO) 0.5 07/24 Specimen Type: BLOOD Comment: Automated Differentia l Performed Ordering Provider: MARGARET RECINOS Report Released Date/Time: Jul 24, 2023 10:52 AM Reporting Lab: [facility] [address] Performing Lab: [facility] [address] [place] [facility] CBC & DIFF IMMATURE GRANULOCYT ES [PRESENCE] IN BLOOD BY AUTOMATED COUNT 0.04 10*3/uL 0 - 0.1 07/24 Specimen Type: BLOOD Comment: Automated Differentia l Performed Ordering Provider: MARGARET RECINOS Report Released Date/Time: Jul 24, 2023 10:52 AM Reporting Lab: [facility] [address] Performing Lab: [facility] [address] [place] [facility] COMPREHE NSIVE METABOLI C PANEL+MG CREATININE [MASS/VOLU ME] IN SERUM OR PLASMA 1.1 mg/dL 0.7 - 1.2 07/24 Specimen Type: PLASMA No comment entered. Ordering Provider: MARGARET RECINOS Report Released Date/Time: Jul 24, 2023 10:52 AM Reporting Lab: [facility] [address] Performing Lab: [facility] [address] [place] [facility] COMPREHE NSIVE METABOLI C PANEL+MG UREA NITROGEN [MASS/VOLU ME] IN SERUM OR PLASMA 14 mg/dL 8 - 26 07/24 Specimen Type: PLASMA No comment entered. Ordering Provider: MARGARET RECINOS Report Released Date/Time: Jul 24, 2023 10:52 AM Reporting Lab: [facility] [address] Performing Lab: [facility] [address] [place] [facility] COMPREHE NSIVE METABOLI C PANEL+MG GLUCOSE [MASS/VOLU ME] IN SERUM OR PLASMA 94 mg/dL 70 - 100 07/24 Specimen Type: PLASMA No comment entered. Ordering Provider: MARGARET RECINOS Report Released Date/Time: Jul 24, 2023 10:52 AM Reporting Lab: [facility] [address] Performing Lab: [facility] [address] [place] [facility] COMPREHE NSIVE METABOLI C PANEL+MG SODIUM [MOLES/VOL UME] IN SERUM OR PLASMA 139 mmol/L 136 - 145 07/24 Specimen Type: PLASMA No comment entered. Ordering Provider: MARGARET RECINOS Report Released Date/Time: Jul 24, 2023 10:52 AM Reporting Lab: [facility] [address] Performing Lab: [facility] [address] [place] [facility] COMPREHE NSIVE METABOLI C PANEL+MG POTASSIUM [MOLES/VOL UME] IN SERUM OR PLASMA 4.5 mmol/L 3.5 - 5.1 07/24 Specimen Type: PLASMA No comment entered. Ordering Provider: MARGARET RECINOS Report Released Date/Time: Jul 24, 2023 10:52 AM Reporting Lab: [facility] [phone] Performing Lab: [facility] [address] [place] [address] [facility] COMPREHE NSIVE METABOLI C PANEL+MG CHLORIDE [MOLES/VOL UME] IN SERUM OR PLASMA 106 mmol/L 98 - 107 07/24 Specimen Type: PLASMA No comment entered. Ordering Provider: MARGARET RECINOS Report Released Date/Time: Jul 24, 2023 10:52 AM Reporting Lab: [facility] [address] Performing Lab: [facility] [address] [place] [address] [facility] COMPREHE NSIVE METABOLI C PANEL+MG CARBON DIOXIDE, TOTAL [MOLES/VOL UME] IN SERUM OR PLASMA 27 mmol/L 22 - 29 07/24 Specimen Type: PLASMA No comment entered. Ordering Provider: MARGARET RECINOS Report Released Date/Time: Jul 24, 2023 10:52 AM Reporting Lab: [facility] [address] Performing Lab: [facility] [address] [place] [facility] COMPREHE NSIVE METABOLI C PANEL+MG CALCIUM [MASS/VOLU ME] IN SERUM OR PLASMA 9.5 mg/dL 8.4 - 10.2 07/24 Specimen Type: PLASMA No comment entered. Ordering Provider: MARGARET RECINOS Report Released Date/Time: Jul 24, 2023 10:52 AM Reporting Lab: [facility] [address] Performing Lab: [facility] [address] [place] [address] [facility] COMPREHE NSIVE METABOLI C PANEL+MG PROTEIN [MASS/VOLU ME] IN SERUM OR PLASMA 7.3 g/dL 6.0 - 8.3 07/24 Specimen Type: PLASMA No comment entered. Ordering Provider: MARGARET RECINOS Report Released Date/Time: Jul 24, 2023 10:52 AM Reporting Lab: [facility] [address] Performing Lab: [facility] [address] [place] [facility] COMPREHE NSIVE METABOLI C PANEL+MG ALBUMIN [MASS/VOLU ME] IN SERUM OR PLASMA 3.9 g/dL 3.5 - 5.2 07/24 Specimen Type: PLASMA No comment entered. Ordering Provider: MARGARET RECINOS Report Released Date/Time: Jul 24, 2023 10:52 AM Reporting Lab: [facility] [address] Performing Lab: [facility] [address] [place] [address] [facility] COMPREHE NSIVE METABOLI C PANEL+MG BILIRUBIN. TOTAL [MASS/VOLU ME] IN SERUM OR PLASMA 1.7 mg/dL 0.2 - 1.2 07/24 H Specimen Type: PLASMA No comment entered. Ordering Provider: MARGARET RECINOS Report Released Date/Time: Jul 24, 2023 10:52 AM Reporting Lab: [facility] [address] Performing Lab: [facility] [address] [place] [address] [facility] COMPREHE NSIVE METABOLI C PANEL+MG MAGNESIUM [MASS/VOLU ME] IN SERUM OR PLASMA 2.1 mg/dL 1.6 - 2.6 07/24 Specimen Type: PLASMA No comment entered. Ordering Provider: MARGARET RECINOS Report Released Date/Time: Jul 24, 2023 10:52 AM Reporting Lab: [facility] [address] Performing Lab: [facility] [address] [place] [address] [facility] COMPREHE NSIVE METABOLI C PANEL+MG ANION GAP IN SERUM OR PLASMA 6 mmol/L 5 - 15 07/24 Specimen Type: PLASMA No comment entered. Ordering Provider: MARGARET RECINOS Report Released Date/Time: Jul 24, 2023 10:52 AM Reporting Lab: [facility] [address] Performing Lab: [facility] [address] [place] [address] [facility] COMPREHE NSIVE METABOLI C PANEL+MG ALKALINE PHOSPHATAS E [ENZYMATIC ACTIVITY/V OLUME] IN SERUM OR PLASMA 118 U/L 40 - 150 07/24 Specimen Type: PLASMA No comment entered. Ordering Provider: MARGARET RECINOS Report Released Date/Time: Jul 24, 2023 10:52 AM Reporting Lab: [facility] [address] Performing Lab: [facility] [address] [place] [address] [facility] COMPREHE NSIVE METABOLI C PANEL+MG ALANINE AMINOTRANS FERASE [ENZYMATIC ACTIVITY/V OLUME] IN SERUM OR PLASMA 19 U/L <55 - 55 07/24 Specimen Type: PLASMA No comment entered. Ordering Provider: MARGARET RECINOS Report Released Date/Time: Jul 24, 2023 10:52 AM Reporting Lab: [facility] [address] Performing Lab: [facility] [address] [place] [facility] COMPREHE NSIVE METABOLI C PANEL+MG ASPARTATE AMINOTRANS FERASE [ENZYMATIC ACTIVITY/V OLUME] IN SERUM OR PLASMA 23 U/L <34 - 34 07/24 Specimen Type: PLASMA No comment entered. Ordering Provider: MARGARET RECINOS Report Released Date/Time: Jul 24, 2023 10:52 AM Reporting Lab: [facility] [address] Performing Lab: [facility] [address] [place] [address] [facility] COMPREHE NSIVE METABOLI C PANEL+MG GLOMERULAR FILTRATION RATE/1.73 SQ M.PREDICTE D [VOLUME RATE/AREA] IN SERUM, PLASMA OR BLOOD BY CREATININE -BASED FORMULA (CKD-EPI 2020) 67 60 07/24 Specimen Type: PLASMA No comment entered. Ordering Provider: MARGARET RECINOS Report Released Date/Time: Jul 24, 2023 10:52 AM Reporting Lab: [facility] [address] Performing Lab: [facility] [address] [place] [facility] COMPREHE NSIVE METABOLI C PANEL+MG BILIRUBIN. DIRECT [MASS/VOLU ME] IN SERUM OR PLASMA 0.5 mg/dL <0.5 - 0.5 07/24 Specimen Type: PLASMA No comment entered. Ordering Provider: MARGARET RECINOS Report Released Date/Time: Jul 24, 2023 10:52 AM Reporting Lab: [facility] [address] Performing Lab: [facility] [address] [place] [facility] CBC LEUKOCYTES [#/VOLUME] IN BLOOD BY AUTOMATED COUNT 8.96 10*3/uL 4.0 - 11.0 02/05 Specimen Type: BLOOD No comment entered. Ordering Provider: MAGALYS BUCIO Report Released Date/Time: Jan 02, 2022 11:30 AM Reporting Lab: [facility] [address] Performing Lab: [facility] [address] [place] [address] [facility] CBC ERYTHROCYT ES [#/VOLUME] IN BLOOD BY AUTOMATED COUNT 4.71 10*6/uL 4.6 - 6.2 02/05 Specimen Type: BLOOD No comment entered. Ordering Provider: MAGALYS BUCIO Report Released Date/Time: Jan 02, 2022 11:30 AM Reporting Lab: [facility] [address] Performing Lab: [facility] [address] [place] [facility] CBC HEMOGLOBIN [MASS/VOLU ME] IN BLOOD 15.0 g/dL 13.5 - 17.9 02/05 Specimen Type: BLOOD No comment entered. Ordering Provider: MAGALYS BUCIO Report Released Date/Time: Jan 02, 2022 11:30 AM Reporting Lab: [facility] [id number] Performing Lab: [facility] [phone] [place] [facility] CBC HEMATOCRIT [VOLUME FRACTION] OF BLOOD BY AUTOMATED COUNT 45.0 41 - 54 02/05 Specimen Type: BLOOD No comment entered. Ordering Provider: MAGALYS BUCIO Report Released Date/Time: Jan 02, 2022 11:30 AM Reporting Lab: [facility] [phone] Performing Lab: [facility] [phone] [place] [facility] CBC MCV [ENTITIC VOLUME] BY AUTOMATED COUNT 95.5 fL 80 - 100 02/05 Specimen Type: BLOOD No comment entered. Ordering Provider: MAGALYS BUCIO Report Released Date/Time: Jan 02, 2022 11:30 AM Reporting Lab: [facility] [phone] Performing Lab: [facility] [phone] [place] [facility] CBC MCH [ENTITIC MASS] BY AUTOMATED COUNT 31.8 pg 27 - 33 02/05 Specimen Type: BLOOD No comment entered. Ordering Provider: MAGALYS BUCIO Report Released Date/Time: Jan 02, 2022 11:30 AM Reporting Lab: [facility] [address] Performing Lab: [facility] [address] [place] [facility] CBC MCHC [MASS/VOLU ME] BY AUTOMATED COUNT 33.3 g/dL 32.0 - 37.5 02/05 Specimen Type: BLOOD No comment entered. Ordering Provider: MAGALYS BUCIO Report Released Date/Time: Jan 02, 2022 11:30 AM Reporting Lab: [facility] [address] Performing Lab: [facility] [address] [place] [facility] CBC PLATELETS [#/VOLUME] IN BLOOD BY AUTOMATED COUNT 271 10*3/uL 150 - 400 02/05 Specimen Type: BLOOD No comment entered. Ordering Provider: MAGALYS BUCIO Report Released Date/Time: Jan 02, 2022 11:30 AM Reporting Lab: [facility] [address] Performing Lab: [facility] [address] [place] [facility] CBC PLATELET MEAN VOLUME [ENTITIC VOLUME] IN BLOOD BY AUTOMATED COUNT 9.6 fL 7.4 - 10.4 02/05 Specimen Type: BLOOD No comment entered. Ordering Provider: MAGALYS BUCIO Report Released Date/Time: Jan 02, 2022 11:30 AM Reporting Lab: [facility] [address] Performing Lab: [facility] [address] [place] [facility] CBC ERYTHROCYT E DISTRIBUTI ON WIDTH [RATIO] BY AUTOMATED COUNT 13.5 11.5 - 14.5 02/05 Specimen Type: BLOOD No comment entered. Ordering Provider: MAGALYS BUCIO Report Released Date/Time: Jan 02, 2022 11:30 AM Reporting Lab: [facility] [phone] Performing Lab: [facility] [address] [place] [address] [facility] BASIC METABOLI C PANEL+MG CREATININE [MASS/VOLU ME] IN SERUM OR PLASMA 1.0 mg/dL 0.7 - 1.2 02/05 Specimen Type: PLASMA No comment entered. Ordering Provider: MAGALYS BUCIO Report Released Date/Time: Jan 02, 2022 11:30 AM Reporting Lab: [facility] [address] Performing Lab: [facility] [address] [place] [address] [facility] BASIC METABOLI C PANEL+MG UREA NITROGEN [MASS/VOLU ME] IN SERUM OR PLASMA 16 mg/dL 8 - 26 02/05 Specimen Type: PLASMA No comment entered. Ordering Provider: MAGALYS BUCIO Report Released Date/Time: Jan 02, 2022 11:30 AM Reporting Lab: [facility] [address] Performing Lab: [facility] [address] [place] [address] [facility] BASIC METABOLI C PANEL+MG GLUCOSE [MASS/VOLU ME] IN SERUM OR PLASMA 78 mg/dL 70 - 100 02/05 Specimen Type: PLASMA No comment entered. Ordering Provider: MAGALYS BUCIO Report Released Date/Time: Jan 02, 2022 11:30 AM Reporting Lab: [facility] [address] Performing Lab: [facility] [address] [place] [address] [facility] BASIC METABOLI C PANEL+MG SODIUM [MOLES/VOL UME] IN SERUM OR PLASMA 140 mmol/L 136 - 145 02/05 Specimen Type: PLASMA No comment entered. Ordering Provider: MAGALYS BUCIO Report Released Date/Time: Jan 02, 2022 11:30 AM Reporting Lab: [facility] [address] Performing Lab: [facility] [address] [place] [address] [facility] BASIC METABOLI C PANEL+MG POTASSIUM [MOLES/VOL UME] IN SERUM OR PLASMA 4.4 mmol/L 3.5 - 5.1 02/05 Specimen Type: PLASMA No comment entered. Ordering Provider: MAGALYS BUCIO Report Released Date/Time: Jan 02, 2022 11:30 AM Reporting Lab: [facility] [address] Performing Lab: [facility] [address] [place] [facility] BASIC METABOLI C PANEL+MG CHLORIDE [MOLES/VOL UME] IN SERUM OR PLASMA 105 mmol/L 98 - 107 02/05 Specimen Type: PLASMA No comment entered. Ordering Provider: MAGALYS BUCIO Report Released Date/Time: Jan 02, 2022 11:30 AM Reporting Lab: [facility] [address] Performing Lab: [facility] [address] [place] [facility] BASIC METABOLI C PANEL+MG CARBON DIOXIDE, TOTAL [MOLES/VOL UME] IN SERUM OR PLASMA 26 mmol/L 22 - 29 02/05 Specimen Type: PLASMA No comment entered. Ordering Provider: MAGALYS BUCIO Report Released Date/Time: Jan 02, 2022 11:30 AM Reporting Lab: [facility] [address] Performing Lab: [facility] [address] [place] [facility] BASIC METABOLI C PANEL+MG CALCIUM [MASS/VOLU ME] IN SERUM OR PLASMA 9.4 mg/dL 8.4 - 10.2 02/05 Specimen Type: PLASMA No comment entered. Ordering Provider: MAGALYS BUCIO Report Released Date/Time: Jan 02, 2022 11:30 AM Reporting Lab: [facility] [address] Performing Lab: [facility] [address] [place] [address] [facility] BASIC METABOLI C PANEL+MG MAGNESIUM [MASS/VOLU ME] IN SERUM OR PLASMA 2.0 mg/dL 1.6 - 2.6 02/05 Specimen Type: PLASMA No comment entered. Ordering Provider: MAGALYS BUCIO Report Released Date/Time: Jan 02, 2022 11:30 AM Reporting Lab: [facility] [address] Performing Lab: [facility] [address] [place] [address] [facility] BASIC METABOLI C PANEL+MG ANION GAP IN SERUM OR PLASMA 9 mmol/L 5 - 15 02/05 Specimen Type: PLASMA No comment entered. Ordering Provider: MAGALYS BUCIO Report Released Date/Time: Jan 02, 2022 11:30 AM Reporting Lab: [facility] [address] Performing Lab: [facility] [address] [place] [facility] BASIC METABOLI C PANEL+MG GLOMERULAR FILTRATION RATE/1.73 SQ M.PREDICTE D [VOLUME RATE/AREA] IN SERUM, PLASMA OR BLOOD BY CREATININE -BASED FORMULA (CKD-EPI 2020) 75 60 02/05 Specimen Type: PLASMA No comment entered. Ordering Provider: MAGALYS BUCIO Report Released Date/Time: Jan 02, 2022 11:30 AM Reporting Lab: [facility] [phone] Performing Lab: [facility] [address] [facility] Vital Signs Combined list of inpatient and outpatient Vital Signs from Department of Defense and Veterans Affairs, ranging from 12 months to all on record, depending upon the facility. Vital Sign Value Date Comments Source SYSTOLIC BLOOD PRESSURE 118 10/17/2023 13:01:15 [facility] DIASTOLIC BLOOD PRESSURE 55 10/17/2023 13:01:15 [facility] PULSE OXIMETRY 95 10/17/2023 13:01:[address] [place] [facility] TEMPERATURE 98.5 10/17/2023 13:01:[address] [place] [facility] PULSE 66 10/17/2023 13:01:15 [facility] RESPIRATION 16 10/17/2023 13:01:[address] [place] [facility] SYSTOLIC BLOOD PRESSURE 160 09/23/2023 09:17:00 [facility] DIASTOLIC BLOOD PRESSURE 89 09/23/2023 09:17:00 [facility] PULSE OXIMETRY 69 09/23/2023 09:17:00 [facility] WEIGHT 183 09/23/2023 09:17:00 [facility] BMI 29kg/m2 09/23/2023 09:17:00 [facility] PAIN 0 09/23/2023 09:17:00 [facility] HEIGHT 67.25 09/23/2023 09:17:00 [facility] TEMPERATURE 97.5 09/23/2023 09:17:[address] [place] [facility] PULSE 71 09/23/2023 09:17:00 [facility] SYSTOLIC BLOOD PRESSURE 160 08/07/2023 08:58:05 [facility] DIASTOLIC BLOOD PRESSURE 89 08/07/2023 08:58:05 [facility] PULSE OXIMETRY 96 08/07/2023 08:58:05 [facility] PAIN 0 08/07/2023 08:58:05 [facility] TEMPERATURE 97.8 08/07/2023 08:58:[address] [facility] PULSE 62 08/07/2023 08:58:05 [facility] RESPIRATION 16 08/07/2023 08:58:[address] [place] [facility] SYSTOLIC BLOOD PRESSURE 127 07/24/2023 10:32:00 [facility] DIASTOLIC BLOOD PRESSURE 76 07/24/2023 10:32:00 [facility] PULSE OXIMETRY 96 07/24/2023 10:32:[address] [facility] PAIN 0 07/24/2023 10:32:00 [facility] TEMPER[facility] 98.1 07/24/2023 10:32:00 [facility] CLAREZohaib [facility] PULSE 63 07/24/2023 10:32:00 [facility] RES[facility]ATION 16 07/24/2023 10:32:00 [facility] Encounters Combined list of: 1) Encounters from Department of [facility] Affairs facilities going back up to thelast 18 months. 2) Encounters from the Department of [facility] Central facilities going back up to 280 months. Location Location Details Encounter Type Encounter Number Reason For Visit Attending Provider ADM Date DC Date Status Disposition Source [facility] Outpatient Encounter [id number] 09/10 [facility] Outpatient Encounter [id number] 09/10 [facility] REM INTERROG EVL PM/LDLS PM [id number] Diagnos is: ICD-10- CM Z95.0 Presenc e of cardiac pacemak er
SA KRISTIN NDRA L 09/11 [facility] PM DEVICE PROGR EVAL DUAL [id number] Diagnos is: ICD-10- CM Z95.0 Presenc e of cardiac pacemak er
DORENE UNGER A 11/27 [facility] Outpatient Encounter [id number] 12/12 [facility] OFFICE O/P EST LOW 20-29 MIN [id number] Diagnos is: ICD-10- CM Z00.00 Encntr for general adult medical exam w/o abnorma l finding s
KEVYN WETZEL A 02/05 [facility] Outpatient Encounter [id number] 03/13 [facility] Outpatient Encounter [id number] 06/19 [place] [facility] Outpatient Encounter [id number] 06/22 [facility] REM INTERROG EVL PM/LDLS PM [id number] Diagnos is: ICD-10- CM I48.3 Typical atrial flutter
AIME RAZA T 06/22 [facility] [place] [facility] HEARING AID REPAIR/MOD IFYING [id number] Diagnos is: ICD-10- CM H90.3 Sensori neural hearing loss, bilater al
YAMILETHSAMY M 07/22 [facility] Outpatient Encounter [id number] Scotty JOYA R 07/24 [facility] EMERGENCY DEPT VISIT MOD MDM [id number] Diagnos is: ICD-10- CM G45.3 Amauros is fugax<b r/> ALESSANDRA RECINOS T 07/24 [facility] Outpatient Encounter [id number] 07/29 [facility] OFF/OP CNSLTJ NEW/EST MOD 40 [id number] Diagnos is: ICD-10- CM G45.3 Amauros is fugax<b r/> EXCONDE,RU PERT E 08/06 [facility] [place] [facility] Outpatient Encounter [id number] [place] SIMS R 08/12 [facility] Encounter [id number] 09/08 [facility] INJ PERFLUTREN LIP MICROS,ML [id number] Diagnos is: ICD-10- CM Z95.0 Presenc e of cardiac pacemak er
DANNY SMART NZI 09/22 [facility] ELECTROCAR DIOGRAM REPORT [id number] Diagnos is: ICD-10- CM Z13.6 Encount er for screeni ng for cardiov ascular disorde rs
Karin ZABALA O 09/22 [facility] INTERR[place]L PM/[place] [id number] Diagnos is: ICD-10- CM I45.5 Other specifi ed heart block<b r/> AB BARBER BIE L 09/22 [facility] OFF/OP CONSLTJ NEW/EST HI 55 [id number] Diagnos is: ICD-10- CM I45.5 Other specifi ed heart block<b r/> BARBERAB BIE L 09/22 [facility] Outpatient Encounter [id number] 10/01 [facility] EMR DPT VST MAYX REQ PHY/QHP [id number] Diagnos is: ICD-10- CM J32.8 Other chronic sinusit is
LELAND PONCE IN J 10/16 [facility] Outpatient Encounter [id number] CYNTHIA MAGANA 10/16 [facility] Outpatient Encounter [id number] 10/16 [facility] HEARING AID REPAIR/MOD IFYING [id number] Diagnos is: ICD-10- CM H90.A21 Snsrnrl hear loss, uni, r ear, with rstrcd hear cntra side
Angeli KENDALL 11/01 [place] [facility] [place] [facility] Outpatient Encounter [id number] SHAN ORDONEZ 11/16 [place] [facility] [place] [facility] Outpatient Encounter [id number] 12/01 [place] [facility] [place] 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
SAMY CARSON 12/06 [facility] [place] [facility] Outpatient Encounter [id number] 12/14 [place] [facility] [place] [facility] Outpatient Encounter [id number] 12/20 [place] [facility] [place] [facility] Outpatient Encounter [id number] 01/11 [place] [facility] [place] [facility] Outpatient Encounter [id number] 01/19 [place] [facility] Outpatient Encounter [id number] 01/19 [facility] Social History Combined list of available smoking, tobacco, and other social history from Department of Defense and Veterans Affairs facilities. Social History Type Response Date Comment Sour e Tobacco smoking status NHIS VA-TOBACCO FORMER USER 02/05/2023 [facility] History of tobacco use MS-TOBACCO QUIT 15 YRS OR MORE 02/05/2023 [facility] History of tobacco use MS-TOBACCO QUIT 15 YRS OR MORE 01/02/2022 [facility] History of tobacco use VA-TOBACCO FORMER USER 11/08/2020 [facility] History of tobacco use VA-TOBACCO QUIT 15 YRS OR MORE 11/18/2018 [facility] History of tobacco use QUIT TOBACCO >7 YEARS AGO 10/27/2017 [facility] History of tobacco use NON-TOBACCO USER 07/21/2017 [facility] History of tobacco use FORMER TOBACCO USER 7Y OR GREATER 09/02/2016 [facility] History of tobacco use FORMER TOBACCO USER 7Y OR GREATER 08/06/2015 [facility] History of tobacco use LIFETIME NON-TOBACCO USER 07/07/2014 [facility]
--- OUTSIDE RECORDS SUMMARY | 2024-03-03 14:19 | XMS_ITS | Referral Summary ---
Author Organization [place] Address [address] [place] [address]. [place] [address] Care Team Providers Care Unified Communications Engineer Name Role Phone Chandana Fleming MD Primary Care Provider [phone] Allergies Active Allergy Reactions Criticality Noted Date Comments No Known Drug Allergy 02/21/2003 Medications Medication Sig Dispensed Refills Start Date End Date Status Saw [facility] 80 MG CAPS A ctive GINSENG PO Take by mouth 2 times daily Active HAWTHORN PO Take by mouth 2 times daily Active Ginkgo Biloba (GINKGO PO) Take by mouth 2 times daily Active NONFORMULARY [place]-zyme Active Active Problems Problem Noted Date Diagnosed [...] T Respiratory Rate 16 06/01/2014 8:01 PM [facility]BS[facility] SPECIALIST Oxygen Saturation 95% 04/08/2017 9:05 AM [facility] SPECIALIST Inhaled Oxygen Concentration - - Weight 78.9 kg (174 lb) 11/04/2018 1:12 PM CDT Height 172.7 cm (5' 8) 11/04/2018 1:12 PM CDT Body Mass Index 26.46 11/04/2018 1:12 PM CDT Plan of Treatment Not on file Medical Devices Implanted Type Area Fuel Dock Attendant Device Identifier Shelf Expiration Date Model / Serial / Lot [employer]* 2087tc Tendril Sts [id number] Implanted:01/30 (Quantity not on file) Leads [employer] 2087TC TENDRIL STS / [id number] / [employer] 2087tc Tendril Sts [id number] Implanted:01/30 (Quantity not on file) Leads [employer] 2087TC TENDRIL STS / [id number] / [employer]* [address] [id number] Implanted:01/30 (Quantity not on file) Pacemaker [employer] [address] / [id number] / Advance Directives For more information, please contact: [phone] * Full Code (Latest Code Status on File) Date Activated Date Inactivated Comments 02/16/2013 11:22 AM * Full Code Date Activated Date Inactivated Comments 02/14/2013 11:17 PM 02/16/2013 11:22 AM * Full Code Date Activated Date Inactivated Comments 07/31/2011 8:42 AM 02/14/2013 11:17 PM * Full Code Date Activated Date Inactivated Comments 07/30/2011 4:29 PM 07/31/2011 8:42 AM Care Teams Unified Communications Engineer Relationship Specialty Start Date End Date Chandana Fleimng MD [facility] [id number] [place] [id number] PCP - General Family Practice 02/03/19
[2024-03-03 14:29] VITALS: BP 171/96; PULSE 61; RESP 16; TEMP 36.8; O2SAT 99
[2024-03-03] MEDS: lidocaine HCL 2 % JELLY (TOP) STERILE 6 ML UR (15:12)
--- NOTE | 2024-03-03 15:41 | ED.GENADULT ---
HPI - General Adult General Chief complaint: Urogenital Problems, Male Stated complaint: Needs cath place-no output since last night Time Seen by Provider: 03/03/24 14:44 Source: patient Mode of arrival: ambulatory Limitations: no limitations History of Present Illness HPI narrative: 84-year-old male coming in today concerned about urinary retention. Patient states that he has not urinated since yesterday evening. States that yesterday when he was able to urinate urine was pink in color with some small blood clots that would dissolve. Patient was seen on the 27 of February which was 4 days ago with urinary retention at that time. A Ponce catheter was placed in he was sent home. He return to the ER that evening with when he fell was a clogged catheter although he was draining once he reached the ER. At that time his Ponce was irrigated and he was sent home. He then returned the following morning requesting to have his Ponce catheter removed because he felt that it was not draining properly. Ponce was irrigated again at that time with good a subsequent drainage. Patient returned the following day on 03/01 which was 2 days ago a once again requesting the catheter be removed. A weight was removed on 03/01. He denies any fevers or chills. No nausea or vomiting. He is complaining of abdominal discomfort and distention. He denies diarrhea or constipation, bowel movements have been normal. Related Data Previous Rx's ?Medication ?Instructions ?Recorded cephalexin 500 mg capsule 500 mg PO TID 7 days #21 caps 02/28/24 Allergies Allergy/AdvReac Type Severity Reaction Status Date / Time No Known Drug Allergies Allergy Verified 03/03/24 14:24 Review of Systems Status of ROS: Reports: 10 or more systems reviewed and unremarkable except as noted in History and below [facility] Social History Smoking Status: Never smoker Do you use any of these nicotine containing products: None Second hand tobacco smoke exposure: No How often do you have a drink containing alcohol: never How often do you have six or more drinks on one occasion: Never AUDIT-C Alcohol total score: 0 Non-prescribed substance use: denies use service: No Exam Narrative: Exam Narrative: Well-nourished well-developed patient in no acute distress. Alert and oriented. Answers questions appropriately. Mood and affect are appropriate. Thoughts are goal oriented and rational. No tangential or magical thinking noted. Patient speaks in full sentences without needing to catch his breath. HEENT: Normocephalic atraumatic. Pupils are equally round reactive to light. Extraocular muscles are intact. Conjunctivae are moist without any icterus noted. Moist mucous membranes. Posterior pharynx is normal. Cardiovascular: Heart is regular rate and rhythm S1 and S2 are present without any murmurs. Lungs: Clear to auscultation bilaterally no wheezes rhonchi or rales are appreciated. Patient takes deep breaths without any discomfort. Abdomen: Firm and distended. He has suprapubic tenderness. Normal bowel sounds. Extremities: Bilateral lower extremities are without edema. Skin: Well perfused. Const: Vital Signs, click to edit/add: Vital Signs - 24 hr 03/03/24 14:29 Temperature 98.2 F Pulse Rate [Pulse Oximeter] 61 Respiratory Rate 16 Blood Pressure [Ri t Upper Arm] 171/96 H Pulse Oximetry 99 Oxygen Delivery Me thod Room Air Course Course ED Course: Ponce was placed without difficulty. 850 mL of urine was evacuated which provided significant relief to the patient. Urine was clear, mildly pink in color. No blood clots. Vital Signs Vital signs: Initial Vital Signs Temperature 98.2 F 03/03/24 14:29 Temperature Source Temporal Artery Scan 03/03/24 14:29 Pulse Rate 61 03/03/24 14:29 Pulse Rhythm Regular 03/03/24 14:29 Pulse Strength 3+ Normal 03/03/24 14:29 Respiratory Rate 16 03/03/24 14:29 Blood Pressure 171/96 H 03/03/24 14:29 Blood Pressure Mean 121 H 03/03/24 14:29 Blood Pressure Position Sitting 03/03/24 14:29 Pulse Oximetry 99 03/03/24 14:29 Oxygen Delivery Method Room Air 03/03/24 14:29 Vital Signs Temperature 98.2 F 03/03/24 14:29 Pulse Rate 61 03/03/24 14:29 Respiratory Rate 16 03/03/24 14:29 Blood Pressure 171/96 H 03/03/24 14:29 Pulse Oximetry 99 03/03/24 14:29 Oxygen Delivery Method Room Air 03/03/24 14:29 Temperature 98.2 F 03/03/24 14:29 Pulse Rate 61 03/03/24 14:29 Respiratory Rate 16 03/03/24 14:29 Blood Pressure 171/96 H 03/03/24 14:29 Pulse Oximetry 99 03/03/24 14:29 Oxygen Delivery Method Room Air 03/03/24 14:29 Medications Administered Medications: Generic Name Dose Route Start Last Admin Trade Name Freq PRN Reason Stop Dose Admin Lidocaine HCl 6 ml 03/03/24 15:25 03/03/24 15:12 Lidocaine Hcl 2 % Jelly (Top) Sterile UR 6 ml ONCE PRN Administration Medical Decision Making MDM Narrative Medical decision making narrative: 84-year-old male with urinary retention. Will need follow-up with Urology. Discharge Plan Discharge Clinical Impression: Acute urinary retention Patient Disposition: Home, Self-Care Condition: Improved Additional Instructions: You need to have a follow-up appointment with Urology. If you cannot get in to see a urologist within the next week, follow-up with your primary care provider within the next 5-7 days. Prescriptions: No Action cephalexin 500 mg capsule 500 mg PO TID 7 Days Qty: 21 0RF Follow Up/Referrals: Provider,Not a Local [Primary Care Provider] - Stand Alone Forms: [employer] Info Instructions
--- OUTSIDE RECORDS SUMMARY | 2024-03-03 15:46 | XMS_ITS | Encounter Summary ---
Author Organization [facility] Address [address] [place] [address] Care Team Providers Care Weapons And Tactics Instructor Name Role Phone Unavailable Primary Care Provider Unavailabl e Prior Encounters Date Type Department Care Team Description 06/20/2019 Converted CPS Chart Documents [facility] [address] [place] [address] <No scans attached> 06/20/2019 Converted 13x Documents [facility] [address] [place] [address] <No scans attached> Plan of [...] 5 ENDODONTIC THERAPY, PREMOLAR TOOTH (EXCLUDING FINAL HINDU) Routine 07/14/2019 1:00 AM MST 5 PULP [...]
--- OUTSIDE RECORDS SUMMARY | 2024-03-03 15:46 | XMS_ITS | Clinical Summary ---
Author Organization [facility] Address [address] [place] [address]. [place] [address] Care Team Providers Care Power Plant Electrician Name Role Phone Chandana Fleming MD Primary Care Provider [phone] Allergies Active Allergy Reactions Criticality Noted Date Comments No Known Drug Allergy 02/21/2003 Medications Medication Sig Dispensed Refills Start Date End Date Status Saw [place] 80 MG CAPS A ctive GINSENG PO Take by mouth 2 times daily Active HAWTHORN PO Take by mouth 2 times daily Active Ginkgo Biloba (GINKGO PO) Take by mouth 2 times daily Active NONFORMULARY Dille-zyme Active Active Problems Problem Noted Date Diagnosed [...] T Respiratory Rate 16 06/01/2014 8:01 PM 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 [employer] Oxygen Saturation 95% 04/08/2017 9:05 AM 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 [employer] Inhaled Oxygen Concentration - - Weight 78.9 kg (174 lb) 11/04/2018 1:12 PM CDT Height 172.7 cm (5' 8) 11/04/2018 1:12 PM CDT Body Mass Index 26.46 11/04/2018 1:12 PM CDT Plan of Treatment Not on file Medical Devices Implanted Type Area Backbreaker Device Identifier Shelf Expiration Date Model / Serial / Lot [employer] 2087tc Tendril Sts [id number] Implanted:01/30 (Quantity not on file) Leads [employer] 2087TC TENDRIL STS / [id number] / [employer] 2087tc Tendril Sts [id number] Implanted:01/30 (Quantity not on file) Leads [employer] 2087TC TENDRIL STS / [id number] / [employer]* [address] [id number] Implanted:01/30 (Quantity not on file) Pacemaker [employer] [address] / [id number] / Advance Directives For more information, please contact: [phone] * Full Code (Latest Code Status on File) Date Activated Date Inactivated Comments 02/16/2013 11:22 AM * Full Code Date Activated Date Inactivated Comments 02/14/2013 11:17 PM 02/16/2013 11:22 AM * Full Code Date Activated Date Inactivated Comments 07/31/2011 8:42 AM 02/14/2013 11:17 PM * Full Code Date Activated Date Inactivated Comments 07/30/2011 4:29 PM 07/31/2011 8:42 AM Care Teams Power Plant Electrician Relationship Specialty Start Date End Date Chandana Fleming MD [facility] [id number] [place] [id number] PCP - General Family Practice 02/03/19
--- OUTSIDE RECORDS SUMMARY | 2024-03-03 15:46 | XMS_ITS | CCD ---
Author Organization [facility] [place] Address [address] [place] [address] Care Team Providers Care Space Control Agent Name Role Phone Unavailable Primary Care Provider [...]
--- OUTSIDE RECORDS SUMMARY | 2024-03-03 15:46 | XMS_ITS | Clinical Summary ---
Author Organization [facility] Address [address] [place] [address] Care Team Providers Care Box Spring Upholsterer Name Role Phone Unavailable Primary Care Provider [...]
--- OUTSIDE RECORDS SUMMARY | 2024-03-03 15:46 | XMS_ITS | Referral Summary ---
Author Organization [facility] [place] [address] [place] [address] Care Team Providers Care Receiver Dispatcher Name Role Phone Unavailable Primary Care Provider [...]
--- OUTSIDE RECORDS SUMMARY | 2024-03-03 15:46 | XMS_ITS | Clinical Summary ---
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 ) 12/18/2023 Transcribe Orders [facility] [address] [place] [address] Shankar Zaragoza MD from Last [...] Comments Blood Pressure 106/64 07/18/2010 9:30 AM DIRECTOR OF LABOR RELATIONS Pulse - - Temperature 36.8 ??C (98.2 ??F) 07/18/2010 9:30 AM CS T Respiratory Rate - - Oxygen Saturation - - Inhaled Oxygen Concentration - - Weight 82.6 kg (182 lb) 07/18/2010 9:30 AM DIRECTOR OF LABOR RELATIONS Height 172.7 cm (5' 8) 07/01/2010 9:18 AM DIRECTOR OF LABOR RELATIONS Body Mass Index 27.67 07/01/2010 9:18 AM DIRECTOR OF LABOR RELATIONS Plan of Treatment Health Maintenance Due Date [...] Influenza for age 65+ 01/31/2024 Care Teams Deliverer Outside Relationship Specialty [place] [address] [place] [address] PCP - General Family Practice 07/01/10
--- OUTSIDE RECORDS SUMMARY | 2024-03-03 15:46 | XMS_ITS ---
Author [facility] Address [address] [place] [address] Care Team Providers Care Mail Opener Name Role Phone Unavailable Unavailable Unavailable Surgery Details Not on file Complications Check Surgery Details section. Procedure Estimated Blood Loss Check Surgery Details section. Procedure Findings Check Surgery Details section. Procedure Specimens Taken Check Surgery Details section.
--- OUTSIDE RECORDS SUMMARY | 2024-03-03 15:46 | XMS_ITS | Continuity of Care Document ---
Author Name [facility] Organization [facility] Care Team Providers Care Supervisor Lace Tearing Name Role Phone [facility] Unavailable Unavailable Problems Combined list of problems from Department of Defense and Veterans Affairs facilities. It does not include entries that were removed or entered in error. 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 13 Condition Jul 07, 2014 Entered By: BEN VIVEROS Comment: s/p dualchamber pacer [facility] Chronic peptic ulcer without hemorrhage, without perforation AND without obstruction Active 06/01/18 86 Condition Jul 07, 2014 Entered By: BEN VIVEROS Comment: s/p partial gastrectomy, has dumping syndrome [facility] Atrial Flutter (SCT [id number]) Active Condition [facility] Cardiac pacemaker in situ Active Condition [facility] Cardiomyopathy Active Condition [facility] Elevated PSA Active Condition [facility] Gilbert's syndrome Active Condition [facility] Hearing Loss (SCT [id number]) Active Condition [facility] History of peptic ulcer Active Condition Dec 04, 2017 Entered By: MEHREEN ARCHIBALD Comment: partial gastectomy and dumping syndrome [facility] Syncope and Collapse (SCT [id number]) Active Condition Dec 04, 2017 Entered By: MEHREEN ARCHIBALD Comment: due to complete heart block [facility] Typical atrial flutter Active Condition [facility] Diagnosis: ICD-10-CM H90.A21 Snsrnrl hear loss, uni, r ear, with rstrcd hear cntra side Active Diagnosis [facility] Diagnosis: ICD-10-CM J32.8 Other chronic sinusitis Active Diagnosis [facility] Diagnosis: ICD-10-CM I45.5 Other specified heart block Active Diagnosis [facility] Diagnosis: ICD-10-CM Z13.6 Encounter for screening for cardiovascular disorders Active Diagnosis [facility] Diagnosis: ICD-10-CM Z95.0 Presence of cardiac pacemaker Active Diagnosis [facility] Diagnosis: ICD-10-CM 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 [facility] Diagnosis: ICD-10-CM H90.3 Sensorineural hearing loss, bilateral Active Diagnosis [facility] Diagnosis: ICD-10-CM I48.3 Typical atrial flutter Active Diagnosis [facility] Diagnosis: ICD-10-CM Z00.00 Encntr for general adult medical exam w/o abnormal findings Active Diagnosis [facility] Medications Combined list of outpatient [...] Jul 24, 2023 30 Jul 24, 2024 [id number] YASIR RECINOS [facility] ORAL HOLD 07/24/2024 [id number] Angeli RECINOS 2023 30 [facility] GINKGO BILOBA CAP/TAB GINKGO BILOBA CAP/TAB Non-VA TAKE ONE TABLET BY MOUTH EVERY DAY Sep 23, 2023 Non-VA Document ed by: MAIA BLANDON Document ed at: [facility] ORAL ACTIVE Angeli BLANDON 2023 [facility] NON VA MED NOT LISTED NON VA MED NOT LISTED Non-VA USE HYDRO-ZY ME MOUTH Nov 21, 2020 Non-VA Document ed by: AMARILYS PALAFOX Document ed at: [facility] ORAL ACTIVE AMARILYS PALAFOX 2020 [facility] SAW PALMETTO CAP/TAB SAW [place]MET[place] CAP/TAB Non-VA TAKE Jan 02, 2022 Non-VA Document ed by: MAGGIE BUCIO Document ed at: [facility] ACTIVE [place] BUCIO 2021 [facility] SODIUM CHLORIDE 0.65% SOLN,NASAL SPRAY SODIUM CHLORIDE 0.65% SOLN,GIGI AL SPRAY SPRAY 2 SPRAYS IN EACH NOSTRIL TWICE A DAY FOR NASAL DRYNESS FOR NASAL DRYNESS October 17, 2023 45 Nov 16, 2023 [id number] October 17, 2023 Ternt PONCE [facility] NASAL 11/16/2023 [id number] MONICA PONCE 2023 45 [facility] Immunizations Combined list of available immunizations from the Department of Defense and Veterans Affairs facilities. Immunization Series Date Given Administered By Site Reaction Lot Number CVX Code Drug Extract Puller Status Comments Source TD (ADULT), 2 LF TETANUS TOXOID, PRESERVATIVE FREE, ADSORBED 1996 09 complet ed [facility] Results Combined list of recent chemistry, hematology [...] AM Reporting Lab: [facility] [address] Performing Lab: [facility] [address] [place] [facility] LIPID PANEL,NO N-FASTIN G CHOLESTERO L IN HDL [MASS/VOLU ME] IN SERUM OR PLASMA 66 mg/dL 40 08/06 Specimen Type: PLASMA No comment entered. Ordering Provider: YOAV VILLEDA ERT E Report Released Date/Time: Aug 07, 2023 09:32 AM Reporting Lab: [facility] [address] Performing Lab: [facility] [address] [facility] LIPID PANEL,NO N-FASTIN G CHOLESTERO L IN LDL [MASS/VOLU ME] IN SERUM OR PLASMA BY CALCULANEHEMIAHO N 75 mg/dL <99 - 99 08/06 Specimen Type: PLASMA No comment entered. Ordering Provider: YOAV VILLEDA ERT Rachael Report Released Date/Time: Aug 07, 2023 09:32 AM Reporting Lab: [facility] [address] Performing Lab: [facility] [address] [place] [facility] LIPID PANEL,NO N-FASTIN G CHOLESTERO L IN VLDL [MASS/VOLU ME] IN SERUM OR PLASMA BY CALCULATIO N 25 mg/dL <29 - 29 08/06 Specimen Type: PLASMA No comment entered. Ordering Provider: YOAV VILLEDA Report Released Date/Time: Aug 07, 2023 09:32 AM Reporting Lab: [facility] [address] Performing Lab: [facility] [address] [place] [facility] LIPID PANEL,NO N-FASTIN G CHOLESTERO L NON HDL [MASS/VOLU ME] IN SERUM OR PLASMA 100 mg/dL <129 - 129 08/06 Specimen Type: PLASMA No comment entered. Ordering Provider: YOAV VILLEDA ERT Rachael Report Released Date/Time: Aug 07, 2023 09:32 AM Reporting Lab: [facility] [address] Performing Lab: [facility] [address] [place] [facility] LIPID PANEL,NO N-FASTIN G TRIGLYCERI DE [MASS/VOLU ME] IN SERUM OR PLASMA 124 mg/dL <149 - 149 08/06 Specimen Type: PLASMA No comment entered. Ordering Provider: YOAV VILLEDA Report Released Date/Time: Aug 07, 2023 09:32 AM Reporting Lab: [facility] [address] Performing Lab: [facility] [address] [place] [facility] EXTRA GOLD GEL TUBE EXTRA GOLD GEL TUBE RECEIVED 07/24 Specimen Type: SERUM No comment entered. Ordering Provider: MARGARET RECINOS Report Released Date/Time: Jul 24, 2023 11:22 AM Reporting Lab: [facility] [address] Performing Lab: [facility] [address] [place] [facility] POC CREATINI NE CREATININE [MASS/VOLU ME] IN BLOOD 1.1 mg/dL 0.6 - 1.3 07/24 Specimen Type: BLOOD No comment entered. Ordering Provider: MARGARET RECINOS Report Released Date/Time: Jul 24, 2023 11:28 AM Reporting Lab: [facility] [address] Performing Lab: [facility] [address] [place] [facility] ACT PART THROMBO TIME APTT IN PLATELET POOR PLASMA BY COAGULATIO N ASSAY 34.3 s 25.1 - 36.5 07/24 Specimen Type: PLASMA No comment entered. Ordering Provider: MARGARET RECINOS Report Released Date/Time: Jul 24, 2023 10:52 AM Reporting Lab: [facility] [address] Performing Lab: [facility] [address] [place] [facility] CBC & DIFF LEUKOCYTES [#/VOLUME] IN BLOOD BY AUTOMATED COUNT 8.70 10*3/uL 4.0 - 11.0 07/24 Specimen Type: BLOOD Comment: Automated Differentia l Performed Ordering Provider: MARGARET RECINOS Report Released Date/Time: Jul 24, 2023 10:52 AM Reporting Lab: [facility] [address] Performing Lab: [facility] [address] [facility] [facility] CBC & DIFF ERYTHROCYT ES [#/VOLUME] IN BLOOD BY AUTOMATED COUNT 4.85 10*6/uL 4.6 - 6.2 07/24 Specimen Type: BLOOD Comment: Automated Differentia l Performed Ordering Provider: MARGARET RECINOS Report Released Date/Time: Jul 24, 2023 10:52 AM Reporting Lab: [facility] [address] Performing Lab: [facility] [address] [place] [facility] CBC & DIFF HEMOGLOBIN [MASS/VOLU ME] IN BLOOD 15.1 g/dL 13.5 - 17.9 07/24 Specimen Type: BLOOD Comment: Automated Differentia l Performed Ordering Provider: MARGARET RECINOS Report Released Date/Time: Jul 24, 2023 10:52 AM Reporting Lab: [facility] [address] Performing Lab: [facility] [address] [place] [facility] CBC & DIFF HEMATOCRIT [VOLUME FRACTION] OF BLOOD BY AUTOMATED COUNT 45.7 41 - 54 07/24 Specimen Type: BLOOD Comment: Automated Differentia l Performed Ordering Provider: MARGARET RECINOS Report Released Date/Time: Jul 24, 2023 10:52 AM Reporting Lab: [facility] [address] Performing Lab: [facility] [address] [place] [facility] CBC & DIFF MCV [ENTITIC VOLUME] BY AUTOMATED COUNT 94.2 fL 80 - 100 07/24 Specimen Type: BLOOD Comment: Automated Differentia l Performed Ordering Provider: MARGARET RECINOS Report Released Date/Time: Jul 24, 2023 10:52 AM Reporting Lab: [facility] [address] Performing Lab: [facility] [address] [place] [facility] CBC & DIFF MCH [ENTITIC MASS] BY AUTOMATED COUNT 31.1 pg 27 - 33 07/24 Specimen Type: BLOOD Comment: Automated Differentia l Performed Ordering Provider: MARGARET RECINOS Report Released Date/Time: Jul 24, 2023 10:52 AM Reporting Lab: [facility] [address] Performing Lab: [facility] [address] [place] [facility] CBC & DIFF MCHC [MASS/VOLU ME] BY AUTOMATED COUNT 33.0 g/dL 32.0 - 37.5 07/24 Specimen Type: BLOOD Comment: Automated Differentia l Performed Ordering Provider: MARGARET RECINOS Report Released Date/Time: Jul 24, 2023 10:52 AM Reporting Lab: [facility] [address] Performing Lab: [facility] [address] [place] [facility] CBC & DIFF PLATELETS [#/VOLUME] IN BLOOD BY AUTOMATED COUNT 288 10*3/uL 150 - 400 07/24 Specimen Type: BLOOD Comment: Automated Differentia l Performed Ordering Provider: MARGARET RECINOS Report Released Date/Time: Jul 24, 2023 10:52 AM Reporting Lab: [facility] [address] Performing Lab: [facility] [address] [place] [facility] CBC & DIFF PLATELET MEAN VOLUME [ENTITIC VOLUME] IN BLOOD BY AUTOMATED COUNT 9.8 fL 7.4 - 10.4 07/24 Specimen Type: BLOOD Comment: Automated Differentia l Performed Ordering Provider: MARGARET RECINOS Report Released Date/Time: Jul 24, 2023 10:52 AM Reporting Lab: [facility] [address] Performing Lab: [facility] [address] [place] [facility] CBC & DIFF NEUTROPHIL S/100 LEUKOCYTES IN BLOOD BY MANUAL COUNT 66.1 40.0 - 80.0 07/24 Specimen Type: BLOOD Comment: Automated Differentia l Performed Ordering Provider: MARGARET RECINOS Report Released Date/Time: Jul 24, 2023 10:52 AM Reporting Lab: [facility] [address] Performing Lab: [facility] [address] [place] [facility] CBC & DIFF LYMPHOCYTE S/100 LEUKOCYTES IN BLOOD BY MANUAL COUNT 17.5 15.0 - 45.0 07/24 Specimen Type: BLOOD Comment: Automated Differentia l Performed Ordering Provider: MARGARET RECINOS Report Released Date/Time: Jul 24, 2023 10:52 AM Reporting Lab: [facility] [address] Performing Lab: [facility] [address] [place] [facility] CBC & DIFF MONOCYTES/ 100 LEUKOCYTES IN BLOOD BY AUTOMATED COUNT 12.3 2.0 - 12.0 07/24 H Specimen Type: BLOOD Comment: Automated Differentia l Performed Ordering Provider: MARGARET RECINOS Report Released Date/Time: Jul 24, 2023 10:52 AM Reporting Lab: [facility] [address] Performing Lab: [facility] [address] [place] [facility] CBC & DIFF EOSINOPHIL S/100 LEUKOCYTES IN BLOOD BY AUTOMATED COUNT 2.8 0.0 - 6.0 07/24 Specimen Type: BLOOD Comment: Automated Differentia l Performed Ordering Provider: MARGARET RECINOS Report Released Date/Time: Jul 24, 2023 10:52 AM Reporting Lab: [facility] [address] Performing Lab: [facility] [address] [place] [facility] CBC & DIFF BASOPHILS/ 100 LEUKOCYTES IN BLOOD BY MANUAL COUNT 0.8 0.0 - 2.0 07/24 Specimen Type: BLOOD Comment: Automated Differentia l Performed Ordering Provider: MARGARET RECINOS Report Released Date/Time: Jul 24, 2023 10:52 AM Reporting Lab: [facility] [address] Performing Lab: [facility] [address] [place] [facility] CBC & DIFF ERYTHROCYT E DISTRIBUTI ON WIDTH [RATIO] BY AUTOMATED COUNT 13.8 11.5 - 14.5 07/24 Specimen Type: BLOOD Comment: Automated Differentia l Performed Ordering Provider: MARGARET RECINOS Report Released Date/Time: Jul 24, 2023 10:52 AM Reporting Lab: [facility] [address] Performing Lab: [facility] [address] [place] [facility] CBC & DIFF LYMPHOCYTE S [#/VOLUME] IN BLOOD BY AUTOMATED COUNT 1.52 10*3/uL 1.0 - 4.0 07/24 Specimen Type: BLOOD Comment: Automated Differentia l Performed Ordering Provider: MARGARET RECINOS Report Released Date/Time: Jul 24, 2023 10:52 AM Reporting Lab: [facility] [address] Performing Lab: [facility] [address] [place] [facility] CBC & DIFF MONOCYTES [#/VOLUME] IN BLOOD BY AUTOMATED COUNT 1.07 10*3/uL 0.1 - 1.0 07/24 H Specimen Type: BLOOD Comment: Automated Differentia l Performed Ordering Provider: MARGARET RECINOS Report Released Date/Time: Jul 24, 2023 10:52 AM Reporting Lab: [facility] [address] Performing Lab: [facility] [address] [place] [facility] CBC & DIFF NEUTROPHIL S [#/VOLUME] IN BLOOD BY AUTOMATED COUNT 5.76 10*3/uL 2.0 - 7.7 07/24 Specimen Type: BLOOD Comment: Automated Differentia l Performed Ordering Provider: MARGARET RECINOS Report Released Date/Time: Jul 24, 2023 10:52 AM Reporting Lab: [facility] [address] Performing Lab: [facility] [address] [place] [facility] CBC & DIFF EOSINOPHIL S [#/VOLUME] IN BLOOD BY AUTOMATED COUNT 0.24 10*3/uL 0 - 0.5 07/24 Specimen Type: BLOOD Comment: Automated Differentia l Performed Ordering Provider: MARGARET RECINOS Report Released Date/Time: Jul 24, 2023 10:52 AM Reporting Lab: [facility] [address] Performing Lab: [facility] [address] [place] [facility] CBC & DIFF BASOPHILS [#/VOLUME] IN BLOOD BY AUTOMATED COUNT 0.07 10*3/uL 0 - 0.2 07/24 Specimen Type: BLOOD Comment: Automated Differentia l Performed Ordering Provider: MARGARET RECINOS Report Released Date/Time: Jul 24, 2023 10:52 AM Reporting Lab: [facility] [address] Performing Lab: [facility] [address] [place] [facility] CBC & DIFF IG(META,MY TAMIKA,PRO) 0.5 07/24 Specimen Type: BLOOD Comment: Automated Differentia l Performed Ordering Provider: MARGARET RECINOS Report Released Date/Time: Jul 24, 2023 10:52 AM Reporting Lab: [facility] [address] Performing Lab: [facility] [address] [place] [facility] CBC & DIFF IMMATURE GRANULOCYT ES [PRESENCE] IN BLOOD BY AUTOMATED COUNT 0.04 10*3/uL 0 - 0.1 07/24 Specimen Type: BLOOD Comment: Automated Differentia l Performed Ordering Provider: MARGARET RECINOS Report Released Date/Time: Jul 24, 2023 10:52 AM Reporting Lab: [facility] [address] Performing Lab: [facility] [address] [place] [facility] COMPREHE NSIVE METABOLI C PANEL+MG CREATININE [MASS/VOLU ME] IN SERUM OR PLASMA 1.1 mg/dL 0.7 - 1.2 07/24 Specimen Type: PLASMA No comment entered. Ordering Provider: MARGARET RECINOS Report Released Date/Time: Jul 24, 2023 10:52 AM Reporting Lab: [facility] [address] Performing Lab: [facility] [address] [place] [facility] COMPREHE NSIVE METABOLI C PANEL+MG UREA NITROGEN [MASS/VOLU ME] IN SERUM OR PLASMA 14 mg/dL 8 - 26 07/24 Specimen Type: PLASMA No comment entered. Ordering Provider: MARGARET RECINOS Report Released Date/Time: Jul 24, 2023 10:52 AM Reporting Lab: [facility] [address] Performing Lab: [facility] [address] [place] [facility] COMPREHE NSIVE METABOLI C PANEL+MG GLUCOSE [MASS/VOLU ME] IN SERUM OR PLASMA 94 mg/dL 70 - 100 07/24 Specimen Type: PLASMA No comment entered. Ordering Provider: MARGARET RECINOS Report Released Date/Time: Jul 24, 2023 10:52 AM Reporting Lab: [facility] [address] Performing Lab: [facility] [address] [place] [facility] COMPREHE NSIVE METABOLI C PANEL+MG SODIUM [MOLES/VOL UME] IN SERUM OR PLASMA 139 mmol/L 136 - 145 07/24 Specimen Type: PLASMA No comment entered. Ordering Provider: MARGARET RECINOS Report Released Date/Time: Jul 24, 2023 10:52 AM Reporting Lab: [facility] [address] Performing Lab: [facility] [address] [place] [facility] COMPREHE NSIVE METABOLI C PANEL+MG POTASSIUM [MOLES/VOL UME] IN SERUM OR PLASMA 4.5 mmol/L 3.5 - 5.1 07/24 Specimen Type: PLASMA No comment entered. Ordering Provider: MARGARET RECINOS Report Released Date/Time: Jul 24, 2023 10:52 AM Reporting Lab: [facility] [address] Performing Lab: [facility] [address] [place] [facility] COMPREHE NSIVE METABOLI C PANEL+MG CHLORIDE [MOLES/VOL UME] IN SERUM OR PLASMA 106 mmol/L 98 - 107 07/24 Specimen Type: PLASMA No comment entered. Ordering Provider: MARGARET RECINOS Report Released Date/Time: Jul 24, 2023 10:52 AM Reporting Lab: [facility] [address] Performing Lab: [facility] [address] [place] [facility] COMPREHE NSIVE METABOLI C PANEL+MG CARBON DIOXIDE, TOTAL [MOLES/VOL UME] IN SERUM OR PLASMA 27 mmol/L 22 - 29 07/24 Specimen Type: PLASMA No comment entered. Ordering Provider: MARGARET RECINOS Report Released Date/Time: Jul 24, 2023 10:52 AM Reporting Lab: [facility] [address] Performing Lab: [facility] [address] [place] [facility] COMPREHE NSIVE METABOLI C PANEL+MG CALCIUM [MASS/VOLU ME] IN SERUM OR PLASMA 9.5 mg/dL 8.4 - 10.2 07/24 Specimen Type: PLASMA No comment entered. Ordering Provider: MARGARET RECINOS Report Released Date/Time: Jul 24, 2023 10:52 AM Reporting Lab: [facility] [address] Performing Lab: [facility] [address] [place] [facility] COMPREHE NSIVE METABOLI C PANEL+MG PROTEIN [MASS/VOLU ME] IN SERUM OR PLASMA 7.3 g/dL 6.0 - 8.3 07/24 Specimen Type: PLASMA No comment entered. Ordering Provider: MARGARET RECINOS Report Released Date/Time: Jul 24, 2023 10:52 AM Reporting Lab: [facility] [address] Performing Lab: [facility] [address] [place] [facility] COMPREHE NSIVE METABOLI C PANEL+MG ALBUMIN [MASS/VOLU ME] IN SERUM OR PLASMA 3.9 g/dL 3.5 - 5.2 07/24 Specimen Type: PLASMA No comment entered. Ordering Provider: MARGARET RECINOS Report Released Date/Time: Jul 24, 2023 10:52 AM Reporting Lab: [facility] [address] Performing Lab: [facility] [address] [place] [facility] COMPREHE NSIVE METABOLI C PANEL+MG BILIRUBIN. TOTAL [MASS/VOLU ME] IN SERUM OR PLASMA 1.7 mg/dL 0.2 - 1.2 07/24 H Specimen Type: PLASMA No comment entered. Ordering Provider: MARGARET RECINOS Report Released Date/Time: Jul 24, 2023 10:52 AM Reporting Lab: [facility] [address] Performing Lab: [facility] [address] [place] [facility] COMPREHE NSIVE METABOLI C PANEL+MG MAGNESIUM [MASS/VOLU ME] IN SERUM OR PLASMA 2.1 mg/dL 1.6 - 2.6 07/24 Specimen Type: PLASMA No comment entered. Ordering Provider: MARGARET RECINOS Report Released Date/Time: Jul 24, 2023 10:52 AM Reporting Lab: [facility] [address] Performing Lab: [facility] [address] [place] [facility] COMPREHE NSIVE METABOLI C PANEL+MG ANION GAP IN SERUM OR PLASMA 6 mmol/L 5 - 15 07/24 Specimen Type: PLASMA No comment entered. Ordering Provider: MARGARET RECINOS Report Released Date/Time: Jul 24, 2023 10:52 AM Reporting Lab: [facility] [address] Performing Lab: [facility] [address] [place] [facility] COMPREHE NSIVE METABOLI C PANEL+MG ALKALINE PHOSPHATAS E [ENZYMATIC ACTIVITY/V OLUME] IN SERUM OR PLASMA 118 U/L 40 - 150 07/24 Specimen Type: PLASMA No comment entered. Ordering Provider: MARGARET RECINOS Report Released Date/Time: Jul 24, 2023 10:52 AM Reporting Lab: [facility] [address] Performing Lab: [facility] [address] [place] [facility] COMPREHE NSIVE METABOLI C PANEL+MG ALANINE AMINOTRANS FERASE [ENZYMATIC ACTIVITY/V OLUME] IN SERUM OR PLASMA 19 U/L <55 - 55 07/24 Specimen Type: PLASMA No comment entered. Ordering Provider: MARGARET RECINOS Report Released Date/Time: Jul 24, 2023 10:52 AM Reporting Lab: [facility] [address] Performing Lab: [facility] [address] [place] [facility] COMPREHE NSIVE METABOLI C PANEL+MG ASPARTATE AMINOTRANS FERASE [ENZYMATIC ACTIVITY/V OLUME] IN SERUM OR PLASMA 23 U/L <34 - 34 07/24 Specimen Type: PLASMA No comment entered. Ordering Provider: MARGARET RECINOS Report Released Date/Time: Jul 24, 2023 10:52 AM Reporting Lab: [facility] [address] Performing Lab: [facility] [address] [facility] COMPREHE NSIVE METABOLI C PANEL+MG GLOMERULAR FILTRATION RATE/1.73 SQ M.PREDICTE D [VOLUME RATE/AREA] IN SERUM, PLASMA OR BLOOD BY CREATININE -BASED FORMULA (CKD-EPI 2020) 67 60 07/24 Specimen Type: PLASMA No comment entered. Ordering Provider: MARGARET RECINOS Report Released Date/Time: Jul 24, 2023 10:52 AM Reporting Lab: [facility] [address] Performing Lab: [facility] [address] [place] [facility] COMPREHE NSIVE METABOLI C PANEL+MG BILIRUBIN. DIRECT [MASS/VOLU ME] IN SERUM OR PLASMA 0.5 mg/dL <0.5 - 0.5 07/24 Specimen Type: PLASMA No comment entered. Ordering Provider: MARGARET RECINOS Report Released Date/Time: Jul 24, 2023 10:52 AM Reporting Lab: [facility] [address] Performing Lab: [facility] [address] [place] [facility] PROTHROM BIN TIME/INR INR IN PLATELET POOR PLASMA BY COAGULATIO N ASSAY 1.0 0.8 - 1.1 07/24 Specimen Type: PLASMA No comment entered. Ordering Provider: MARGARET RECINOS Report Released Date/Time: Jul 24, 2023 10:52 AM Reporting Lab: [facility] [phone] Performing Lab: [facility] [id number] [place] [facility] PROTHROM BIN TIME/INR PROTHROMBI N TIME (PT) 12.2 s 9.4 - 12.5 07/24 Specimen Type: PLASMA No comment entered. Ordering Provider: MARGARET RECINOS Report Released Date/Time: Jul 24, 2023 10:52 AM Reporting Lab: [facility] [phone] Performing Lab: [facility] [phone] [place] [facility] BASIC METABOLI C PANEL+MG CREATININE [MASS/VOLU ME] IN SERUM OR PLASMA 1.0 mg/dL 0.7 - 1.2 02/05 Specimen Type: PLASMA No comment entered. Ordering Provider: MAGALYS BUCIO Report Released Date/Time: Jan 02, 2022 11:30 AM Reporting Lab: [facility] [address] Performing Lab: [facility] [address] [place] [facility] BASIC METABOLI C PANEL+MG UREA NITROGEN [MASS/VOLU ME] IN SERUM OR PLASMA 16 mg/dL 8 - 02/05 Specimen Type: PLASMA No comment entered. Ordering Provider: MAGALYS BUCIO Report Released Date/Time: Jan 02, 2022 11:30 AM Reporting Lab: [facility] [address] Performing Lab: [facility] [address] [place] [facility] BASIC METABOLI C PANEL+MG GLUCOSE [MASS/VOLU ME] IN SERUM OR PLASMA 78 mg/dL 70 - 100 02/05 Specimen Type: PLASMA No comment entered. Ordering Provider: MAGALYS BUCIO Report Released Date/Time: Jan 02, 2022 11:30 AM Reporting Lab: [facility] [address] Performing Lab: [facility] [address] [place] [facility] BASIC METABOLI C PANEL+MG SODIUM [MOLES/VOL UME] IN SERUM OR PLASMA 140 mmol/L 136 - 145 02/05 Specimen Type: PLASMA No comment entered. Ordering Provider: MAGALYS BUCIO Report Released Date/Time: Jan 02, 2022 11:30 AM Reporting Lab: [facility] [address] Performing Lab: [facility] [address] [place] [facility] BASIC METABOLI C PANEL+MG POTASSIUM [MOLES/VOL UME] IN SERUM OR PLASMA 4.4 mmol/L 3.5 - 5.1 02/05 Specimen Type: PLASMA No comment entered. Ordering Provider: MAGALYS BUCIO Report Released Date/Time: Jan 02, 2022 11:30 AM Reporting Lab: [facility] [address] Performing Lab: [facility] [address] [place] [facility] BASIC METABOLI C PANEL+MG CHLORIDE [MOLES/VOL UME] IN SERUM OR PLASMA 105 mmol/L 98 - 107 02/05 Specimen Type: PLASMA No comment entered. Ordering Provider: MAGALYS BUCIO Report Released Date/Time: Jan 02, 2022 11:30 AM Reporting Lab: [facility] [address] Performing Lab: [facility] [address] [place] [facility] BASIC METABOLI C PANEL+MG CARBON DIOXIDE, TOTAL [MOLES/VOL UME] IN SERUM OR PLASMA 26 mmol/L 22 - 29 02/05 Specimen Type: PLASMA No comment entered. Ordering Provider: MAGALYS BUCIO Report Released Date/Time: Jan 02, 2022 11:30 AM Reporting Lab: [facility] [address] Performing Lab: [facility] [address] [place] [facility] BASIC METABOLI C PANEL+MG CALCIUM [MASS/VOLU ME] IN SERUM OR PLASMA 9.4 mg/dL 8.4 - 10.2 02/05 Specimen Type: PLASMA No comment entered. Ordering Provider: MAGALYS BUCIO Report Released Date/Time: Jan 02, 2022 11:30 AM Reporting Lab: [facility] [address] Performing Lab: [facility] [address] [place] [facility] BASIC METABOLI C PANEL+MG MAGNESIUM [MASS/VOLU ME] IN SERUM OR PLASMA 2.0 mg/dL 1.6 - 2.6 02/05 Specimen Type: PLASMA No comment entered. Ordering Provider: MAGALYS BUCIO Report Released Date/Time: Jan 02, 2022 11:30 AM Reporting Lab: [facility] [address] Performing Lab: [facility] [address] [place] [facility] BASIC METABOLI C PANEL+MG ANION GAP IN SERUM OR PLASMA 9 mmol/L 5 - 15 02/05 Specimen Type: PLASMA No comment entered. Ordering Provider: MAGALYS BUCIO Report Released Date/Time: Jan 02, 2022 11:30 AM Reporting Lab: [facility] [address] Performing Lab: [facility] [address] [place] [facility] BASIC METABOLI C PANEL+MG GLOMERULAR FILTRATION RATE/1.73 SQ M.PREDICTE D [VOLUME RATE/AREA] IN SERUM, PLASMA OR BLOOD BY CREATININE -BASED FORMULA (CKD-EPI 2020) 75 60 02/05 Specimen Type: PLASMA No comment entered. Ordering Provider: MAGALYS BUCIO Report Released Date/Time: Jan 02, 2022 11:30 AM Reporting Lab: [facility] [address] Performing Lab: [facility] [address] [place] [facility] CBC LEUKOCYTES [#/VOLUME] IN BLOOD BY AUTOMATED COUNT 8.96 10*3/uL 4.0 - 11.0 02/05 Specimen Type: BLOOD No comment entered. Ordering Provider: MAGALYS BUCIO Report Released Date/Time: Jan 02, 2022 11:30 AM Reporting Lab: [facility] [address] Performing Lab: [facility] [address] [place] [facility] CBC ERYTHROCYT ES [#/VOLUME] IN BLOOD BY AUTOMATED COUNT 4.71 10*6/uL 4.6 - 6.2 02/05 Specimen Type: BLOOD No comment entered. Ordering Provider: MAGALYS BUCIO Report Released Date/Time: Jan 02, 2022 11:30 AM Reporting Lab: [facility] [address] Performing Lab: [facility] [address] [place] [facility] CBC HEMOGLOBIN [MASS/VOLU ME] IN BLOOD 15.0 g/dL 13.5 - 17.9 02/05 Specimen Type: BLOOD No comment entered. Ordering Provider: MAGALYS BUCIO Report Released Date/Time: Jan 02, 2022 11:30 AM Reporting Lab: [facility] [address] Performing Lab: [facility] [address] [place] [facility] CBC HEMATOCRIT [VOLUME FRACTION] OF BLOOD BY AUTOMATED COUNT 45.0 41 - 54 02/05 Specimen Type: BLOOD No comment entered. Ordering Provider: MAGALYS BUCIO Report Released Date/Time: Jan 02, 2022 11:30 AM Reporting Lab: [facility] [address] Performing Lab: [facility] [address] [place] [facility] CBC MCV [ENTITIC VOLUME] BY AUTOMATED COUNT 95.5 fL 80 - 100 02/05 Specimen Type: BLOOD No comment entered. Ordering Provider: MAGALYS BUCIO Report Released Date/Time: Jan 02, 2022 11:30 AM Reporting Lab: [facility] [address] Performing Lab: [facility] [address] [place] [facility] CBC MCH [ENTITIC MASS] BY AUTOMATED COUNT 31.8 pg 27 - 33 02/05 Specimen Type: BLOOD No comment entered. Ordering Provider: MAGALYS BUCIO Report Released Date/Time: Jan 02, 2022 11:30 AM Reporting Lab: [facility] [address] Performing Lab: [facility] [address] [place] [facility] CBC MCHC [MASS/VOLU ME] BY AUTOMATED COUNT 33.3 g/dL 32.0 - 37.5 02/05 Specimen Type: BLOOD No comment entered. Ordering Provider: MAGALYS BUCIO Report Released Date/Time: Jan 02, 2022 11:30 AM Reporting Lab: [facility] [address] Performing Lab: [facility] [address] [place] [facility] CBC PLATELETS [#/VOLUME] IN BLOOD BY AUTOMATED COUNT 271 10*3/uL 150 - 400 02/05 Specimen Type: BLOOD No comment entered. Ordering Provider: MAGALYS BUCIO Report Released Date/Time: Jan 02, 2022 11:30 AM Reporting Lab: [facility] [address] Performing Lab: [facility] [address] [place] [facility] CBC PLATELET MEAN VOLUME [ENTITIC VOLUME] IN BLOOD BY AUTOMATED COUNT 9.6 fL 7.4 - 10.4 02/05 Specimen Type: BLOOD No comment entered. Ordering Provider: MAGALYS BUCIO Report Released Date/Time: Jan 02, 2022 11:30 AM Reporting Lab: [facility] [address] Performing Lab: [facility] [address] [place] [facility] CBC ERYTHROCYT E DISTRIBUTI ON WIDTH [RATIO] BY AUTOMATED COUNT 13.5 11.5 - 14.5 02/05 Specimen Type: BLOOD No comment entered. Ordering Provider: MAGALYS BUCIO Report Released Date/Time: Jan 02, 2022 11:30 AM Reporting Lab: [facility] [address] Performing Lab: [facility] [address] [facility] Vital Signs Combined list of inpatient and outpatient Vital Signs from Department of Defense and Veterans Affairs, ranging from 12 months to all on record, depending upon the facility. Vital Sign Value Date Comments Source SYSTOLIC BLOOD PRESSURE 118 10/17/2023 13:01:15 [facility] DIASTOLIC BLOOD PRESSURE 55 10/17/2023 13:01:15 [facility] PULSE OXIMETRY 95 10/17/2023 13:01:15 [place] [facility] TEMPERATURE 98.5 10/17/2023 13:01:15 [place] [facility] PULSE 66 10/17/2023 13:01:15 [facility] [place] [facility] RESPIRATION 16 10/17/2023 13:01:15 [place] [facility] SYSTOLIC BLOOD PRESSURE 160 09/23/2023 09:17:00 [facility] DIASTOLIC BLOOD PRESSURE 89 09/23/2023 09:17:00 [facility] PULSE OXIMETRY 69 09/23/2023 09:17:00 [facility] WEIGHT 183 09/23/2023 09:17:00 [facility] [place] [facility] BMI 29kg/m2 09/23/2023 09:17:00 [facility] [place] [facility] PAIN 0 09/23/2023 09:17:00 [facility] [place] [facility] HEIGHT 67.25 09/23/2023 09:17:00 [facility] [place] [facility] TEMPERATURE 97.5 09/23/2023 09:17:00 [place] [facility] PULSE 71 09/23/2023 09:17:00 [facility] [place] [facility] SYSTOLIC BLOOD PRESSURE 160 08/07/2023 08:58:05 [facility] DIASTOLIC BLOOD PRESSURE 89 08/07/2023 08:58:05 [facility] PULSE OXIMETRY 96 08/07/2023 08:58:05 [facility] PAIN 0 08/07/2023 08:58:05 [facility] [place] [facility] TEMPERATURE 97.8 08/07/2023 08:58:05 [place] [facility] PULSE 62 08/07/2023 08:58:05 [facility] [place] [facility] RESPIRATION 16 08/07/2023 08:58:05 [place] [facility] SYSTOLIC BLOOD PRESSURE 127 07/24/2023 10:32:00 [facility] DIASTOLIC BLOOD PRESSURE 76 07/24/2023 10:32:00 [facility] PULSE OXIMETRY 96 07/24/2023 10:32:00 M [facility] PAIN 0 07/24/2023 10:32:00 [facility] TEMPER[facility] 98.1 07/24/2023 10:32:00 [facility] PULSE 63 07/24/2023 10:32:00 [facility] RESPIRATION 16 07/24/2023 10:32:00 [facility] Encounters Combined list of: 1) Encounters from Department of [facility] Affairs facilities going back up to thelast 18 months. 2) Encounters from the Department of [facility] facilities going back up to 280 months. Location Location Details Encounter Type Encounter Number Reason For Visit Attending Provider ADM Date DC Date Status Disposition Source [facility] Outpatient Encounter [id number] 09/10 [facility] Outpatient Encounter [id number] 09/10 [facility] REM INTERROG EVL PM/[place]S [place] [id number] Diagnos is: ICD-10- CM Z95.0 Presenc e of cardiac pacemak er
SA KRISTIN NDRA L 09/11 [facility] PM DEVICE PROGR EVAL DUAL [id number] Diagnos is: ICD-10- CM Z95.0 Presenc e of cardiac pacemak er
DORENE UNGER A 11/27 [facility] Outpatient Encounter [id number] 12/12 [facility] OFFICE O/P EST LOW 20-29 MIN [id number] Diagnos is: ICD-10- CM Z00.00 Encntr for general adult medical exam w/o abnorma l finding s
KEVYN WETZEL A 02/05 [facility] Outpatient Encounter [id number] 03/13 [facility] [place] [facility] Outpatient Encounter [id number] 06/19 [place] [facility] Outpatient Encounter [id number] 06/22 [facility] [place] [facility] REM INTERROG EVL PM/LDLS PM [id number] Diagnos is: ICD-10- CM I48.3 Typical atrial flutter
AIME RAZA T 06[facility]22 [facility] [place] [facility] HEARING AID REPAIR/MOD IFYING [id number] Diagnos is: ICD-10- CM H90.3 Sensori neural hearing loss, bilater al
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<b r/> ALESSANDRA RECINOS T 07/24 [facility] Outpatient Encounter [id number] 07/29 [facility] OFF/OP CNSLTJ NEW/EST MOD 40 [id number] Diagnos is: ICD-10- CM G45.3 Amauros is fugax<b r/> EXCONDE,RU PERT E 08/06 [facility] Outpatient Encounter [id number] LEXIS SIMS R 08/12 [facility] Outpatient Encounter [id number] 09/08 [facility] INJ PERFLUTREN LIP MICROS,ML [id number] Diagnos is: ICD-10- CM Z95.0 Presenc e of cardiac pacemak er
DANNY SMART NZI 09/22 [facility] ELECTROCAR DIOGRAM REPORT [id number] Diagnos is: ICD-10- CM Z13.6 Encount er for screeni ng for cardiov ascular disorde rs
Karin ZABALA O 09/22 [facility] INTERROG EVL PM/[place] [id number] Diagnos is: ICD-10- CM I45.5 Other specifi ed heart block<b r/> AB BARBER BIE L 09/22 [facility] OFF/OP CONSLTJ NEW/[place] HI 55 [id number] Diagnos is: ICD-10- CM I45.5 Other specifi ed heart block<b r/> BARBERAB BIE L 09/22 [facility] Outpatient Encounter [id number] 10/01 [facility] IS [facility] EMR DPT VST MAYX REQ PHY/QHP [id number] Diagnos is: ICD-10- CM J32.8 Other chronic sinusit is
LELAND PONCE IN J 10/16 [facility] Outpatient Encounter [id number] CYNTHIA MAGANA 10/16 [facility] Outpatient Encounter [id number] 10/16 [facility] HEARING AID REPAIR/MOD IFYING [id number] Diagnos is: ICD-10- CM H90.A21 Snsrnrl hear loss, uni, r ear, with rstrcd hear cntra side
Angeli KENDALL 11/01 [place] [facility] [place] [facility] Outpatient Encounter [id number] SHAN ORDONEZ 11/16 [place] [facility] [place] [facility] Outpatient Encounter [id number] 12/01 [place] [facility] [place] [facility] SELF-MGMT EDUC & TRAIN 1 [place] [id number] Diagnos is: ICD-10- CM H90.A21 Snsrnrl hear loss, uni, r ear, with rstrcd hear cntra side
SAMY CARSON 12/06 [facility] [place] [facility] Outpatient Encounter [id number] 12/14 [place] [facility] [place] [facility] Outpatient Encounter [id number] 12/20 [place] [facility] [place] [facility] Outpatient Encounter [id number] 01/11 [place] [facility] [place] [facility] Outpatient Encounter [id number] 01/19 [place] [facility] Outpatient Encounter [id number] 01/19 [facility] Social History Combined list of available smoking, tobacco, and other social history from Department of Defense and Veterans Affairs facilities. Social History Type Response Date Comment Sour e Tobacco smoking status NHIS [place]-TOBAC[place] FORMER USER 02/05/2023 [facility] History of tobacco use [place]-TO[place] QUIT 15 YRS OR MORE 02/05/2023 [facility] History of tobacco use [place]-TO[place] QUIT 15 YRS OR MORE 01/02/2022 [facility] History of tobacco use [place]-TOBACCO FORMER USER 11/08/2020 [facility] History of tobacco use VA-TOBACCO QUIT 15 YRS OR MORE 11/18/2018 [facility] History of tobacco use QUIT TOBACCO >7 YEARS AGO 10[facility]27/2017 [facility] History of tobacco use NON-TOBACCO USER 07/21/2017 [facility] History of tobacco use FORMER TOBACCO USER 7Y OR GREATER 09/02/2016 [facility] History of tobacco use FORMER TOBACCO USER 7Y OR GREATER 08/06/2015 [facility] History of tobacco use LIFETIME NON-TOBACCO USER 07/07/2014 [facility]
--- OUTSIDE RECORDS SUMMARY | 2024-03-03 15:47 | XMS_ITS | Encounter Summary ---
Author Organization [facility] Address [address] [place] [address]. [place] [address] Care Team Providers Care Casino Porter Name Role Phone [facility] Primary Care Provider + Maura Jackson MD Primary Care Provider [phone] Jorge Douglas MD Unavailable Unavailable Encounter Details Date Type Department Care Team (Late st Contact Info) Description 04/11/2013 Office Visit-[facility] [address] [place] [address] Jorge Douglas MD Social History [...] old Referring Physician: MAURA JACKSON Referring Clinic: [facility] CURRENT DIAGNOSES 1. 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 [...] on filedocumented in this encounter Care Teams Casino Porter Relationship Specialty Start Date End Date [facility] [address] [place] [phone] PCP - General 07/30/11 02/02/19 Maura Jackson MD [facility] [id number] [place] [address] PCP - General Family Practice 02/03/19 Jorge Douglas MD Assigned Heart and Vascular Provider 03/23/20 05/25/21 documented as of this encounter
--- OUTSIDE RECORDS SUMMARY | 2024-03-03 15:47 | XMS_ITS | Referral Summary ---
Author Organization [place] Address [address] [place] [address]. [place] [address] Care Team Providers Care Virtual Assistant For Advertisers Name Role Phone Chandana Fleming MD Primary Care Provider [phone] Allergies Active Allergy Reactions Criticality Noted Date Comments No Known Drug Allergy 02/21/2003 Medications Medication Sig Dispensed Refills Start Date End Date Status Saw [place] 80 MG CAPS A ctive GINSENG PO Take by mouth 2 times daily Active HAWTHORN PO Take by mouth 2 times daily Active Ginkgo Biloba (GINKGO PO) Take by mouth 2 times daily Active NONFORMULARY Bessie-zyme Active Active Problems Problem Noted Date Diagnosed [...] T Respiratory Rate 16 06/01/2014 8:01 PM MINING ENGINEERING TECHNOLOGIST Oxygen Saturation 95% 04/08/2017 9:05 AM MINING ENGINEERING TECHNOLOGIST Inhaled Oxygen Concentration - - Weight 78.9 kg (174 lb) 11/04/2018 1:12 PM CDT Height 172.7 cm (5' 8) 11/04/2018 1:12 PM CDT Body Mass Index 26.46 11/04/2018 1:12 PM CDT Plan of Treatment Not on file Medical Devices Implanted Type Area Logging Truck Driver Device Identifier Shelf Expiration Date Model / Serial / Lot [employer]* 2087tc Tendril Sts [id number] Implanted:01/30 (Quantity not on file) Leads [employer] 2087TC TENDRIL STS / [id number] / [employer]* 2087tc Tendril Sts [id number] Implanted:01/30 (Quantity not on file) Leads [employer] 2087TC TENDRIL STS / [id number] / [employer]* [address] [id number] Implanted:01/30 (Quantity not on file) Pacemaker [employer] [address] / [id number] / Advance Directives For more information, please contact: [phone] * Full Code (Latest Code Status on File) Date Activated Date Inactivated Comments 02/16/2013 11:22 AM * Full Code Date Activated Date Inactivated Comments 02/14/2013 11:17 PM 02/16/2013 11:22 AM * Full Code Date Activated Date Inactivated Comments 07/31/2011 8:42 AM 02/14/2013 11:17 PM * Full Code Date Activated Date Inactivated Comments 07/30/2011 4:29 PM 07/31/2011 8:42 AM Care Teams Virtual Assistant For Advertisers Relationship Specialty Start Date End Date Chandana Fleming MD [facility] [id number] [place] [address] PCP - General Family Practice 02/03/19
== END 2024-03-03 16:07 | disposition home or self-care (01) ==
PROVIDERS: Emergency Provider Family Medicine
DX: R33.9 Retention of urine, unspecified (principal)
CPT/HCPCS: 51702; 99283; 99284

== ENCOUNTER 2024-03-10 07:54 | Emergency (ER) | payer OTHER, SELFPAY ==
[2024-03-10 07:57] VITALS: BP 124/64; PULSE 99; RESP 18; TEMP 36.8; O2SAT 96; BMI 23.6
--- OUTSIDE RECORDS SUMMARY | 2024-03-10 07:57 | XMS_ITS | CCD ---
Author Organization [facility] [place] [address] [place] [address] Care Team Providers Care Gis Manager Name Role Phone Unavailable Primary Care [...]
--- OUTSIDE RECORDS SUMMARY | 2024-03-10 07:57 | XMS_ITS | Encounter Summary ---
Author Organization [facility] Address [address] [place] [address] Care Team Providers Care Stem Dryer Maintainer Name Role Phone Unavailable Primary Care Provider Unavailabl e Prior Encounters Date Type Department Care Team Description 06/20/2019 Converted CPS Chart Documents [facility] [address] [place] [address] <No scans attached> 06/20/2019 Converted 13x Documents [facility] [address] [place] [address] <No scans attached> Plan of [...] 5 ENDODONTIC THERAPY, PREMOLAR TOOTH (EXCLUDING FINAL YAZIDISM) Routine 07/14/2019 1:00 AM MST 5 PULP [...]
--- OUTSIDE RECORDS SUMMARY | 2024-03-10 07:57 | XMS_ITS | Referral Summary ---
Author Organization [facility] [place] Address [address] [place] [address] Care Team Providers Care Mold Cooler Name Role Phone Unavailable Primary Care Provider [...]
--- OUTSIDE RECORDS SUMMARY | 2024-03-10 07:57 | XMS_ITS | Clinical Summary ---
Author Organization 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 ) 12/18/2023 Transcribe Orders [facility] [address] [place] [address] Chriss Zaragoza-Oscar Cai MD from Last 3 Months Immunizations Name [...] Comments Blood Pressure 106/64 07/18/2010 9:30 AM RETIREMENT SPECIALIST Pulse - - Temperature 36.8 ??C (98.2 ??F) 07/18/2010 9:30 AM CS T Respiratory Rate - - Oxygen Saturation - - Inhaled Oxygen Concentration - - Weight 82.6 kg (182 lb) 07/18/2010 9:30 AM RETIREMENT SPECIALIST Height 172.7 cm (5' 8) 07/01/2010 9:18 AM RETIREMENT SPECIALIST Body Mass Index 27.67 07/01/2010 9:18 AM RETIREMENT SPECIALIST Plan of Treatment Health Maintenance Due Date Last Done Comments Tdap 01/31/1951 Depression screening for age 12+ 1952 BMI (ht and wt on same day) for age 18+ 01/31/1958 Zoster (shingles) series for age 50+ (1 of 2) 01/31/19 90 Medicare Wellness for age 65+ 01/31/2005 Pneumococcal series for age 65+ (1 of 1 - PCV) 005 Tetanus booster 06/14/2006 06/14/1996 RSV vaccine for adults or pr egnancy (1 - 1-dose 75+ series) 01/31/2015 COVID-19 vaccine series ( - 2023-25 season) Influenza for age 65+ 01/31/2024 Care Teams Cabana Attendant Relationship Specialty [place] [address] [place] [address] PCP - General Family Practice 07/01/10
--- OUTSIDE RECORDS SUMMARY | 2024-03-10 07:57 | XMS_ITS | Clinical Summary ---
Author Organization [facility] Address [address] [place] [address] Care Team Providers Care Medical Billing And Coding Specialist Name Role Phone Unavailable Primary Care [...]
--- OUTSIDE RECORDS SUMMARY | 2024-03-10 07:57 | XMS_ITS | Continuity of Care Document ---
Author Name [facility] Organization [facility] Care Team Providers Care Magnaflux Operator Name Role Phone [facility] Unavailable Unavailable Problems Combined list of problems from Department of Defense and Veterans Affairs facilities. It does not include entries that were removed or entered in error. 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 13 Condition Jul 07, 2014 Entered By: BEN VIVEROS Comment: s/p dualchamber pacer [facility] Chronic peptic ulcer without hemorrhage, without perforation AND without obstruction Active 06/01/18 86 Condition Jul 07, 2014 Entered By: BEN VIVEROS Comment: s/p partial gastrectomy, has dumping syndrome [facility] Atrial Flutter (SCT [id number]) Active Condition [facility] Cardiac pacemaker in situ Active Condition [facility] Cardiomyopathy Active Condition [facility] Elevated PSA Active Condition [facility] Gilbert's syndrome Active Condition [facility] Hearing Loss (SCT 68634715) Active Condition [facility] History of peptic ulcer Active Condition Dec 04, 2017 Entered By: MEHREEN ARCHIBALD Comment: partial gastectomy and dumping syndrome [facility] Syncope and Collapse (SCT [id number]) Active Condition Dec 04, 2017 Entered By: MEHREEN ARCHIBALD Comment: due to complete heart block [facility] Typical atrial flutter Active Condition [facility] Diagnosis: ICD-10-CM H90.A21 Snsrnrl hear loss, uni, r ear, with rstrcd hear cntra side Active Diagnosis [facility] Diagnosis: ICD-10-CM J32.8 Other chronic sinusitis Active Diagnosis [facility] Diagnosis: ICD-10-CM I45.5 Other specified heart block Active Diagnosis [facility] Diagnosis: ICD-10-CM Z13.6 Encounter for screening for cardiovascular disorders Active Diagnosis [facility] Diagnosis: ICD-10-CM Z95.0 Presence of cardiac pacemaker Active Diagnosis [facility] Diagnosis: ICD-10-CM 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 [facility] Diagnosis: ICD-10-CM H90.3 Sensorineural hearing loss, bilateral Active Diagnosis [facility] Diagnosis: ICD-10-CM I48.3 Typical atrial flutter Active Diagnosis [facility] Diagnosis: ICD-10-CM Z00.00 Encntr for general adult medical exam w/o abnormal findings Active Diagnosis [facility] Medications Combined list of outpatient medications from Department of Defense and Veterans Affairs facilities.Medications provided include 1) outpatient medications from the last 15 months, and 2) patient-reported medications. Medication Details Route Status Patient Instructions Prescription Expires Prescription Number Last Dispense Date Ordering Provider Order Date Order Qty Source ASPIRIN 81MG TAB,CHEWABL E CHEW ONE TABLET BY MOUTH EVERY DAY TO PREVENT BLOOD CLOTS ORAL HOLD 07/24/2024 [id number] Angeli RECINOS T 2023 30 [facility] GINKGO BILOBA CAP/TAB TAKE ONE TABLET BY MOUTH EVERY DAY ORAL ACTIVE Angeli BLANDON 2023 [facility] NON VA MED NOT LISTED USE HYDRO-ZY ME MOUTH ORAL ACTIVE AMARILYS [place] 2020 [facility] SAW [place] CAP/TAB TAKE ACTIVE [place] BUCIO 2021 [facility] SODIUM CHLORIDE 0.65% SOLN,NASAL SPRAY SPRAY 2 SPRAYS IN EACH NOSTRIL TWICE A DAY FOR NASAL DRYNESS NASAL 11/16/2023 [id number] 4 MONICA PONCE 2023 45 [facility] Immunizations Combined list of available immunizations from the Department of Defense and Veterans Affairs facilities. Immunization Series Date Given Administered By Site Reaction Lot Number CVX Code Drug Screen Printing Machine Operator Status Comments Source TD (ADULT), 2 LF TETANUS TOXOID, PRESERVATIVE FREE, ADSORBED 1996 09 complet ed [facility] Results Combined list of recent chemistry, [...] Aug 07, 2023 09:32 AM Reporting Lab: [facility] [address] Performing Lab: [facility] [address] [place] [facility] LIPID PANEL,NO N-FASTIN G CHOLESTERO L IN HDL [MASS/VOLU ME] IN SERUM OR PLASMA 66 mg/dL 40 08/06 Specimen Type: PLASMA No comment entered. Ordering Provider: YOAV VILLEDA Report Released Date/Time: Aug 07, 2023 09:32 AM Reporting Lab: [facility] [address] Performing Lab: [facility] [address] [place] [facility] LIPID PANEL,NO N-FASTIN G CHOLESTERO L IN LDL [MASS/VOLU ME] IN SERUM OR PLASMA BY CALCULATIO N 75 mg/dL <99 - 99 08/06 Specimen Type: PLASMA No comment entered. Ordering Provider: YOAV VILLEDA ERT Rachael Report Released Date/Time: Aug 07, 2023 09:32 AM Reporting Lab: [facility] [address] Performing Lab: [facility] [address] [place] [facility] LIPID PANEL,NO N-FASTIN G CHOLESTERO L IN VLDL [MASS/VOLU ME] IN SERUM OR PLASMA BY CALCULATIO N 25 mg/dL <29 - 29 08/06 Specimen Type: PLASMA No comment entered. Ordering Provider: YOAV VILLEDA ERT Rachael Report Released Date/Time: Aug 07, 2023 09:32 AM Reporting Lab: [facility] [address] Performing Lab: [facility] [address] [place] [facility] LIPID PANEL,NO N-FASTIN G CHOLESTERO L NON HDL [MASS/VOLU ME] IN SERUM OR PLASMA 100 mg/dL <129 - 129 08/06 Specimen Type: PLASMA No comment entered. Ordering Provider: YOAV VILLEDA Report Released Date/Time: Aug 07, 2023 09:32 AM Reporting Lab: [facility] [address] Performing Lab: [facility] [address] [place] [facility] LIPID PANEL,NO N-FASTIN G TRIGLYCERI DE [MASS/VOLU ME] IN SERUM OR PLASMA 124 mg/dL <149 - 149 08/06 Specimen Type: PLASMA No comment entered. Ordering Provider: YOAV VILLEDA ERT Rachael Report Released Date/Time: Aug 07, 2023 09:32 AM Reporting Lab: [facility] [address] Performing Lab: [facility] [address] [place] [facility] EXTRA GOLD GEL TUBE EXTRA GOLD GEL TUBE RECEIVED 07/24 Specimen Type: SERUM No comment entered. Ordering Provider: MARGARET RECINOS Report Released Date/Time: Jul 24, 2023 11:22 AM Reporting Lab: [facility] [address] Performing Lab: [facility] [address] [place] [facility] POC CREATINI NE CREATININE [MASS/VOLU ME] IN BLOOD 1.1 mg/dL 0.6 - 1.3 07/24 Specimen Type: BLOOD No comment entered. Ordering Provider: MARGARET RECINOS Report Released Date/Time: Jul 24, 2023 11:28 AM Reporting Lab: [facility] [address] Performing Lab: [facility] [address] [place] [facility] PROTHROM BIN TIME/INR INR IN PLATELET POOR PLASMA BY COAGULATIO N ASSAY 1.0 0.8 - 1.1 07/24 Specimen Type: PLASMA No comment entered. Ordering Provider: MARGARET RECINOS Report Released Date/Time: Jul 24, 2023 10:52 AM Reporting Lab: [facility] [address] Performing Lab: [facility] [address] [place] [facility] PROTHROM BIN TIME/INR PROTHROMBI N TIME (PT) 12.2 s 9.4 - 12.5 07/24 Specimen Type: PLASMA No comment entered. Ordering Provider: MARGARET RECINOS Report Released Date/Time: Jul 24, 2023 10:52 AM Reporting Lab: [facility] [phone] Performing Lab: [facility] [address] [place] [facility] ACT PART THROMBO TIME APTT IN PLATELET POOR PLASMA BY COAGULATIO N ASSAY 34.3 s 25.1 - 36.5 07/24 Specimen Type: PLASMA No comment entered. Ordering Provider: MARGARET RECINOS Report Released Date/Time: Jul 24, 2023 10:52 AM Reporting Lab: [facility] [address] Performing Lab: [facility] [address] [place] [facility] CBC & DIFF LEUKOCYTES [#/VOLUME] IN BLOOD BY AUTOMATED COUNT 8.70 10*3/uL 4.0 - 11.0 07/24 Specimen Type: BLOOD Comment: Automated Differentia l Performed Ordering Provider: MARGARET RECINOS Report Released Date/Time: Jul 24, 2023 10:52 AM Reporting Lab: [facility] [address] Performing Lab: [facility] [address] [place] [facility] CBC & DIFF ERYTHROCYT ES [#/VOLUME] IN BLOOD BY AUTOMATED COUNT 4.85 10*6/uL 4.6 - 6.2 07/24 Specimen Type: BLOOD Comment: Automated Differentia l Performed Ordering Provider: MARGARET RECINOS Report Released Date/Time: Jul 24, 2023 10:52 AM Reporting Lab: [facility] [address] Performing Lab: [facility] [address] [place] [facility] CBC & DIFF HEMOGLOBIN [MASS/VOLU ME] IN BLOOD 15.1 g/dL 13.5 - 17.9 07/24 Specimen Type: BLOOD Comment: Automated Differentia l Performed Ordering Provider: MARGARET RECINOS Report Released Date/Time: Jul 24, 2023 10:52 AM Reporting Lab: [facility] [address] Performing Lab: [facility] [address] [place] [facility] CBC & DIFF HEMATOCRIT [VOLUME FRACTION] OF BLOOD BY AUTOMATED COUNT 45.7 41 - 54 07/24 Specimen Type: BLOOD Comment: Automated Differentia l Performed Ordering Provider: MARGARET RECINOS Report Released Date/Time: Jul 24, 2023 10:52 AM Reporting Lab: [facility] [address] Performing Lab: [facility] [address] [place] [facility] CBC & DIFF MCV [ENTITIC VOLUME] BY AUTOMATED COUNT 94.2 fL 80 - 100 07/24 Specimen Type: BLOOD Comment: Automated Differentia l Performed Ordering Provider: MARGARET RECINOS Report Released Date/Time: Jul 24, 2023 10:52 AM Reporting Lab: [facility] [address] Performing Lab: [facility] [address] [place] [facility] CBC & DIFF MCH [ENTITIC MASS] BY AUTOMATED COUNT 31.1 pg 27 - 33 07/24 Specimen Type: BLOOD Comment: Automated Differentia l Performed Ordering Provider: MARGARET RECINOS Report Released Date/Time: Jul 24, 2023 10:52 AM Reporting Lab: [facility] [address] Performing Lab: [facility] [address] [place] [facility] CBC & DIFF MCHC [MASS/VOLU ME] BY AUTOMATED COUNT 33.0 g/dL 32.0 - 37.5 07/24 Specimen Type: BLOOD Comment: Automated Differentia l Performed Ordering Provider: MARGARET RECINOS Report Released Date/Time: Jul 24, 2023 10:52 AM Reporting Lab: [facility] [address] Performing Lab: [facility] [address] [place] [facility] CBC & DIFF PLATELETS [#/VOLUME] IN BLOOD BY AUTOMATED COUNT 288 10*3/uL 150 - 400 07/24 Specimen Type: BLOOD Comment: Automated Differentia l Performed Ordering Provider: MARGARET RECINOS Report Released Date/Time: Jul 24, 2023 10:52 AM Reporting Lab: [facility] [address] Performing Lab: [facility] [address] [place] [facility] CBC & DIFF PLATELET MEAN VOLUME [ENTITIC VOLUME] IN BLOOD BY AUTOMATED COUNT 9.8 fL 7.4 - 10.4 07/24 Specimen Type: BLOOD Comment: Automated Differentia l Performed Ordering Provider: MARGARET RECINOS Report Released Date/Time: Jul 24, 2023 10:52 AM Reporting Lab: [facility] [address] Performing Lab: [facility] [address] [place] [facility] CBC & DIFF NEUTROPHIL S/100 LEUKOCYTES IN BLOOD BY MANUAL COUNT 66.1 40.0 - 80.0 07/24 Specimen Type: BLOOD Comment: Automated Differentia l Performed Ordering Provider: MARGARET RECINOS Report Released Date/Time: Jul 24, 2023 10:52 AM Reporting Lab: [facility] [address] Performing Lab: [facility] [address] [place] [facility] CBC & DIFF LYMPHOCYTE S/100 LEUKOCYTES IN BLOOD BY MANUAL COUNT 17.5 15.0 - 45.0 07/24 Specimen Type: BLOOD Comment: Automated Differentia l Performed Ordering Provider: MARGARET RECINOS Report Released Date/Time: Jul 24, 2023 10:52 AM Reporting Lab: [facility] [address] Performing Lab: [facility] [address] [place] [facility] CBC & DIFF MONOCYTES/ 100 LEUKOCYTES IN BLOOD BY AUTOMATED COUNT 12.3 2.0 - 12.0 07/24 H Specimen Type: BLOOD Comment: Automated Differentia l Performed Ordering Provider: MARGARET RECINOS Report Released Date/Time: Jul 24, 2023 10:52 AM Reporting Lab: [facility] [address] Performing Lab: [facility] [address] [place] [facility] CBC & DIFF EOSINOPHIL S/100 LEUKOCYTES IN BLOOD BY AUTOMATED COUNT 2.8 0.0 - 6.0 02/23 /2024 Specimen Type: BLOOD Comment: Automated Differentia l Performed Ordering Provider: MRAGARET RECINOS Report Released Date/Time: Jul 24, 2023 10:52 AM Reporting Lab: [facility] [address] Performing Lab: [facility] [address] [place] [facility] CBC & DIFF BASOPHILS/ 100 LEUKOCYTES IN BLOOD BY MANUAL COUNT 0.8 0.0 - 2.0 07/24 Specimen Type: BLOOD Comment: Automated Differentia l Performed Ordering Provider: MARGARET RECINOS Report Released Date/Time: Jul 24, 2023 10:52 AM Reporting Lab: [facility] [address] Performing Lab: [facility] [address] [place] [facility] CBC & DIFF ERYTHROCYT E DISTRIBUTI ON WIDTH [RATIO] BY AUTOMATED COUNT 13.8 11.5 - 14.5 07/24 Specimen Type: BLOOD Comment: Automated Differentia l Performed Ordering Provider: MARGARET RECINOS Report Released Date/Time: Jul 24, 2023 10:52 AM Reporting Lab: [facility] [address] Performing Lab: [facility] [address] [place] [facility] CBC & DIFF LYMPHOCYTE S [#/VOLUME] IN BLOOD BY AUTOMATED COUNT 1.52 10*3/uL 1.0 - 4.0 07/24 Specimen Type: BLOOD Comment: Automated Differentia l Performed Ordering Provider: MARGARET RECINOS Report Released Date/Time: Jul 24, 2023 10:52 AM Reporting Lab: [facility] [address] Performing Lab: [facility] [address] [place] [facility] CBC & DIFF MONOCYTES [#/VOLUME] IN BLOOD BY AUTOMATED COUNT 1.07 10*3/uL 0.1 - 1.0 07/24 H Specimen Type: BLOOD Comment: Automated Differentia l Performed Ordering Provider: MARGARET RECINOS Report Released Date/Time: Jul 24, 2023 10:52 AM Reporting Lab: [facility] [address] Performing Lab: [facility] [address] [place] [facility] CBC & DIFF NEUTROPHIL S [#/VOLUME] IN BLOOD BY AUTOMATED COUNT 5.76 10*3/uL 2.0 - 7.7 07/24 Specimen Type: BLOOD Comment: Automated Differentia l Performed Ordering Provider: MARGARET RECINOS Report Released Date/Time: Jul 24, 2023 10:52 AM Reporting Lab: [facility] [address] Performing Lab: [facility] [address] [place] [facility] CBC & DIFF EOSINOPHIL S [#/VOLUME] IN BLOOD BY AUTOMATED COUNT 0.24 10*3/uL 0 - 0.5 07/24 Specimen Type: BLOOD Comment: Automated Differentia l Performed Ordering Provider: MARGARET RECINOS Report Released Date/Time: Jul 24, 2023 10:52 AM Reporting Lab: [facility] [address] Performing Lab: [facility] [address] [facility] CBC & DIFF BASOPHILS [#/VOLUME] IN BLOOD BY AUTOMATED COUNT 0.07 10*3/uL 0 - 0.2 07/24 Specimen Type: BLOOD Comment: Automated Differentia l Performed Ordering Provider: MARGARET RECINOS Report Released Date/Time: Jul 24, 2023 10:52 AM Reporting Lab: [facility] [address] Performing Lab: [facility] [address] [facility] CBC & DIFF IG(META,MY TAMIKA,PRO) 0.5 07/24 Specimen Type: BLOOD Comment: Automated Differentia l Performed Ordering Provider: MARGARET RECINOS Report Released Date/Time: Jul 24, 2023 10:52 AM Reporting Lab: [facility] [address] Performing Lab: [facility] [address] [place] [facility] CBC & DIFF IMMATURE GRANULOCYT ES [PRESENCE] IN BLOOD BY AUTOMATED COUNT 0.04 10*3/uL 0 - 0.1 07/24 Specimen Type: BLOOD Comment: Automated Differentia l Performed Ordering Provider: MARGARET RECINOS Report Released Date/Time: Jul 24, 2023 10:52 AM Reporting Lab: [facility] [address] Performing Lab: [facility] [address] [place] [facility] COMPREHE NSIVE METABOLI C PANEL+MG CREATININE [MASS/VOLU ME] IN SERUM OR PLASMA 1.1 mg/dL 0.7 - 1.2 07/24 Specimen Type: PLASMA No comment entered. Ordering Provider: MARGARET RECINOS Report Released Date/Time: Jul 24, 2023 10:52 AM Reporting Lab: [facility] [address] Performing Lab: [facility] [address] [place] [facility] COMPREHE NSIVE METABOLI C PANEL+MG UREA NITROGEN [MASS/VOLU ME] IN SERUM OR PLASMA 14 mg/dL 8 - 26 07/24 Specimen Type: PLASMA No comment entered. Ordering Provider: MARGARET RECINOS Report Released Date/Time: Jul 24, 2023 10:52 AM Reporting Lab: [facility] [address] Performing Lab: [facility] [address] [place] [facility] COMPREHE NSIVE METABOLI C PANEL+MG GLUCOSE [MASS/VOLU ME] IN SERUM OR PLASMA 94 mg/dL 70 - 100 07/24 Specimen Type: PLASMA No comment entered. Ordering Provider: MARGARET RECINOS Report Released Date/Time: Jul 24, 2023 10:52 AM Reporting Lab: [facility] [address] Performing Lab: [facility] [address] [place] [facility] COMPREHE NSIVE METABOLI C PANEL+MG SODIUM [MOLES/VOL UME] IN SERUM OR PLASMA 139 mmol/L 136 - 145 07/24 Specimen Type: PLASMA No comment entered. Ordering Provider: MARGARET RECINOS Report Released Date/Time: Jul 24, 2023 10:52 AM Reporting Lab: [facility] [address] Performing Lab: [facility] [address] [place] [facility] COMPREHE NSIVE METABOLI C PANEL+MG POTASSIUM [MOLES/VOL UME] IN SERUM OR PLASMA 4.5 mmol/L 3.5 - 5.1 07/24 Specimen Type: PLASMA No comment entered. Ordering Provider: MARGARET RECINOS Report Released Date/Time: Jul 24, 2023 10:52 AM Reporting Lab: [facility] [address] Performing Lab: [facility] [address] [place] [facility] COMPREHE NSIVE METABOLI C PANEL+MG CHLORIDE [MOLES/VOL UME] IN SERUM OR PLASMA 106 mmol/L 98 - 107 07/24 Specimen Type: PLASMA No comment entered. Ordering Provider: MARGARET RECINOS Report Released Date/Time: Jul 24, 2023 10:52 AM Reporting Lab: [facility] [address] Performing Lab: [facility] [address] [place] [facility] COMPREHE NSIVE METABOLI C PANEL+MG CARBON DIOXIDE, TOTAL [MOLES/VOL UME] IN SERUM OR PLASMA 27 mmol/L 22 - 29 07/24 Specimen Type: PLASMA No comment entered. Ordering Provider: MARGARET RECINOS Report Released Date/Time: Jul 24, 2023 10:52 AM Reporting Lab: [facility] [address] Performing Lab: [facility] [address] [place] [facility] COMPREHE NSIVE METABOLI C PANEL+MG CALCIUM [MASS/VOLU ME] IN SERUM OR PLASMA 9.5 mg/dL 8.4 - 10.2 07/24 Specimen Type: PLASMA No comment entered. Ordering Provider: MARGARET RECINOS Report Released Date/Time: Jul 24, 2023 10:52 AM Reporting Lab: [facility] [address] Performing Lab: [facility] [address] [place] [facility] COMPREHE NSIVE METABOLI C PANEL+MG PROTEIN [MASS/VOLU ME] IN SERUM OR PLASMA 7.3 g/dL 6.0 - 8.3 07/24 Specimen Type: PLASMA No comment entered. Ordering Provider: MARGARET RECINOS Report Released Date/Time: Jul 24, 2023 10:52 AM Reporting Lab: [facility] [address] Performing Lab: [facility] [address] [place] [facility] COMPREHE NSIVE METABOLI C PANEL+MG ALBUMIN [MASS/VOLU ME] IN SERUM OR PLASMA 3.9 g/dL 3.5 - 5.2 07/24 Specimen Type: PLASMA No comment entered. Ordering Provider: MARGARET RECINOS Report Released Date/Time: Jul 24, 2023 10:52 AM Reporting Lab: [facility] [address] Performing Lab: [facility] [address] [place] [facility] COMPREHE NSIVE METABOLI C PANEL+MG BILIRUBIN. TOTAL [MASS/VOLU ME] IN SERUM OR PLASMA 1.7 mg/dL 0.2 - 1.2 07/24 H Specimen Type: PLASMA No comment entered. Ordering Provider: MARGARET RECINOS Report Released Date/Time: Jul 24, 2023 10:52 AM Reporting Lab: [facility] [address] Performing Lab: [facility] [address] [place] [facility] COMPREHE NSIVE METABOLI C PANEL+MG MAGNESIUM [MASS/VOLU ME] IN SERUM OR PLASMA 2.1 mg/dL 1.6 - 2.6 07/24 Specimen Type: PLASMA No comment entered. Ordering Provider: MARGARET RECINOS Report Released Date/Time: Jul 24, 2023 10:52 AM Reporting Lab: [facility] [address] Performing Lab: [facility] [address] [place] [facility] COMPREHE NSIVE METABOLI C PANEL+MG ANION GAP IN SERUM OR PLASMA 6 mmol/L 5 - 15 07/24 Specimen Type: PLASMA No comment entered. Ordering Provider: MARGARET RECINOS Report Released Date/Time: Jul 24, 2023 10:52 AM Reporting Lab: [facility] [address] Performing Lab: [facility] [address] [place] [facility] COMPREHE NSIVE METABOLI C PANEL+MG ALKALINE PHOSPHATAS E [ENZYMATIC ACTIVITY/V OLUME] IN SERUM OR PLASMA 118 U/L 40 - 150 07/24 Specimen Type: PLASMA No comment entered. Ordering Provider: MARGARET RECINOS Report Released Date/Time: Jul 24, 2023 10:52 AM Reporting Lab: [facility] [address] Performing Lab: [facility] [address] [place] [facility] COMPREHE NSIVE METABOLI C PANEL+MG ALANINE AMINOTRANS FERASE [ENZYMATIC ACTIVITY/V OLUME] IN SERUM OR PLASMA 19 U/L <55 - 55 07/24 Specimen Type: PLASMA No comment entered. Ordering Provider: MARGARET RECINOS Report Released Date/Time: Jul 24, 2023 10:52 AM Reporting Lab: [facility] [address] Performing Lab: [facility] [address] [place] [facility] COMPREHE NSIVE METABOLI C PANEL+MG ASPARTATE AMINOTRANS FERASE [ENZYMATIC ACTIVITY/V OLUME] IN SERUM OR PLASMA 23 U/L <34 - 34 07/24 Specimen Type: PLASMA No comment entered. Ordering Provider: MARGARET RECINOS Report Released Date/Time: Jul 24, 2023 10:52 AM Reporting Lab: [facility] [address] Performing Lab: [facility] [address] [place] [facility] COMPREHE NSIVE METABOLI C PANEL+MG GLOMERULAR FILTRATION RATE/1.73 SQ M.PREDICTE D [VOLUME RATE/AREA] IN SERUM, PLASMA OR BLOOD BY CREATININE -BASED FORMULA (CKD-EPI 2020) 67 60 07/24 Specimen Type: PLASMA No comment entered. Ordering Provider: MARGARET RECINOS Report Released Date/Time: Jul 24, 2023 10:52 AM Reporting Lab: [facility] [id number] Performing Lab: [facility] [phone] [place] [facility] COMPREHE NSIVE METABOLI C PANEL+MG BILIRUBIN. DIRECT [MASS/VOLU ME] IN SERUM OR PLASMA 0.5 mg/dL <0.5 - 0.5 07/24 Specimen Type: PLASMA No comment entered. Ordering Provider: MARGARET RECINOS Report Released Date/Time: Jul 24, 2023 10:52 AM Reporting Lab: [facility] [phone] Performing Lab: [facility] [address] [place] [facility] BASIC METABOLI C PANEL+MG CREATININE [MASS/VOLU ME] IN SERUM OR PLASMA 1.0 mg/dL 0.7 - 1.2 02/05 Specimen Type: PLASMA No comment entered. Ordering Provider: MAGALYS BUCIO Report Released Date/Time: Jan 02, 2022 11:30 AM Reporting Lab: [facility] [address] Performing Lab: [facility] [address] [place] [facility] BASIC METABOLI C PANEL+MG UREA NITROGEN [MASS/VOLU ME] IN SERUM OR PLASMA 16 mg/dL 8 - 26 02/05 Specimen Type: PLASMA No comment entered. Ordering Provider: MAGALYS BUCIO Report Released Date/Time: Jan 02, 2022 11:30 AM Reporting Lab: [facility] [address] Performing Lab: [facility] [address] [place] [facility] BASIC METABOLI C PANEL+MG GLUCOSE [MASS/VOLU ME] IN SERUM OR PLASMA 78 mg/dL 70 - 100 02/05 Specimen Type: PLASMA No comment entered. Ordering Provider: MAGALYS BUCIO Report Released Date/Time: Jan 02, 2022 11:30 AM Reporting Lab: [facility] [address] Performing Lab: [facility] [address] [place] [facility] BASIC METABOLI C PANEL+MG SODIUM [MOLES/VOL UME] IN SERUM OR PLASMA 140 mmol/L 136 - 145 02/05 Specimen Type: PLASMA No comment entered. Ordering Provider: MAGALYS BUCIO Report Released Date/Time: Jan 02, 2022 11:30 AM Reporting Lab: [facility] [address] Performing Lab: [facility] [address] [place] [facility] BASIC METABOLI C PANEL+MG POTASSIUM [MOLES/VOL UME] IN SERUM OR PLASMA 4.4 mmol/L 3.5 - 5.1 02/05 Specimen Type: PLASMA No comment entered. Ordering Provider: MAGALYS BUCIO Report Released Date/Time: Jan 02, 2022 11:30 AM Reporting Lab: [facility] [address] Performing Lab: [facility] [address] [place] [facility] BASIC METABOLI C PANEL+MG CHLORIDE [MOLES/VOL UME] IN SERUM OR PLASMA 105 mmol/L 98 - 107 02/05 Specimen Type: PLASMA No comment entered. Ordering Provider: MAGALYS BUCIO Report Released Date/Time: Jan 02, 2022 11:30 AM Reporting Lab: [facility] [phone] Performing Lab: [facility] [address] [place] [facility] BASIC METABOLI C PANEL+MG CARBON DIOXIDE, TOTAL [MOLES/VOL UME] IN SERUM OR PLASMA 26 mmol/L 22 - 29 02/05 Specimen Type: PLASMA No comment entered. Ordering Provider: MAGALYS BUCIO Report Released Date/Time: Jan 02, 2022 11:30 AM Reporting Lab: [facility] [address] Performing Lab: [facility] [address] [place] [facility] BASIC METABOLI C PANEL+MG CALCIUM [MASS/VOLU ME] IN SERUM OR PLASMA 9.4 mg/dL 8.4 - 10.2 02/05 Specimen Type: PLASMA No comment entered. Ordering Provider: MAGALYS BUCIO Report Released Date/Time: Jan 02, 2022 11:30 AM Reporting Lab: [facility] [address] Performing Lab: [facility] [address] [place] [facility] BASIC METABOLI C PANEL+MG MAGNESIUM [MASS/VOLU ME] IN SERUM OR PLASMA 2.0 mg/dL 1.6 - 2.6 02/05 Specimen Type: PLASMA No comment entered. Ordering Provider: MAGALYS BUCIO Report Released Date/Time: Jan 02, 2022 11:30 AM Reporting Lab: [facility] [address] Performing Lab: [facility] [address] [place] [facility] BASIC METABOLI C PANEL+MG ANION GAP IN SERUM OR PLASMA 9 mmol/L 5 - 15 02/05 Specimen Type: PLASMA No comment entered. Ordering Provider: MAGALYS BUCIO Report Released Date/Time: Jan 02, 2022 11:30 AM Reporting Lab: [facility] [address] Performing Lab: [facility] [address] [place] [facility] BASIC METABOLI C PANEL+MG GLOMERULAR FILTRATION RATE/1.73 SQ M.PREDICTE D [VOLUME RATE/AREA] IN SERUM, PLASMA OR BLOOD BY CREATININE -BASED FORMULA (CKD-EPI 2020) 75 60 02/05 Specimen Type: PLASMA No comment entered. Ordering Provider: MAGALYS BUCIO Report Released Date/Time: Jan 02, 2022 11:30 AM Reporting Lab: [facility] [address] Performing Lab: [facility] [address] [place] [facility] CBC LEUKOCYTES [#/VOLUME] IN BLOOD BY AUTOMATED COUNT 8.96 10*3/uL 4.0 - 11.0 02/05 Specimen Type: BLOOD No comment entered. Ordering Provider: MAGALYS BUCIO Report Released Date/Time: Jan 02, 2022 11:30 AM Reporting Lab: [facility] [address] Performing Lab: [facility] [address] [place] [facility] CBC ERYTHROCYT ES [#/VOLUME] IN BLOOD BY AUTOMATED COUNT 4.71 10*6/uL 4.6 - 6.2 02/05 Specimen Type: BLOOD No comment entered. Ordering Provider: MAGALYS BUCIO Report Released Date/Time: Jan 02, 2022 11:30 AM Reporting Lab: [facility] [address] Performing Lab: [facility] [address] [place] [facility] CBC HEMOGLOBIN [MASS/VOLU ME] IN BLOOD 15.0 g/dL 13.5 - 17.9 02/05 Specimen Type: BLOOD No comment entered. Ordering Provider: MAGALYS BUCIO Report Released Date/Time: Jan 02, 2022 11:30 AM Reporting Lab: [facility] [address] Performing Lab: [facility] [address] [place] [facility] CBC HEMATOCRIT [VOLUME FRACTION] OF BLOOD BY AUTOMATED COUNT 45.0 41 - 54 02/05 Specimen Type: BLOOD No comment entered. Ordering Provider: MAGALYS BUCIO Report Released Date/Time: Jan 02, 2022 11:30 AM Reporting Lab: [facility] [address] Performing Lab: [facility] [address] [place] [facility] CBC MCV [ENTITIC VOLUME] BY AUTOMATED COUNT 95.5 fL 80 - 100 02/05 Specimen Type: BLOOD No comment entered. Ordering Provider: MAGALYS BUCIO Report Released Date/Time: Jan 02, 2022 11:30 AM Reporting Lab: [facility] [address] Performing Lab: [facility] [address] [place] [facility] CBC MCH [ENTITIC MASS] BY AUTOMATED COUNT 31.8 pg 27 - 33 02/05 Specimen Type: BLOOD No comment entered. Ordering Provider: MAGALYS BUCIO Report Released Date/Time: Jan 02, 2022 11:30 AM Reporting Lab: [facility] [address] Performing Lab: [facility] [address] [place] [facility] CBC MCHC [MASS/VOLU ME] BY AUTOMATED COUNT 33.3 g/dL 32.0 - 37.5 02/05 Specimen Type: BLOOD No comment entered. Ordering Provider: MAGALYS BUCIO Report Released Date/Time: Jan 02, 2022 11:30 AM Reporting Lab: [facility] [address] Performing Lab: [facility] [address] [place] [facility] CBC PLATELETS [#/VOLUME] IN BLOOD BY AUTOMATED COUNT 271 10*3/uL 150 - 400 02/05 Specimen Type: BLOOD No comment entered. Ordering Provider: MAGALYS BUCIO Report Released Date/Time: Jan 02, 2022 11:30 AM Reporting Lab: [facility] [address] Performing Lab: [facility] [address] [facility] CBC PLATE[place] MEAN VOLUME [ENTITIC VOLUME] IN BLOOD BY AUTOMATED COUNT 9.6 fL 7.4 - 10.4 02/05 Specimen Type: BLOOD No comment entered. Ordering Provider: MAGALYS BUCIO Report Released Date/Time: Jan 02, 2022 11:30 AM Reporting Lab: [facility] [address] Performing Lab: [facility] [address] [facility] CBC ERYTHROCYT E DISTRIBUTI ON WIDTH [RATIO] BY AUTOMATED COUNT 13.5 11.5 - 14.5 02/05 Specimen Type: BLOOD No comment entered. Ordering Provider: MAGALYS BUCIO Report Released Date/Time: Jan 02, 2022 11:30 AM Reporting Lab: [facility] [address] Performing Lab: [facility] [address] [facility] Vital Signs Combined list of inpatient and outpatient Vital Signs from Department of Defense and Veterans Affairs, ranging from 12 months to all on record, depending upon the facility. Vital Sign Value Date Comments Source SYSTOLIC BLOOD PRESSURE 118 10/17/2023 13:01:15 [facility] DIASTOLIC BLOOD PRESSURE 55 10/17/2023 13:01:15 [facility] PULSE OXIMETRY 95 10/17/2023 13:01:15 [facility] TEMPERATURE 98.5 10/17/2023 13:01:15 [facility] PULSE 66 10/17/2023 13:01:15 [facility] RESPIRATION 16 10/17/2023 13:01:15 [facility] SYSTOLIC BLOOD PRESSURE 160 09/23/2023 09:17:00 [facility] DIASTOLIC BLOOD PRESSURE 89 09/23/2023 09:17:00 [facility] PULSE OXIMETRY 69 09/23/2023 09:17:00 [facility] WEIGHT 183 09/23/2023 09:17:00 [facility] BMI 29kg/m2 09/23/2023 09:17:00 [facility] PAIN 0 09/23/2023 09:17:00 [facility] HEIGHT 67.25 09/23/2023 09:17:00 [facility] TEMPERATURE 97.5 09/23/2023 09:17:00 [facility] PULSE 71 09/23/2023 09:17:00 [facility] SYSTOLIC BLOOD PRESSURE 160 08/07/2023 08:58:05 [facility] DIASTOLIC BLOOD PRESSURE 89 08/07/2023 08:58:05 [facility] PULSE OXIMETRY 96 08/07/2023 08:58:05 [facility] PAIN 0 08/07/2023 08:58:05 [facility] TEMPERATURE 97.8 08/07/2023 08:58:05 [facility] PULSE 62 08/07/2023 08:58:05 [facility] RESPIRATION 16 08/07/2023 08:58:05 [facility] SYSTOLIC BLOOD PRESSURE 127 07/24/2023 10:32:00 [facility] DIASTOLIC BLOOD PRESSURE 76 07/24/2023 10:32:00 [facility] PULSE OXIMETRY 96 07/24/2023 10:32:00 [facility] PAIN 0 07/24/2023 10:32:00 [facility] TEMPERATURE 98.1 07/24/2023 10:32:00 [facility] PULSE 63 07/24/2023 10:32:00 [facility] RESPIRATION 16 07/24/2023 10:32:00 [facility] Encounters Combined list of: 1) Encounters from Department of Veterans Affairs facilities going back up to thelast 18 months. 2) Encounters from the Department of Defense facilities going back up to 280 months. Location Location Details Encounter Type Encounter Number Reason For Visit Attending Provider ADM Date DC Date Status Disposition Source [facility] Outpatient Encounter [id number] 09/10 [facility] [id number] 09/10 [facility] REM INTERROG [place]L [place] [id number] Diagnos is: ICD-10- CM Z95.0 Presenc e of cardiac pacemak er
KRISTINSA NDRA L 09/11 [facility] PM DEVICE PROGR EVAL DUAL [id number] Diagnos is: ICD-10- CM Z95.0 Presenc e of cardiac pacemak er
DORENE UNGER K A 11/27 [facility] Outpatient Encounter [id number] 12/12 [facility] OFFICE O/P EST LOW 20-29 MIN [id number] Diagnos is: ICD-10- CM Z00.00 Encntr for general adult medical exam w/o abnorma l finding s
KEVYN WETZEL H A 02/05 [facility] Outpatient Encounter [id number] 03/13 [facility] Outpatient Encounter [id number] 06/19 [place] [facility] Outpatient Encounter [id number] 06/22 [facility] REM INTERROG EVL PM/LDLS [place] [id number] Diagnos is: ICD-10- CM I48.3 Typical atrial flutter
FASHINGBAU ERJONNATHANPAOLA T 06/22 [facility] HEARING AID REPAIR/MOD IFYING [id number] Diagnos is: ICD-10- CM H90.3 Sensori neural hearing loss, bilater al
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 07/29 [facility] IS [facility] OFF/OP CNSLTJ NEW/EST MOD 40 [id number] Diagnos is: ICD-10- CM G45.3 Amauros is fugax<b r/> EXCONDRachael,RU PERT E 08/06 [facility] IS [facility] Outpatient Encounter [id number] LEXIS SIMS RLA R 08/12 [facility] Outpatient Encounter [id number] 09/08 [facility] INJ PERFLUTREN LIP MICROS,ML [id number] Diagnos is: ICD-10- CM Z95.0 Presenc e of cardiac pacemak er
DANNY SMART NZI 09/22 [facility] ELECTROCAR DIOGRAM REPORT [id number] Diagnos is: ICD-10- CM Z13.6 Encount er for screeni ng for cardiov ascular disorde rs
Karin ZABALA O 09/22 [facility] INTERR[place]L PM/[place] [id number] Diagnos is: ICD-10- CM I45.5 Other specifi ed heart block<b r/> AB BARBER BIRachael L 09/22 [facility] IS [facility] OFF/OP CONSLTJ NEW/EST HI 55 [id number] Diagnos is: ICD-10- CM I45.5 Other specifi ed heart block<b r/> AB GALO BLANDON 09/22 [facility] Outpatient Encounter [id number] 10/01 [facility] [place] [facility] EMR DPT VST MAYX REQ PHY/QHP [id number] Diagnos is: ICD-10- CM J32.8 Other chronic sinusit is
LELAND PONCE 10/16 [facility] [place] [facility] Outpatient Encounter [id number] CYNTHIA MAGANA 10/16 [facility] [place] [facility] Outpatient Encounter [id number] 10/16 [facility] HEARING AID REPAIR/MOD IFYING [id number] Diagnos is: ICD-10- CM H90.A21 Snsrnrl hear loss, uni, r ear, with rstrcd hear cntra side
Angeli KENDALL 11/01 [facility] [place] [facility] Outpatient Encounter [id number] SHAN ORDONEZ 11/16 [facility] [place] [facility] Outpatient Encounter [id number] 12/01 [facility] [place] [facility] SELF-MGMT EDUC & TRAIN 1 PT [id number] Diagnos is: ICD-10- CM H90.A21 Snsrnrl hear loss, uni, r ear, with rstrcd hear cntra side
SAMY CARSON 12/06 [facility] [place] [facility] Outpatient Encounter [id number] 12/14 [facility] [place] [facility] Outpatient Encounter [id number] 12/20 [place] [facility] [place] [facility] Outpatient Encounter [id number] 01/11 [place] [facility] [place] [facility] Outpatient Encounter [id number] 01/19 [place] [facility] Outpatient Encounter [id number] 01/19 [facility] [place] [facility] Outpatient Encounter [id number] 03/04 [place] [facility] Social History Combined list of available smoking, tobacco, and other social history from Department of Defense and Veterans Affairs facilities. Social History Type Response Date Comment Sour e Tobacco smoking status [place] [facility]-TOBACCO QUIT 15 YRS OR MORE 02/05/2023 [facility] History of tobacco use ME-TOBACCO FORMER USER 02/05/2023 [facility] History of tobacco use ME-TOBACCO FORMER USER 01/02/2022 [facility] History of tobacco use ME-TOBACCO FORMER USER 11/08/2020 [facility] History of tobacco use ME-TOBACCO QUIT 15 YRS OR MORE 11/18/2018 [facility] History of tobacco use QUIT TOBACCO >7 YEARS AGO 10/27/2017 [facility] History of tobacco use NON-TOBACCO USER 07/21/2017 [facility] History of tobacco use FORMER TOBACCO USER 7Y OR GREATER 09/02/2016 [facility] History of tobacco use FORMER TOBACCO USER 7Y OR GREATER 08/06/2015 [facility] History of tobacco use LIFETIME NON-TOBACCO USER 07/07/2014 [facility]
--- OUTSIDE RECORDS SUMMARY | 2024-03-10 07:57 | XMS_ITS ---
Author Organization [facility] Address [address] [place] [address] Care Team Providers Care Dining Car Steward Name Role Phone Unavailable Unavailable Unavailable Surgery Details Not on file Complications Check Surgery Details section. Procedure Estimated Blood Loss Check Surgery Details section. Procedure Findings Check Surgery Details section. Procedure Specimens Taken Check Surgery Details section.
--- OUTSIDE RECORDS SUMMARY | 2024-03-10 07:57 | XMS_ITS | Encounter Summary ---
Author Name [facility] [facility] Address [address] [place] [address] Care Team Providers Care Flexboard Operator Name Role Phone MEHREEN ARCHIBALD Primary Care [...] Name Patient's Relationship to Policy Jaeger [employer] [facility] (WNR) MEDICARE ADVANTAGE [facility] ([facility]) Oct 31, 2019 [id number] [phone] Nelida DIAZ PATIENT [employer] [facility] (WNR) MEDICARE ADVANTAGE [facility] (WNR) Oct 31, 2019 [id number] Nelida DIAZ PATIENT [employer] [facility] (WNR) MEDICARE ADVANTAGE [facility] (WNR) Oct 31, 2019 [id number] [phone] Nelida DIAZ PATIENT [employer] [facility] (WNR) MEDICARE ADVANTAGE [facility] (R) Oct 31, 2019 [id number] Nelida DIAZ PATIENT [employer] [facility] (WNR) MEDICARE ADVANTAGE [facility] (WNR) Jun 01, 2017 [id number] [phone] Nelida DIAZ PATIENT [employer] [facility] (WNR) MEDICARE ADVANTAGE [facility] (WNR) Jun 01, 2017 [id number] Nelida DIAZ PATIENT [employer] [facility] (WNR) MEDICARE ADVANTAGE [facility] (WNR) Jun 01, 2015 [id number] Nelida DIAZ PATIENT [employer] [facility] (WNR) MEDICARE ADVANTAGE [facility] (WNR) Jun 01, 2015 [id number] [phone] Nelida DIAZ PATIENT Selected Encounter This section includes the information on record at [place] for the Encounter. Date/Time Encounter Type Encounter Description Reason Pro vider Source Mar 04, 2024 02:28 PM Outpatient Encounter TELEPHONE TRIAGE IHE Encounter Template Text not used by [facility] Social History: Smoking Status (Most current) and Tobacco Use (All prior to encounter date) This section includes the most current, and the historical, smoking and tobacco- related health factors from the [place] facility where the Encounter took place. Current Smoking Status This section includes the most current smoking, or tobacco-related health factor, from the [place] facility where the Encounter took place. Date/Time Current Smoking Status Comment Facil ity Feb 05, 2023 11:00 AM VA-TOBACCO QUIT 15 YRS OR MORE [facility] Tobacco Use History This section includes a history of the smoking, or tobacco-related health factors, that were collected on or before the date of the Encounter. The data comes from the [place] facility where the Encounter took place. Date/Time Smoking Status/Tobacco Use Comment F acility Feb 05, 2023 11:00 AM VA-TOBACCO QUIT 15 YRS OR MORE [facility] Jan 02, 2022 11:00 AM VA-TOBACCO FORMER USER [facility] Jan 02, 2022 11:00 AM VA-TOBACCO QUIT 15 YRS OR MORE [facility] Nov 08, 2020 02:00 PM VA-TOBACCO FORMER USER [facility] Nov 08, 2020 02:00 PM VA-TOBACCO QUIT 15 YRS OR MORE [facility] Sep 02, 2016 10:29 AM FORMER TOBACCO USER 7Y OR GREATE R [facility] Aug 06, 2015 10:33 AM FORMER TOBACCO USER 7Y OR GREATE R [facility] Jul 07, 2014 08:27 AM LIFETIME NON-TOBACCO USER [facility] Encounter Notes: All associated encounter notes This section contains the clinical notes associated to the Encounter. Date/Time Encounter Note(s) Provider Source Mar 04, 2024 02:28 PM ADMINISTRATIVE NOT E: LOCAL TITLE: CCC: SCHEDULING ADMINISTRATION STANDARD TITLE: ADMINISTRATIVE NOTE DATE OF NOTE: MAR 04, 2024@14:28 ENTRY DATE: MAR 04, 2024@14:29:02 AUTHOR: EZ FLORES EXP COSIGNER: URGENCY: STATUS: COMPLETED CCC: SCHEDULING ADMINISTRATION Has [facility] Primary [facility] Call Center Primary Care Provider Call. Please contact at the following number: [phone] Other: [place] was seen in the [place] ER on 03/03/24 and has a catheter that needs to be removed on 03/09/24. Please call back at the above number. Thank you. This note was created by a [address] Call Center BRENDA/JEAN. Please do not alert this manual writer by adding as a signer for future communications. Alerts are not monitored by this user, please reach out to [facility] Leadership instead if indicated. /hans FLORES [address] Signed: 03/04/2024 14:31 Receipt Acknowledged By: 03/07/2024 09:08 /mariano/ DEE DEE TALBERT RN RN Pact Co Founder And Director 03/07/2024 ADDENDUM STATUS: COMPLETED Entered rtc Resident for f/u community ER visit with possible catheter removal. /mariano/ DEE DEE TALBERT RN RN Pact Co Founder And Director Signed: 03/07/2024 09:09 EZ FLORES [facility]
--- OUTSIDE RECORDS SUMMARY | 2024-03-10 07:58 | XMS_ITS | Referral Summary ---
Author Organization [facility] Address [address] [place] [address]. [place] [address] Care Team Providers Care Senior Occupational Therapist Name Role Phone Chandana Fleming MD Primary Care Provider [phone] [phone] Allergies Active Allergy Reactions Criticality Noted Date Comments No Known Drug Allergy 02/21/2003 Medications Medication Sig Dispensed Refills Start Date End Date Status Saw [place] 80 MG CAPS A ctive GINSENG PO Take by mouth 2 times daily Active HAWTHORN PO Take by mouth 2 times daily Active Ginkgo Biloba (GINKGO PO) Take by mouth 2 times daily Active NONFORMULARY [place]-zyme Active Active Problems Problem Noted Date Diagnosed [...] T Respiratory Rate 16 06/01/2014 8:01 PM GLUE BONE CRUSHER Oxygen Saturation 95% 04/08/2017 9:05 AM GLUE BONE CRUSHER Inhaled Oxygen Concentration - - Weight 78.9 kg (174 lb) 11/04/2018 1:12 PM CDT Height 172.7 cm (5' 8) 11/04/2018 1:12 PM CDT Body Mass Index 26.46 11/04/2018 1:12 PM CDT Plan of Treatment Not on file Medical Devices Implanted Type Area Online Marketing Strategist Device Identifier Shelf Expiration Date Model / Serial / Lot [employer] Med* 2087tc Tendril Sts [id number] Implanted:01/30 (Quantity not on file) Leads [employer] 2087TC TENDRIL STS / [id number] / [employer]* 2087tc Tendril Sts [id number] Implanted:01/30 (Quantity not on file) Leads [employer] 2087TC TENDRIL STS / [id number] / [employer]* [address] [id number] Implanted:01/30 (Quantity not on file) Pacemaker [employer] [address] / [id number] / Advance Directives For more information, please contact: [phone] * Full Code (Latest Code Status on File) Date Activated Date Inactivated Comments 02/16/2013 11:22 AM * Full Code Date Activated Date Inactivated Comments 02/14/2013 11:17 PM 02/16/2013 11:22 AM * Full Code Date Activated Date Inactivated Comments 07/31/2011 8:42 AM 02/14/2013 11:17 PM * Full Code Date Activated Date Inactivated Comments 07/30/2011 4:29 PM 07/31/2011 8:42 AM Care Teams Senior Occupational Therapist Relationship Specialty Start Date End Date Chandana Fleming MD [facility] [id number] [place] [id number] PCP - General Family Practice 02/03/19
--- OUTSIDE RECORDS SUMMARY | 2024-03-10 07:58 | XMS_ITS | Clinical Summary ---
Author Organization [facility] Address [address] [place] [address]. [place] [address] Care Team Providers Care Clinical Quality Analyst Name Role Phone Chandana Fleming MD Primary Care Provider [phone] [phone] Allergies Active Allergy Reactions Criticality Noted Date Comments No Known Drug Allergy 02/21/2003 Medications Medication Sig Dispensed Refills Start Date End Date Status Saw [place] 80 MG CAPS A ctive GINSENG PO Take by mouth 2 times daily Active HAWTHORN PO Take by mouth 2 times daily Active Ginkgo Biloba (GINKGO PO) Take by mouth 2 times daily Active NONFORMULARY [place]-zyme Active Active Problems Problem Noted Date Diagnosed [...] T Respiratory Rate 16 06/01/2014 8:01 PM POLICE COMMANDING OFFICER Oxygen Saturation 95% 04/08/2017 9:05 AM POLICE COMMANDING OFFICER Inhaled Oxygen Concentration - - Weight 78.9 kg (174 lb) 11/04/2018 1:12 PM CDT Height 172.7 cm (5' 8) 11/04/2018 1:12 PM CDT Body Mass Index 26.46 11/04/2018 1:12 PM CDT Plan of Treatment Not on file Medical Devices Implanted Type Area Physical Therapy Coordinator Device Identifier Shelf Expiration Date Model / Serial / Lot [employer] Med* 2087tc Tendril Sts [id number] Implanted:01/30 (Quantity not on file) Leads [employer] 2087TC TENDRIL STS / [id number] / [employer]* 2087tc Tendril Sts [id number] Implanted:01/30 (Quantity not on file) Leads [employer] 2087TC TENDRIL STS / [id number] / [employer]* [address] [id number] Implanted:01/30 (Quantity not on file) Pacemaker [employer] [address] / [id number] / Advance Directives For more information, please contact: [phone] * Full Code (Latest Code Status on File) Date Activated Date Inactivated Comments 02/16/2013 11:22 AM * Full Code Date Activated Date Inactivated Comments 02/14/2013 11:17 PM 02/16/2013 11:22 AM * Full Code Date Activated Date Inactivated Comments 07/31/2011 8:42 AM 02/14/2013 11:17 PM * Full Code Date Activated Date Inactivated Comments 07/30/2011 4:29 PM 07/31/2011 8:42 AM Care Teams Clinical Quality Analyst Relationship Specialty Start Date End Date Chandana Fleming MD [facility] [id number] [place] [id number] PCP - General Family Practice 02/03/19
--- OUTSIDE RECORDS SUMMARY | 2024-03-10 07:58 | XMS_ITS | Encounter Summary ---
Author Organization [facility] Address [address] [place] [address]. [place] [address] Care Team Providers Care Manager Financial Services Name Role Phone [facility], [facility] Primary Care Provider + Maura Jackson MD Primary Care Provider [phone] [phone] Jorge Douglas MD Unavailable Unavailable Encounter Details Date Type Department Care Team (Late st Contact Info) Description 04/11/2013 Office Visit-[facility] [address] [place] [address] Jorge Douglas MD Social History [...] Physician: MAURA JACKSON Referring Clinic: [facility] CURRENT DIAGNOSES 1. 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 [...] on filedocumented in this encounter Care Teams Manager Financial Services Relationship Specialty Start Date End Date [facility] [address] [place] [id number] PCP - General 07/30/11 02/02/19 Maura Jackson MD [facility] [id number] [place] [address] PCP - General Family Practice 02/03/19 Jorge Douglas MD Assigned Heart and Vascular Provider 03/23/20 05/25/21 documented as of this encounter
--- NOTE | 2024-03-10 08:24 | ED_ITS ---
HPI - Male Genitourinary General Chief complaint: Urogenital Problems, Male Stated complaint: Catheter removal Time Seen by Provider: 03/10/24 08:18 History of Present Illness HPI Narrative: This 84-year-old male comes in to have his Ponce catheter removed. He had urinary retention almost a couple weeks ago and a catheter was placed. This was removed after 2 or 3 days. He returned a few days later again with urinary retention. He comes in today to remove the 2nd catheter that was placed. He states that he is feeling fine. He does have a little bit of blood in the urine bag as he states that the leg strap slipped and the bag tugged on the catheter. He is not report any fevers. He has an appointment with urology but not until next month. Related Data Previous Rx's ?Medication ?Instructions ?Recorded tamsulosin 0.4 mg capsule (Flomax) 0.4 mg PO DAILY #30 caps 03/10/24 Allergies Allergy/AdvReac Type Severity Reaction Status Date / Time No Known Drug Allergies Allergy Verified 03/10/24 08:03 Review of Systems Status of ROS: Reports: 10 or more systems reviewed and unremarkable except as noted in History and below Narrative: Constitutional: No fevers, no weight gain or loss. Eyes: No discharge. No vision changes. HENT: No congestion, no sore throat, no ear pain. Cardiovascular: No chest pain, no palpitations. Respiratory: No shortness of breath, no wheezes, no cough. Gastrointestinal: No abdominal pain, no vomiting, no diarrhea. Genitourinary: No dysuria, no hematuria. Musculoskeletal: Normal range of motion. Skin: No rashes, no pruritis. Neurological: No dizziness, weakness, sensory change, speech change. Endo/Heme/Allergies: No bruising or bleeding. No polydipsia. Pysch: no suicidality, no anxiety, no insomnia. All other systems reviewed and are negative. [facility] Social History Smoking Status: Never smoker Do you use any of these nicotine containing products: None Second hand tobacco smoke exposure: No How often do you have a drink containing alcohol: never How often do you have six or more drinks on one occasion: Never AUDIT-C Alcohol total score: 0 Non-prescribed substance use: denies use service: No Exam Narrative: Exam Narrative: Constitutional: Well-developed, well-nourished, no acute distress. HEENT: Normocephalic, atraumatic. Neck: Normal range of motion. Nontender. Supple. Heart: Regular. No murmurs. Normal rate. Intact distal pulses. Lungs: Clear to auscultation. No chest discomfort. No wheezes, rhonchi, or rales. Abdomen: Normal bowel sounds. Nontender. No rebound tenderness. Genitalia: Ponce catheter in place without any sign of other abnormality. Back: No midline tenderness. Normal range of motion. Extremities: Normal range of motion. No injury. Skin: Intact. No rash. Warm. No erythema or pallor. Neurologic: No altered sensation. No weakness. Alert and oriented. Psychiatric: No suicidality. No anxiety or depression. No insomnia. Nursing notes and vitals signs are reviewed. Const: Vital Signs, click to edit/add: Vital Signs - 24 hr 03/10/24 07:57 Temperature 98.3 F Pulse Rate [Right Pulse Oximeter] 99 Respiratory Rate 18 Blood Pressure [Ri ght Upper Arm] 124/64 Pulse Oximetry 96 Oxygen Delivery Me thod Room Air Course Vital Signs Vital signs: Initial Vital Signs Temperature 98.3 F 03/10/24 07:57 Temperature Source Temporal Artery Scan 03/10/24 07:57 Pulse Rate 99 03/10/24 07:57 Pulse Rhythm Regular 03/10/24 07:57 Respiratory Rate 18 03/10/24 07:57 Blood Pressure 124/64 03/10/24 07:57 Blood Pressure Mean 84 03/10/24 07:57 Blood Pressure Position Sitting 03/10/24 07:57 Pulse Oximetry 96 03/10/24 07:57 Oxygen Delivery Method Room Air 03/10/24 07:57 Vital Signs Temperature 98.3 F 03/10/24 07:57 Pulse Rate 99 03/10/24 07:57 Respiratory Rate 18 03/10/24 07:57 Blood Pressure 124/64 03/10/24 07:57 Pulse Oximetry 96 03/10/24 07:57 Oxygen Delivery Method Room Air 03/10/24 07:57 Temperature 98.3 F 03/10/24 07:57 Pulse Rate 99 03/10/24 07:57 Respiratory Rate 18 03/10/24 07:57 Blood Pressure 124/64 03/10/24 07:57 Pulse Oximetry 96 03/10/24 07:57 Oxygen Delivery Method Room Air 03/10/24 07:57 MDM - Male Genitourinary MDM Narrative Medical decision making narrative: This patient comes in to have his Ponce catheter removed in hopes that he can resume normal urinary function. He does have a follow-up appointment with urology but not until next month. I did provide a prescription for Flomax. He understands that he will need to return if urinary retention occurs again. Discharge Plan Discharge Clinical Impression: Encounter for Ponce catheter removal Patient Disposition: Home, Self-Care Condition: Stable Additional Instructions: Take sufficient amount of fluids orally. Also take medication as prescribed. Follow up with Urology for ongoing management or return if urinary retention recurs. Prescriptions: New tamsulosin [Flomax] 0.4 mg capsule 0.4 mg PO DAILY Qty: 30 2RF Follow Up/Referrals: Provider,Not a Local [Primary Care Provider] - Stand Alone Forms: [employer] Info Instructions
--- OUTSIDE RECORDS SUMMARY | 2024-03-10 08:35 | XMS_ITS | Clinical Summary ---
Author Organization [facility] Address [address] [place] [address] Care Team Providers Care Shredded Filler Cigar Maker Machine Name Role Phone Unavailable Primary Care Provider [...]
--- OUTSIDE RECORDS SUMMARY | 2024-03-10 08:35 | XMS_ITS | Clinical Summary ---
Author Organization [facility] Address [address] [place] [address]. [place] [address] Care Team Providers Care Education Liaison Name Role Phone Chandana Fleming MD Primary Care Provider +1 [phone] Allergies Active Allergy Reactions Criticality Noted Date Comments No Known Drug Allergy 02/21/2003 Medications Medication Sig Dispensed Refills Start Date End Date Status Saw [place] 80 MG CAPS A ctive GINSENG PO Take by mouth 2 times daily Active HAWTHORN PO Take by mouth 2 times daily Active Ginkgo Biloba (GINKGO PO) Take by mouth 2 times daily Active NONFORMULARY [place]-zyme Active Active Problems Problem Noted Date Diagnosed [...] T Respiratory Rate 16 06/01/2014 8:01 PM SOLUTIONS SPECIALIST Oxygen Saturation 95% 04/08/2017 9:05 AM SOLUTIONS SPECIALIST Inhaled Oxygen Concentration - - Weight 78.9 kg (174 lb) 11/04/2018 1:12 PM CDT Height 172.7 cm (5' 8) 11/04/2018 1:12 PM CDT Body Mass Index 26.46 11/04/2018 1:12 PM CDT Plan of Treatment Not on file Medical Devices Implanted Type Area Cloud Solutions Architect Device Identifier Shelf Expiration Date Model / Serial / Lot [employer]* 2087tc Tendril Sts [id number] Implanted:01/30 (Quantity not on file) Leads [employer] 2087TC TENDRIL STS / [id number] / [employer]* 2087tc Tendril Sts [id number] Implanted:01/30 (Quantity not on file) Leads [employer] 2087TC TENDRIL STS / [id number] / [employer]* [address] [id number] Implanted:01/30 (Quantity not on file) Pacemaker [employer] [address] / [id number] / Advance Directives For more information, please contact: [phone] * Full Code (Latest Code Status on File) Date Activated Date Inactivated Comments 02/16/2013 11:22 AM * Full Code Date Activated Date Inactivated Comments 02/14/2013 11:17 PM 02/16/2013 11:22 AM * Full Code Date Activated Date Inactivated Comments 07/31/2011 8:42 AM 02/14/2013 11:17 PM * Full Code Date Activated Date Inactivated Comments 07/30/2011 4:29 PM 07/31/2011 8:42 AM Care Teams Education Liaison Relationship Specialty Start Date End Date Chandana Fleming MD [facility] [id number] [place] [address] PCP - General Family Practice 02/03/19
--- OUTSIDE RECORDS SUMMARY | 2024-03-10 08:35 | XMS_ITS | Continuity of Care Document ---
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 It does not include entries that were removed or entered in error. 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 13 Condition Jul 07, 2014 Entered By: BEN VIVEROS Comment: s/p dualchamber pacer [facility] Chronic peptic ulcer without hemorrhage, without perforation AND without obstruction Active 06/01/18 86 Condition Jul 07, 2014 Entered By: BEN VIVEROS Comment: s/p partial gastrectomy, has dumping syndrome [facility] Atrial Flutter (SCT [id number]) Active Condition [facility] Cardiac pacemaker in situ Active Condition [facility] Cardiomyopathy Active Condition [facility] Elevated PSA Active Condition [facility] Gilbert's syndrome Active Condition [facility] Hearing Loss (SCT [id number]) Active Condition [facility] History of peptic ulcer Active Condition Dec 04, 2017 Entered By: MEHREEN ARCHIBALD Comment: partial gastectomy and dumping syndrome [facility] Syncope and Collapse (SCT [id number]) Active Condition Dec 04, 2017 Entered By: MEHREEN ARCHIBALD Comment: due to complete heart block [facility] Typical atrial flutter Active Condition [facility] Diagnosis: ICD-10-CM H90.A21 Snsrnrl hear loss, uni, r ear, with rstrcd hear cntra side Active Diagnosis [facility] Diagnosis: ICD-10-CM J32.8 Other chronic sinusitis Active Diagnosis [facility] Diagnosis: ICD-10-CM I45.5 Other specified heart block Active Diagnosis [facility] Diagnosis: ICD-10-CM Z13.6 Encounter for screening for cardiovascular disorders Active Diagnosis [facility] Diagnosis: ICD-10-CM Z95.0 Presence of cardiac pacemaker Active Diagnosis [facility] Diagnosis: ICD-10-CM 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 [facility] Diagnosis: ICD-10-CM H90.3 Sensorineural hearing loss, bilateral Active Diagnosis [facility] Diagnosis: ICD-10-CM I48.3 Typical atrial flutter Active Diagnosis [facility] Diagnosis: ICD-10-CM Z00.00 Encntr for general adult medical exam w/o abnormal findings Active Diagnosis [facility] Medications Combined list of outpatient medications [...] TO PREVENT BLOOD CLOTS ORAL HOLD 07/24/2024 [id number] Angeli RECINOS T 2023 30 [facility] GINKGO BILOBA CAP/TAB TAKE ONE TABLET BY MOUTH EVERY DAY ORAL ACTIVE Angeli BLANDON 2023 [facility] NON VA MED NOT LISTED USE HYDRO-ZY ME MOUTH ORAL ACTIVE AMARILYS [place] 2020 [facility] SAW [place] CAP/TAB TAKE ACTIVE [place] BUCIO 2021 [facility] SODIUM CHLORIDE 0.65% SOLN,NASAL SPRAY SPRAY 2 SPRAYS IN EACH NOSTRIL TWICE A DAY FOR NASAL DRYNESS NASAL 11/16/2023 [id number] MONICA PONCE 2023 45 [facility] Immunizations Combined list of available immunizations from the Department of Defense and Veterans Affairs facilities. 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 Ordering Provider: YOAV VILLEDA Report Released Date/Time: Aug 07, 2023 09:32 AM Reporting Lab: [facility] [address] Performing Lab: [facility] [address] [place] [facility] LIPID PANEL,NO N-FASTIN G CHOLESTERO L IN LDL [MASS/VOLU ME] IN SERUM OR PLASMA BY CALCULATIO N 75 mg/dL <99 - 99 08/06 Specimen Type: PLASMA No comment entered. Ordering Provider: YOAV VILLEDA ERT Rachael Report Released Date/Time: Aug 07, 2023 09:32 AM Reporting Lab: [facility] [address] Performing Lab: [facility] [address] [place] [facility] LIPID PANEL,NO N-FASTIN G CHOLESTERO L IN VLDL [MASS/VOLU ME] IN SERUM OR PLASMA BY CALCULATIO N 25 mg/dL <29 - 29 08/06 Specimen Type: PLASMA No comment entered. Ordering Provider: YOAV VILLEDA ERT Rachael Report Released Date/Time: Aug 07, 2023 09:32 AM Reporting Lab: [facility] [address] Performing Lab: [facility] [address] [place] [facility] LIPID PANEL,NO N-FASTIN G CHOLESTERO L NON HDL [MASS/VOLU ME] IN SERUM OR PLASMA 100 mg/dL <129 - 129 08/06 Specimen Type: PLASMA No comment entered. Ordering Provider: YOAV VILLEDA ERT Rachael Report Released Date/Time: Aug 07, 2023 09:32 AM Reporting Lab: [facility] [address] Performing Lab: [facility] [address] [place] [facility] LIPID PANEL,NO N-FASTIN G TRIGLYCERI DE [MASS/VOLU ME] IN SERUM OR PLASMA 124 mg/dL <149 - 149 08/06 Specimen Type: PLASMA No comment entered. Ordering Provider: YOAV VILLEDA ERT E Report Released Date/Time: Aug 07, 2023 09:32 AM Reporting Lab: [facility] [address] Performing Lab: [facility] [address] [place] [facility] EXTRA GOLD GEL TUBE EXTRA GOLD GEL TUBE RECEIVED 07/24 Specimen Type: SERUM No comment entered. Ordering Provider: MARGARET RECINOS Report Released Date/Time: Jul 24, 2023 11:22 AM Reporting Lab: [facility] [address] Performing Lab: [facility] [address] [place] [facility] POC CREATINI NE CREATININE [MASS/VOLU ME] IN BLOOD 1.1 mg/dL 0.6 - 1.3 07/24 Specimen Type: BLOOD No comment entered. Ordering Provider: MARGARET RECINOS Report Released Date/Time: Jul 24, 2023 11:28 AM Reporting Lab: [facility] [address] Performing Lab: [facility] [address] [place] [facility] ACT PART THROMBO TIME APTT IN PLATELET POOR PLASMA BY COAGULATIO N ASSAY 34.3 s 25.1 - 36.5 07/24 Specimen Type: PLASMA No comment entered. Ordering Provider: MARGARET RECINOS Report Released Date/Time: Jul 24, 2023 10:52 AM Reporting Lab: [facility] [address] Performing Lab: [facility] [address] [place] [facility] CBC & DIFF LEUKOCYTES [#/VOLUME] IN BLOOD BY AUTOMATED COUNT 8.70 10*3/uL 4.0 - 11.0 07/24 Specimen Type: BLOOD Comment: Automated Differentia l Performed Ordering Provider: MARGARET RECINOS Report Released Date/Time: Jul 24, 2023 10:52 AM Reporting Lab: [facility] [address] Performing Lab: [facility] [address] [place] [facility] CBC & DIFF ERYTHROCYT ES [#/VOLUME] IN BLOOD BY AUTOMATED COUNT 4.85 10*6/uL 4.6 - 6.2 07/24 Specimen Type: BLOOD Comment: Automated Differentia l Performed Ordering Provider: MARGARET RECINOS Report Released Date/Time: Jul 24, 2023 10:52 AM Reporting Lab: [facility] [address] Performing Lab: [facility] [address] [place] [facility] CBC & DIFF HEMOGLOBIN [MASS/VOLU ME] IN BLOOD 15.1 g/dL 13.5 - 17.9 07/24 Specimen Type: BLOOD Comment: Automated Differentia l Performed Ordering Provider: MARGARET RECINOS Report Released Date/Time: Jul 24, 2023 10:52 AM Reporting Lab: [facility] [address] Performing Lab: [facility] [address] [place] [facility] CBC & DIFF HEMATOCRIT [VOLUME FRACTION] OF BLOOD BY AUTOMATED COUNT 45.7 41 - 54 07/24 Specimen Type: BLOOD Comment: Automated Differentia l Performed Ordering Provider: MARGARET RECINOS Report Released Date/Time: Jul 24, 2023 10:52 AM Reporting Lab: [facility] [address] Performing Lab: [facility] [address] [place] [facility] CBC & DIFF MCV [ENTITIC VOLUME] BY AUTOMATED COUNT 94.2 fL 80 - 100 07/24 Specimen Type: BLOOD Comment: Automated Differentia l Performed Ordering Provider: MARGARET RECINOS Report Released Date/Time: Jul 24, 2023 10:52 AM Reporting Lab: [facility] [address] Performing Lab: [facility] [address] [place] [facility] CBC & DIFF MCH [ENTITIC MASS] BY AUTOMATED COUNT 31.1 pg 27 - 33 07/24 Specimen Type: BLOOD Comment: Automated Differentia l Performed Ordering Provider: MARGARET RECINOS Report Released Date/Time: Jul 24, 2023 10:52 AM Reporting Lab: [facility] [address] Performing Lab: [facility] [address] [place] [facility] CBC & DIFF MCHC [MASS/VOLU ME] BY AUTOMATED COUNT 33.0 g/dL 32.0 - 37.5 07/24 Specimen Type: BLOOD Comment: Automated Differentia l Performed Ordering Provider: MARGARET RECINOS Report Released Date/Time: Jul 24, 2023 10:52 AM Reporting Lab: [facility] [address] Performing Lab: [facility] [address] [place] [facility] CBC & DIFF PLATELETS [#/VOLUME] IN BLOOD BY AUTOMATED COUNT 288 10*3/uL 150 - 400 07/24 Specimen Type: BLOOD Comment: Automated Differentia l Performed Ordering Provider: MARGARET RECINOS Report Released Date/Time: Jul 24, 2023 10:52 AM Reporting Lab: [facility] [address] Performing Lab: [facility] [address] [place] [facility] CBC & DIFF PLATELET MEAN VOLUME [ENTITIC VOLUME] IN BLOOD BY AUTOMATED COUNT 9.8 fL 7.4 - 10.4 07/24 Specimen Type: BLOOD Comment: Automated Differentia l Performed Ordering Provider: MARGARET RECINOS Report Released Date/Time: Jul 24, 2023 10:52 AM Reporting Lab: [facility] [address] Performing Lab: [facility] [address] [place] [facility] CBC & DIFF NEUTROPHIL S/100 LEUKOCYTES IN BLOOD BY MANUAL COUNT 66.1 40.0 - 80.0 07/24 Specimen Type: BLOOD Comment: Automated Differentia l Performed Ordering Provider: MARGARET RECINOS Report Released Date/Time: Jul 24, 2023 10:52 AM Reporting Lab: [facility] [address] Performing Lab: [facility] [address] [place] [facility] CBC & DIFF LYMPHOCYTE S/100 LEUKOCYTES IN BLOOD BY MANUAL COUNT 17.5 15.0 - 45.0 07/24 Specimen Type: BLOOD Comment: Automated Differentia l Performed Ordering Provider: MARGARET RECINOS Report Released Date/Time: Jul 24, 2023 10:52 AM Reporting Lab: [facility] [address] Performing Lab: [facility] [address] [place] [facility] CBC & DIFF MONOCYTES/ 100 LEUKOCYTES IN BLOOD BY AUTOMATED COUNT 12.3 2.0 - 12.0 07/24 H Specimen Type: BLOOD Comment: Automated Differentia l Performed Ordering Provider: MARGARET RECINOS Report Released Date/Time: Jul 24, 2023 10:52 AM Reporting Lab: [facility] [address] Performing Lab: [facility] [address] [place] [facility] CBC & DIFF EOSINOPHIL S/100 LEUKOCYTES IN BLOOD BY AUTOMATED COUNT 2.8 0.0 - 6.0 07/24 Specimen Type: BLOOD Comment: Automated Differentia l Performed Ordering Provider: MARGARET RECINOS Report Released Date/Time: Jul 24, 2023 10:52 AM Reporting Lab: [facility] [address] Performing Lab: [facility] [address] [place] [facility] CBC & DIFF BASOPHILS/ 100 LEUKOCYTES IN BLOOD BY MANUAL COUNT 0.8 0.0 - 2.0 07/24 Specimen Type: BLOOD Comment: Automated Differentia l Performed Ordering Provider: MARGARET RECINOS Report Released Date/Time: Jul 24, 2023 10:52 AM Reporting Lab: [facility] [address] Performing Lab: [facility] [address] [place] [facility] CBC & DIFF ERYTHROCYT E DISTRIBUTI ON WIDTH [RATIO] BY AUTOMATED COUNT 13.8 11.5 - 14.5 02/23 /2024 Specimen Type: BLOOD Comment: Automated Differentia l Performed Ordering Provider: MARGARET RECINOS Report Released Date/Time: Jul 24, 2023 10:52 AM Reporting Lab: [facility] [address] Performing Lab: [facility] [address] [place] [facility] CBC & DIFF LYMPHOCYTE S [#/VOLUME] IN BLOOD BY AUTOMATED COUNT 1.52 10*3/uL 1.0 - 4.0 07/24 Specimen Type: BLOOD Comment: Automated Differentia l Performed Ordering Provider: MARGARET RECINOS Report Released Date/Time: Jul 24, 2023 10:52 AM Reporting Lab: [facility] [address] Performing Lab: [facility] [address] [place] [facility] CBC & DIFF MONOCYTES [#/VOLUME] IN BLOOD BY AUTOMATED COUNT 1.07 10*3/uL 0.1 - 1.0 07/24 H Specimen Type: BLOOD Comment: Automated Differentia l Performed Ordering Provider: MARGARET RECINOS Report Released Date/Time: Jul 24, 2023 10:52 AM Reporting Lab: [facility] [address] Performing Lab: [facility] [address] [place] [facility] CBC & DIFF NEUTROPHIL S [#/VOLUME] IN BLOOD BY AUTOMATED COUNT 5.76 10*3/uL 2.0 - 7.7 07/24 Specimen Type: BLOOD Comment: Automated Differentia l Performed Ordering Provider: MARGARET RECINOS Report Released Date/Time: Jul 24, 2023 10:52 AM Reporting Lab: [facility] [address] Performing Lab: [facility] [address] [place] [facility] CBC & DIFF EOSINOPHIL S [#/VOLUME] IN BLOOD BY AUTOMATED COUNT 0.24 10*3/uL 0 - 0.5 07/24 Specimen Type: BLOOD Comment: Automated Differentia l Performed Ordering Provider: MARGARET RECINOS Report Released Date/Time: Jul 24, 2023 10:52 AM Reporting Lab: [facility] [address] Performing Lab: [facility] [address] [place] [facility] CBC & DIFF BASOPHILS [#/VOLUME] IN BLOOD BY AUTOMATED COUNT 0.07 10*3/uL 0 - 0.2 07/24 Specimen Type: BLOOD Comment: Automated Differentia l Performed Ordering Provider: MARGARET RECINOS Report Released Date/Time: Jul 24, 2023 10:52 AM Reporting Lab: [facility] [address] Performing Lab: [facility] [address] [place] [facility] CBC & DIFF IG(META,MY TAMIKA,PRO) 0.5 07/24 Specimen Type: BLOOD Comment: Automated Differentia l Performed Ordering Provider: MARGARET RECINOS Report Released Date/Time: Jul 24, 2023 10:52 AM Reporting Lab: [facility] [address] Performing Lab: [facility] [address] [place] [facility] CBC & DIFF IMMATURE GRANULOCYT ES [PRESENCE] IN BLOOD BY AUTOMATED COUNT 0.04 10*3/uL 0 - 0.1 07/24 Specimen Type: BLOOD Comment: Automated Differentia l Performed Ordering Provider: MARGARET RECINOS Report Released Date/Time: Jul 24, 2023 10:52 AM Reporting Lab: [facility] [address] Performing Lab: [facility] [address] [place] [facility] COMPREHE NSIVE METABOLI C PANEL+MG CREATININE [MASS/VOLU ME] IN SERUM OR PLASMA 1.1 mg/dL 0.7 - 1.2 07/24 Specimen Type: PLASMA No comment entered. Ordering Provider: MARGARET RECINOS Report Released Date/Time: Jul 24, 2023 10:52 AM Reporting Lab: [facility] [address] Performing Lab: [facility] [address] [place] [facility] COMPREHE NSIVE METABOLI C PANEL+MG UREA NITROGEN [MASS/VOLU ME] IN SERUM OR PLASMA 14 mg/dL 8 - 26 07/24 Specimen Type: PLASMA No comment entered. Ordering Provider: MARGARET RECINOS Report Released Date/Time: Jul 24, 2023 10:52 AM Reporting Lab: [facility] [address] Performing Lab: [facility] [address] [place] [facility] COMPREHE NSIVE METABOLI C PANEL+MG GLUCOSE [MASS/VOLU ME] IN SERUM OR PLASMA 94 mg/dL 70 - 100 07/24 Specimen Type: PLASMA No comment entered. Ordering Provider: MARGARET RECINOS Report Released Date/Time: Jul 24, 2023 10:52 AM Reporting Lab: [facility] [address] Performing Lab: [facility] [address] [place] [facility] COMPREHE NSIVE METABOLI C PANEL+MG SODIUM [MOLES/VOL UME] IN SERUM OR PLASMA 139 mmol/L 136 - 145 07/24 Specimen Type: PLASMA No comment entered. Ordering Provider: MARGARET RECINOS Report Released Date/Time: Jul 24, 2023 10:52 AM Reporting Lab: [facility] [address] Performing Lab: [facility] [address] [place] [facility] COMPREHE NSIVE METABOLI C PANEL+MG POTASSIUM [MOLES/VOL UME] IN SERUM OR PLASMA 4.5 mmol/L 3.5 - 5.1 07/24 Specimen Type: PLASMA No comment entered. Ordering Provider: MARGARET RECINOS Report Released Date/Time: Jul 24, 2023 10:52 AM Reporting Lab: [facility] [address] Performing Lab: [facility] [address] [place] [facility] COMPREHE NSIVE METABOLI C PANEL+MG CHLORIDE [MOLES/VOL UME] IN SERUM OR PLASMA 106 mmol/L 98 - 107 07/24 Specimen Type: PLASMA No comment entered. Ordering Provider: MARGARET RECINOS Report Released Date/Time: Jul 24, 2023 10:52 AM Reporting Lab: [facility] [address] Performing Lab: [facility] [address] [place] [facility] COMPREHE NSIVE METABOLI C PANEL+MG CARBON DIOXIDE, TOTAL [MOLES/VOL UME] IN SERUM OR PLASMA 27 mmol/L 22 - 29 07/24 Specimen Type: PLASMA No comment entered. Ordering Provider: MARGARET RECINOS Report Released Date/Time: Jul 24, 2023 10:52 AM Reporting Lab: [facility] [address] Performing Lab: [facility] [address] [place] [facility] COMPREHE NSIVE METABOLI C PANEL+MG CALCIUM [MASS/VOLU ME] IN SERUM OR PLASMA 9.5 mg/dL 8.4 - 10.2 07/24 Specimen Type: PLASMA No comment entered. Ordering Provider: MARGARET RECINOS Report Released Date/Time: Jul 24, 2023 10:52 AM Reporting Lab: [facility] [address] Performing Lab: [facility] [address] [place] [facility] COMPREHE NSIVE METABOLI C PANEL+MG PROTEIN [MASS/VOLU ME] IN SERUM OR PLASMA 7.3 g/dL 6.0 - 8.3 07/24 Specimen Type: PLASMA No comment entered. Ordering Provider: MARGARET RECINOS Report Released Date/Time: Jul 24, 2023 10:52 AM Reporting Lab: [facility] [address] Performing Lab: [facility] [address] [place] [facility] COMPREHE NSIVE METABOLI C PANEL+MG ALBUMIN [MASS/VOLU ME] IN SERUM OR PLASMA 3.9 g/dL 3.5 - 5.2 07/24 Specimen Type: PLASMA No comment entered. Ordering Provider: MARGARET RECINOS Report Released Date/Time: Jul 24, 2023 10:52 AM Reporting Lab: [facility] [address] Performing Lab: [facility] [address] [place] [facility] COMPREHE NSIVE METABOLI C PANEL+MG BILIRUBIN. TOTAL [MASS/VOLU ME] IN SERUM OR PLASMA 1.7 mg/dL 0.2 - 1.2 07/24 H Specimen Type: PLASMA No comment entered. Ordering Provider: MARGARET RECINOS Report Released Date/Time: Jul 24, 2023 10:52 AM Reporting Lab: [facility] [address] Performing Lab: [facility] [address] [place] [facility] COMPREHE NSIVE METABOLI C PANEL+MG MAGNESIUM [MASS/VOLU ME] IN SERUM OR PLASMA 2.1 mg/dL 1.6 - 2.6 07/24 Specimen Type: PLASMA No comment entered. Ordering Provider: MARGARET RECINOS Report Released Date/Time: Jul 24, 2023 10:52 AM Reporting Lab: [facility] [address] Performing Lab: [facility] [address] [place] [facility] COMPREHE NSIVE METABOLI C PANEL+MG ANION GAP IN SERUM OR PLASMA 6 mmol/L 5 - 15 07/24 Specimen Type: PLASMA No comment entered. Ordering Provider: MARGARET RECINOS Report Released Date/Time: Jul 24, 2023 10:52 AM Reporting Lab: [facility] [address] Performing Lab: [facility] [address] [place] [facility] COMPREHE NSIVE METABOLI C PANEL+MG ALKALINE PHOSPHATAS E [ENZYMATIC ACTIVITY/V OLUME] IN SERUM OR PLASMA 118 U/L 40 - 150 07/24 Specimen Type: PLASMA No comment entered. Ordering Provider: MARGARET RECINOS Report Released Date/Time: Jul 24, 2023 10:52 AM Reporting Lab: [facility] [address] Performing Lab: [facility] [address] [place] [facility] COMPREHE NSIVE METABOLI C PANEL+MG ALANINE AMINOTRANS FERASE [ENZYMATIC ACTIVITY/V OLUME] IN SERUM OR PLASMA 19 U/L <55 - 55 07/24 Specimen Type: PLASMA No comment entered. Ordering Provider: MARGARET RECINOS Report Released Date/Time: Jul 24, 2023 10:52 AM Reporting Lab: [facility] [address] Performing Lab: [facility] [address] [place] [facility] COMPREHE NSIVE METABOLI C PANEL+MG ASPARTATE AMINOTRANS FERASE [ENZYMATIC ACTIVITY/V OLUME] IN SERUM OR PLASMA 23 U/L <34 - 34 07/24 Specimen Type: PLASMA No comment entered. Ordering Provider: MARGARET RECINOS Report Released Date/Time: Jul 24, 2023 10:52 AM Reporting Lab: [facility] [address] Performing Lab: [facility] [address] [place] [facility] COMPREHE NSIVE METABOLI C PANEL+MG GLOMERULAR FILTRATION RATE/1.73 SQ M.PREDICTE D [VOLUME RATE/AREA] IN SERUM, PLASMA OR BLOOD BY CREATININE -BASED FORMULA (CKD-EPI 2020) 67 60 07/24 Specimen Type: PLASMA No comment entered. Ordering Provider: MARGARET RECINOS Report Released Date/Time: Jul 24, 2023 10:52 AM Reporting Lab: [facility] [address] Performing Lab: [facility] [address] [place] [facility] COMPREHE NSIVE METABOLI C PANEL+MG BILIRUBIN. DIRECT [MASS/VOLU ME] IN SERUM OR PLASMA 0.5 mg/dL <0.5 - 0.5 07/24 Specimen Type: PLASMA No comment entered. Ordering Provider: MARGARET RECINOS Report Released Date/Time: Jul 24, 2023 10:52 AM Reporting Lab: [facility] [address] Performing Lab: [facility] [address] [place] [facility] PROTHROM BIN TIME/INR INR IN PLATELET POOR PLASMA BY COAGULATIO N ASSAY 1.0 0.8 - 1.1 07/24 Specimen Type: PLASMA No comment entered. Ordering Provider: MARGARET RECINOS Report Released Date/Time: Jul 24, 2023 10:52 AM Reporting Lab: [facility] [address] Performing Lab: [facility] [address] [place] [facility] PROTHROM BIN TIME/INR PROTHROMBI N TIME (PT) 12.2 s 9.4 - 12.5 07/24 Specimen Type: PLASMA No comment entered. Ordering Provider: MARGARET RECINOS Report Released Date/Time: Jul 24, 2023 10:52 AM Reporting Lab: [facility] [id number] Performing Lab: [facility] [id number] [place] [facility] BASIC METABOLI C PANEL+MG CREATININE [MASS/VOLU ME] IN SERUM OR PLASMA 1.0 mg/dL 0.7 - 1.2 02/05 Specimen Type: PLASMA No comment entered. Ordering Provider: MAGALYS BUCIO Report Released Date/Time: Jan 02, 2022 11:30 AM Reporting Lab: [facility] [id number] Performing Lab: [facility] [id number] [place] [facility] BASIC METABOLI C PANEL+MG UREA NITROGEN [MASS/VOLU ME] IN SERUM OR PLASMA 16 mg/dL 8 - 26 02/05 Specimen Type: PLASMA No comment entered. Ordering Provider: MAGALYS BUCIO Report Released Date/Time: Jan 02, 2022 11:30 AM Reporting Lab: [facility] [address] Performing Lab: [facility] [address] [place] [facility] BASIC METABOLI C PANEL+MG GLUCOSE [MASS/VOLU ME] IN SERUM OR PLASMA 78 mg/dL 70 - 100 02/05 Specimen Type: PLASMA No comment entered. Ordering Provider: MAGALYS BUCIO Report Released Date/Time: Jan 02, 2022 11:30 AM Reporting Lab: [facility] [address] Performing Lab: [facility] [address] [place] [facility] BASIC METABOLI C PANEL+MG SODIUM [MOLES/VOL UME] IN SERUM OR PLASMA 140 mmol/L 136 - 145 02/05 Specimen Type: PLASMA No comment entered. Ordering Provider: MAGALYS BUCIO Report Released Date/Time: Jan 02, 2022 11:30 AM Reporting Lab: [facility] [address] Performing Lab: [facility] [address] [place] [facility] BASIC METABOLI C PANEL+MG POTASSIUM [MOLES/VOL UME] IN SERUM OR PLASMA 4.4 mmol/L 3.5 - 5.1 02/05 Specimen Type: PLASMA No comment entered. Ordering Provider: MAGALYS BUCIO Report Released Date/Time: Jan 02, 2022 11:30 AM Reporting Lab: [facility] [address] Performing Lab: [facility] [address] [place] [facility] BASIC METABOLI C PANEL+MG CHLORIDE [MOLES/VOL UME] IN SERUM OR PLASMA 105 mmol/L 98 - 107 02/05 Specimen Type: PLASMA No comment entered. Ordering Provider: MAGALYS BUCIO Report Released Date/Time: Jan 02, 2022 11:30 AM Reporting Lab: [facility] [address] Performing Lab: [facility] [address] [place] [facility] BASIC METABOLI C PANEL+MG CARBON DIOXIDE, TOTAL [MOLES/VOL UME] IN SERUM OR PLASMA 26 mmol/L 22 - 29 02/05 Specimen Type: PLASMA No comment entered. Ordering Provider: MAGALYS BUCIO Report Released Date/Time: Jan 02, 2022 11:30 AM Reporting Lab: [facility] [address] Performing Lab: [facility] [address] [place] [facility] BASIC METABOLI C PANEL+MG CALCIUM [MASS/VOLU ME] IN SERUM OR PLASMA 9.4 mg/dL 8.4 - 10.2 02/05 Specimen Type: PLASMA No comment entered. Ordering Provider: MAGALYS BUCIO Report Released Date/Time: Jan 02, 2022 11:30 AM Reporting Lab: [facility] [address] Performing Lab: [facility] [address] [place] [facility] BASIC METABOLI C PANEL+MG MAGNESIUM [MASS/VOLU ME] IN SERUM OR PLASMA 2.0 mg/dL 1.6 - 2.6 02/05 Specimen Type: PLASMA No comment entered. Ordering Provider: MAGALYS BUCIO Report Released Date/Time: Jan 02, 2022 11:30 AM Reporting Lab: [facility] [address] Performing Lab: [facility] [address] [place] [facility] BASIC METABOLI C PANEL+MG ANION GAP IN SERUM OR PLASMA 9 mmol/L 5 - 15 02/05 Specimen Type: PLASMA No comment entered. Ordering Provider: MAGALYS BUCIO Report Released Date/Time: Jan 02, 2022 11:30 AM Reporting Lab: [facility] [address] Performing Lab: [facility] [address] [place] [facility] BASIC METABOLI C PANEL+MG GLOMERULAR FILTRATION RATE/1.73 SQ M.PREDICTE D [VOLUME RATE/AREA] IN SERUM, PLASMA OR BLOOD BY CREATININE -BASED FORMULA (CKD-EPI 2020) 75 60 02/05 Specimen Type: PLASMA No comment entered. Ordering Provider: MAGALYS BUCIO Report Released Date/Time: Jan 02, 2022 11:30 AM Reporting Lab: [facility] [address] Performing Lab: [facility] [address] [place] [facility] CBC LEUKOCYTES [#/VOLUME] IN BLOOD BY AUTOMATED COUNT 8.96 10*3/uL 4.0 - 11.0 02/05 Specimen Type: BLOOD No comment entered. Ordering Provider: MAGALYS UBCIO Report Released Date/Time: Jan 02, 2022 11:30 AM Reporting Lab: [facility] [address] Performing Lab: [facility] [address] [place] [facility] CBC ERYTHROCYT ES [#/VOLUME] IN BLOOD BY AUTOMATED COUNT 4.71 10*6/uL 4.6 - 6.2 02/05 Specimen Type: BLOOD No comment entered. Ordering Provider: MAGALYS BUCIO Report Released Date/Time: Jan 02, 2022 11:30 AM Reporting Lab: [facility] [address] Performing Lab: [facility] [address] [place] [facility] CBC HEMOGLOBIN [MASS/VOLU ME] IN BLOOD 15.0 g/dL 13.5 - 17.9 02/05 Specimen Type: BLOOD No comment entered. Ordering Provider: MAGALYS BUCIO Report Released Date/Time: Jan 02, 2022 11:30 AM Reporting Lab: [facility] [address] Performing Lab: [facility] [address] [place] [facility] CBC HEMATOCRIT [VOLUME FRACTION] OF BLOOD BY AUTOMATED COUNT 45.0 41 - 54 02/05 Specimen Type: BLOOD No comment entered. Ordering Provider: MAGALYS BUCIO Report Released Date/Time: Jan 02, 2022 11:30 AM Reporting Lab: [facility] [address] Performing Lab: [facility] [address] [place] [facility] CBC MCV [ENTITIC VOLUME] BY AUTOMATED COUNT 95.5 fL 80 - 100 02/05 Specimen Type: BLOOD No comment entered. Ordering Provider: MAGALYS BUCIO Report Released Date/Time: Jan 02, 2022 11:30 AM Reporting Lab: [facility] [address] Performing Lab: [facility] [address] [place] [facility] CBC MCH [ENTITIC MASS] BY AUTOMATED COUNT 31.8 pg 27 - 33 02/05 Specimen Type: BLOOD No comment entered. Ordering Provider: MAGALYS BUCIO Report Released Date/Time: Jan 02, 2022 11:30 AM Reporting Lab: [facility] [address] Performing Lab: [facility] [address] [place] [facility] CBC MCHC [MASS/VOLU ME] BY AUTOMATED COUNT 33.3 g/dL 32.0 - 37.5 02/05 Specimen Type: BLOOD No comment entered. Ordering Provider: MAGALYS BUCIO Report Released Date/Time: Jan 02, 2022 11:30 AM Reporting Lab: [facility] [address] Performing Lab: [facility] [address] [place] [facility] CBC PLATELETS [#/VOLUME] IN BLOOD BY AUTOMATED COUNT 271 10*3/uL 150 - 400 02/05 Specimen Type: BLOOD No comment entered. Ordering Provider: MAGALYS BUCIO Report Released Date/Time: Jan 02, 2022 11:30 AM Reporting Lab: [facility] [address] Performing Lab: [facility] [address] [facility] CBC PLATELET MEAN VOLUME [ENTITIC VOLUME] IN BLOOD BY AUTOMATED COUNT 9.6 fL 7.4 - 10.4 02/05 Specimen Type: BLOOD No comment entered. Ordering Provider: MAGALYS BUCIO Report Released Date/Time: Jan 02, 2022 11:30 AM Reporting Lab: [facility] [address] Performing Lab: [facility] [address] [facility] CBC ERYTHROCYT E DISTRIBUTI ON WIDTH [RATIO] BY AUTOMATED COUNT 13.5 11.5 - 14.5 02/05 Specimen Type: BLOOD No comment entered. Ordering Provider: MAGALYS BUCIO Report Released Date/Time: Jan 02, 2022 11:30 AM Reporting Lab: [facility] [address] Performing Lab: [facility] [address] [facility] Vital Signs Combined list of inpatient and outpatient Vital Signs from Department of Defense and Veterans Affairs, ranging from 12 months to all on record, depending upon the facility. Vital Sign Value Date Comments Source SYSTOLIC BLOOD PRESSURE 118 10/17/2023 13:01:15 [facility] DIASTOLIC BLOOD PRESSURE 55 10/17/2023 13:01:15 [facility] PULSE OXIMETRY 95 10/17/2023 13:01:15 [facility] TEMPERATURE 98.5 10/17/2023 13:01:15 [facility] PULSE 66 10/17/2023 13:01:15 [facility] RESPIRATION 16 10/17/2023 13:01:15 [facility] SYSTOLIC BLOOD PRESSURE 160 09/23/2023 09:17:00 [facility] DIASTOLIC BLOOD PRESSURE 89 09/23/2023 09:17:00 [facility] PULSE OXIMETRY 69 09/23/2023 09:17:00 [place] [facility] DIASTOLIC BLOOD PRESSURE 89 08/07/2023 08:58:05 [facility] PULSE OXIMETRY 96 08/07/2023 08:58:05 [...] ADM Date DC Date Status Disposition Source [facility] Outpatient Encounter [id number] 09/10 [facility] [id number] 09/10 [facility] REM INTERROG EVL PM/[place] [id number] Diagnos is: ICD-10- CM Z95.0 Presenc e of cardiac pacemak er
KRISTINSA NDRA L 09/11 [facility] PM DEVICE PROGR EVAL DUAL [id number] Diagnos is: ICD-10- CM Z95.0 Presenc e of cardiac pacemak er
DORNEE UNGER K A 11/27 [facility] Out[facility] Encounter [id number] 12/12 [facility] OFFICE O/P EST LOW 20-29 MIN [id number] Diagnos is: ICD-10- CM Z00.00 Encntr for general adult medical exam w/o abnorma l finding s
KEVYN WETZEL H A 02/05 [facility] Out[facility] Encounter [id number] 03/13 [facility] Outpatient Encounter [id number] 06/19 [place] [facility] Outpatient Encounter [id number] 06/22 [facility] REM INTERROG EVL PM/[place]S [place] [id number] Diagnos is: ICD-10- CM I48.3 Typical atrial flutter
FASHINGBAU ERJONNATHANPAOLA T 06/22 [facility] HEARING AID REPAIR/MOD IFYING [id number] Diagnos is: ICD-10- CM H90.3 Sensori neural hearing loss, bilater al
SAMY CARSON 07/22 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
DANNY SMART NZI 09/22 [facility] ELECTROCAR DIOGRAM REPORT [id number] Diagnos is: ICD-10- CM Z13.6 Encount er for screeni ng for cardiov ascular disorde rs
Karin ZABALA O 09/22 [facility] INTERR[place] EVL PM/[place] [id number] Diagnos is: ICD-10- CM I45.5 Other specifi ed heart block<b r/> AB BARBER BIRachael L 09/22 [facility] OFF/OP CONSLTJ NEW/EST HI 55 [id number] Diagnos is: ICD-10- CM I45.5 Other specifi ed heart block<b r/> AB GALO BLANDON 09/22 [facility] Out[facility] Encounter [id number] 10/01 [facility] [place] [facility] EMR DPT VST MAYX REQ PHY/QHP [id number] Diagnos is: ICD-10- CM J32.8 Other chronic sinusit is
LELAND PONCE 10/16 [facility] [place] [facility] Outpatient Encounter [id number] CYNTHIA MAGANA 10/16 [facility] [place] [facility] Outpatient Encounter [id number] 10/16 [facility] HEARING AID REPAIR/MOD IFYING [id number] Diagnos is: ICD-10- CM H90.A21 Snsrnrl hear loss, uni, r ear, with rstrcd hear cntra side
Angeli KENDALL 11/01 [facility] [place] [facility] Outpatient Encounter [id number] SHAN ORDONEZ 11/16 [facility] [place] [facility] Outpatient Encounter [id number] 12/01 [facility] [place] [facility] SELF-MGMT EDUC & TRAIN 1 [place] [id number] Diagnos is: ICD-10- CM H90.A21 Snsrnrl hear loss, uni, r ear, with rstrcd hear cntra side
SAMY CARSON 12/06 [facility] [place] [facility] Outpatient Encounter [id number] 12/14 [facility] [place] [facility] Outpatient Encounter [id number] 12/20 [place] [facility] [place] [facility] Outpatient Encounter [id number] 01/11 [place] [facility] [place] [facility] Outpatient Encounter [id number] 01/19 [place] [facility] Outpatient Encounter [id number] 01/19 [facility] [place] [facility] Outpatient Encounter [id number] 03/04 [place] [facility] Social History Combined list of available smoking, tobacco, and other social history from Department of Defense and Veterans Affairs facilities. Social History Type Response Date Comment Sour e Tobacco smoking status SCIS VA-TOBACCO QUIT 15 YRS OR MORE 02/05/2023 [facility] History of tobacco use CT-TOBACCO FORMER USER 02/05/2023 [facility] History of tobacco use CT-TOBACCO FORMER USER 01/02/2022 [facility] History of tobacco use CT-TOBACCO FORMER USER 11/08/2020 [facility] History of tobacco use CT-TOBACCO QUIT 15 YRS OR MORE 11/18/2018 [facility] History of tobacco use QUIT TOBACCO >7 YEARS AGO 10/27/2017 [facility] History of tobacco use NON-TOBACCO USER 07/21/2017 [facility] History of tobacco use FORMER TOBACCO USER 7Y OR GREATER 09/02/2016 [facility] History of tobacco use FORMER TOBACCO USER 7Y OR GREATER 08/06/2015 [facility] History of tobacco use LIFETIME NON-TOBACCO USER 07/07/2014 [facility]
--- OUTSIDE RECORDS SUMMARY | 2024-03-10 08:35 | XMS_ITS | Encounter Summary ---
Author Organization [facility] [place] [address] [place] [address] Care Team Providers Care Wheel Cutter Name Role Phone Unavailable Primary Care Provider Unavailabl e Prior Encounters Date Type Department Care Team Description 06/20/2019 Converted CPS Chart Documents [facility] [address] [place] [address] <No scans attached> 06/20/2019 Converted 13x Documents [facility] [address] [place] [address] <No scans attached> Plan of [...] 5 ENDODONTIC THERAPY, PREMOLAR TOOTH (EXCLUDING FINAL RASTAFARIAN) Routine 07/14/2019 1:00 AM MST 5 PULP [...]
--- OUTSIDE RECORDS SUMMARY | 2024-03-10 08:35 | XMS_ITS | Clinical Summary ---
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 ) 12/18/2023 Transcribe Orders [facility] [address] [place] [address] Chriss Zaragoza-Oscar Cai MD from [...] Comments Blood Pressure 106/64 07/18/2010 9:30 AM CLEANING STAFF SUPERVISOR Pulse - - Temperature 36.8 ??C (98.2 ??F) 07/18/2010 9:30 AM CS T Respiratory Rate - - Oxygen Saturation - - Inhaled Oxygen Concentration - - Weight 82.6 kg (182 lb) 07/18/2010 9:30 AM CLEANING STAFF SUPERVISOR Height 172.7 cm (5' 8) 07/01/2010 9:18 AM CLEANING STAFF SUPERVISOR Body Mass Index 27.67 07/01/2010 9:18 AM CLEANING STAFF SUPERVISOR Plan of Treatment Health Maintenance Due Date [...] Influenza for age 65+ 01/31/2024 Care Teams Counselor At Law Relationship Specialty [place] [address] [place] [address] PCP - General Family Practice 07/01/10
--- OUTSIDE RECORDS SUMMARY | 2024-03-10 08:35 | XMS_ITS ---
Author Organization [facility] Address [address] [place] [address] Care Team Providers Care Sales Clerk Food Name Role Phone Unavailable Unavailable Unavailable Surgery Details Not on file Complications Check Surgery Details section. Procedure Estimated Blood Loss Check Surgery Details section. Procedure Findings Check Surgery Details section. Procedure Specimens Taken Check Surgery Details section.
--- OUTSIDE RECORDS SUMMARY | 2024-03-10 08:35 | XMS_ITS | Encounter Summary ---
Author Organization [place] Address [address] [place] [address]. [place] [address] Care Team Providers Care Wet Mixer Name Role Phone [facility] Primary Care Provider + Maura Jackson MD Primary Care Provider [phone] Jorge Douglas MD Unavailable Unavailable Encounter Details Date Type Department Care Team (Late st Contact Info) Description 04/11/2013 Office Visit-[facility] [address] [place] [address] Jorge Douglas MD Social History [...] Physician: MAURA JACKSON Referring Clinic: [facility] CURRENT DIAGNOSES 1. Pacemaker/cardiac insitu, V45.01 [...] on filedocumented in this encounter Care Teams Wet Mixer Relationship Specialty Start Date End Date [facility] [address] [place] [phone] PCP - General 07/30/11 02/02/19 Maura Jackson MD [facility] [id number] [place] [address] PCP - General Family Practice 02/03/19 Jorge Douglas MD Assigned Heart and Vascular Provider 03/23/20 05/25/21 documented as of this encounter
--- OUTSIDE RECORDS SUMMARY | 2024-03-10 08:35 | XMS_ITS | Referral Summary ---
Author Organization [facility] Address [address] [place] [address] Care Team Providers Care Facilities Coordinator Name Role Phone Unavailable Primary Care Provider [...]
--- OUTSIDE RECORDS SUMMARY | 2024-03-10 08:35 | XMS_ITS | CCD ---
Author Organization [facility] [place] [address] [place] [address] Care Team Providers Care Firer Locomotive Crane Name Role Phone Unavailable Primary Care Provider [...]
--- OUTSIDE RECORDS SUMMARY | 2024-03-10 08:35 | XMS_ITS | Referral Summary ---
Author Organization [place] Address [address] [place] [address]. [place] [address] Care Team Providers Care Furniture Reproducer Name Role Phone Chandana Fleming MD Primary Care Provider [phone] Allergies Active Allergy Reactions Criticality Noted Date Comments No Known Drug Allergy 02/21/2003 Medications Medication Sig Dispensed Refills Start Date End Date Status Saw [place] 80 MG CAPS A ctive GINSENG PO Take by mouth 2 times daily Active HAWTHORN PO Take by mouth 2 times daily Active Ginkgo Biloba (GINKGO PO) Take by mouth 2 times daily Active NONFORMULARY [place]-zyme Active Active Problems Problem Noted Date Diagnosed [...] T Respiratory Rate 16 06/01/2014 8:01 PM WIRE CUTTER Oxygen Saturation 95% 04/08/2017 9:05 AM WIRE CUTTER Inhaled Oxygen Concentration - - Weight 78.9 kg (174 lb) 11/04/2018 1:12 PM CDT Height 172.7 cm (5' 8) 11/04/2018 1:12 PM CDT Body Mass Index 26.46 11/04/2018 1:12 PM CDT Plan of Treatment Not on file Medical Devices Implanted Type Area Ui Programmer Device Identifier Shelf Expiration Date Model / Serial / Lot [employer] 2087tc Tendril Sts [id number] Implanted:01/30 (Quantity not on file) Leads [employer] 2087TC TENDRIL STS / [id number] / [employer] 2087tc Tendril Sts [id number] Implanted:01/30 (Quantity not on file) Leads [employer] 2087TC TENDRIL STS / [id number] / [employer]* [address] [id number] Implanted:01/30 (Quantity not on file) Pacemaker [employer] [address] / [id number] / Advance Directives For more information, please contact: [phone] * Full Code (Latest Code Status on File) Date Activated Date Inactivated Comments 02/16/2013 11:22 AM * Full Code Date Activated Date Inactivated Comments 02/14/2013 11:17 PM 02/16/2013 11:22 AM * Full Code Date Activated Date Inactivated Comments 07/31/2011 8:42 AM 02/14/2013 11:17 PM * Full Code Date Activated Date Inactivated Comments 07/30/2011 4:29 PM 07/31/2011 8:42 AM Care Teams Furniture Reproducer Relationship Specialty Start Date End Date Chandana Fleming MD [facility] [id number] [place] [address] PCP - General Family Practice 02/03/19
--- NOTE | 2024-03-10 08:41 | ED.NURSE ---
Catheter discharged, patient tolerated well.
== END 2024-03-10 08:42 | disposition home or self-care (01) ==
PROVIDERS: Emergency Provider Emergency Medicine Emergency Medical Services
DX: Z46.6 Encounter for fitting and adjustment of urinary device (principal)
CPT/HCPCS: 99283; 99284

== ENCOUNTER 2025-05-22 08:44 | Outpatient (CLI) | payer OTHER, SELFPAY | END 2025-05-22 08:45 | disposition home or self-care (01) | LOC: AMB 05-28 03:43 | PROVIDERS: Visit Provider Family Medicine | DX: R53.1 Weakness (principal) | CPT/HCPCS: A0425; A0427 ==

== ENCOUNTER 2025-05-22 09:10 | Emergency (ER) | payer OTHER, SELFPAY ==
[2025-05-22] VITALS (16 sets, daily range): BP systolic 146–166; BP diastolic 82–90; PULSE 60–63; RESP 12–24; TEMP 36.5; O2SAT 94–99; BMI 23.0
--- NOTE | 2025-05-22 09:11 | CRLHL7_ITS ---
For Patients: As a result of the Century Cures Act, medical imaging exams and procedure reports are released immediately into your electronic medical record. You may view this report before your referring provider. If you have questions, please contact your health care provider. INDICATION: Clinical signs and symptoms of an acute stroke. COMPARISON: None TECHNIQUE: CT examination of the head was performed as axial sections without intravenous contrast. Images were obtained from the vertex of the skull through the skull base. Please note that all CT scans at this facility use dose modulation, iterative reconstruction, and/or weight-based dosing when appropriate to reduce radiation dose to as low as reasonably achievable. FINDINGS: The brain shows no sign of mass lesion, mass effect, hemorrhage, or edema. There are involutional changes. There is moderate cortical atrophy and there is moderate white matter disease. There is no hydrocephalus. The visualized portions of the orbits are normal in appearance. The osseous structures are normal in appearance with no sign of abnormality in the skull base or calvarium. I discussed the above findings with Dr. Cornell at 9:35 a.m. on May 22, 2025 IMPRESSION: Involutional changes. No acute-appearing findings. Please note that all CT scans at this facility use dose modulation, iterative reconstruction, and/or weight-based dosing when appropriate to reduce radiation dose to as low as reasonably achievable. Dictated by Giovanni Bosch MD @ 05/22/2025 9:35:26 AM (Electronically Signed)
--- NOTE | 2025-05-22 09:13 | ED_ITS ---
HPI - General Adult General Time Seen by Provider: 09:13 Date Seen: 05/22/25 Chief complaint: Neuro Symptoms/Altered Deficit Stated complaint: poss stroke Time Seen by Provider: 05/22/25 09:11 Source: patient, family and EMS Mode of arrival: EMS Limitations: no limitations History of Present Illness HPI narrative: STROKE CODE: This 85-year-old male was brought in by a EMS on a stroke code. He was met in the hallway going into the CT scanner. He awoke around 3:00 a.m., got up and felt like he was imbalanced and listing to the left. EMS noted some left facial drooping. He is complaining of some left foot and hand numbness tingling. EMS got his blood sugar to be 130s. He has had no chest pain or palpitations. He reportedly does have a pacemaker. Patient on initial survey is noted to be alert, interactive, no apparent distress. His systolic blood pressures in the 150s. He has a conjugate gaze, note no significant nystagmus or gross visual changes by confrontation. Is breathing independently, no concerns for airway or breathing. Lungs are clear on gross examination, CV regular rate and rhythm, no murmur. He seems to have symmetric facial function with closing his eyes, puffing out his cheeks. Baseline the maybe just a little sense of left corner of his mouth drooping but when you have him smile, it looks symmetric to me. He states he has normal sensation when I palpate his face. His hand product craftsman strength seems to be equal, biceps seemed to be equal and are 5/5. He can lift his left leg up off the bed and hold it for greater than 5 seconds. I note no dysmetria, no swaying. States that he can feel normal sensation when I touch both of his hands and both of his feet but does feel a sense of numbness tingling in the left foot and possibly hand. Patient is going to proceed with having head CT and CT angio of his head neck. He will not be able to do any MR imaging here if we proceed to that. Related Data Home Medications ?Medication ?Instructions ?Recorded ?Confirmed No Known Home Medications 05/22/2505/02 Allergies Allergy/AdvReac Type Severity Reaction Status Date / Time No Known Drug Allergies All[facility] Verified 05/22/25 10:12 [facility] Social History Smoking Status: Never smoker Do you use any of these nicotine containing products: None Second hand tobacco smoke exposure: No How often do you have a drink containing alcohol: never How often do you have six or more drinks on one occasion: Never AUDIT-C Alcohol total score: 0 Non-prescribed substance use: denies use service: No Exam Const: Vital Signs, click to edit/add: Vital Signs - 24 hr 05/22/25 09:26 05/22/25 09:28 05/22/25 09:28 Temperature Pulse Rate 60 60 60 Respiratory Rate 16 Blood Pressure 151/82 H 151/82 H Pulse Oximetry 98 96 96 05/22/25 09:30 05/22/25 09:33 05/22/25 09:38 Temperature 97.7 F Pulse Rate 61 60 Respiratory Rate 17 Blood Pressure 153/83 H Pulse Oximetry 95 94 05/22/25 09:39 05/22/25 09:45 05/22/25 09:47 Temperature Pulse Rate 60 60 60 Respiratory Rate 18 24 16 Blood Pressure 146/83 H Pulse Oximetry 98 96 98 05/22/25 09:48 05/22/25 10:00 05/22/25 10:01 Temperature Pulse Rate 62 63 61 Respiratory Rate 18 16 18 Blood Pressure 166/87 H Pulse Oximetry 97 99 97 05/22/25 10:02 05/22/25 10:16 05/22/25 10:17 Temperature Pulse Rate 61 61 60 Respiratory Rate 12 16 19 Blood Pressure 163/90 H Pulse Oximetry 97 96 95 05/22/25 10:30 Temperature Pulse Rate 60 Respiratory Rate 14 Blood Pressure Pulse Oximetry 99 His initial physical exam is listed under HPI in my stroke code dictation, please refer to there. Documenting provider has reviewed patient's vital signs: yes Course Course ED Course: Patient will have his CT imaging, back to the department after that. Will obtain an EKG just to confirm underlying rhythm, have him on cardiac monitoring and pulse oximetry. Will get baseline labs. Will be talking to Neurology on this patient. His symptoms certainly sound concerning, his exam is not showing me definite significant focal deficits at this time. He will have further evaluation once in the department and be monitored for ongoing neurologic deficits. He woke up at 3:00 a.m. with symptoms, is not in the window for thrombolytics but will confirm this with Neurology once they have also seen him. Reevaluation(s) Time of Reevaluation #1: 11:07 Reevaluation #1: Patient was at his door way when I was walking by coming back from another patient room. He questioned how long he would be waiting. I did review with him that we had paged the neurologist, I am waiting to hear back. He has notably been up independently ambulatory to and from the bathroom. Consultations Consultation #1: Have spoken to Dr. Ugalde from stroke Neurology at [facility]. They will see the patient when he is back from CT imaging. 11:09 a.m.: Did hear back from Neurology. Obviously we cannot do MR imaging here but she does not feel it needs to happen emergently. She recommends place the patient on an 81 mg aspirin. She does feel his workup could be done outpatient if he desires. He has improved. She does believe that this certainly could have been a TIA. She would recommend lipids, hemoglobin A1c and an echo. She believes with his cardiac issues that he probably should be on some type of blood thinner but he is not. He takes saw palmetto and told her that it has blood thinning properties and he had reviewed this with his dietary aide cook. I did subsequently talk to patient and his daughter whom is here. He would like to go home, does not want to do this workup inpatient. Had a discussion regarding the 81 mg aspirin. Did offer to give him 1 here in now but he declines. 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 I did review with him that if this episode was a TIA, he was on the saw palmetto and it obviously was not effective in preventing this. I highly encouraged him to take 81 mg aspirin at least during the conclusion of this workup. He states he has been informed, understands and will make is independent decision on this. His daughter was present during this discussion. He could go on to have a stroke, highly encourage him to take the aspirin. Time: 09:20 Vital Signs Vital signs: Initial Vital Signs Pulse Rate 60 05/22/25 09:26 Pulse Oximetry 98 05/22/25 09:26 Vital Signs Pulse Rate 60 05/22/25 09:26 Pulse Oximetry 98 05/22/25 09:26 Temperature 97.7 F 12/22/25 09:33 Pulse Rate 60 05/22/25 10:30 Respiratory Rate 14 05/22/25 10:30 Blood Pressure 163/90 H 05/22/25 10:17 Pulse Oximetry 99 05/22/25 10:30 Medical Decision Making Lab Data Lab results reviewed: Yes I reviewed the patient's lab results Labs: Lab Results 05/22/25 Range/Units 09:37 WBC 11.14 H (4.50-11.00) K/uL RBC 4.32 (4.30-5.90) m/uL Hgb 13.4 L (13.5-17.5) gm/dL Hct 40.5 (37.0-53.0) % MCV 94 (80-100) fL MCH 31 (26-34) pg MCHC 33 (32-36) gm/dL RDW Coeff of Rhea 13.8 (11.5-15.5) % Plt Count 291 (140-440) K/uL Neut % (Auto) 74.6 H (42.0-72.0) % Lymph % (Auto) 13.2 L (20-44) % Stephens % (Auto) 8.4 (0.0-11.0) % Eos % (Auto) 3.1 (0.0-7.0) % Baso % (Auto) 0.3 (0.0-3.0) % Neut # (Auto) 8.30 H (1.7-7.0) K/uL Lymph # (Auto) 1.50 (0.90-2.90) K/uL Stephens # (Auto) 0.90 (0.00-0.90) K/UL Eos # (Auto) 0.30 (0.00-0.50) K/uL Baso # (Auto) 0.00 (0.00-0.30) K/uL Abs Immat Gran (auto) 0.00 (0.00-0.30) K/uL Imm/Tot Granulo (auto) 0.4 % INR 1.19 H (0.91-1.10) APTT 38 H (23-33) Seconds Sodium 137 (135-149) mmol/L Potassium 4.4 (3.6-5.1) mmol/L Chloride 105 (96-114) mmol/L Carbon Dioxide 26 (20-32) mmol/L Anion Gap 6 L (7-15) mEq/L BUN 17 (7-30) mg/dL Creatinine 0.9 (0.5-1.5) mg/dL Estimated Creat Clear 55.44 Estimated GFR 84 ml/min Glucose 95 (60-115) mg/dL Calcium 8.5 (8.4-10.6) mg/dL Magnesium 2.1 (1.5-2.6) mg/dL Total Bilirubin 1.7 H (0.1-1.5) mg/dL AST 26 (12-35) U/L ALT 16 (4-50) U/L Alkaline Phosphatase 112 (40-150) U/L Total Protein 6.9 (6.0-8.3) g/dL Albumin 3.8 (3.3-5.0) g/dL Imaging Data CT- Other: Attestation: I have reviewed the pertinent imaging results. Radiologist's impression: Patient: DIANDRA DIAZ Facility:?[facility] Patient ID:?[id number] Site Patient ID:?[id number]. Site :?[id number] Study:?CT-Head Angio 95CC ISOVUE 370 STROKE CODE-05/22/2025 9:29:49 AM Ordering Physician:?Aneta Orourke Final Report: DATE: 05/22/2025 CLINICAL HISTORY: Patient with focal neurological deficits. TECHNIQUE: Standard helical CT image acquisition through the head and neck was performed after intravenous contrast bolus enhancement. 2D and 3D MIP images for post- processing were performed and interpreted on an independent workstation and 3D images were permanently archived. COMPARISON: CT same day. FINDINGS: The origins of the great vessels from the aortic arch are patent. The origin of the right vertebral artery is patent. The origin of the left vertebral artery is patent. The common carotid arteries are patent There is no stenosis at the origin of the right internal carotid artery. There is no stenosis at the origin of the left internal carotid artery. The rest of the cervical segments of the internal carotid arteries are patent up to their intracranial segments. The intracranial segments of the internal carotid arteries are patent. The right vertebral artery is dominant. The cervical segments of the vertebral arteries are patent. The intracranial segments of the vertebral arteries are patent. The middle cerebral arteries are normal without aneurysm or proximal occlusion identified. The anterior cerebral arteries are normal without aneurysm or proximal occlusion identified. The anterior communicating artery is well visualized and appears normal. The basilar artery is normal without aneurysm or occlusion. The posterior cerebral arteries are normal without aneurysm or proximal occlusion. There is normal opacification of major intracranial venous structures. The visualized lung apices are unremarkable The thyroid gland is unremarkable. The soft tissues of the neck are unremarkable. There are degenerative changes in the cervical spine. IMPRESSION: Normal CT angiogram of the head and neck. Please note that all CT scans at this facility use dose modulation, iterative reconstruction, and/or weight-based dosing when appropriate to reduce radiation dose to as low as reasonably achievable. Dictated by Christopher Staples MD @ 05/22/2025 10:24:41 AM (Electronic Signature) ECG Data Attestation: I personally reviewed and interpreted this ECG as follows: (Ventricular paced rhythm with underlying probable atrial flutter.) Prior ECG tracings: not available for review Discharge Plan Discharge Clinical Impression: Unsteadiness on feet, Numbness and tingling Patient Disposition: Home, Self-Care Condition: Stable Instructions: Transient Ischemic Attack (ED), Paresthesia (ED) Additional Instructions: There is concern that your symptoms could have been a TIA. As per Neurology it is recommended that you take an 81 mg aspirin daily at least during the conclusion of this workup. It is recommended that you have an updated lipid panel done, hemoglobin A1c and a cardiac echo. Please make a follow-up in clin ic as soon as possible to get these things ordered. I do understand that you are on saw palmetto but highly encourage you to use the aspirin for right now. If you have recurrence of these symptoms or further stroke concerns, you need to seek emergent re-evaluation. If MR imaging of the brain is subsequently needed, we cannot do that here because you have a pacemaker and our MRI machine is not c ompatible with this. Activity Level: Activity as Tolerated Prescriptions: No Action No Known Home Medications Follow Up/Referrals: Provider,Not a Local [Primary Care Provider, Family Practice] Stand Alone Forms: MyHealth Info Instructions
--- OUTSIDE RECORDS SUMMARY | 2025-05-22 09:16 | XMS_ITS | Encounter Summary ---
Author Organization [facility] Health Address [address] [place] [address] Care Team Providers Care Mercerizing Range Controller Name Role Phone Unavailable Primary Care Provider Unavailabl e Prior Encounters DateTypeDepartmentCare JhasWkaczskzlva95/20/2020Converted CPS Chart Documents [facility] [address] [place] [address] <No scans attached>06/20/2019Converted 13x Documents [facility] [address] [place] [address] <No scans attached> Plan of Treatment Not on file Procedures Procedure NamePriorityDate/TimeAssociated DiagnosisCommentsMax ADJUST MAXILLOFACIAL PROSTHETIC APPLIANCE, BY UAECCNPebxpdu40/14/2020 12:00 AM MST INTERIM PARTIAL DENTURE (MAXILLARY)Aihrljq2408/25/2019 12:00 AM MSTTREATMENT OF COMPLICATIONS (POST-SURGICAL) - UNUSUAL CIRCUMSTANCES, BY REPORTRoutine 08/25/2019 12:00 AM MSTLIMITED ORAL EVALUATION - PROBLEM FOCUSEDRoutine 08/11/2019 12:00 AM MST5 EXTRACTION, ERUPTED TOOTH REQUIRING REMOVAL OF BONE AND/OR SECTIONING OF EFFRGSvpuywz77/12/2020 12:00 AM MST5 LIMITED ORAL EVALUATION - PROBLEM WRDZCGSVgfbfzi79/25/2020 1:00 AM MSTADDITIONAL X-RAYRoutine 07/26/2019 1:00 AM MSTSINGLE X-GZAHvyzjtl81/25/2020 1:00 AM MST5 TREATMENT OF ROOT CANAL OBSTRUCTION; NON-SURGICAL AUZWILFnsnpon96/13/2020 1:00 AM MSTLIMITED ORAL EVALUATION - PROBLEM PEXCDBEUekfuwy40/13/2020 1:00 AM MST5 ENDODONTIC THERAPY, PREMOLAR TOOTH (EXCLUDING FINAL MORMONISM)Xjchoyp2007/14/2019 1:00 AM MST5 PULP VITALITY TVBDHDryquhb83/13/2020 1:00 AM MST5 O COMPOSITE FILLING Fchbvdp9407/14/2019 1:00 AM MST5 LIMITED ORAL EVALUATION - PROBLEM FOCUSEDRoutine 06/30/2019 1:00 AM MSTCANCELLED ZZBXNNKUNGBOffzmpv06/29/2020 1:00 AM MST5 INTRA- ORAL AHQCDBARJtsblbg70/28/2020 1:00 AM MST5 PALLIATIVE TREATMENT OF DENTAL PAIN Hkbxnla5206/28/2019 1:00 AM MST5 LIMITED ORAL EVALUATION - PROBLEM FOCUSEDRoutine 06/28/2019 1:00 AM MSTADDITIONAL X-OTPDklbrow92/28/2020 1:00 AM MSTADDITIONAL X-XZWDbwydhe98/28/2020 1:00 AM MSTSINGLE X-PAAFjpxkwi52/28/2020 1:00 AM MST SINGLE X-LDUIiogyfr12/31/2019 1:00 AM MSTOFFICE VISIT FOR OBSERVATION (DURING REGULARLY SCHEDULED HOURS) - NO OTHER SERVICES VFGRXUVCKGhpcabf94/23/2019 1:00 AM MST14 CORE BUILDUP, INCLUDING ANY PINS WHEN AUBRJQBISupfepa88/10/2019 1:00 AM MST14 RETAINER CROWN - ZIRCONIA IN OFFICE - RHTDPpxwcuu41/10/2019 1:00 AM MST12 RETAINER CROWN - ZIRCONIA IN OFFICE - DNXTOyrociq24/10/2019 1:00 AM MST13 PONTIC - ZIRCONIA IN OFFICE - GBYWIefgvpd21/10/2019 1:00 AM MST23 F COMPOSITE FILLING Iulpfur3005/09/2019 1:00 AM MST10 F COMPOSITE OCZNKSVEnxjopl06/09/2019 1:00 AM MST 7 F COMPOSITE VPWSYSHLdttlhr91/09/2019 1:00 AM MST6 F COMPOSITE FILLINGRoutine 05/09/2019 1:00 AM MSTORAL HYGIENE BYYFGRWOFPZIXothixl04/05/2019 1:00 AM MST PROPHYLAXIS - YNZFMZkhbtsg18/05/2019 1:00 AM MST14 PONTIC - PFG - POSTRoutine 04/26/2019 1:00 AM MST13 PONTIC - PFG - ZEJNKmehwru39/26/2019 1:00 AM MST7 PONTIC - PFG - XZPZBlyrygg49/26/2019 1:00 AM MST6 PONTIC - PFG - POSTRoutine 04/26/2019 1:00 AM MST4 PONTIC - PFG - QDUOByxnubv41/26/2019 1:00 AM MST3 PONTIC - PFG - VBOECzqrfrp97/26/2019 1:00 AM MST13 PONTIC - PFG - POSTRoutine 04/26/2019 1:00 AM MST8 PONTIC - PFG - PGUPMnbzhxr36/26/2019 1:00 AM MST9 RETAINER CROWN - PFG - GTBZWdvqcbp66/26/2019 1:00 AM MST7 RETAINER CROWN - PFG - VHAPWucvvas40/26/2019 1:00 AM MST6 RETAINER CROWN - PFG - ABYIStebcgp09/26/2019 1:00 AM MST14 RETAINER CROWN - PFG - BTMIXmirmud85/26/2019 1:00 AM MST12 RETAINER CROWN - PFG - XWTZXsoibhx27/26/2019 1:00 AM MST15 RETAINER CROWN - PFG - CGVHYkntxah87/26/2019 1:00 AM MST5 RETAINER CROWN - PFG - POSTRoutine 04/26/2019 1:00 AM MST2 CROWN - FULL CAST HIGH SHULTZ LALNMUvuaqif81/26/2019 1:00 AM MSTCOMPREHENSIVE ORAL EVALUATION - NEW OR ESTABLISHED PATIENTRoutine 04/26/2019 1:00 AM MSTINTRAORAL - COMPREHENSIVE SERIES OF RADIOGRAPHIC IMAGES Pweucaf1104/26/2019 1:00 AM MSTINTRAORAL AFMRBEvwymwm33/26/2019 1:00 AM MST INTRAORAL ZWYFEGnezzpb91/26/2019 1:00 AM MSTINTRAORAL MWTETLwvqsge53/26/2019 1:00 AM MSTINTRAORAL OOHUSQuhwfpa35/26/2019 1:00 AM MST10 MIFL COMPOSITE FILLING Gksjqch7104/26/2019 1:00 AM MST20 DO COMPOSITE DKZTLREGuieygm02/26/2019 1:00 AM MST30 O COMPOSITE UZJQKTKXykvnhm25/26/2019 1:00 AM MST19 O COMPOSITE FILLING Ppuguff3004/26/2019 1:00 AM MST22 F COMPOSITE OKPVKJCRxikllx53/26/2019 1:00 AM MST 6 RECEMENT PGSTEYgnxchf80/02/2019 12:00 AM MST6 LIMITED ORAL EVALUATION - PROBLEM JFQMUCNVprpiwo97/02/2019 12:00 AM MSTPANORAMIC RADIOGRAPHIC IMAGERoutine 08/31/2018 12:00 AM MSTADDITIONAL X-YHRAyzqlbq97/02/2019 12:00 AM MSTSINGLE X-RMUCrjfvhd39/02/2019 12:00 AM MSTDENTAL PLAN ENROLL 7Dxmqpge39/02/2019 12:00 AM MSTINTRAORAL PZHFJEsccugv85/02/2019 12:00 AM [facility] Visit Diagnoses Not on file
--- OUTSIDE RECORDS SUMMARY | 2025-05-22 09:16 | XMS_ITS | Clinical Summary ---
Author Organization [facility] Health Address [address] [place] [address] Care Team Providers Care Botanical Technical Officer Name Role Phone Unavailable Primary Care Provider Unavailabl e Social History Tobacco UseTypesPacks/DayYears UsedDateSmoking Tobacco: Never AssessedSex and Gender InformationValueDate RecordedSex Assigned at BirthNot on fileLegal Sex Male06/22/2019 10:41 AM PSTGender IdentityNot on fileSexual OrientationNot on file Plan of Treatment Not on file
--- OUTSIDE RECORDS SUMMARY | 2025-05-22 09:16 | XMS_ITS | Clinical Summary ---
Author Organization [facility] Address [address] [place] [address] Care Team Providers Care Tower Equipment Installer Name Role Phone Department, [facility] Medical Primar y Care Provider Allergies No known active allergies Medications MedicationSigDispense QuantityRefillsLast FilledStart DateEnd DateStatus Hydrocortisone Simon, Rectal, (PROCTOCORT) 30 mg Supp Indications:External hemorrhoids with other complicationInsert 1 Suppository rectally 2 times daily. 20 Suppository ctive Active Problems ProblemNoted DateDiagnosed DateElevated prostate specific antigen (PSA) 06/11 6.2 07/18/2010Unspecified vitamin D inlcmakxxu55/17/2011[facility] 07/01/2010PUD , surgery to remove 1/2 of eewbjxb9907/01/2010External hemorrhoids with other pjohrvxvbaqw95/31/2011 Immunizations ImmunizationAdministration DatesNext DueTd (Age >=7 Years)06/14/1996 Family History Medical HistoryRelationNameCommentsHeart DiseaseFatherCHFOtherFatheralcohoic DiabetesMotherHeart DiseaseMotherCHFHypertensionMotherRelationNameStatusComments FatherMother Social History Tobacco UseTypesPacks/DayYears UsedDateSmoking Tobacco: NeverSmokeless Tobacco: NeverAlcohol UseStandard Drinks/WeekCommentsNot Asked0 (1 standard drink = 0.6 oz pure alcohol)Social ConnectionsAnswerDate RecordedFrequency of Communication with Friends and FamilyNot on file12/30/2023Sex and Gender InformationValueDate RecordedSex Assigned at BirthNot on fileLegal RnrHolg5706/14/2012 8:03 AM FLAP LINING BINDER Gender IdentityNot on fileSexual OrientationNot on file Last Filed Vital Signs Vital SignReadingTime TakenCommentsBlood Smwcnzsh729/64007/18/2010 9:30 AM FLAP LINING BINDER Pulse--Zmgdwjwqqqi10.8 ??C (98.2 ??F)07/18/2010 9:30 AM CSTRespiratory Rate-- Oxygen Saturation--Inhaled Oxygen Concentration--Bmixjl47.6 kg (182 lb) 07/18/2010 9:30 AM ECKNtozjn416.7 cm (5' 8)07/01/2010 9:18 AM CSTBody Mass Index27.67007/01/2010 9:18 AM FLAP LINING BINDER Plan of Treatment Health MaintenanceDue DateLast DoneCommentsDepression screening for age 12+ 1952MI (ht and wt on same day) for age 18+01/31/1958Pneumococcal series for age 50+ (1 of 1 - PCV)01/31/1990Zoster (shingles) series for age 50+ (1 of 2)01/31/1990Medicare Wellness for age 65+01/31/2005Tetanus dfsjlee3806/14/2006 06/14/1996RSV vaccine for adults or (1 - 1-dose 75+ series)01/31/2015 COVID-19 vaccine series ( - 2024- season)2025Influenza Vaccine (#1) 2025Hepatitis B series for 19+Aged OutNo longer eligible based on patient's age to complete this topic Insurance Care Teams Team MemberRelationshipSpecialtyStart DateEnd Date Department, [facility] Medical PCP - Ynftoaf73/6/24
--- OUTSIDE RECORDS SUMMARY | 2025-05-22 09:16 | XMS_ITS | Clinical Summary ---
Author Organization [facility] Address [address] [place] [address]. 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 Complete AV block Overview (05/05/2014): S/p dual-chamber pacemaker 02/15/2013 Resolved Problems ProblemNoted DateDiagnosed DateResolved DateSyncope and xhfeodnh01/16/2013 05/05/2014Transient complete heart blockComplete heart block, iazpjqbnv79radycardia11/15/2019 Family History Medical HistoryRelationCommentsFamily History NegativeDaughterC.A.D.Father 83 yo CHF,strokesDiabetesMotherdeceased 86 yo CHFC.A.D.Sister 1deceased 66 yo CHFObesitySister 2CeliacObesitySister 3Family History NegativeSon 1Family History NegativeSon 2Family History NegativeSon 3deceased MVARelationStatus CommentsDaughterFatherMotherSister 1Sister 2Sister 3Son 1Son 2Son 3 Social History Tobacco UseTypesPacks/DayYears UsedDateSmoking Tobacco: WfylhhGfwigaonbo8Szaj: 02/21/1967Smokeless Tobacco: Never Tobacco Cessation:Counseling Given: Yes Alcohol UseStandard Drinks/WeekCommentsYes0 (1 standard drink = 0.6 oz pure alcohol)moderateAdolescent EducationAnswerDate RecordedGetting School Help NeededNot on file03/08/2023Sex and Gender InformationValueDate RecordedSex Assigned at BirthNot on fileLegal AhsZgqo74/04/2012 3:09 AM CSTGender Identity Not on fileSexual OrientationNot on file Last Filed Vital Signs Vital SignReadingTime TakenCommentsBlood Vjdnmkbt253/7206 1:12 PM CDT Onerx394511/04/2018 1:12 PM DMUOckfsffcrlu98.3 ??C (99.2 ??F)06/01/2014 3:14 PM CSTRespiratory Ajlr058706/01/2014 8:01 PM CSTOxygen Kqzdonypjy54%04/08/2017 9:05 AM CSTInhaled Oxygen Concentration--Mabclq37.9 kg (174 lb)11/04/2018 1:12 PM CDT Yvauue187.7 cm (5' 8)11/04/2018 1:12 PM CDTBody Mass Index26.4606 1:12 PM CDT Plan of Treatment Not on file Medical Devices ImplantedTypeAreaManufacturerDevice IdentifierShelf Expiration DateModel / Serial / LotSt Miguel Med* 2087tc Tendril Sts [id number] Implanted:02/15/2013 (Quantity not on file)LeadsST MIGUEL MEDICAL [id number] TENDRIL STS / [id number] / [employer]* 2087tc [employer]ril [employer] [id number] Implanted:02/15/2013 (Quantity not on file)LeadsST MIGUEL MEDICAL [id number] TENDRIL STS / [id number] / [employer]* [employer] [id number] Implanted:02/15/2013 (Quantity not on file)PacemakerST MIGUEL MEDICAL [id number] ELIZABETH CONNORS / [id number] / Insurance Advance Directives For more information, please contact: [phone] * Full Code (Latest Code Status on File) Date ActivatedDate InactivatedComments02/16/2013 11:22 AM * Full Code Date ActivatedDate InactivatedComments02/14/2013 11:17 PM02/16/2013 11:22 AM * Full Code Date ActivatedDate InactivatedComments07/31/2011 8:42 AM02/14/2013 11:17 PM * Full Code Date ActivatedDate InactivatedComments07/30/2011 4:29 PM07/31/2011 8:42 AM Care Teams Team MemberRelationshipSpecialtyStart DateEnd Date Chandana Fleming MD [facility] [id number] [place] [id number] PCP - GeneralFamily Practice02/03/19
--- NOTE | 2025-05-22 09:36 | RESP.RT ---
Patient arrived by EMS. ED Stroke Call. On Room air, RR 18-22/minute, SaO2 reported in mid 90's% on .21, Breathing regular/easy. Patient alert, orientated, good clear voice.
[2025-05-22 09:44] LABS: Hematocrit* 40.5 % (37.0-53.0); Hemoglobin* 13.4 gm/dL (13.5-17.5); Immature Granulocytes Pct Auto 0.4 %; Mean Corpuscular HGB Conc 33 gm/dL (32-36); Mean Corpuscular Hemoglobin 31 pg (26-34); Mean Corpuscular Volume 94 fL (80-100); RDW Coefficient of Variation % 13.8 % (11.5-15.5); Red Blood Count* 4.32 m/uL (4.30-5.90); White Blood Count* 11.14 K/uL (4.50-11.00)
[2025-05-22 09:49] LABS: Immature Granulocytes Abs Auto 0.00 K/uL (0.00-0.30); Lymphocytes Absolute Auto 1.50 K/uL (0.90-2.90); Slide Review Reflex No
[2025-05-22 09:58] LABS: Albumin* 3.8 g/dL (3.3-5.0); Chloride* 105 mmol/L (96-114)
[2025-05-22 09:59] LABS: Potassium* 4.4 mmol/L (3.6-5.1); Sodium* 137 mmol/L (135-149)
[2025-05-22 10:01] LABS: Alanine Aminotransferase* 16 U/L (4-50); Anion Gap 6 mEq/L (7-15); Blood Urea Nitrogen* 17 mg/dL (7-30); Carbon Dioxide* 26 mmol/L (20-32); Creatinine* 0.9 mg/dL (0.5-1.5); Est. Creatinine Clearance* 55.44; Estimated Glomerular Filt Rate 84 ml/min; INR 1.19 (0.91-1.10); Prothrombin Time 16.0 Seconds
[2025-05-22 10:02] LABS: Alkaline Phosphatase* 112 U/L (40-150); Aspartate Amino Transferase* 26 U/L (12-35); Bilirubin Total* 1.7 mg/dL (0.1-1.5); Calcium* 8.5 mg/dL (8.4-10.6); Glucose* 95 mg/dL (60-115); Total Protein* 6.9 g/dL (6.0-8.3)
--- OUTSIDE RECORDS SUMMARY | 2025-05-22 10:13 | XMS_ITS | Data Portability ---
Author Organization [place] - [facility], autoContract - [employer] [facility] Address [address] [facility] [address] [place] [address] Assessment Encounter Date Assessment Date Assessment LastModified by Organization Details LastModified Time 09/26/2024 09/26/2024 ASSESSMENT: Patient is a good candidate for conservative care and the prognosis is for a favorable outcome thatachieves the patients' goals. We discussed etiology, activity modifications, home care, and other treatment options. Initially, it is recommended that the patient receive in-office treatment 1 times per week for 8 weeks at which time a re-evaluation will be performed to determine an appropriate change in plan. Initially, treatment will focus on joint manipulation to restore range of motion and reduce pain. We will slowly progress to therapeutic exercises and activities to improve function, strength, and stability may also be used as warranted. If the patient is not responding as expected, more invasive procedures will be discussed along with a referral. All considerations above were discussed with the patient and questions answered to satisfaction. If the patient should have any additional questions, or should the condition evolve or worsen, the patient should not hesitate to contact our office. [id number] jjifvwdsn96/28/2025 12:12:20 Plan of Treatment Reminders Order DateSubmit DateProviderLast Modified ByOrganization DetailsLast Modified TimeDetailsAppointmentsNone recorded.LabNone recorded.ReferralNone recorded. ProceduresNone recorded.SurgeriesNone recorded.ImagingNone recorded.Medication OrdersNone recorded. Patient TargetsNo targets recorded. Patient InstructionsNo instructions recorded. Reason for Referral None Reported. Problems Name Problem SNOMED Code Status Onset Date Resolution Date Notes Provider Name and Address Organization Details Recorded Time Low back pain 980778795 Active 09/26/2024 Jeremias Morrison DC [address] [facility], [place], [address], [facility]09/26/2024 12:12:21Somatic dysfunction of sacral spine [id number]/28/2025Jeremias Morrison AR [address] [facility], [place], [address], [facility]09/26/2024 12:12:21Lumbar segmental [id number] Vwiqim3909/26/2024Jeremias Morrison AR [address] [facility], [place], [address], [facility]09/26/2024 12:12:21Thoracic segmental [id number] Vbofas4609/26/2024Jeremias Morrison AR [address] [facility], [place], [address], [facility]09/26/2024 12:12:21 Problem Notes None recorded. Procedures Surgical History Date Name Laterality Status Provider Name and Address Organization Details Recorded Time 09/26/2024 67191: Spinal manipulation, 3 to 4 regions completedJeremias Morrison DC [address] [facility], [place], [address], [facility]09/26/2024 12:29:39 Imaging Results None recorded. Procedure Notes None recorded. Medical Equipment None Reported. Vitals None Recorded Social History None recorded. Functional Status None recorded. Mental Status None recorded. Family History Nothing Reported. Medical History No medical history recorded. Past Encounters Encounter ID Performer Location Encounter Start Date Encounter Closed Date Diagnosis/Indication Diagnosis SNOMED-CT Code Diagnosis ICD10 Code Diagnosis IMO Codes Diagnosis Note [id number] Jeremias Morrison [facility] [address] [place] [address] [place] [address] 09/26/2024 11:48:50 09/26/2024 13:00:50 Lumbar segmental dysfunction [id number] M99.03 Low back [id number] Somatic dysfunction of sacral bstge484794495X14.04 Thoracic segmental sstjfvlyshc463220892U09.02 Health Concerns Section Related Observation LastModified by Organization Detai ls LastModified Time None Recorded Concern Status LastModified by Organization Details LastModified Time None Recorded Advance Directives Directive None Recorded Payers Insurance Date Sequence Insurance Name Policy Number Policy Jaeger Covered Member ID Jaeger Member ID Guarantor Name 09/26/2024 1 [employer] (MEDICARE REPLACEMENT /ADVANTAGE - PPO) Oscar De Leon [id number] Bandar Notes Date Note Type Note Provider Name and Address Organization Details Recorded Time 09/26/2024 text/html HPI - Lumbar SpineReported by PatientHPIFor location, patient reportsleft. For quality, patient reportsaching. For severity, patient reportsmoderate. For timing, patient reportsmorning. For aggravating factors, patient reportswalking,lift ing,carrying, andtwisting. For alleviating factors, patient reportsrest. Jeremias Morrison DC [address] [place] [address], [place], [address], [facility] 09/26/2024 12:29:56
== END 2025-05-22 11:49 | disposition home or self-care (01) ==
PROVIDERS: Emergency Provider Family Medicine
DX: R20.2 Paresthesia of skin (principal); R29.818 Other symptoms and signs involving the nervous system; R26.81 Unsteadiness on feet; Z95.0 Presence of cardiac pacemaker; Z51.81 Encounter for therapeutic drug level monitoring
CPT/HCPCS: 36415; 70450; 70496; 70498; 80053; 83735; 85025; 85610; 85730; 93005; 94761; 99284; 99291; Q9967